=== PATIENT | female | born 1955 | race Caucasian/White ===

== ENCOUNTER → 2017-07-14 13:57 | Outpatient (CLI) | payer OTHER, SELFPAY ==
--- NOTE | 2017-07-14 14:07 | BI_ITS ---
MAMMOGRAPHY - BILATERAL DIAGNOSTIC REASON FOR EXAM: Female, 62 years old. Left breast larger than the right. Left axillary soreness. History of right breast lumps. PERTINENT HISTORY: Non-contributory. TECHNIQUE: Digital bilateral breast cristofer (3D mammographic acquisition) in the CC and MLO projections. 2-D mediolateral oblique (MLO) and craniocaudad (CC) views of both breasts were obtained. CAD: Full Field Digital Mammography with Computer Added Detection was performed. COMPARISON: Comparison is made with prior study dated August 13, 2016. FINDINGS: Breast Composition: There are scattered areas of fibroglandular density. There are no dominant masses or suspicious calcifications. There is a 2.7 mm x 2.3 mm nodule in the upper central portion of the right breast. This may present a small cyst. No other significant abnormalities are identified. There has been no significant change since the prior study. BI/DIAG MAMM W/CAD, BILAT IMPRESSION: Stable bilateral diagnostic mammogram. With the patient's history of a palpable abnormality in the right breast, correlation with ultrasound is recommended. ASSESSMENT CATEGORY: BIRADS Category 0: Incomplete. Need additional imaging evaluation. A letter regarding these results will be sent to the patient by the facility within 30 days. Approximately 10% of breast cancers are not detected by mammography. A normal mammogram should not delay biopsy of a clinically suspicious abnormality. Electronically Signed: Demetrio Johnson MD at 8:27 EDT Tel [phone], Service support ,
--- NOTE | 2017-07-14 15:01 | US_ITS ---
STUDY: ULTRASOUND BREAST - RIGHT REASON FOR EXAM: Female, 62 years old. Palpable lump in the right breast. TECHNIQUE: Axial and longitudinal images of the RIGHT breast were performed with a high resolution ultrasound transducer. COMPARISON: Comparison is made with prior mammogram done earlier in the day. FINDINGS: RIGHT Breast: The upper inner quadrant was examined by ultrasound. There is a homogeneous fibroglandular tissue. No solid or cystic mass lesion is seen. US/Breast Limited Unilateral IMPRESSION: Unremarkable sonogram of the upper inner quadrant of the right breast. ASSESSMENT CATEGORY: BIRADS Category 1: Negative. A letter regarding these results will be sent to the patient by the facility within 30 days. Electronically Signed: Demetrio Johnson MD at 15:41 EDT Tel [phone], Service support ,
== END ==
PROVIDERS: Family Provider Family Medicine; PCP Family Medicine; Visit Provider Family Medicine
DX: N63.0 Unspecified lump in unspecified breast (principal)
CPT/HCPCS: 76642; 77062; 77066; G0279

== ENCOUNTER → 2017-07-15 09:20 | Outpatient (CLI) | payer OTHER, SELFPAY ==
[2017-07-15 11:20] LABS: ALB/GLOB Ratio 1.1 RATIO (0.9-2.4); AST(SGOT) 13 U/L (15-37); Alanine Aminotransfer ALT/SGPT 17 U/L (13-56); Albumin, Serum 3.9 g/dL (3.2-5.0); Alkaline Phosphatase 96 U/L (45-117); Anion Gap 11 (5-15); BUN 18 mg/dL (7-18); BUN/Creat Ratio 23.6 RATIO (10-20); Calcium,Total 9.2 mg/dL (8.5-10.1); Chloride 101 mmol/L (98-107); Cholesterol 112 mg/dL (200); Creatinine, Serum 0.76 mg/dL (0.55-1.02); EST Glomerular Filtration Rate 81 mL/min (>60); Est Glom Filt Rate - Afr Amer 98 mL/min (>60); Globulin 3.4 g/dL (2.2-4.2); Glucose 134 mg/dL (74-106); High Density Lipoprotein 37 mg/dL; Potassium 4.1 mmol/L (3.5-5.1); Protein, Total 7.3 g/dL (6.4-8.2); Sodium Level 137 mmol/L (136-145); Thyroid Stim Hormone (TSH) 0.68 uIU/mL (0.358-3.74); Triglycerides 154 mg/dL; Very Low Density Lipoprotein 31 mg/dL (5-40)
[2017-07-16 10:33] LABS: Microalbumin,Random Urine 26.1 mg/L (NO RANGE EST.); Microalbumin:Creatinine Ratio 14.6 mg/g CRE (<30 mg/g CRE)
== END ==
LOC: MFPLAB 09:21
PROVIDERS: Family Provider Family Medicine; PCP Family Medicine; Visit Provider Family Medicine
DX: E03.9 Hypothyroidism, unspecified (principal); E78.5 Hyperlipidemia, unspecified; I10 Essential (primary) hypertension; E11.9 Type 2 diabetes mellitus without complications
CPT/HCPCS: 36415; 80053; 80061; 82043; 82570; 83036; 84443

== ENCOUNTER → 2017-07-16 09:24 | Outpatient (CLI) | payer OTHER, SELFPAY | PROVIDERS: Family Provider Family Medicine; PCP Family Medicine; Visit Provider Family Medicine | DX: R69 Illness, unspecified (principal) ==

== ENCOUNTER → 2017-10-29 11:19 | Outpatient (CLI) | payer OTHER, SELFPAY ==
--- NOTE | 2017-10-29 11:22 | RAD_ITS ---
STUDY: X-RAY - LEFT WRIST REASON FOR EXAM: Female, 62 years old. Pain and swelling after lifting weights. TECHNIQUE: History view(s) of the wrist were obtained. COMPARISON: None. FINDINGS: Normal visualized distal radius and ulna. Normal radiocarpal articulation. Normal distal radioulnar articulation. Normal carpal bones. Normal carpal articulations. Normal carpometacarpal articulation of the thumb. Normal second through fifth carpometacarpal articulations. Normal visualized metacarpal bones. No erosions. The soft tissue structures are unremarkable. RAD/Wrist min 3 Views IMPRESSION: Normal x-ray examination of the wrist. Electronically Signed: Coleman Whitehead MD at 8:09 EDT , Service support ,
== END ==
PROVIDERS: Family Provider Family Medicine; PCP Family Medicine; Visit Provider Family Medicine
DX: M25.532 Pain in left wrist (principal)
CPT/HCPCS: 73110

== ENCOUNTER → 2017-12-15 12:23 | Outpatient (CLI) | payer OTHER, SELFPAY ==
--- NOTE | 2017-12-15 12:27 | MRI_ITS ---
STUDY: MRI LEFT WRIST WITHOUT CONTRAST REASON FOR EXAM: Female, 62 years old. Wrist pain x6 weeks TECHNIQUE: Standardized fat and water weighted pulse sequences were obtained in all 3 orthogonal planes. COMPARISON: October 29, 2017. FINDINGS: Normal visualized distal ulna. Mild edema of the radial styloid, series 4 image 14/21. Normal distal radioulnar Articulation (DRUJ). Normal triangular fibrocartilaginous complex (TFCC). Normal carpal bones. Normal radiocarpal, intercarpal and midcarpal articulations. Normal pisotriquetral articulation. Normal visualized interosseous scapholunate ligament. Normal visualized dorsal (extrinsic) ligaments. Normal visualized volar (extrinsic) ligaments. Tenosynovitis of the extensor pollicis brevis and abductor pollicis longus with fluid in the sheath and thickening of the tendons, series 6 images through . Normal flexor tendons. Normal carpal tunnel with a normal median nerve. There is degenerative arthrosis of the carpometacarpal articulation of the thumb with mild radial subluxation of the first metacarpus. Normal second through fifth carpometacarpal articulations. Normal visualized metacarpal bones. MRI/Upper Ext Joint Only(Routine) IMPRESSION: De Quervain's tenosynovitis of the extensor pollicis brevis and abductor pollicis longus. Marrow edema with stress injury or bruising of the adjacent radial styloid. Electronically Signed: Efe Tejada MD at 11:15 EDT , Service support ,
== END ==
PROVIDERS: Family Provider Family Medicine; PCP Family Medicine; Visit Provider Family Medicine
DX: M25.532 Pain in left wrist (principal)
CPT/HCPCS: 73221

== ENCOUNTER 2018-01-13 09:00 | Outpatient (RCR) | payer OTHER, SELFPAY ==
--- NOTE | 2017-11-10 15:24 | HP.OTEVAL ---
Patient's Visit Information JAHAIRA STEVENS is a 62 year old F, referred to Occupational Therapy by Kannan Knowles, with a diagnosis of L wrist pain. Date of Evaluation: 11/10/17 Occupational Therapist: Karine Golden - Subjective Subjective: Pt. arrived noted that she ' woke up one morning and it hurt.' She noted its been ongoing for 3 weeks. 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 She noted she works out at [employer] and would like to get back. Also noted that she might have completed injury there but does not know what caused pain.x-rays completed and indicated no fx. Does have h/o osteoporosis and multiple fx as a result. - Pain Left Wrist 4 Pain Intensity Range: 2, 5 - ROM Wrist: flexion R 0-76, L 0-70; ext R 0-45, L 0-33 MP: WFL PIP: WFL DIP: WFL ROM Comments: rad dev R 0-10, L 0-4; ulnar dev R 0-30, L 0-16. sup R WNL, L 0-88 - Strength Joint Filler: R 53, L 14 Lateral Pinch: R 17, L 9 Tripod Pinch: R 18, L 10 Tip-to-Tip Pinch: R 12, L 10 - Edema Proximal Phalanx: MF R 7.3 cm, L 7.7 cm - Sensation Sensation Comments: notes some numbness off/on. 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 Goal:: Jahaira to increased L wrist ROM in pain free range to that within 5 degrees of R nonaffected hand by d/c. Goal:: Jahaira to have no more than 1-2/10 pain 4/5 trials 80% of the time to promote increased ability to return to PLOF by d/c. Goal:: Jahaira to be mod I to complete proper body mechanics of L wrist to decrease risk of further or reinjury 4/5 trials 80% of the time by d/c. Goal:: Jahaira to be (I) to complete all ADL/IALDs including yardwork 4/5 trials 80% of the time with minmal pain and good body mechanics to increased ability to return to PLOF by d/c. - Rehabilitation General Assessment: Jahaira arrived for OT evaluation on this day. She has h/o of osteoporsis. Pain started three weeks ago. She is unsure of caus eof pain. X-rays indicate no fracture. Increased symptoms of pain with movement especially radial and ulnar deviation and pro/supination. Strength limited on L UE at this time. Some numbness and tingling which was not there as per Pt. report prior to injury. OT to work on progress ROM, strength, and ability to return to PLOF with minimal pain and discomfort. Rehabilitation Potential: Good - Anticipated Interventions Anticipated Interventions: A/AAROM/PROM, Strengthening, Edema Control, Modalities, Orthoses, Joint Protection/Energy Conservation, Ergonomic Education, Fine Motor Coord/Nilson, ADL Training, Caregiver Training, Home Program - Visit Plan Frequency: 2x /Week Duration: 4 Weeks General Plan: OT to work on edema redurection, ergonomics of wrist, splint fabircation, strength, ROM, and abilityt o return to compelting all ADl/IADLs at PLOF. TEXT: Thank you for the opportunity to evaluate your patient. For Medicare and Medicare HMO plans, please review the plan of care and approve it. It will need to be FAXED BACK to us at [phone] for Medicare purposes. Please let me know if there are questions or concerns regarding this plan of care. Physician Signature: Date:
--- NOTE | 2017-11-21 14:25 | HP.OTREVAL ---
Kannan Knowles, It has been my pleasure to treat JAHAIRA STEVENS over the last 5 visits for L wrist pain. Please see the progress note below for an update on the occupational therapy plan of care! Subjective: Arrived and noted pain is significant. She noted that she gets sharp, very , very sharp pain all over wrist. She feels pain is bone related pain. She is unsure cause of injury. Objective/Function: Completed measurements on this date: ROM R hand WNL, L for wrist flexion R 0-36, ext R 0-36 degrees. Completed strength testing and is as follows: engineer byproduct R 57, L 32; lateral R 17, L 13; tripod R 16, L 8 lbs. She did test positive for Kaitlin with the potential of de quervains. However, due to increased pain dispersion over wrist and when palpated over carpal bones as well as PMHx would be beneficial for further testing. Plan Frequency: 2x /Week Duration: 4 Weeks Visits in this POC: 8 Plan: Will be holding treatment until going back to see Dr. Ratliff. Due to continued significant pain and history of osteoporosis it would be benefical and strongly recommended that further imaging, such as MRI, be completed. Provacative testing completed and kaitlin did test positive which is potentially indicative of De Quervains but due to increased pain t/o wrist and over miky prominences and around scaphoid futher testing needed to rule out any underlying fractures or soft tissue related damage. Goals - Goals Goal:: Jahaira to increase L engineer byproduct strength by 25 lbs to promote increased ability to complete B hand manipulation and coordiantion tasks 4/5 trials 80% of the time by d/c. Goal:: Jahaira to increased L wrist ROM in pain free range to that within 5 degrees of R nonaffected hand by d/c. Goal:: Jahaira to have no more than 1-2/10 pain 4/5 trials 80% of the time to promote increased ability to return to PLOF by d/c. Goal:: Jahaira to be mod I to complete proper body mechanics of L wrist to decrease risk of further or reinjury 4/5 trials 80% of the time by d/c. Goal:: Jahaira to be (I) to complete all ADL/IALDs including yardwork 4/5 trials 80% of the time with minmal pain and good body mechanics to increased ability to return to PLOF by d/c. Anticipated Interventions Anticipated Interventions: A/AAROM/PROM, Strengthening, Edema Control, Modalities, Orthoses, Joint Protection/Energy Conservation, Ergonomic Education, Fine Motor Coord/Nilson, ADL Training, Caregiver Training, Home Program Please do not hesitate to contact me at [phone] by phone or if you have questions or concerns regarding this new plan of care! Sincerely, Karine Golden
--- NOTE | 2018-01-08 10:22 | OTREVAL_ITS ---
Kannan Knowles, It has been my pleasure to treat JAHAIRA STEVENS over the last 8 visits for L wrist pain. Please see the progress note below for an update on the occupational therapy plan of care! Subjective: Arrived and noted that needed splint adjusted. Noted that since last time seen has gotten MRI and 2x cortisone injections. MRI confirmed De Quervians as well as some additional bone marrow narrowing. First cortisone injections 2x weeks ago and second one was Friday. Noted after first injection was 85% better and got second due to starting to have same edema and symptoms. 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 ROM measurements is as follows: Wrist. - flexion R WNL, L 0-20- until pain is significant and cannot move past position. - extension R WNL, L 0-30- pain significant with movement at 8/10. Thumb: -radial abduction R WNL, L 0-29. - MP flexion R WNL, L 0-35. IP flexion R WNL, L -14 (hyper ext)- 54. Pain is significant in resting position and increases with movement. Increased grimaces and pain behaviors with light touch to skin. Increased sensitivity over skin. Denies numbness and tingling. Plan Frequency: 2x /Week Duration: 4 Weeks Visits in this POC: 8 Plan: Continue POC. She is to come to therapy for 1x weekly appointments for next 6 weeks to try and manage pain and for splint adjustments. Insurance will renew at beginning of year and she would like to try and manage pain during the next couple of months. If pain persists it may be benefical to see hand specialist. 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 Goal:: Jahaira to increased L wrist ROM in pain free range to that within 5 degrees of R nonaffected hand by d/c. Goal:: Jahaira to have no more than 1-2/10 pain 4/5 trials 80% of the time to promote increased ability to return to PLOF by d/c. Goal:: Jahaira to be mod I to complete proper body mechanics of L wrist to decrease risk of further or reinjury 4/5 trials 80% of the time by d/c. Goal:: Jahaira to be (I) to complete all ADL/IALDs including yardwork 4/5 trials 80% of the time with minmal pain and good body mechanics to increased ability to return to PLOF by d/c. Anticipated Interventions Anticipated Interventions: A/AAROM/PROM, Strengthening, Edema Control, Modalities, Orthoses, Joint Protection/Energy Conservation, Ergonomic Education, Fine Motor Coord/Nilson, ADL Training, Caregiver Training, Home Program Please do not hesitate to contact me at [phone] by phone or if you have questions or concerns regarding this new plan of care! Sincerely, Karine Golden
--- NOTE | 2018-02-02 11:03 | HP.OT.NRP ---
HP - Discharge Summary - Patient Information VERO STEVENS was seen in my office for initial evaluation on 11/10/17. The following Plan of Care was established for this patient: Initial Frequency: 2x /Week Initial Duration: 4 Weeks Plan: continue POC. Looking into seeing a sspecialist. - Anticipated Interventions Anticipated Interventions: A/AAROM/PROM, Strengthening, Edema Control, Modalities, Orthoses, Joint Protection/Energy Conservation, Ergonomic Education, Fine Motor Coord/Nilson, ADL Training, Caregiver Training, Home Program This patient was last seen in our office 01/13/18. Pertinent comments regarding their Occupational therapy will appear below: Pt. was to continue treatment. Called and she noted she is doing better and will not be returning. She will be d/c'd at this time. At this point I will be discontinuing this patient from occupational therapy. I would be happy to see this patient again in the future if found appropriate by the physician. Thank you! Karine Golden
== END 2018-01-13 19:00 | disposition home or self-care (01) ==
LOC: OT 09:00
PROVIDERS: Family Provider Family Medicine; PCP Family Medicine; Visit Provider Family Medicine
DX: M25.532 Pain in left wrist (principal)
CPT/HCPCS: 97035; 97110; 97166; 97168; 97530; 97760; 97763

== ENCOUNTER → 2018-07-21 | Outpatient (CLI) | payer MEDICARE, SELFPAY ==
--- NOTE | 2018-07-21 07:34 | BI_ITS ---
MAMMOGRAPHY - BILATERAL SCREENING 3-D TOMOSYNTHESIS REASON FOR EXAM: Female, 63 years old. Bilateral Screening 3-D tomosynthesis PERTINENT HISTORY: No significant family history. TECHNIQUE: 2-D mammograms and 3-D Tomosynthesis of the breast (s) were performed. CAD was performed. COMPARISON: July 14, 2017. FINDINGS: The breast composition is composed of scattered fibroglandular density. Scattered benign calcifications are seen. No dense spiculated masses or suspicious microcalcifications are identified. No architectural distortion is identified. There is no skin thickening or retraction. There has been no significant change since the prior study. BI/SCREENING MAMM (CAD), BILAT IMPRESSION: No mammographic signs of malignancy. Routine yearly mammograms recommended. ASSESSMENT CATEGORY: BIRADS Category 1: Negative. A letter regarding these results will be sent to the patient by the facility within 30 days. FOLLOW UP RECOMMENDATION: Yearly follow up mammogram recommended. (A) Approximately 10% of breast cancers are not detected by mammography. A normal mammogram should not delay biopsy of a clinically suspicious abnormality. Electronically Signed: Blake Calles MD at 12:16 EDT , Service support ,
== END | disposition home or self-care (01) ==
LOC: OPBI 07:33
PROVIDERS: Family Provider Family Medicine; PCP Family Medicine; Referring Provider Family Medicine; Visit Provider Family Medicine
DX: Z12.31 Encounter for screening mammogram for malignant neoplasm of breast (principal); N63.0 Unspecified lump in unspecified breast
CPT/HCPCS: 77063; 77067

== ENCOUNTER → 2018-10-08 | Outpatient (CLI) | payer MEDICARE, SELFPAY ==
[2018-10-08 12:42] LABS: Absolute Lymphocyte Count 2.01 X10^3/ul (0.83-4.51); Absolute Neutrophil Count 4.7 X10^3/uL (2.0-7.7); Basophil# 0.01 X10^3/uL; Basophil% 0.1 % (0-1); Eosinophils% 1.4 % (0-5); Hematocrit 39.7 % (37-47); Hemoglobin 13.4 g/dl (12.0-15.0); Lymphocyte # 2.01 X10^3/ul (4.0); Lymphocyte % 27.2 % (19-41); Mean Corp Hgb Conc 33.8 g/gl (32-36); Mean Corpuscular Hgb 30.5 pg (27.0-32.0); Mean Corpuscular Volume 90.4 fL (81-99); Mean Platelet Vol. 10.1 fl (6.2-12.0); Monocyte# 0.53 X10^3/uL; Monocyte% 7.2 % (0-10); Neutrophil # 4.72 X10^3/uL (2.7-7.7); Neutrophil % 63.8 % (47-70); Platelet Count 290 K/mm3 (150-450); RBC Distribution Width CV 12.8 % (11.6-14.6); RBC Distribution Width SD 42.1 fl (35.1-43.9); Red Blood Count 4.39 M/mm3 (4.2-5.4); White Blood Count 7.4 K/mm3 (4.4-11.0)
[2018-10-08 12:58] LABS: POSITIVE COUNT NO; POSITIVE DIFFERENTIAL NO; POSITIVE MORPHOLOGY NO
[2018-10-08 13:03] LABS: ALB/GLOB Ratio 1.2 RATIO (0.9-2.4); AST(SGOT) 9 U/L (15-37); Alanine Aminotransfer ALT/SGPT 18 U/L (13-56); Albumin, Serum 3.9 g/dL (3.2-5.0); Alkaline Phosphatase 86 U/L (45-117); Anion Gap 6 (5-15); BUN 16 mg/dL (7-18); BUN/Creat Ratio 23.8 RATIO (10-20); Calcium,Total 9.1 mg/dL (8.5-10.1); Chloride 104 mmol/L (98-107); Creatinine, Serum 0.67 mg/dL (0.55-1.02); EST Glomerular Filtration Rate 94 mL/min (>60); Est Glom Filt Rate - Afr Amer 113 mL/min (>60); Globulin 3.2 g/dL (2.2-4.2); Glucose 114 mg/dL (74-106); Potassium 3.7 mmol/L (3.5-5.1); Protein, Total 7.1 g/dL (6.4-8.2); Sodium Level 137 mmol/L (136-145); Thyroid Stim Hormone (TSH) 0.66 uIU/mL (0.358-3.74)
== END | disposition home or self-care (01) ==
PROVIDERS: Family Provider Family Medicine; PCP Family Medicine; Referring Provider Family Medicine; Visit Provider Family Medicine
DX: R53.81 Other malaise (principal); R53.83 Other fatigue
CPT/HCPCS: 36415; 80053; 84443; 85025

== ENCOUNTER → 2018-11-02 | Outpatient (CLI) | payer MEDICARE, SELFPAY ==
--- NOTE | 2018-11-02 17:00 | STRESSREP ---
Stress Test Report Date: 11-02-18 Procedure: Exercise tolerance test/imaging study Indications: Shortness of breath/dyspnea; fatigue Consent: Per the patient Procedure: The patient exercised on a Satinder protocol for 6 minutes completing stage II achieving a peak heart rate of 142 bpm (91 % predicted maximal heart rate) with a peak blood pressure 202/60 mmHg and a peak MET capacity of 7 METs. The baseline ECG demonstrated normal sinus rhythm. The peak exercise ECG demonstrated somatic/motion artifact with no obvious ECG changes. There were no cardiac dysrhythmias pretest, during exercise, or recovery. The functional capacity was considered average. There was no complaint of chest discomfort during exercise or recovery. The examination was discontinued secondary to dyspnea. Impression: 1. Technically adequate (percent predicted maximal heart rate greater than 85%) exercise tolerance test 2. Peak exercise ECG with somatic/motion artifact with no obvious ECG changes 3. There were no cardiac dysrhythmias pretest, during exercise, or recovery 4. Nuclear images pending Myocardial perfusion imaging study: Technique: The patient was injected with 12.0 mCi of technetium 99m Cardiolite and subsequently rest SPECT Cardiolite nuclear imaging was obtained in the horizontal long, vertical long, and short axis views. The patient exercised on a Satinder protocol for 6 minutes completing stage II achieving a peak heart rate of 142 bpm (91 % predicted maximal heart rate) with a peak blood pressure 202/60 mmHg and a peak MET capacity of 7 METs. The patient was injected with 35.8 mCi of technetium 99m Cardiolite and subsequently stress SPECT Cardiolite nuclear imaging was obtained in the horizontal long, vertical long, and short axis views. A gated Cardiolite study at peak stress was obtained. Interpretation: Rest and stress SPECT Cardiolite nuclear imaging status post realignment, normalization, and attenuation correction, demonstrates the appearance of relative uniform tracer uptake and myocardial perfusion appearing within normal limits. There is end systolic thickening and brightening. The gated Cardiolite study demonstrates myocardial thickening and inward wall motion. The reported LVEF is 79 %. Impression: 1. Rest and stress SPECT Cardiolite nuclear imaging demonstrate relative uniform tracer uptake and myocardial perfusion appearing within normal limits. 2. The gated Cardiolite study reports an LVEF of 79 %. This note was generated with [employer] software. It may contain incorrect words, spelling, and punctuation that were not noted in checking the note before signing.
== END | disposition home or self-care (01) ==
LOC: CVS 06:25
PROVIDERS: Family Provider Family Medicine; PCP Family Medicine; Referring Provider Family Medicine; Visit Provider Family Medicine
DX: R06.02 Shortness of breath (principal); R68.89 Other general symptoms and signs
CPT/HCPCS: 78452; 93017; A9500; A4216

== ENCOUNTER → 2019-02-08 09:47 | Outpatient (CLI) | payer MEDICARE, SELFPAY ==
[2019-02-08 13:08] LABS: Anion Gap 11 (5-15); BUN 15 mg/dL (7-18); BUN/Creat Ratio 19.9 RATIO (10-20); Calcium,Total 9.4 mg/dL (8.5-10.1); Chloride 103 mmol/L (98-107); Cholesterol 125 mg/dL (200); Creatinine, Serum 0.76 mg/dL (0.55-1.02); EST Glomerular Filtration Rate 82 mL/min (>60); Est Glom Filt Rate - Afr Amer 99 mL/min (>60); Glucose 112 mg/dL (74-106); High Density Lipoprotein 42 mg/dL; Potassium 3.9 mmol/L (3.5-5.1); Sodium Level 141 mmol/L (136-145); Triglycerides 137 mg/dL; Very Low Density Lipoprotein 27 mg/dL (5-40)
== END ==
LOC: MFPLAB 09:47
PROVIDERS: Family Provider Family Medicine; PCP Family Medicine; Referring Provider Family Medicine; Visit Provider Family Medicine
DX: E11.9 Type 2 diabetes mellitus without complications (principal)
CPT/HCPCS: 36415; 80048; 80061

== ENCOUNTER → 2019-03-17 11:23 | Outpatient (CLI) | payer MEDICARE, SELFPAY ==
[2019-03-17 14:04] LABS: Absolute Lymphocyte Count 2.32 X10^3/uL (0.83-4.51); Absolute Neutrophil Count 6.9 X10^3/uL (2.0-7.7); Basophil# 0.02 X10^3/uL; Basophil% 0.2 % (0-1); Eosinophil# 0.08 X10^3/uL; Eosinophils% 0.8 % (0-5); Hematocrit 41.2 % (37-47); Hemoglobin 13.6 g/dL (12.0-15.0); Lymphocyte # 2.32 X10^3/ul (4.0); Lymphocyte % 23.3 % (19-41); Mean Corpuscular Hgb 30.8 pg (27.0-32.0); Mean Corpuscular Volume 93.2 fL (81-99); Mean Platelet Vol. 9.9 fl (6.2-12.0); Monocyte# 0.62 X10^3/uL; Monocyte% 6.2 % (0-10); NRBC Flagged by Analyzer 0 % (0-5); Neutrophil # 6.86 X10^3/uL (2.7-7.7); Neutrophil % 69.1 % (47-70); Platelet Count 313 K/mm3 (150-450); RBC Distribution Width CV 12.9 % (11.6-14.6); RBC Distribution Width SD 44.4 fl (35.1-43.9); Red Blood Count 4.42 M/mm3 (4.2-5.4); White Blood Count 9.9 K/mm3 (4.4-11.0)
[2019-03-17 14:16] LABS: ALB/GLOB Ratio 1.3 RATIO (0.9-2.4); AST(SGOT) 9 U/L (15-37); Alanine Aminotransfer ALT/SGPT 14 U/L (13-56); Albumin, Serum 4.1 g/dL (3.2-5.0); Alkaline Phosphatase 99 U/L (45-117); Anion Gap 6 (5-15); BUN 17 mg/dL (7-18); BUN/Creat Ratio 21.9 RATIO (10-20); Calcium,Total 9.5 mg/dL (8.5-10.1); Chloride 102 mmol/L (98-107); Creatinine, Serum 0.78 mg/dL (0.55-1.02); EST Glomerular Filtration Rate 79 mL/min (>60); Est Glom Filt Rate - Afr Amer 96 mL/min (>60); Globulin 3.1 g/dL (2.2-4.2); Glucose 107 mg/dL (74-106); Lipase 70 U/L (73-393); Potassium 3.9 mmol/L (3.5-5.1); Protein, Total 7.2 g/dL (6.4-8.2); Sodium Level 138 mmol/L (136-145)
== END ==
LOC: MFPLAB 11:24
PROVIDERS: Family Provider Family Medicine; PCP Family Medicine; Referring Provider Family Medicine; Visit Provider Family Medicine
DX: R10.13 Epigastric pain (principal)
CPT/HCPCS: 36415; 74177; 80053; 83690; 85025; Q9967; A4216

== ENCOUNTER → 2019-03-17 12:52 | Outpatient (CLI) | payer MEDICARE, SELFPAY ==
--- NOTE | 2019-03-17 12:55 | CT_ITS ---
STUDY: CT ABDOMEN AND PELVIS WITH CONTRAST REASON FOR EXAM: Female, 63 years old. Chronic epigastric pain. Diarrhea. RADIATION DOSAGE (If Supplied By Facility): CTDIvol = ( 18.95 ) mGy, DLP = ( 1042.75 ) mGycm TECHNIQUE: Transaxial images were obtained from the dome of the diaphragm to the symphysis pubis without oral contrast. 100 ML ISOVUE 370 was administered. Sagittal and coronal images were reconstructed. Individualized dose optimization techniques were used for this CT. COMPARISON: None. FINDINGS: The visualized lung bases are unremarkable. Coronary artery calcification. Calcification of the mitral valve annulus. There is decreased attenuation of the liver consistent with steatosis. Mild hepatomegaly. There are surgical clips in the gallbladder fossa consistent with a prior cholecystectomy. Normal spleen. Normal pancreas. Normal bilateral adrenal glands. Normal right kidney. Normal left kidney. Normal visualized stomach. Normal small intestine. There are multiple colonic diverticula consistent with diverticulosis. The appendix is visualized and appears normal. There is diffuse atherosclerotic calcification of the abdominal aorta, without a demonstrated aneurysm. Normal inferior vena cava. Normal retroperitoneum. Normal urinary bladder. Calcified fibroid uterus. Normal abdominal wall. There are degenerative changes of the visualized lumbar spine. CT/Abdomen/Pelvis WITH Contrast IMPRESSION: Mild hepatomegaly and fatty infiltration of the liver. Sigmoid diverticulosis. Calcified fibroid uterus. Electronically Signed: Demetrio Johnson, at 15:34 EST , Service support ,
== END ==
PROVIDERS: Family Provider Family Medicine; PCP Family Medicine; Referring Provider Family Medicine; Visit Provider Family Medicine
DX: R10.13 Epigastric pain (principal)
CPT/HCPCS: 74177; Q9967; A4216

== ENCOUNTER 2019-04-28 08:27 | Day surgery (SDC) | payer MEDICARE, SELFPAY ==
[2019-03-22 09:38] VITALS: BMI 31.5
--- NOTE | 2019-03-23 07:30 | HP_ITS ---
Intake Vital Signs 03/22/19 Height 5 ft 4.6 in 03/22/19 Weight: 187 lb 03/22/19 BMI 31.5 03/22/19 BP 120/74 03/22/19 Blood Pressure Location Rt brachial 03/22/19 Position Sitting 03/22/19 Respiration 18 03/22/19 Pulse 75 03/22/19 Pulse Source Monitor 03/22/19 Temp 98.1 F 03/22/19 Temp Source Oral 03/22/19 Pulse Oximetry (%) 94 03/22/19 Oxygen Delivery Method room air Intake Visit Reasons: MRI 03/17 [facility] Abd Pain & Change in bowel habits Chief Complaint: abdominal pain/diarrhea Window Draper Required: No Is patient in pain?: No Allergies Penicillins Allergy (Verified 03/22/19 09:39) Hives Medications levothyroxine 100 mcg capsule PO 04/07/17 [History Confirmed 03/22/19] lisinopril 10 mg-hydrochlorothiazide 12.5 mg tablet 1 tab PO BID 04/07/17 [History Confirmed 03/22/19] loratadine 10 mg tablet 10 mg PO QDAY 04/07/17 [History Confirmed 03/22/19] metformin 1,000 mg tablet 1,000 mg PO BID 04/07/17 [History Confirmed 03/22/19] simvastatin 80 mg tablet 80 mg PO QPM 04/07/17 [History Confirmed 03/22/19] cholecalciferol (vitamin D3) 1,000 unit capsule 5,000 unit PO ONCE cap 03/22/19 [History Confirmed 03/22/19] omeprazole 20 mg capsule,delayed release 20 mg PO DAILY cap 03/22/19 [History Confirmed 03/22/19] oxybutynin chloride 5 mg tablet 5 mg PO TID tab 03/22/19 [History Confirmed 03/22/19] [facility] Medical History (Updated 03/22/19 @ 09:32 by Kathryn Ayala) Abdominal pain (Acute) Arthritis (Acute) Diabetes (Acute) Diarrhea (Acute) GERD (gastroesophageal reflux disease) (Acute) History of change in bowel patterns (Acute) Hyperlipidemia (Acute) Hypothyroidism (acquired) (Acute) Mastalgia (Acute) HTN (hypertension) (Chronic) Surgical History (Updated 03/22/19 @ 09:35 by Kathryn Ayala) H/O colonoscopy (Acute) H/O total thyroidectomy (Acute) History of bilateral breast biopsy (Acute) History of laparoscopic cholecystectomy (Acute) History of salpingectomy (Acute) History of tubal ligation (Acute) Family History (Updated 03/22/19 @ 09:37 by Kathryn Ayala) Mother Arthritis Heart disease Osteoporosis Father Cancer Prostate Grandmother Diabetes Social History (Updated 03/23/19 @ 07:31 by Tiffany Gan MD) Smoking Status: Current every day smoker alcohol intake: never substance use type: does not use HPI HPI HPI: VERO STEVENS, is a 63 F who presents to the office today for HPI HPI Surgical H&P: Yes HPI: VERO STEVENS, is a 63 F who presents to the office today for constipation, diffuse abdominal pain. Patient states she has had issues for about 5 years. Has gotten worse over time. She states that she may go 5 days without having a bowel movement and then will have multiple episodes of diarrhea. Patient denies any blood in her stool. She does complain of some diffuse abdominal pain she had a CT abdomen pelvis which showed constipation throughout the colon on 03/17/2019 since then patient only has had a small bowel movement which she states was hard. Patient has not taken any laxatives did state that in the past she has tried a stool softener. Patient is unsure how much fiber she gets in her diet but does not think she gets enough. Patient only drinks about 3 glasses of water daily as well. Patient has been on omeprazole she thinks since 1999 1320 mg p.o. daily she still does have occasional GERD symptoms on that. Patient's last colonoscopy was in 2012 and was only able to get to the hepatic flexure due to patient discomfort, barium enema was ordered which was negative for any filling defects at that time. ROS General General: Yes fatigue; no weight change, colon cancer, breast cancer or weakness HEENT HEENT: No difficulty swallowing, eye injury, eye surgery, swollen glands or hoarseness Endo Endocrine: Yes thyroid disease and diabetes mellitus; no thyroid cancer, Hair loss, heat intolerance or cold intolerance Skin Skin: No rash or changing moles Breast Breast: No left breast lump, right breast lump, nipple discharge, breast pain, abnormal mammogram, abnormal US or breast enlargement Musc Musculoskeletal: Yes arthritis and rheumatoid arthritis; no back problems, gout or joint pain Cardio Cardiovascular: Yes high blood pressure; no murmur, pacemaker, heart disease, atrial fibrillation, heart attack, heart stent, palpitations, shortness of breat with exertion or chest pain Psych Psychiatric: No depression, anxiety or hearing voices Resp Respiratory: No shortness of breath, No sleep apnea, No cough, No COPD, No asthma, No emphysema, No wheezing Gastro Gastrointestinal: Yes abdominal pain, Yes nausea or vomiting, Yes diarrhea, Yes constipation, No blood in stool, No acid reflux, No hemorrhoids, No ulcers, No gallbladder problem, No black,tarry stools Blue Hematologic: No blood thinners, No blood disorders, No bleeding, No anemia, No blood clots Neuro Neurologic: No system reviewed and no additional complaints, except as docu, No as per HPI, No abnormal walking, No abnormal hearing, No abnormal movements, No abnormal speech, No behavioral changes, No burning sensations, No confusion, No seizure-like activity, No unsteadiness, No dizziness, No localized weakness, No frequent falls, No headache(s), No lack of coordination, No loss of vision, No memory loss, No numbness, No other visual disturbances, No radiating pain, No restless legs, No sensory deficit, No fainting, No tingling, No tremor(s), No weakness, No other Exam Const General: cooperative, comfortable, no acute distress Chest Breast Palpation: No nipple discharge Resp Effort & Inspection: normal respiratory effort Cardio Rate: regular rate Heart Sounds: no murmurs GI Inspection: non-distended Palpation: soft, no guarding, tender (Patient is mildly diffusely tender on exam, no peritoneal signs) Assessment & Plan Problems 1. Constipation K59.00 2. Gastroesophageal reflux disease K21.9 3. Abdominal pain, diffuse R10.84 Plan Patient's CAT scan from 03/17/2019 did show constipation throughout the entire colon. Patient states she has not even really gone since the CAT scan and has diffuse abdominal pain. Patient states she goes maybe once every 5 days and then she will have diarrhea afterwards. Will try to increase patient's fiber as well as water intake. Did instruct patient take some Dulcolax tabs to today followed by half bottle magnesium citrate wait 3 hours to drink the other half bottle of magnesium citrate. Also discussed the importance of fiber in patient's diet recommend 25 g fiber daily. Also recommended fiber Gummies 2 Gummies equal 5 g. Did also give patient a sheet of high-fiber foods. I have discussed the above with the patient. I have offered the patient EGD and colonoscopy for evaluation. I have explained the risks/benefits of the procedure and described the procedure. I have discussed the risks with the patient, including but not limited to: infection, bleeding, perforation of the GI tract requiring emergency surgery, inability to complete the procedure, injury to any internal organs, complications of anesthesia, etc. - the patient understands and agrees to proceed. I have answered all the patient's questions to the patient's satisfaction and the patient has no further questions. The patient has been given instructions for the colon cleansing preparation. 2- day of clears, magnesium citrate for Padma MiraLAX Dulcolax the second day. Tiffany Gan M.D. Pager: [phone] [facility] [address] [place] [address], [address] [place] [address] Office: [phone] Orders Orders: Colonoscopy Today EGD Today Plan Detail Follow Up We will schedule EGD and colonoscopy Coding Level of Care Code Off vis,est,level 3 Diagnoses Constipation K59.00 Gastroesophageal reflux disease K21.9 Abdominal pain, diffuse R10.84 03/23/19 0731 <Electronically signed by Tiffany Zamora am, MD> Date _ Tiffany Gan MD
[2019-04-28] VITALS (7 sets, daily range): BP systolic 117–174; BP diastolic 55–95; PULSE 72–86; RESP 16; TEMP 36.1–36.8; O2SAT 95–98; BMI 31.5
--- NOTE | 2019-04-28 08:46 | PCM.HP.STD ---
History of Present Illness Date of Admission: 04/28/19 The patient is a 63 year old F sent for colonoscopy as well as EGD due to constipation diffuse abdominal pain and reflux. Patient states she has been getting her 25 g of fiber since her office visit in February. She has bowel movements about every 3 days but still occasionally needs to take stool softeners or laxative. Patient is on 20 mg of omeprazole daily but does occasionally have reflux symptoms. Patient's last colonoscopy was in 2012 only able to get to the hepatic flexure due to patient discomfort a barium enema was ordered and negative for any filling defects at that time. Patient denies any family history of colon cancer. Past Medical History Medical History: Medical History (Last Updated 03/22/19 @ 09:32 by Kathryn Ayala) Abdominal pain R10.9 Arthritis M19.90 Diabetes E11.9 Diarrhea R19.7 GERD (gastroesophageal reflux disease) K21.9 History of change in bowel patterns Hyperlipidemia E78.5 Hypothyroidism (acquired) E03.9 Mastalgia N64.4 HTN (hypertension) I10 Allergies Penicillins Allergy (Verified 04/01/19 10:42) Hives Home Medications: Ambulatory Orders Medication Instructions Recorded levothyroxine 100 mcg capsule 100 mcg PO DAILY 04/07/17 lisinopril 10 1 tab PO BID 04/07/17 mg-hydrochlorothiazide 12.5 mg tablet loratadine 10 mg tablet 10 mg PO QDAY 04/07/17 metformin 1,000 mg tablet 1,000 mg PO BID 04/07/17 simvastatin 80 mg tablet 80 mg PO QPM 04/07/17 cholecalciferol (vitamin D3) 25 5,000 unit PO DAILY cap 03/22/19 mcg (1,000 unit) capsule omeprazole 20 mg capsule,delayed 20 mg PO DAILY cap 03/22/19 release oxybutynin chloride 5 mg tablet 5 mg PO TID tab 03/22/19 Surgical History: Surgical History (Last Updated 03/22/19 @ 09:35 by Kathryn Ayala) H/O colonoscopy Z98.890 H/O total thyroidectomy E89.0 History of bilateral breast biopsy Z98.890 History of laparoscopic cholecystectomy Z98.890, Z90.49 History of salpingectomy Z98.890, Z90.79 History of tubal ligation Z98.51 Surgical History: - - See above Psychiatric History: No pertinent psych hx Smoking Status: Current every day smoker Tobacco Use: Cigarettes - *Family History Maternal Family History: Family History (Last Updated 03/22/19 @ 09:37 by Kathryn Ayala) Mother Arthritis Heart disease Osteoporosis Father Cancer Grandmother Diabetes History Items: No pertinent history VTE Information - Inpt Only VTE Present on Admission: Yes VTE Mechan Device Prophylaxis: SCD's - Physical Exam Vitals/I&O's: Body Mass Index (BMI) 31.5 Assessment/Plan 63-year-old female with diffuse abdominal pain, constipation, reflux Patient states she has had's bowel movements about every 3 days with the 25 g of fiber daily also recommended she can take a stool softener daily I have discussed the above with the patient. I have offered the patient EGD and colonoscopy for evaluation. I have explained the risks/benefits of the procedure and described the procedure. I have discussed the risks with the patient, including but not limited to: infection, bleeding, perforation of the GI tract requiring emergency surgery, inability to complete the procedure, injury to any internal organs, complications of anesthesia, etc. - the patient understands and agrees to proceed. I have answered all the patient's questions to the patient's satisfaction and the patient has no further questions. The patient has been given instructions for the colon cleansing preparation. Tiffany Gan M.D. Pager: [phone] [facility] [address] [place] [address], [address] [place] [id number] Office: [phone]
[2019-04-28] MEDS: Lactated Ringers 1,000 ML 100 ML IV (08:49)
--- NOTE | 2019-04-28 09:30 | IMM_PTH ---
PATIENT: VERO STEVENS LOC: EN U#:[id number] AGE/SX: 63/F ROOM: RE04/28/[address]: Dr. Tiffany Gan MD : 1955 BED: DIS: 04/28/2019 SPEC #: [id number] RECD: 04/28/19 14:27 STATUS: CLAIRE REQ #: [id number] MARIA ALEJANDRA: 04/28/19 09:[address]: Tiffany Gan DEPT: IMMUNOHISTOCHEMISTRY RECD BY: Gracia Kahn ENTERED: 04/28/19 14:27 SP TYPE: IMMUNO OTHR DR: Dr. Kannan Knowles MD Tissues: A - Stomach, NOS Procedures: H Pylori (initial) PHYSICIAN & INSTITUTION [place] [id number] SPECIMEN INFORMATION: Tissue Source: A - Antrum biopsy Clinical Info: Constipation, abdomen pain, reflux Specimen Number: [id number] CPT code: 34899 METHODOLOGY: Deparaffinized sections of prefer/formalin-fixed tissue or PAP/DQ stained slides are incubated with monoclonal/polyclonal antibodies/oligonucleotide probes. Localization is made via biotin free immunoperoxidase method. Appropriate controls are performed and reacted as expected. Results on target cell population are indicated in the following table: RESULTS: ANTIBODY / CLONE RESULT Block A H Pylori (polyclonal) negative These tests were developed and their performance characteristics determined by [facility]. They may not have been cleared or approved by the U.S. Food and Drug Administration. The FDA has determined that such clearance or approval is not necessary. INTERPRETATION: A. Antrum biopsy: Negative for Helicobacter pylori organisms. SJ:katherine 04/29/19
--- NOTE | 2019-04-28 09:30 | EGD_PTH ---
PATIENT: VERO STEVENS LOC: EN U#:[id number] AGE/SX: 63/F ROOM: RE04/28/[address]: Dr. Tiffany Gan MD : 1955 BED: DIS: 04/28/2019 SPEC #: [id number] RECD: 04/28/19 12:33 STATUS: CLAIRE PATRICIA #: [id number] MARIA ALEJANDRA: 04/28/19 09:[address]: Tiffany Gan DEPT: SURGICAL PATHOLOGY RECD BY: Arnoldo Julio ENTERED: 04/28/19 13:34 SP TYPE: EGD BIOPSY OTHR DR: Dr. Kannan Knowles MD Tissues: A - Gastric mucous membrane B - Gastric mucous membrane C - Esophageal mucous membrane D - Ascending colon E - Descending colon F - Sigmoid colon biopsy G - Sigmoid colon biopsy H - Rectum, NOS Procedures: PAS Fungus (control) Special Stain Group II Special Stain Group I Surgery Specimen Level IV Alcian Blue/PAS (control) HEADER OPERATION: Colonoscopy, EGD ([facility] [place]) PRE-OP DIAGNOSIS: Constipation, abdomen pain, reflux TISSUE SUBMITTED: A - Antrum biopsy for histo and H. pylori, B - GE junction biopsy, C - Distal esophageal biopsy, rule out Kathy, D - Ascending colon polyp, E - Descending colon polyp, F - Sigmoid polyp #1, G - Sigmoid polyp #2, H - Rectal polyp MICROSCOPIC DIAGNOSIS A. Antrum biopsy: Mild gastritis. See microscopic description and comment. B. GE junction, biopsy: Fragments of gastroesophageal mucosa with chronic inflammation. Intestinal metaplasia (goblet cell metaplasia) is not identified.. See comment. C. Distal esophagus, biopsy: Fragments of gastroesophageal mucosa with mild chronic inflammation. Intestinal metaplasia (goblet cell metaplasia) is not identified. Special stain for fungi is negative for organisms; matched control is appropriate. See comment. D. Ascending colon polyp, biopsy: Fragments of tubular adenoma. E. Descending colon polyp, biopsy: Tubular adenoma. Fragments of fecal material. F. Sigmoid polyp #1, biopsy: Hyperplastic polyp. G. Sigmoid polyp #2, biopsy: A cauterized fragment of benign colonic mucosa. H. Rectal polyp, biopsy: Serrated adenoma (mixed tubular adenoma and hyperplastic polyp). SJ:katherine 04/29/19 COMMENT A. The results of immunohistochemistry for Helicobacter pylori will be reported separately ([id number]). B. Alcian blue/PAS stain with matched control is used in the evaluation of the specimen. C. Alcian blue/PAS stain with matched control is used in the evaluation of the specimen. MICROSCOPIC DESCRIPTION Slides are reviewed. A. The specimen shows fragments of gastric mucosa with chronic inflammatory cell infiltrates in the lamina propria consisting of lymphocytes and plasma cells, consistent with mild chronic gastritis. Focal mucosal congestion is also noted. GROSS DESCRIPTION A - Received in fixative is one container labeled with the patient's name and designated antrum biopsy. The specimen consists of one irregular fragment of light quinones soft tissue that measures 0.4 x 0.3 x 0.1 cm. The specimen is totally submitted in one cassette. B - Received in fixative is one container labeled with the patient's name and designated GE junction biopsy. The specimen consists of two irregular fragments of light quinones soft tissue that in aggregate measure 0.4 x 0.2 x 0.1 cm. The specimen is totally submitted in one cassette. C - Received in fixative is one container labeled with the patient's name and designated distal esophageal biopsy. The specimen consists of multiple irregular fragments of light quinones soft tissue that in aggregate measure 1.5 x 0.3 x 0.1 cm. The specimen is totally submitted in one cassette. D - Received in fixative is one container labeled with the patient's name and designated ascending polyp. The specimen consists of multiple irregular fragments of light quinones soft tissue that in aggregate measure 0.6 x 0.6 x 0.1 cm. The specimen is totally submitted in one cassette. E - Received in fixative is one container labeled with the patient's name and designated descending polyp. The specimen consists of one irregular fragment of light quinones soft tissue that measures 0.4 x 0.3 x 0.1 cm. Multiple fragments of fecal material are also noted. The entire specimen is submitted in one cassette. F - Received in fixative is one container labeled with the patient's name and designated sigmoid polyp #1. The specimen consists of a piece of quinones-pink polyp measuring 0.6 x 0.5 x 0.3 cm. The specimen is totally submitted in one cassette. G - Received in fixative is one container labeled with the patient's name and designated sigmoid polyp #2. The specimen consists of one irregular fragment of light quinones soft tissue that measures 0.3 x 0.3 x 0.1 cm. The specimen is totally submitted in one cassette. H - Received in fixative is one container labeled with the patient's name and designated rectal polyp. The specimen consists of a piece of quinones-pink polyp measuring 0.7 x 0.5 x 0.3 cm. The specimen is totally submitted in one cassette. / JOS:katherine 04/28/19 TC:1 CPT: 26399 x8, 99802 x2, 17478
[2019-04-28 09:31] LABS: Bedside Glucose 161 mg/dL (70-110)
--- NOTE | 2019-04-28 10:45 | OP.CCLET_ITS ---
04/28/2019 Kannan Knowles MD [address] [place] [id number] Re : Upper GI endoscopy procedure for Jahaira Booth Dear Dr. Knowles This procedure was performed on Sunday, April 28, 2019. My impressions and recommendations are as follows: Impressions : - Z-line irregular, 45 cm from the incisors. - White nummular lesions in esophageal mucosa. Biopsied. - Erythematous mucosa in the antrum. Biopsied. - Normal examined duodenum. Recommendations : - Discharge patient to home. - Resume previous diet. - Continue present medications. - Use Protonix (pantoprazole) 40 mg PO daily. My findings are described in the full procedure note, which is enclosed. If I can be of further assistance, please feel free to contact me at Doctor phone number(s): , Work: . Sincerely, MD Tiffany Nieves MD 04/28/2019 10:44:41 AM This report has been signed electronically.
--- NOTE | 2019-04-28 10:45 | OP.EGD_ITS ---
Patient Name: Jahaira Booth Procedure Date: 04/28/2019 9:18 AM Date of : 1955 Age: 63 Procedure: Upper GI endoscopy Indications: Follow-up of esophageal reflux Providers: Tiffany Gan MD Referring MD: Kannan Knowles MD Medicines: Monitored Anesthesia Care Patient Profile: This is a 63 year old female. Complications: No immediate complications. Procedure: Pre-Anesthesia Assessment: - Prior to the procedure, a History and Physical was performed, and patient medications and allergies were reviewed. The patient's tolerance of previous anesthesia was also reviewed. The risks and benefits of the procedure and the sedation options and risks were discussed with the patient. All questions were answered, and informed consent was obtained. Prior Anticoagulants: The patient has taken no previous anticoagulant or antiplatelet agents. ASA Grade Assessment: II - A patient with mild systemic disease. After reviewing the risks and benefits, the patient was deemed in satisfactory condition to undergo the procedure. After obtaining informed consent, the endoscope was passed under direct vision. Throughout the procedure, the patient's blood pressure, pulse, and oxygen saturations were monitored continuously. The gastroscope was introduced through the mouth, and advanced to the second part of duodenum. The upper GI endoscopy was accomplished without difficulty. The patient tolerated the procedure well. Scope In: 9:37:45 AM Scope Out: 9:44:38 AM Total Procedure Duration Time 0 hours 6 minutes 53 seconds Findings: The Z-line was irregular and was found 45 cm from the incisors. White nummular lesions were noted in the lower third of the esophagus. Biopsies were taken with a cold forceps for histology. Mildly erythematous mucosa without bleeding was found in the gastric antrum. Biopsies were taken with a cold forceps for histology. Biopsies were taken with a cold forceps for Helicobacter pylori cultures. The examined duodenum was normal. The cardia and gastric fundus were normal on retroflexion. Impression: - Z-line irregular, 45 cm from the incisors. - White nummular lesions in esophageal mucosa. Biopsied. - Erythematous mucosa in the antrum. Biopsied. - Normal examined duodenum. Recommendation: - Discharge patient to home. - Resume previous diet. - Continue present medications. - Use Protonix (pantoprazole) 40 mg PO daily. Procedure Code(s): --- Professional --- 66700, Esophagogastroduodenoscopy, flexible, transoral; with biopsy, single or multiple Diagnosis Code(s): --- Professional --- K22.8, Other specified diseases of esophagus K31.89, Other diseases of stomach and duodenum K21.9, Gastro-esophageal reflux disease without esophagitis CPT copyright 2017 [employer]. All rights reserved. The codes documented in this report are preliminary and upon safety pin assembling machine operator review may be revised to meet current compliance requirements. MD Tiffany Nieves MD 04/28/2019 10:44:41 AM This report has been signed electronically. Number of Addenda: 0 Note Initiated On: 04/28/2019 9:18 AM
--- NOTE | 2019-04-28 10:50 | OP.COLON_ITS ---
Patient Name: Jahaira Booth Procedure Date: 04/28/2019 9:44 AM Date of : 1955 Age: 63 Procedure: Colonoscopy Indications: Screening for colorectal malignant neoplasm Providers: Tiffany Gan MD Referring MD: Kannan Knowles MD Medicines: Monitored Anesthesia Care Patient Profile: This is a 63 year old female. Last Colonoscopy: unable to complete in 2012 due to discomfort at hepatic flexure- BE was negative. Complications: No immediate complications. Procedure: Pre-Anesthesia Assessment: - Prior to the procedure, a History and Physical was performed, and patient medications and allergies were reviewed. The patient's tolerance of previous anesthesia was also reviewed. The risks and benefits of the procedure and the sedation options and risks were discussed with the patient. All questions were answered, and informed consent was obtained. Prior Anticoagulants: The patient has taken no previous anticoagulant or antiplatelet agents. ASA Grade Assessment: II - A patient with mild systemic disease. After reviewing the risks and benefits, the patient was deemed in satisfactory condition to undergo the procedure. After I obtained informed consent, the scope was passed under direct vision. Throughout the procedure, the patient's blood pressure, pulse, and oxygen saturations were monitored continuously. The Colonoscope was introduced through the anus and advanced to the cecum, identified by the appendiceal orifice, ileocecal valve and palpation. The colonoscopy was technically difficult and complex due to a tortuous colon. Successful completion of the procedure was aided by changing the patient to a supine position. The patient tolerated the procedure well. The quality of the bowel preparation was good. Scope In: 9:47:58 AM Scope Withdrawal Time 0 hours 24 minutes 11 seconds Scope Out: 10:31:47 AM Total Procedure Duration Time 0 hours 43 minutes 49 seconds Findings: Hemorrhoids were found on perianal exam. Five semi-pedunculated polyps were found in the rectum, sigmoid colon, descending colon and ascending colon. The polyps were 4 to 6 mm in size. These polyps were removed with a hot snare. Resection and retrieval were complete. Internal hemorrhoids were found. The hemorrhoids were Grade I (internal hemorrhoids that do not prolapse). Multiple small-mouthed diverticula were found in the sigmoid colon. The exam was otherwise without abnormality. Impression: - Hemorrhoids found on perianal exam. - Five 4 to 6 mm polyps in the rectum, in the sigmoid colon, in the descending colon and in the ascending colon, removed with a hot snare. Resected and retrieved. - Internal hemorrhoids. - Diverticulosis in the sigmoid colon. - The examination was otherwise normal. Recommendation: - Discharge patient to home. - High fiber diet. - Continue present medications. - Await pathology results. - Repeat colonoscopy in 3 years for surveillance based on pathology results. Procedure Code(s): --- Professional --- 61345, Colonoscopy, flexible; with removal of tumor(s), polyp(s), or other lesion(s) by snare technique Diagnosis Code(s): --- Professional --- Z12.11, Encounter for screening for malignant neoplasm of colon K64.0, First degree hemorrhoids K62.1, Rectal polyp D12.5, Benign neoplasm of sigmoid colon D12.4, Benign neoplasm of descending colon D12.2, Benign neoplasm of ascending colon K57.30, Diverticulosis of large intestine without perforation or abscess without bleeding CPT copyright 2017 [employer]. All rights reserved. The codes documented in this report are preliminary and upon hospice massage therapist review may be revised to meet current compliance requirements. MD Tiffany Nieves MD 04/28/2019 10:50:34 AM This report has been signed electronically. Number of Addenda: 0 Note Initiated On: 04/28/2019 9:44 AM
--- NOTE | 2019-04-28 10:50 | OP.CCLET_ITS ---
04/28/2019 Kannan Knowles MD [address] [phone] Re : Colonoscopy procedure for Jahaira Booth Dear Dr. Knowles This procedure was performed on Sunday, April 28, 2019. My impressions and recommendations are as follows: Impressions : - Hemorrhoids found on perianal exam. - Five 4 to 6 mm polyps in the rectum, in the sigmoid colon, in the descending colon and in the ascending colon, removed with a hot snare. Resected and retrieved. - Internal hemorrhoids. - Diverticulosis in the sigmoid colon. - The examination was otherwise normal. Recommendations : - Discharge patient to home. - High fiber diet. - Continue present medications. - Await pathology results. - Repeat colonoscopy in 3 years for surveillance based on pathology results. My findings are described in the full procedure note, which is enclosed. If I can be of further assistance, please feel free to contact me at Doctor phone number(s): , Work: . Sincerely, MD Tiffany Nieves MD 04/28/2019 10:50:34 AM This report has been signed electronically.
== END 2019-04-28 11:29 | disposition home or self-care (01) ==
LOC: EN 08:29 → AC 08:31
PROVIDERS: Family Provider Family Medicine; PCP Family Medicine; Referring Provider Family Medicine; Visit Provider Surgery
PROC: 0DJD8ZZ Inspection of Lower Intestinal Tract, Via Natural or Artificial Opening Endoscopic (ICD-10-PCS; CPT 45378; principal; 2019-04-28 09:25)
DX: Z12.11 Encounter for screening for malignant neoplasm of colon (principal); D12.2 Benign neoplasm of ascending colon; D12.4 Benign neoplasm of descending colon; K63.5 Polyp of colon; K62.1 Rectal polyp; K57.30 Diverticulosis of large intestine without perforation or abscess without bleeding; K64.0 First degree hemorrhoids; K29.70 Gastritis, unspecified, without bleeding; K21.9 Gastro-esophageal reflux disease without esophagitis; I10 Essential (primary) hypertension; M19.90 Unspecified osteoarthritis, unspecified site; E11.9 Type 2 diabetes mellitus without complications; E03.9 Hypothyroidism, unspecified; E78.00 Pure hypercholesterolemia, unspecified; Z87.19 Personal history of other diseases of the digestive system; Z78.0 Asymptomatic menopausal state; Z90.49 Acquired absence of other specified parts of digestive tract; Z79.84 Long term (current) use of oral hypoglycemic drugs; Z79.899 Other long term (current) drug therapy; F17.210 Nicotine dependence, cigarettes, uncomplicated
CPT/HCPCS: 43239; 45385; 82962; 88305; 88312; 88313; 88342; J7120; J2405

== ENCOUNTER → 2019-05-04 12:11 | Outpatient (CLI) | payer MEDICARE, SELFPAY ==
[2019-04-28 08:51] VITALS: BMI 31.5
[2019-05-04 14:01] LABS: Absolute Lymphocyte Count 2.03 X10^3/uL (0.83-4.51); Absolute Neutrophil Count 5.6 X10^3/uL (2.0-7.7); Basophil# 0.02 X10^3/uL; Basophil% 0.2 % (0-1); Eosinophil# 0.07 X10^3/uL; Eosinophils% 0.9 % (0-5); Hemoglobin 12.7 g/dL (12.0-15.0); Lymphocyte # 2.03 X10^3/ul (4.0); Lymphocyte % 24.7 % (19-41); Mean Corp Hgb Conc 33.4 g/dL (32-36); Mean Corpuscular Hgb 30.7 pg (27.0-32.0); Mean Corpuscular Volume 91.8 fL (81-99); Mean Platelet Vol. 9.9 fl (6.2-12.0); Monocyte# 0.52 X10^3/uL; Monocyte% 6.3 % (0-10); NRBC Flagged by Analyzer 0 % (0-5); Neutrophil # 5.57 X10^3/uL (2.7-7.7); Neutrophil % 67.7 % (47-70); Platelet Count 313 K/mm3 (150-450); RBC Distribution Width CV 12.7 % (11.6-14.6); RBC Distribution Width SD 42.1 fl (35.1-43.9); Red Blood Count 4.14 M/mm3 (4.2-5.4); White Blood Count 8.2 K/mm3 (4.4-11.0)
[2019-05-04 14:17] LABS: ALB/GLOB Ratio 1.1 RATIO (0.9-2.4); AST(SGOT) 9 U/L (15-37); Alanine Aminotransfer ALT/SGPT 15 U/L (13-56); Albumin, Serum 3.8 g/dL (3.2-5.0); Alkaline Phosphatase 89 U/L (45-117); Anion Gap 8 (5-15); BUN 15 mg/dL (7-18); BUN/Creat Ratio 20.1 RATIO (10-20); Calcium,Total 9.9 mg/dL (8.5-10.1); Chloride 104 mmol/L (98-107); Creatinine, Serum 0.75 mg/dL (0.55-1.02); EST Glomerular Filtration Rate 83 mL/min (>60); Est Glom Filt Rate - Afr Amer 100 mL/min (>60); Globulin 3.4 g/dL (2.2-4.2); Glucose 132 mg/dL (74-106); Potassium 3.6 mmol/L (3.5-5.1); Protein, Total 7.2 g/dL (6.4-8.2); Sodium Level 138 mmol/L (136-145)
== END ==
PROVIDERS: Family Medicine; PCP Family Medicine; Referring Provider Family Medicine; Visit Provider Family Medicine
DX: R10.9 Unspecified abdominal pain (principal); R19.7 Diarrhea, unspecified
CPT/HCPCS: 36415; 80053; 85025

== ENCOUNTER → 2019-09-14 17:00 | Outpatient (CLI) | payer MEDICARE, SELFPAY ==
[2019-04-28 08:51] VITALS: BMI 31.5
--- NOTE | 2019-09-14 16:52 | BI_ITS ---
MAMMOGRAPHY - BILATERAL SCREENING REASON FOR EXAM: Female, 64 years old. Routine annual screening examination. PERTINENT HISTORY: Non-contributory. TECHNIQUE: Digital bilateral breast jazmine (3D mammographic acquisition) in the CC and MLO projections. 2-D mediolateral oblique (MLO) and craniocaudad (CC) views of both breasts were obtained. CAD: Full Field Digital Mammography with Computer Added Detection was performed. COMPARISON: Comparison is made with prior study dated July 21, 2018 and July 14, 2017. FINDINGS: Breast Composition: There are scattered areas of fibroglandular density. There are no dominant masses or suspicious calcifications. Stable benign-appearing bilateral axillary lymph nodes. Stable 4.4 mm x 2.4 mm well-defined nodule in the upper slightly lateral aspect of the right breast. Correlation with ultrasound is recommended for further evaluation. No other significant abnormalities are identified. There has been no significant change since the prior study. BI/SCREEN MAMM (CAD) W/JAZMINE BILAT IMPRESSION: Stable bilateral screening mammogram. Sonographic correlation for a 4 mm x 2.4 mm well-defined nodule in the upper slightly lateral aspect of the right breast. ASSESSMENT CATEGORY: BIRADS Category 0: Incomplete. Need additional imaging evaluation. A letter regarding these results will be sent to the patient by the facility within 30 days. Approximately 10% of breast cancers are not detected by mammography. A normal mammogram should not delay biopsy of a clinically suspicious abnormality. [id number] Electronically Signed: Demetrio Johnson, at 8:50 EDT , Service support ,
== END ==
PROVIDERS: PCP Family Medicine; Referring Provider Family Medicine; Visit Provider Family Medicine
DX: Z12.31 Encounter for screening mammogram for malignant neoplasm of breast (principal)
CPT/HCPCS: 77063; 77067

== ENCOUNTER → 2019-09-16 09:25 | Outpatient (CLI) | payer MEDICARE, MEDICAID, SELFPAY ==
[2019-04-28 08:51] VITALS: BMI 31.5
--- NOTE | 2019-09-16 09:27 | US_ITS ---
STUDY: ULTRASOUND BREAST - RIGHT REASON FOR EXAM: Female, 64 years old. Abnormal screening mammogram. TECHNIQUE: Axial and longitudinal images of the RIGHT breast were performed with a high resolution ultrasound transducer. # OF IMAGES: 79 COMPARISON: Comparison is made with prior mammogram dated September 14, 2019 and prior ultrasound of the right breast dated July 14, 2017. FINDINGS: RIGHT Breast: The mammographic abnormality corresponds to a 4 mm x 4 mm x 4 mm hypoechoic well-defined nodule at the 11:00 position of the breast at 5 cm from the nipple. This is not a typical cyst. A biopsy is recommended for further evaluation. US/Breast Limited Unilateral IMPRESSION: The mammographic abnormality corresponds to a 4 mm x 4 mm x 4 mm well-defined hypoechoic nodule at the 11:00 position of the breast at 5 cm from nipple. A biopsy is recommended for further evaluation. ASSESSMENT CATEGORY: BIRADS Category 4: Suspicious - Biopsy Should Be Considered. A letter regarding these results will be sent to the patient by the facility within 30 days. Electronically Signed: Demetrio Johnson, at 11:07 EDT , Service support ,
== END ==
PROVIDERS: PCP Family Medicine; Referring Provider Family Medicine; Visit Provider Family Medicine
DX: R92.2 Inconclusive mammogram (principal)
CPT/HCPCS: 76642

== ENCOUNTER → 2019-09-27 12:49 | Outpatient (CLI) | payer MEDICARE, MEDICAID, SELFPAY ==
[2019-09-20 14:23] VITALS: BMI 31.4
--- NOTE | 2019-09-27 | IMM_PTH ---
PATIENT: VERO STEVENS LOC: [facility] U#:[id number] AGE/SX: 69/F ROOM: RE09/27/[address]: Dr. Tiffany Gan MD : 1955 BED: DIS: SPEC #: [id number] RECD: 09/29/19 13:35 STATUS: CLAIRE REQ #: [id number] MARIA ALEJANDRA: 09/27/19 00:[address]: Tiffany Gan DEPT: IMMUNOHISTOCHEMISTRY RECD BY: Gracia Kahn ENTERED: 09/29/19 13:37 SP TYPE: IMMUNO OTHR DR: Dr. Kannan Knowles MD Tissues: Right breast, NOS Procedures: CALPONIN-1 (add) CK5-6 (add) CK8 (add) E-CAD (add) HER2 IRIS (add) KI-67 (add) P53 (add) NE (add) P40 (add) ER (initial) PHYSICIAN & INSTITUTION [place] [phone] SPECIMEN INFORMATION: Tissue Source: Right breast nodule 11 o'clock Clinical Info: Right breast nodule 11 o'clock Specimen Number: [id number] CPT code: 97773, 49298 x6, 48355 x3 METHODOLOGY: Deparaffinized sections of prefer/formalin-fixed tissue or PAP/DQ stained slides are incubated with monoclonal/polyclonal antibodies/oligonucleotide probes. Localization is made via biotin free immunoperoxidase method. Appropriate controls are performed and reacted as expected. Results on target cell population are indicated in the following table: RESULTS: ANTIBODY / CLONE RESULT E-Cad (ECH-6) positive * CK8 (40vbwuT05) positive Calponin-1 (BX884L) negative CK5-6 (D5 & 1684) negative P40 (BC28) negative P53 (DO-7) negative Ki-67 (30-9) positive, low *?Negative in the area of atypical lobular hyperplasia. MORPHOMETRIC ANALYSIS ER (clone 6F11) >95%, strong intensity NE (clone 16/1E2) 62%, moderate intensity Her-2Neu (clone CB11) 0 The prognostic test for HER2 is performed on formalin-fixed paraffin embedded tissue. A 3+ (positive) staining pattern is defined as intense, homogeneous, complete, circumferential membranous staining in >10% of contiguous tumor cells. A similar weak (2+) staining pattern is interpreted as equivocal. JOSE follow-up testing is recommended for all equivocal cases. Positivity/negativity for ER/NE is reported if > or < 1% of the tumor cells are immuno- reactive, respectively. The ASCO/CAP criteria is used for scoring. Reference: Journal of Clinical Oncology, 2013; 31:0211-2765 & 2010; 16:8228-3767. Duration of fixation: 29.5 Hrs; Sample Adequate: Yes. These assays have not been validated on decalcified tissues. Results should be interpreted with caution given the likelihood of false negativity on decalcified specimens. These tests were developed and their performance characteristics determined by [facility]. They may not have been cleared or approved by the U.S. Food and Drug Administration. The FDA has determined that such clearance or approval is not necessary. The above immunohistochemical/dualISH markers are ordered and reviewed by the Pathologist. INTERPRETATION: Right breast nodule 11 o'clock, biopsy: Invasive ductal carcinoma, nuclear grade 1. Focal atypical lobular hyperplasia. Positive for estrogen receptors (favorable prognostic indicator). Positive for progesterone receptors (favorable prognostic indicator). Negative for overexpression of LYT1fnl. SJ:katherine 09/30/19
--- NOTE | 2019-09-27 | BRBX_PTH ---
PATIENT: VERO STEVENS LOC: [facility] U#:[id number] AGE/SX: 69/F ROOM: RE09/27/[address]: Dr. Tiffany Gan MD : 1955 BED: DIS: SPEC #: [id number] RECD: 09/27/19 14:50 STATUS: CLAIRE PATRICIA #: [id number] MARIA ALEJANDRA: 09/27/19 00:[address]: Tiffany Gan DEPT: SURGICAL PATHOLOGY RECD BY: Roma Gipson ENTERED: 09/28/19 09:34 SP TYPE: BREAST BX OTHR DR: Dr. Kannan Knowles MD Tissues: Right breast, NOS Procedures: Surgery Specimen Level IV HEADER OPERATION: Right breast biopsy PRE-OP DIAGNOSIS: Right breast nodule 11 o'clock TISSUE SUBMITTED: Right breast nodule 11 o'clock ISCHEMIC TIME: 1 minute FIXATION TIME: 29.5 hours MICROSCOPIC DIAGNOSIS Right breast nodule, 11 o'clock, core biopsy: Invasive ductal carcinoma, nuclear grade 1 (0.5 cm in greatest length). Focal atypical lobular hyperplasia. Focal microcalcifications. See comment. JOS:katherine 09/29/19 COMMENT Microcalcifications are noted in the area of invasive ductal carcinoma. Immunohistochemistry ([id number]) supports the above diagnosis. ER/WI/Wty8usg studies are being performed on sections of tumor and the results from this study will be reported separately ([id number]). Case has been reviewed in consultation with Dr. Lazcano who concurs with the above diagnosis. IDC:AM MICROSCOPIC DESCRIPTION Slides are reviewed. GROSS DESCRIPTION Received in fixative is one container labeled with the patient's name and designated right breast. The specimen consists of multiple elongated fragments of quinones-yellow fibroadipose tissue that in aggregate measure 2.5 x 1.5 x 0.2 cm. The entire specimen is submitted in one cassette. / JOS:katherine 09/28/19 TC:0 CPT: 84056
--- NOTE | 2019-09-27 12:50 | US_ITS ---
STUDY: ULTRASOUND BREAST - RIGHT REASON FOR EXAM: Female, 64 years old. Suspicious nodule in the right breast. TECHNIQUE: Axial and longitudinal images of the RIGHT breast were performed with a high resolution ultrasound transducer. # OF IMAGES: 29 COMPARISON: Comparison is made with prior ultrasound of the right breast dated September 16, 2019. FINDINGS: RIGHT Breast: Under direct sonographic guidance, the patient performed a core biopsies of the 4 mm x 4 mm x 3 mm hypoechoic solid nodule at the 11:00 position of the breast at 5 cm from the nipple. US/US Breast Biopsy 1st Lesion IMPRESSION: Ultrasound guided core biopsy of the nodular density in the breast as described. ASSESSMENT CATEGORY: BIRADS Category 2: Benign. A letter regarding these results will be sent to the patient by the facility within 30 days. Electronically Signed: Demetroi Johnson, at 15:44 EDT , Service support ,
--- NOTE | 2019-09-27 14:57 | PCM.OPRPT ---
Report of Operation Date of Procedure: 09/27/19 Pre-Operative Diagnosis: Right breast mass/nodule Post-Operative Diagnosis: Same Surgery/Procedure Performed:: Ultrasound-guided right breast biopsy Specimen's removed: Right breast nodule 11:00 5 cm from the nipple Description of Procedure: Procedure: ultrasound-guided core biopsy Indications: 64 year-old female with hypoechoic nodule at 1:00 in the right breast 5 centimeters from the nipple. Risk benefits were discussed the patient and she elected to proceed with ultrasound guided core biopsy with clip placement Description of procedure: Patient was brought into the ultrasound room in the right breast was marked. A timeout was completed verifying correct patient, procedure, site, specially, prior to beginning procedure. The right breast was prepped and draped in usual sterile fashion and using local anesthesia was obtained with 1% lidocaine with epi. The lesion was located with the ultrasound. Small incision was made with 11 blade to introduced the mammotome through the skin. Under ultrasound guidance multiple core samples were obtained using then 13-gauge mammotome and sent in formalin for pathology. The mammotome mammostar clip was then deployed into the biopsy cavity under ultrasound guidance and a picture was taken. Upon completion procedure hemostasis was obtained and a Steri-Strip and OpSite were placed. Patient was then taken to the mammography suite for clip verification. The clip was verified; however it did appear to be close to the chest wall which is consistent with the ultrasound picture than the questionable lesion in mammography will discuss with the radiologist and also await biopsy results. The patient tolerated the procedure well and was discharged from the breast imaging department good condition. complications: none - Complications none
== END ==
PROVIDERS: PCP Family Medicine; Referring Provider Surgery; Visit Provider Surgery
DX: N63.10 Unspecified lump in the right breast, unspecified quadrant (principal)
CPT/HCPCS: 19083; 88305; 88341; 88342

== ENCOUNTER → 2019-10-11 09:50 | Outpatient (CLI) | payer MEDICARE, MEDICAID, SELFPAY ==
[2019-09-20 14:23] VITALS: BMI 31.4
--- NOTE | 2019-10-11 09:54 | MRI_ITS ---
STUDY: BILATERAL BREAST MR WITHOUT AND WITH CONTRAST REASON FOR EXAM: Female, 64 years old. rt breast ca -- recent rt breast bx, patient complaining left breast, axiallary soreness TECHNIQUE: Multi-sequence multi-echo imaging of both breasts was performed with a dedicated breast coil. T1-weighted and T2-weighted images were performed before the administration of contrast. T1-weighted images were also performed after the administration of IV Yes without complications. COMPARISON: Mammogram dated 09/14/2019, 07/21/2018 and 07/14/2017 a breast ultrasound dated 09/16/2019 was also reviewed. FINDINGS: RIGHT BREAST: The breast tissue is scattered fibroglandular densities with minimal background enhancement. There is some edematous changes in the upper outer quadrant of the right breast at the postbiopsy site was shown to represent a malignancy. There is some minimal enhancement at this location. The mass seen on the mammogram and ultrasound at this location measured approximately 4 mm. There are no additional areas of abnormal enhancement or mass effect within the breast to suggest malignancy. LEFT BREAST: The breast tissue is scattered fibroglandular densities with minimal background enhancement. There are no abnormal enhancing masses or areas of non-mass enhancement in the left breast. There are no enlarged or abnormal lymph nodes. There is no abnormality in the visualized regions of the chest or liver. MRI/Breast Bilateral W/O and W IMPRESSION: There is some edema and minimal enhancement seen at the postbiopsy site in the right breast at the postbiopsy site that was shown to represent a malignancy. This is located in the upper outer quadrant of the right breast approximately 5 cm from the nipple. CATEGORY: BIRADS Category 6: Known Biopsy-Proven Malignancy - Appropriate Action Should Be Taken. A letter regarding these results will be sent to the patient by the facility within 30 days. Electronically Signed: Sharon Treadwell DO at 15:37 EDT Tel , Service support ,
[2019-10-11 10:35] LABS: CREATININE FINGERSTICK 0.7 mg/dL (0.55-1.02); EGFR FINGERSTICK > 60.0000 mL/min (>60)
== END ==
PROVIDERS: PCP Family Medicine; Referring Provider Surgery; Visit Provider Surgery
DX: C50.911 Malignant neoplasm of unspecified site of right female breast (principal)
CPT/HCPCS: 77049; A9575; A4216; C8908

== ENCOUNTER 2019-10-26 07:33 | Day surgery (SDC) | payer MEDICARE, MEDICAID, SELFPAY ==
[2019-10-14 09:07] VITALS: BMI 31.6
[2019-10-19 09:03] VITALS: BMI 31.5
[2019-10-19 13:37] VITALS: BMI 30.9
[2019-10-26] VITALS (11 sets, daily range): BP systolic 108–140; BP diastolic 46–87; PULSE 59–96; RESP 16; TEMP 36.3–37.3; O2SAT 87–98; BMI 30.9
--- NOTE | 2019-10-26 | IMM_PTH ---
PATIENT: VERO STEVENS LOC: [facility] U#:[id number] AGE/SX: 64/F ROOM: RE10/26/[address]: Dr. Tiffany Gan MD : 1955 BED: DIS: 10/26/2019 SPEC #: [id number] RECD: 10/29/19 11:59 STATUS: CLAIRE RELisseth #: [id number] MARIA ALEJANDRA: 10/26/19 00:[address]: Tiffany Gan DEPT: IMMUNOHISTOCHEMISTRY RECD BY: Gracia Kahn ENTERED: 10/29/19 12:00 SP TYPE: IMMUNO OTHR DR: Dr. Kannan Knowles MD Tissues: A - Axillary lymph node, NOS B - Axillary lymph node, NOS Procedures: CK7 (add) Pankeratin (initial) PHYSICIAN & INSTITUTION [place] [id number] SPECIMEN INFORMATION: Tissue Source: A - [place] node, biopsy, B - [place] node #2, biopsy Clinical Info: Right breast invasive ductal carcinoma Specimen Number: [id number] A & B CPT code: 96044 x2, 35072 x2 METHODOLOGY: Deparaffinized sections of prefer/formalin-fixed tissue or PAP/DQ stained slides are incubated with monoclonal/polyclonal antibodies/oligonucleotide probes. Localization is made via biotin free immunoperoxidase method. Appropriate controls are performed and reacted as expected. Results on target cell population are indicated in the following table: RESULTS: ANTIBODY / CLONE RESULT Block A AE1-3 (AE1/AE3/PCK26) negative CK7 (OV-TL12/30) negative Block B AE1-3 (AE1/AE3/PCK26) negative CK7 (OV-TL12/30) negative These tests were developed and their performance characteristics determined by [facility]. They may not have been cleared or approved by the U.S. Food and Drug Administration. The FDA has determined that such clearance or approval is not necessary. The above immunohistochemical/dualISH markers are ordered and reviewed by the Pathologist. INTERPRETATION: A. [place] node, biopsy: One lymph node, negative for metastatic carcinoma. B. [place] node #2, biopsy: One lymph node, negative for metastatic carcinoma. SJ:katherine 11/01/19
--- NOTE | 2019-10-26 | AXNB_PTH ---
PATIENT: VERO STEVENS [place] [facility] [place] [facility] [place][id number] AGE/SX: 64/F ROOM: RE10/26/[address]: Dr. Tiffany Gan MD : 1955 BED: DIS: 10/26/2019 SPEC #: [id number] RECD: 10/26/19 12:29 STATUS: CLAIRE PATRICIA #: [id number] MARIA ALEJANDRA: 10/26/19 00:[address]: Tiffany Gan DEPT: SURGICAL PATHOLOGY RECD BY: Gracia Kahn ENTERED: 10/26/19 13:00 SP TYPE: AX NODE BX OTHR DR: Dr. Kannan Knowles MD Tissues: A - Axillary lymph node, NOS B - Axillary lymph node, NOS C - Right breast, NOS Procedures: Frozen Section (charge) Surgery Specimen Level V HEADER OPERATION: Right breast stereotactic wire localization lumpectomy with sentinel node biopsy PRE-OP DIAGNOSIS: Invasive ductal carcinoma right breast TISSUE SUBMITTED: A - [place] node sent for FS at 1225, B - [place] node #2 sent for FS at 1243, C - Right breast lumpectomy, short suture - superior, long suture - lateral FROZEN SECTION DIAGNOSIS A. [place] node, biopsy: One lymph node, negative for metastatic carcinoma. B. [place] node #2, biopsy: One lymph node, negative for metastatic carcinoma. SJ:katherine 10/26/19 MICROSCOPIC DIAGNOSIS A. [place] lymph node, biopsy: One lymph node, negative for metastatic carcinoma. See comment. B. [place] lymph node #2, biopsy: One lymph node, negative for metastatic carcinoma. See comment. C. Right breast, needle localization lumpectomy: Negative for residual carcinoma. Changes consistent with previous biopsy site. Focal minimal intraductal hyperplasia without atypia. See cancer summary in the comment section. SJ:katherine 10/29/19 COMMENT A & B. The lymph node is negative for metastatic carcinoma on multiple H & E levels and immunohisto-chemical stains for cytokeratins ([id number]). BREAST CANCER SUMMARY Procedure - excision with wire-guided localization Specimen laterality - right Invasive tumor: Tumor site - no residual invasive carcinoma. Histologic type - no residual invasive carcinoma. Histologic grade (Yanni grade) - The histologic grade/Gifford grade score in the biopsy specimen is as follows: Glandular/tubular differentiation score: 1 Nuclear pleomorphism score: 1 Mitotic count score: 1 Overall grade: 1 (score of 3) Ductal Carcinoma In Situ - not identified Margin - no residual invasive carcinoma. Regional lymph nodes: Total number of lymph nodes examined - 2 Number of sentinel lymph nodes examined - 2 Number of lymph nodes with macrometastases, micrometastases, and isolated tumor cells - 0 Treatment effect - no known presurgical therapy. Lymphvascular invasion - not identified Dermal lymphvascular invasion - not applicable Additional Pathologic Findings - changes consistent with previous biopsy site. Focal minimal intraductal hyperplasia without atypia. Ancillary Studies: Previously performed on section of tumor ( / [id number]) ER: positive (>95%, strong intensity) OK: positive (62%, moderate intensity) Szh3gyo (IHC): negative (0) Microcalcifications - present in non-neoplastic tissue. Clinical history - Please make reference to previous specimen () right breast nodule, 11 o'clock, core biopsy with diagnosis of invasive ductal carcinoma, nuclear grade 1 (0.5 cm in length) and focal atypical lobular hyperplasia. Pathologic Stage: pTsee comment below pN0(sn) pMx The above summary is in compliance with [employer] [place] (CAP) Cancer Protocols Checklist and [place] [employer] Committee on Cancer (AJCC), Staging Manual, 8th Ed. No residual tumor is present in lumpectomy specimen. The tumor in biopsy specimen measures 0.5 cm in greatest length making T staging T1a Case has been reviewed in consultation with Dr. Lazcano who concurs with the above diagnosis. IDC:AM MICROSCOPIC DESCRIPTION Slides are reviewed. GROSS DESCRIPTION A - Received fresh for frozen section diagnosis labeled with the patient's name is a specimen designated sentinel lymph node. The specimen consists of a white piece of adipose tissue containing a nodular consistent with lymph node measuring 2.5 x 1.7 x 0.5 cm. The specimen is bisected and submitted entirely in one cassette. / :katherine 10/26/19 B - Received fresh for frozen section diagnosis labeled with the patient's name is a specimen designated sentinel lymph node #2. The specimen consists of a white piece of adipose tissue containing a nodular consistent with lymph node measuring 2 x 1.5 x 0.6 cm. The specimen is bisected and submitted entirely in one cassette. / :katherine 10/26/19 C - Received fresh for intraoperative consultation labeled with the patient's name and designated right breast lumpectomy. The specimen consists of a piece of fibroadipose tissue with needle localization measuring 7 x 5 x 1 cm. The specimen is oriented as follows: short suture - superior, long suture - lateral. The specimen is inked as follows: anterior - yellow, posterior - black, superior - blue, inferior - green, medial - orange and lateral - red. Serial sections reveal no obvious mass lesion. The tip of wire is close to the lateral margin of the specimen. This information is conveyed to the surgeon. Sections reveal quinones-yellow adipose cut surfaces with scant fibrous area. The entire specimen is submitted in 13 cassettes from superior to inferior margin. Sections will be submitted after additional fixation. / JOS:katherine 10/27/19 TC:5 CPT: 32221 x3, 53780 x2, 12124
--- NOTE | 2019-10-26 08:00 | NM_ITS ---
PROCEDURE: NUCLEAR MEDICINE Injection [place] Node - RIGHT breast(s). REASON FOR EXAM: Female, 64 years old. Right breast cancer. TECHNIQUE: [place] node localization using radionuclide methods of the RIGHT breast(s) was performed following subcutaneous administration of 1.1 mCi of of sulfur colloid Tc-99m. NM/Lymph Node Injection Only IMPRESSION: 1.1 mCi of technetium labeled sulfur colloid was injected subcutaneously in the upper outer quadrant of the right breast for sentinel node imaging. Electronically Signed: Demetrio Johnson, at 9:08 EDT , Service support ,
[2019-10-26 08:16] LABS: Bedside Glucose 148 mg/dL (70-110)
[2019-10-26] MEDS: Lactated Ringers 1,000 ML 100 ML IV ×2 (09:45→12:46)
--- NOTE | 2019-10-26 10:18 | PCM.HP.BLA ---
History and Physical Date of Admission: 10/26/19 Date of Service: 10/14/19 MR#: [id number] Acct: [id number] Name: VERO STEVENS Rep #: [id number] : 1955 Provider: Dr. Tiffany Gan MD Age/Sex: 64/F Location: [facility] Status: Signed Intake Vital Signs 10/14/19 Height 5 ft 4 in 10/14/19 Weight: 184 lb 10/14/19 BP 137/80 H 10/14/19 Blood Pressure Location Rt brachial 10/14/19 Position Sitting 10/14/19 Respiration 16 10/14/19 Pulse 61 10/14/19 Pulse Source Monitor 10/14/19 Temp 98.3 F 10/14/19 Temp Source Temporal 10/14/19 Pulse Oximetry (%) 96 10/14/19 Oxygen Delivery Method room air 10/14/19 BMI 31.4 Intake Visit Reasons: F/U MRI Results 10/10 Dragger Required: No Is patient in pain?: No Allergies Penicillins Allergy (Verified 09/20/19 14:24) Hives Medications levothyroxine 100 mcg capsule 100 mcg PO DAILY 04/07/17 [History Confirmed 10/14/19] lisinopril 10 mg-hydrochlorothiazide 12.5 mg tablet 1 tab PO BID 04/07/17 [History Confirmed 10/14/19] loratadine 10 mg tablet 10 mg PO QDAY 04/07/17 [History Confirmed 10/14/19] simvastatin 80 mg tablet 80 mg PO QPM 04/07/17 [History Confirmed 10/14/19] cholecalciferol (vitamin D3) 25 mcg (1,000 unit) capsule 5,000 unit PO DAILY cap 03/22/19 [History Confirmed 10/14/19] omeprazole 20 mg capsule,delayed release 20 mg PO DAILY cap 03/22/19 [History Confirmed 10/14/19] oxybutynin chloride 5 mg tablet 5 mg PO TID tab 03/22/19 [History Confirmed 10/14/19] Pantoprazole Sodium 40 mg PO DAILY #30 tablet. 04/28/19 [Rx Confirmed 10/14/19] metformin 1,000 mg tablet 2,000 mg PO BID tab 09/20/19 [History Confirmed 10/14/19] Lorazepam [Ativan] 1 mg PO BID PRN PRN #2 tab 10/04/19 [Rx Confirmed 10/14/19] [facility] Medical History Abnormal ultrasound of breast (Acute) Abnormal mammogram of left breast (Acute) History of change in bowel patterns (Acute) Diarrhea (Acute) Abdominal pain (Acute) Arthritis (Acute) Hypothyroidism (acquired) (Acute) Diabetes (Acute) Hyperlipidemia (Acute) HTN (hypertension) (Chronic) GERD (gastroesophageal reflux disease) (Acute) Mastalgia (Acute) Surgical History History of bilateral breast biopsy (Acute) History of tubal ligation (Acute) History of salpingectomy (Acute) H/O total thyroidectomy (Acute) History of laparoscopic cholecystectomy (Acute) H/O colonoscopy (Acute) Family History Mother Arthritis Heart disease Osteoporosis Father Cancer Prostate Grandmother Diabetes Social History (Updated 10/14/19 @ 10:[address] Tiffany Gan MD) Smoking Status: Current every day smoker alcohol intake: never substance use type: does not use caffeine: Yes what type of physical activity do you participate in: walking frequency: 3-4 times per week HPI HPI HPI: VERO STEEVNS, is a 64 F who presents to the office today for HPI HPI HPI: VERO STEVENS, is a 64 F who presents to the office today for discussion of options for breast cancer surgery and discussion of breast MRI results. Patient's breast MRI only shows the area detected previously on ultrasound/biopsy/mammography no other areas of enhancement or abnormal lymph nodes seen. Patient states she has some soreness at the biopsy site otherwise denies any changes. Patient's pathology report did show invasive ductal carcinoma greatest 5 mm in length, ER RI positive, HER-2/david negative ROS General General: No weight change, fatigue, colon cancer or breast cancer Breast Breast: Yes abnormal mammogram and abnormal US; no left breast lump, right breast lump, nipple discharge, breast pain or breast enlargement Exam Const General: cooperative, comfortable, no acute distress, well developed Chest Breast inspection: normal inspection of the breasts, normal inspection of the axillae, other (Biopsy site incision healing well.) Breast Palpation: Yes normal palpation of the breasts, Yes no axillary lymphadenopathy, No nipple discharge, No supraclavicular, No change in skin Assessment & Plan Problems 1. Invasive ductal carcinoma of right breast C50.911 Plan I have given the patient options for initial surgical treatment. Options are the following: lumpectomy followed by radiation therapy vs. mastectomy vs. mastectomy followed by immediate reconstruction. I have described the procedures to the patient. I have described the advantages and disadvantages of the options, but I have told the patient that among the options, the survival rate for breast cancer is the same. I have told the patient that with all the surgeries that a sentinel lymph node biopsy is required. I have described the procedure of sentinel lymph node biopsy to the patient. I have told the patient that if the biopsy is positive for metastatic disease, then a full axillary lymph node dissection is required, unless it is less than 3 nodes as she can get whole breast radiation if she gets a lumpectomy?Z 11 trial. I have told the patient that adjuvant chemotherapy will be required should the lymph nodes reveal metastatic disease. Also, a full lymph node dissection will increase the risk for lymphedema, especially if there are 3 or more lymph nodes positive for metastatic disease and radiation to the axilla is also required. I have told the patient the risks of surgery, including but not limited to: infection, bleeding, scar tissue, seroma and persistent seroma, lymph leak, injury to any blood vessels, injury to any nerves (particularly the long thoracic, the thoracodorsal, and the second intercostal brachial and the resultant sequelae), lymphedema, cosmetic deformity, dysesthesias, wound infections, further surgery (especially if margins are not clear), complications of anesthesia, etc. the patient understands. Patient is planning to have a right breast stereotactic localization lumpectomy, sentinel lymph node biopsy with nuclear tracer and blue dye, possible axillary lymph node dissection. We will plan on patient meeting with radiation oncology prior to surgery date. Plan for surgery the week of October 24. I have answered all the patient?s questions at this point to her satisfaction and she has no further questions. Greater than 50% of direct patient contact was spent in counseling or coordination of care. I spent 25 minutes counseling the patient on treatments for breast cancer and coordinating care. Procedure essential: Yes On 06/15/2019 the [place] Department of Health ([facility]) Public Order signed by [facility] Director Ally Fuentes M.D., regarding the Management of Non-Essential Surgeries and Procedures for the purpose of preserving Personal Protective Equipment (PPE) and critical hospital capacity and resources within [place] went into effect as of 06/16/2019 at 5:00PM. According to the [facility] Public Order: This action will remain in full force and effect until the State of Emergency declared by the Governor no longer exists or the Director of the [facility] rescinds or modifies this Order. This [facility] order stated all non-essential or elective surgeries and procedures that utilize PPE should be delayed unless there is undue risk to the current or future health of a patient. After reviewing the aforementioned [facility] Public Order and the patients clinical case, I have determined that the scheduled procedure meets the criteria to go forward. Reason for performing procedure: There is a risk of metastasis or progression of staging. Tiffany Gan M.D. Pager: [phone] [facility] [address] [place] [address], [address] [place] [address] Office: [phone] Orders Referrals: Oncology C50.919 Plan Detail Follow Up We will schedule surgery Coding Level of Care Code Off vis,est,level 4 Diagnoses Invasive ductal carcinoma of right breast C50.911 COVID (Procedure Consent) Procedure Criteria Procedure Criteria: No Elective 10/14/19 1014 <Electronically signed by Tiffany Gan MD> Date Tiffany Gan MD I have examined the patient the following changes are noted: Patient did come back to the office for an additional visit concerning that mastectomy could be better than lumpectomy did discuss further with the patient that survival is the same as long as she had the radiation with lumpectomy comparable to mastectomy. Patient no further questions and was agreeable to proceed with the right stereotactic needle localization lumpectomy, right sentinel lymph node biopsy, possible axillary lymph node dissection.
--- NOTE | 2019-10-26 10:30 | BI_ITS ---
SURGICAL BREAST SPECIMEN RADIOGRAPH CLINICAL: Document presence of tissue clip marker in biopsy specimen. FINDINGS: Specimen shows presence of tissue clip marker. Electronically Signed: Demetrio Johnson, at 14:08 EDT , Service support , BI/Breast Biopsy Specimen
--- NOTE | 2019-10-26 11:26 | PCM.OPRPT ---
Report of Operation Date of Procedure: 10/26/19 Pre-Operative Diagnosis: Right breast cancer Post-Operative Diagnosis: Same Surgery/Procedure Performed:: Right stereotactic guided needle localization lumpectomy, sentinel lymph node biopsy with Lymphazurin and radiotracer Anesthesiologist: Modesto Feliciano Special Medications: Clindamycin 900 mg IV x1 Specimen's removed: 1. Right sentinel lymph node, 2. Additional right sentinel lymph node, 3. Right lumpectomy, 4. second stereotactic wire Estimated Blood Loss (mL): 10 cc Fluids Replaced: 1100 cc Description of Procedure: In radiology the breast tissue was injected with TC-99 sulfur colloid by the radiologist. Preoperative needle localization was done in mammography suite using the stereotactic table. The initial wire was placed at the lateral view once the clip was identified and targeted. Pre-and post 15 degree angle views were taken in and it appeared like the wire was near the clip. However final mammography in CC view showed that the wire was about 2.4 cm short of the clip location. An additional wire was placed using the same technique from the cc view. 2 view mammography did show this to be next the clip. 90 minutes after the Tc?99 sulfur colloid injection the patient was taken to the operating room and general anesthesia was induced. Localization studies were reviewed. 4 cc of Lymphazurin 1% blue dye was injected in the 4 quadrants periareolar along with 10 cc of normal saline. This was massaged gently for 5 minutes. The right breast and axilla were prepped and draped in usual sterile fashion. A timeout was completed verifying correct patient, procedure, site, positioning, special equipment prior to beginning procedure. Handheld gamma probe was used to identify the location of the hottest spot in the axilla. Prior to the incision, the counts were 8. The incision was made in the hot and blue deep axillary node was identified along with another node which was nearby but neither hot or blue. The probe was placed in contact with the node in the 10 count was 584. The bed of the node measured 2-4 counts. No additional blue or hot nodes were detected. By comparing localization studies with the direction and skin entry of the needle, the probable trajectory and location of the mass was visualized. A curvilinear incision was planned in such a way as to minimize the amount of dissection to reach the mass. Flaps were raised in the location of the wire confirmed. The wire was delivered into the wound. 2 silk [id number] stay suture was placed around the wire and used for traction. Dissection was then taken down circumferentially, taking care to include the entire localization needle and wide margin of grossly normal tissue. Dissection was down to include some the fascia of the pectoralis muscle for the deep margin. The specimen and entire localizing wire were removed. The specimen was oriented and sent to radiology with the localization studies. 4 medium clips were placed to racheal the deep margin on the Pectoralis muscle. Confirmation was received that the entire target lesion had been resected. The second localizing wire was identified and removed completely. The wound was irrigated. Hemostasis was checked. The space was closed with interrupted suture of 3-0 Vicryl. The breast and axillary wounds were closed with interrupted sutures of 3-0 Vicryl and subcuticular sutures of 4-0 Monocryl. A dressing of fluff gauze and supportive bra placed. The patient tolerated procedure well was taken to the postanesthesia care in stable condition. - Complications none
[2019-10-26] MEDS: 0.9% Normal Saline (Pres. free 10 ML Vial (11:50)
[2019-10-26] MEDS: Isosulfan Blue 1% 5 ML Vial (11:50)
[2019-10-26] MEDS: Bupiv/Epi 0.25% 30 ML Vial (13:30)
--- NOTE | 2019-10-26 13:31 | DCINST_ITS ---
Discharge Diet: No Restrictions Discharge Activity: May not drive while taking narcotic pain medications. May shower in (days): 1 - 24 hours after surgery okay for both incisions to get wet Lifting Restrictions: Lifting greater than 15 pounds with the right arm x2 weeks Call your doctor if your incision/area has: Continuous Slow Oozing, Sudden Increased Bleeding, Increased Pain/ Swelling, Increased Redness, Foul Smelling Discharge, Swelling at the incision site Call your doctor if you observe: Fever of 101 or Higher Remove Dressing in (days):: 2 - Keep OpSite on breast incision x2 days, axilla has glue which is of purplish/bluish in color Additional Instructions: Okay to take ibuprofen 400 to 600 mg p.o. every 6 hours PRN along with the Percocet, avoid Tylenol as Tylenol is already in the Percocet. All pain meds with food Percocet may cause constipation take with a stool softener. If no bowel movement in 1 to 2 days take MiraLAX couple of doses. The following day if s till no bowel movement take half a bottle magnesium citrate wait 6 hours if no results take the other half. Allergies/Adverse Reactions: Allergies coconut Allergy (Verified 10/26/19 07:56) Hives Penicillins Allergy (Verified 10/26/19 07:56) Hives Medications to take at Discharge levothyroxine 100 mcg capsule 100 mcg PO DAILY 04/07/17 lisinopril 10 mg-hydrochlorothiazide 12.5 mg tablet 1 tab PO DAILY 04/07/17 loratadine 10 mg tablet 10 mg PO QDAY PRN 04/07/17 simvastatin 80 mg tablet 80 mg PO QPM 04/07/17 cholecalciferol (vitamin D3) 25 mcg (1,000 unit) capsule 5,000 unit PO DAILY cap 03/22/19 Acetaminophen/Diphenhydramine [Tylenol Pm Ex-Strength Caplet] 2 ea PO QHS 10/19/19 Metformin HCl [Metformin HCl ER] 1,000 mg PO BID 10/19/19 Oxybutynin [Ditropan] 5 mg PO TID 10/19/19 Pantoprazole Sodium 40 mg PO QHS 10/19/19 Oxycodone HCl/Acetaminophen [Percocet 5/325] 1 - 2 tablet PO Q6H PRN PRN 2 Days #10 tablet 10/26/19 Primary Care Physician: Kannan Knowles MD [Primary Care Provider] - Test Results: Test results from this visit will be discussed in further detail at your follow- up appointment, if applicable. Please Follow Up With: Tiffany Gan MD - Any concerns after 5 PM and on the weekends call [phone] When: Follow-up in the office in 1 to 2 weeks, will call with pathology Proposed Discharge Date: 10/26/19
[2019-10-26] MEDS: Acetaminophen 325 MG Tablet PO (16:48)
[2019-10-26] MEDS: oxyCODONE 5 MG Tablet PO (16:49)
== END 2019-10-26 17:15 | disposition home or self-care (01) ==
LOC: SDC 07:34 → AC 07:35
PROVIDERS: Anesthesiology; PCP Family Medicine; Referring Provider Surgery; Visit Provider Surgery
PROC: 0HBV0ZZ Excision of Bilateral Breast, Open Approach (ICD-10-PCS; CPT 19302; principal; 2019-10-26 11:00)
DX: C50.911 Malignant neoplasm of unspecified site of right female breast (principal); Z11.59 Encounter for screening for other viral diseases; I10 Essential (primary) hypertension; E03.9 Hypothyroidism, unspecified; E11.9 Type 2 diabetes mellitus without complications; K58.9 Irritable bowel syndrome, unspecified; E78.00 Pure hypercholesterolemia, unspecified; K21.9 Gastro-esophageal reflux disease without esophagitis; M19.90 Unspecified osteoarthritis, unspecified site; Z78.0 Asymptomatic menopausal state; Z87.19 Personal history of other diseases of the digestive system; Z79.84 Long term (current) use of oral hypoglycemic drugs; Z79.899 Other long term (current) drug therapy; F17.200 Nicotine dependence, unspecified, uncomplicated
CPT/HCPCS: 00400; 19301; 38525; 19281; 38792; 76098; 82962; 87635; 88305; 88307; 88331; 88341; 88342; A9541; G2023; J7120; A4216; J2405; J3490; Q9968; U0003

== ENCOUNTER → 2019-11-16 08:51 | Outpatient (CLI) | payer MEDICARE, MEDICAID, SELFPAY ==
[2019-10-19 13:37] VITALS: BMI 30.9
[2019-11-09 14:55] VITALS: BMI 32.1
--- NOTE | 2019-11-16 08:54 | BD_ITS ---
STUDY: DUAL ENERGY X-RAY ABSORPTIOMETRY / DXA REASON FOR EXAM: Female, 64 years old. Age of tonya 58. Pat is 180.5# and 62 and quot; a loss of 3 and quot; per pat. Past hx of using Reclast 2-3 times. Type II diabetic and takes Metformin. Smoker for 33 yrs now. Takes synthroid. Hx of an ankle, clavicle and back fx''s per pat. Hx of recent lumpectomy for Right breast CA, starting therapy soon. TECHNIQUE: Bone Mineral Density (BMD) measurements of lumbar spine and bilateral hips were obtained. COMPARISON: Comparison is made with prior study dated 06/20/2016. FINDINGS: Lumbar Spine (L1-L4): g/cm2 (0.995) / T-score (-1.5) / Z-score (0.1) Findings are suggestive of osteopenia with a low fracture risk. Increased thoracic kyphosis. Left Femur Total: g/cm2 (0.766) / T-score (-1.9) / Z-score (-0.7) Left Femoral Neck: g/cm2 (0.772) / T-score (-1.9) / Z-score (-0.4) Right Femur Total: g/cm2 (0.710) / T-score (-2.4) / Z-score (-1.1) Right Femoral Neck: g/cm2 (0.756) / T-score (-2.0) / Z-score (-0.5) The T-Scores on the most recent prior examination were: Lumbar Spine (L1-L4): There has been improvement of bone density since the previous examination. Left Femur Total: which represents a worsening of 3.5%. Right Femur Total: which represents a worsening of 7.4%. BD/Dexa Bone Density Study IMPRESSION: The patient is considered osteopenic as outlined below according to World Sam Organization (WHO) criteria with a high fracture risk. There has been worsening of bone density since the previous examination. Reference Information: The T-score is the number of standard deviations above or below the standard which is normal for young adults at their peak bone mineral density. The World Health Organization (WHO) interprets the T-scores as follows: Above -1 Normal bone density Between -1 and -2.5 Osteopenia Equal to / or below -2.5 Osteoporosis As a practical clinical guideline, osteopenia may be graded as follows: Mild -1 through -1.5 Moderate -1.6 through -2.0 Severe -2.1 through -2.4 The Z-score is the number of standard deviations above or below age-matched controls. A Z-score of less than -1.5 would be considered abnormal. References: 1. NIH Osteoporosis and Related Bone Diseases http://www.osteo.org 2. International Society for Clinical Densitometry http://www.iscd.org 3. National Osteoporosis Foundation http://www.nof.org Electronically Signed: Demetrio Johnson, at 11:14 EDT , Service support ,
== END ==
PROVIDERS: PCP Family Medicine; Referring Provider Internal Medicine Hematology & Oncology; Visit Provider Internal Medicine Hematology & Oncology
DX: Z51.0 Encounter for antineoplastic radiation therapy (principal); C50.411 Malignant neoplasm of upper-outer quadrant of right female breast; Z78.0 Asymptomatic menopausal state; Z17.0 Estrogen receptor positive status [ER+]
CPT/HCPCS: 77014; 77080; 77290; 77332

== ENCOUNTER → 2020-03-20 11:27 | Outpatient (CLI) | payer MEDICARE, MEDICAID, SELFPAY ==
[2019-10-19 13:37] VITALS: BMI 30.9
[2020-03-02 11:04] VITALS: BMI 31.3
[2020-03-20 15:49] LABS: Absolute Lymphocyte Count 1.42 X10^3/uL (0.83-4.51); Absolute Neutrophil Count 6.8 X10^3/uL (2.0-7.7); Basophil# 0.03 X10^3/uL; Basophil% 0.3 % (0-1); Eosinophil# 0.07 X10^3/uL; Eosinophils% 0.8 % (0-5); Hemoglobin 12.7 g/dL (12.0-15.0); Lymphocyte # 1.42 X10^3/ul (4.0); Lymphocyte % 15.9 % (19-41); Mean Corp Hgb Conc 32.6 g/dL (32-36); Mean Corpuscular Hgb 31.3 pg (27.0-32.0); Mean Corpuscular Volume 96.1 fL (81-99); Mean Platelet Vol. 9.8 fl (6.2-12.0); Monocyte# 0.57 X10^3/uL; Monocyte% 6.4 % (0-10); NRBC Flagged by Analyzer 0 % (0-5); Neutrophil # 6.84 X10^3/uL (2.7-7.7); Neutrophil % 76.4 % (47-70); Platelet Count 315 K/mm3 (150-450); RBC Distribution Width CV 12.4 % (11.6-14.6); RBC Distribution Width SD 43.8 fl (35.1-43.9); Red Blood Count 4.06 M/mm3 (4.2-5.4)
[2020-03-20 16:10] LABS: Anion Gap 6 (5-15); BUN 18 mg/dL (7-18); Calcium,Total 9.8 mg/dL (8.5-10.1); Chloride 104 mmol/L (98-107); Creatinine, Serum 0.75 mg/dL (0.55-1.02); EST Glomerular Filtration Rate 82 mL/min (>60); Est Glom Filt Rate - Afr Amer 99 mL/min (>60); Glucose 142 mg/dL (74-106); Potassium 3.8 mmol/L (3.5-5.1); Sodium Level 137 mmol/L (136-145); Thyroid Stim Hormone (TSH) 0.63 uIU/mL (0.358-3.74)
== END ==
PROVIDERS: PCP Family Medicine; Referring Provider Family Medicine; Visit Provider Family Medicine
DX: R53.83 Other fatigue (principal)
CPT/HCPCS: 36415; 80048; 84443; 85025

== ENCOUNTER → 2020-04-04 08:57 | Outpatient (CLI) | payer MEDICARE, MEDICAID, SELFPAY ==
[2019-10-19 13:37] VITALS: BMI 30.9
[2020-03-30 13:38] VITALS: BMI 32.5
[2020-03-30 14:28] VITALS: BMI 30.9; BMI 32.5
--- NOTE | 2020-04-04 09:02 | US_ITS ---
STUDY: ULTRASOUND BREAST - RIGHT REASON FOR EXAM: Female, 64 years old. Palpable lump in the right breast. Status post lumpectomy. TECHNIQUE: Axial and longitudinal images of the RIGHT breast were performed with a high resolution ultrasound transducer. # OF IMAGES: 14 COMPARISON: Comparison is made with the prior mammogram done earlier in the day as well as prior ultrasound dated 09/27/2019. FINDINGS: RIGHT Breast: The area of concern was examined by ultrasound. No sonographic abnormality is seen. US/Breast Limited Unilateral IMPRESSION: No sonographic abnormality is seen. ASSESSMENT CATEGORY: BIRADS Category 1: Negative. A letter regarding these results will be sent to the patient by the facility within 30 days. Electronically Signed: Demetrio Johnson, at 11:18 EST , Service support ,
--- NOTE | 2020-04-04 09:02 | BI_ITS ---
MAMMOGRAPHY - BILATERAL DIAGNOSTIC REASON FOR EXAM: Female, 64 years old. Right breast lump. PERTINENT HISTORY: Personal history of breast cancer. Prior right lumpectomy and postoperative radiation. TECHNIQUE: Digital bilateral breast cristofer (3D mammographic acquisition) in the CC and MLO projections. 2-D mediolateral oblique (MLO) and craniocaudad (CC) views of both breasts were obtained. CAD: Full Field Digital Mammography with Computer Added Detection was performed. COMPARISON: Comparison is made with prior examination dated 09/14/2019 and 07/21/2018. FINDINGS: Breast Composition: There are scattered areas of fibroglandular density. Since prior study, the patient underwent lumpectomy and axillary node dissection in the deep upper central portion of the right breast. Postoperative scarring is seen. No other significant abnormalities are identified. BI/DIAG MAMM W/CAD, BILAT IMPRESSION: Status post right lumpectomy with resultant postoperative scarring in the operative site. Correlation with ultrasound is recommended. ASSESSMENT CATEGORY: BIRADS Category 0: Incomplete. Need additional imaging evaluation. A letter regarding these results will be sent to the patient by the facility within 30 days. Approximately 10% of breast cancers are not detected by mammography. A normal mammogram should not delay biopsy of a clinically suspicious abnormality. Electronically Signed: Demetrio Johnson, at 10:11 EST , Service support ,
== END ==
PROVIDERS: PCP Family Medicine; Referring Provider Nurse Practitioner Family; Visit Provider Nurse Practitioner Family
DX: N64.4 Mastodynia (principal); Z85.3 Personal history of malignant neoplasm of breast
CPT/HCPCS: 76642; 77062; 77066; G0279

== ENCOUNTER → 2020-04-06 12:29 | Outpatient (CLI) | payer MEDICARE, MEDICAID, SELFPAY ==
[2019-10-19 13:37] VITALS: BMI 30.9
[2020-03-02 11:04] VITALS: BMI 31.3
[2020-03-30 14:28] VITALS: BMI 30.9
[2020-04-05 09:10] VITALS: BMI 31.4
--- NOTE | 2020-04-06 12:30 | CT_ITS ---
STUDY: LOW DOSE CT LUNG CANCER SCREENING REASON FOR EXAM: Female, 64 years old. TOBACCO ABUSE -- +SMOKER--1PPD X20 YEARS, CHRONIC SOUGH -- HX-RIGHT BREAST CA,HTN,DIAB -- LEFT UPPER RIB REMOVED RADIATION DOSAGE (If Supplied By Facility): CTDIvol = ( 3.02 ) mGy, DLP = ( 99.3 ) mGycm TECHNIQUE: No contrast was administered. Low dose technique was utilized (average mAS-38 and kVp 120). 1.25 mm axial source images with a slice interval of 1.25-mm were reconstructed in lung windows. 2.5 mm axial source images with a slice interval of 2.5-mm were reconstructed in lung windows. 5.0 mm axial source images with a slice interval of 5.0-mm were reconstructed in soft tissue windows. Nodule measured using lung windows on PACS and/or independent workstation with automated measurement of minimum and maximum diameter. Nodule measurement reported as average diameter rounded to the nearest whole number. Growth is defined as an increase ins size of greater than 1.5 mm. COMPARISON: None. NODULES: There is a 4.1 mm noncalcified nodule in the posterior aspect of the right upper lobe abutting the major fissure. This is seen on axial image #79 and coronal image #219. There is a 6.4 mm noncalcified nodule in the anterior aspect of the left lower lobe abutting the left major fissure. A 2 mm nodule is also seen in the posterior lateral aspect of the left lower lobe. Emphysema: There is a 1.1; a bulla in the anterior medial aspect of the left lower chest seen on axial image #96. Minimal increased markings in the anterior aspect of the right middle lobe and lingular segment of the left upper lobe suggestive of mild scarring. Endobronchial lesion: None Aorta: Atherosclerotic plaque formation. Coronary arteries: Coronary artery calcification. Mediastinal nodes: Small benign-appearing mediastinal lymph nodes Other chest and abdominal findings: CT/Low Dose CT Lung Screening IMPRESSION: Lung-RADS category 2 - Continue annual screening with LDCT in 12 months. IMPORTANT NOTES FOR USE: ACR Lung-RADS Version 1.0 Assessment Categories Release Date: July 26, 2013 Category: Coded 0-4 bases on nodule(s) with highest degree of suspicion. Negative screen is defined as categories 1 and 2; a positive screen is defined as categories 3 and 4. Category 3 and 4A nodules that are unchanged on interval CT should be coded as category 2, and individuals returned to screening in 12 months. Category 4X: Category 3 or 4 nodules with additional imaging findings that increase the suspicion of lung cancer, such as spiculation, GGN that doubles in size in 1 year, enlarged lymph notes, etc. Category Modifiers: S (significant finding unrelated to lung cancer) and C (prior history of treated lung cancer) may be added to the 0-4 Lung-RADS Electronically Signed: Demetrio Johnson, at 14:09 EST , Service support ,
== END ==
PROVIDERS: PCP Family Medicine; Referring Provider Family Medicine; Visit Provider Family Medicine
DX: F17.210 Nicotine dependence, cigarettes, uncomplicated (principal)
CPT/HCPCS: 71271

== ENCOUNTER → 2020-09-15 08:50 | Outpatient (CLI) | payer MEDICARE, MEDICAID, SELFPAY ==
[2020-03-30 14:28] VITALS: BMI 30.9
[2020-06-01 12:06] VITALS: BMI 31.0
[2020-09-11 13:12] VITALS: BMI 29.9
--- NOTE | 2020-09-15 08:52 | BI_ITS ---
MAMMOGRAPHY - UNILATERAL DIAGNOSTIC: RIGHT BREAST REASON FOR EXAM: Female, 65 years old. History of prior right lumpectomy and radiation treatment. Lump at the operative site. PERTINENT HISTORY: Personal history of breast cancer. Prior right lumpectomy with the radiation treatment. TECHNIQUE: Digital unilateral breast cristofer (3D mammographic acquisition) in the CC and MLO projections. 2-D mediolateral oblique (MLO) and craniocaudad (CC) views of both breasts were obtained. CAD: Full Field Digital Mammography with Computer Added Detection was performed. COMPARISON: Comparison is made with prior study dated 04/04/2020 and 10/26/2019. FINDINGS: Breast Composition: There are scattered areas of fibroglandular density. There are no dominant masses or suspicious calcifications. Once again, the patient is status post lumpectomy in the deep upper lateral aspect of the right breast with resultant deformity. Stable diffuse thickening of the skin along the inferior aspect of the breast. No other significant abnormalities are identified. There has been no significant change since the prior study. BI/DIAG MAMM W/CAD, UNILAT IMPRESSION: Stable unilateral diagnostic mammogram. With the patient''s history of pain at the operative site, correlation with ultrasound is recommended. ASSESSMENT CATEGORY: BIRADS Category 0: Incomplete. Need additional imaging evaluation. A letter regarding these results will be sent to the patient by the facility within 30 days. Approximately 10% of breast cancers are not detected by mammography. A normal mammogram should not delay biopsy of a clinically suspicious abnormality. Electronically Signed: Demetrio Johnson MD at 9:54 EDT , Service support ,
--- NOTE | 2020-09-15 08:52 | US_ITS ---
STUDY: ULTRASOUND BREAST - RIGHT REASON FOR EXAM: Female, 65 years old. Right breast pain and lump. TECHNIQUE: Axial and longitudinal images of the RIGHT breast were performed with a high resolution ultrasound transducer. # OF IMAGES: 49 COMPARISON: Comparison is made with prior mammogram done earlier in the day as well as prior sonogram of the right breast dated 04/04/2020.. FINDINGS: RIGHT Breast: The upper half of the right breast was examined by ultrasound. No sonographic abnormality is seen. US/Breast Limited Unilateral IMPRESSION: No sonographic abnormality is seen. ASSESSMENT CATEGORY: BIRADS Category 1: Negative. A letter regarding these results will be sent to the patient by the facility within 30 days. Electronically Signed: Demetrio Johnson MD at 9:57 EDT , Service support ,
== END ==
PROVIDERS: PCP Family Medicine; Referring Provider Internal Medicine Hematology & Oncology; Visit Provider Internal Medicine Hematology & Oncology
DX: N64.4 Mastodynia (principal)
CPT/HCPCS: 76642; 77061; 77065; G0279

== ENCOUNTER → 2020-09-19 12:15 | Outpatient (CLI) | payer MEDICARE, MEDICAID, SELFPAY ==
[2020-03-30 14:28] VITALS: BMI 30.9
--- NOTE | 2020-09-19 12:25 | RAD_ITS ---
STUDY: X-RAY - UNILATERAL RIBS ( RIGHT ) REASON FOR EXAM: Female, 65 years old. PAIN-H/O RIGHT BREAST CANCER AND RADATION THERAPY TECHNIQUE: view(s) of the ribs. COMPARISON: None. FINDINGS: Normal visualized ribs without a demonstrated fracture. The visualized lung is clear and expanded. RAD/Ribs Unil 2V No CXR IMPRESSION: Normal x-ray examination of the ribs. Electronically Signed: Gissel Mai, at 12:40 EDT Tel , Service support ,
== END ==
PROVIDERS: PCP Family Medicine; Referring Provider Family Medicine; Visit Provider Family Medicine
DX: N64.4 Mastodynia (principal)
CPT/HCPCS: 71100

== ENCOUNTER → 2020-11-21 08:57 | Outpatient (CLI) | payer MEDICARE, MEDICAID, SELFPAY ==
[2020-03-30 14:28] VITALS: BMI 30.9
--- NOTE | 2020-11-21 09:00 | RAD_ITS ---
STUDY: X-RAY - CERVICAL SPINE REASON FOR EXAM: Female, 65 years old. 3 week history of neck pain. TECHNIQUE: 5 view(s) of the cervical spine were obtained including oblique views. COMPARISON: None FINDINGS: There are degenerative changes of the anterior atlantoaxial articulation. Normal odontoid process. Normal cervical lordosis. Normal vertebral bodies and endplates. There is multi-level degenerative disc disease with multilevel disc space narrowing. Normal visualized intervertebral neuroforamina. There are atherosclerotic vascular calcifications of the carotid arteries. RAD/Cerv Spine 4 or 5 Views IMPRESSION: Disc space narrowing at the C4-C5, C5-C6 and C6-C7 levels. Electronically Signed: Demertio Johnson MD at 10:05 EDT , Service support ,
== END ==
PROVIDERS: PCP Family Medicine; Referring Provider Nurse Practitioner Family; Visit Provider Nurse Practitioner Family
DX: M54.2 Cervicalgia (principal)
CPT/HCPCS: 72050

== ENCOUNTER → 2020-12-07 08:51 | Outpatient (CLI) | payer MEDICARE, MEDICAID, SELFPAY ==
[2020-03-30 14:28] VITALS: BMI 30.9
--- NOTE | 2020-12-07 08:53 | CDU_ITS ---
Reason For Study: carotid artery disease Rt. Velocities/BP Lt. Velocities/BP Prox CCA 108.6/21.3 cm/sec. Prox CCA 102.3/27.4 cm/sec. Mid CCA 96.9/13.4 cm/sec. Mid CCA 112.1/23.7 cm/sec. Dist CCA 99.5/20.0 cm/sec. Dist CCA 97.4/27.4 cm/sec. Prox ICA 113.4/28.6 cm/sec. Prox ICA 93.7/21.2 cm/sec. Mid ICA 110.9/36.0 cm/sec. Mid ICA 92.4/23.7 cm/sec. Dist ICA 103.5/27.4 cm/sec. Dist ICA 109.7/38.4 cm/sec. Rt. ICA/CCA = 1.2. Lt. ICA/CCA = 1.0. Prox ECA 182.8/13.8 cm/sec. Prox ECA 107.2/11.4 cm/sec. Rt. Vert. 59.3/16.3 cm/sec. Lt. Vert. 74.0/23.7 cm/sec. Right Extracranial There is intimal thickening but no significant atherosclerotic plaque noted in the right common carotid artery. There is heterogeneous, irregular atherosclerotic plaque noted in the right internal carotid artery. There is heterogeneous, irregular atherosclerotic plaque noted in the right external carotid artery. Antegrade flow is noted in the right vertebral artery. Left Extracranial There is heterogeneous, smooth atherosclerotic plaque noted in the left common carotid artery. There is heterogeneous, irregular atherosclerotic plaque noted in the left internal carotid artery. There is intimal thickening but no significant atherosclerotic plaque noted in the left external carotid artery. Antegrade flow is noted in the left vertebral artery. Procedure Carotid Duplex [id number]. This is a Carotid Duplex examination using B-mode, color flow and specral Doppler. The exam was diagnostic. Exam performed in department. VL/Carotid Duplex Ultrasound Interpretation Summary Mild (<50%) stenosis right extracranial internal carotid. Mild (<50%) stenosis left extracranial internal carotid. Flow within the vertebral arteries is antegrade bilaterally. Ordering Physician: Kannan Knowles Performed By: Jd England RVT
== END ==
PROVIDERS: PCP Family Medicine; Referring Provider Family Medicine; Visit Provider Family Medicine
DX: I65.23 Occlusion and stenosis of bilateral carotid arteries (principal)
CPT/HCPCS: 93880

== ENCOUNTER → 2020-12-12 | Outpatient (CLI) | payer MEDICARE, MEDICAID, SELFPAY ==
[2020-03-30 14:28] VITALS: BMI 30.9
== END | disposition home or self-care (01) ==
LOC: LABSPEC 14:09
PROVIDERS: PCP Family Medicine; Referring Provider Family Medicine; Visit Provider Family Medicine
DX: Z20.822 Contact with and (suspected) exposure to COVID-19 (principal)
CPT/HCPCS: 87635; U0005; U0003

== ENCOUNTER → 2021-01-02 10:58 | Outpatient (CLI) | payer MEDICARE, MEDICAID, SELFPAY ==
[2020-03-30 14:28] VITALS: BMI 30.9
--- NOTE | 2021-01-02 11:30 | MRI_ITS ---
History: DDD Technique: T1 and T2 MR imaging of the cervical spine performed without contrast enhancement in axial and sagittal planes. Comparison: Cervical spine radiographs November 21, 2020 Findings: Alignment of the cervical vertebral bodies is normal. No bone marrow edema. Cervical cord is normal. Paraspinal soft tissues are normal. C2-3: No disc protrusion. Normal caliber spinal canal and neural foramina. C3-4: No disc protrusion. Normal caliber spinal canal and neural foramina. C4-5: No disc protrusion. Normal caliber spinal canal and neural foramina. C5-6: Mild disc bulging and posterior ligamentous redundancy results in minor impression on the thecal sac. Intact neural foramina. C6-7: Mild disc bulging and posterior ligamentous redundancy causes minor impression on the thecal sac. No spinal or neuroforaminal stenosis. C7-T1: No disc protrusion. Normal caliber spinal canal and neural foramina. MRI/Spine Cervical (Routine) IMPRESSION: Minor degenerative changes without significant spinal or neuroforaminal stenosis. Intact cervical cord. at 1654 Reported and signed by: Quinn Lewis MD Electronically Signed: Quinn Lewis MD at 16:52 EDT Tel , Service support ,
== END ==
PROVIDERS: PCP Family Medicine; Referring Provider Family Medicine; Visit Provider Family Medicine
DX: M50.30 Other cervical disc degeneration, unspecified cervical region (principal)
CPT/HCPCS: 72141

== ENCOUNTER 2021-01-24 09:00 | Outpatient (RCR) | payer MEDICARE, MEDICAID, SELFPAY ==
[2020-03-30 14:28] VITALS: BMI 30.9
--- NOTE | 2021-01-15 11:03 | HP.PTEVAL_ITS ---
Patient's Visit Information VERO STEVENS is a 65 year old F referred to Physical Therapy by Dr. Kannan Walter MD with a diagnosis of DDD. Date of Evaluation: 01/15/21 Physical Therapist: Adelaide Booker PT, Cert MDT - Visit Plan Frequency: 2-3x /Week Duration: 4-6 Weeks Plan: ULTRASOUND, CERVICAL ISOMETRICS, POSTURE CORRECTION/STRENGTHENING, INSTRUCTION IN APPROPRIATE BODY MECHANICS AND ACTIVITY MODIFICATIONS. IRMA UE ROM, STRETCHING AND STRENGTHENING. HEP INSTRUCTION. - Subjective Diagnosis: DDD. 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 NOT CURRENTLY OFF WORK. Disability: NO. Present symptoms: CRUNCHING AND CRACKING IN NECK AND HEADACHE IN BACK AND RIGHT SIDE OF HEAD MOSTLY AND ONCE IN AWHILE ON THE LEFT. I GET UP WITH A HEADACHE AND I GO TO BED WITH A HEADACHE. INTERMITTENT IRMA UE NUMBNESS AND TINGLING. INTERMITTENT RANDOM NECK PAIN AND LOCKING UP. Present since: ABOUT 2 MONTHS AGO. Pain Scale: Worst - 7/10 Least - 3/10. Currently: 08/07. Commenced as a result of: NO APPARENT REASON. Symptoms at onset: CRACKING AND CRUNCHING IN NECK. Worse: MOVING MY NECK, DRIVING, FILING, GETTING DOWN AND CUTTING DOWN PLANTS. WORK. Better: [employer]. Disturbed sleep: YES. Previous history/Previous treatment: PATIENT DENIES ANY HISTORY OF NECK PAIN OR TREATMENTS. This episode: NONE. Dizziness: NO. Tinnitis: NO. Nausea: NO. Shortness of Breath: NO. Difficulty Swollowing: NO. Gait: PATIENT REPORTS NEW ONSET COORDINATION PROBLEMS WALKING. REPORTS THAT SHE TOLD DR. WALTER ABOUT THIS. REPORTS HER ONCOLOGIST ALSO KNOWS. Accidents: NO. Unexplained weight loss: NO. Imaging: RECENT NECK X-RAYS: IMPRESSION: Disc space narrowing at the C4-C5, C5-C6 and C6-C7 levels. . Electronically Signed: Demetrio Johnson MD. at 10:05 EDT. RECENT NECK MRI: IMPRESSION: . Minor degenerative changes without significant spinal or neuroforaminal. stenosis. Intact cervical cord. . at 1654 . Reported and signed by: Quinn Lewis MD. . Electronically Signed: Quinn Lewis MD. at 16:52 EDT. PMH/Recent major surgery: BREAST CANCER TREATED WITH SURGERY AND RADIATION LAST YEAR. NIDDM, HTN, HIGH CHOLESTEROL, SMOKER, THYROID DZ. (SEE BELOW). OTHER: STATES SHE DID QUITE A BIT YESTERDAY. WALKED 3 MILES, RAN [place] [employer] [facility] [employer], CUT DOWN PLANTS, ETC AND WAS IN A LOT OF PAIN LAST NIGHT. STATES SHE WANTS TO BE ABLE TO DRIVE TO [place] AND SHE CAN'T LIKE THIS. - Objective Sitting Posture/Standing Posture: POOR. Active Correction of posture: NE. Other Observations: THIS PATIENT ABMULATES INDEP'LY INTO PT INDEP'LY WITHOUT ANY ASSITIVE DEVICES OR LOB. INDEP TRANSFERS. 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 Motor deficit: IRMA UE STRENGTH TESTING IS PAIN LIMITED. I PROCEEDED CAREFUL AND WAS ABLE TO DETERMINE THAT IRMA UE STRENGTH IS GROSSLY FOLLOWS: SHLD'S 3+/5, ELBOWS 4/5 AND RIGHT PROPERTY VALUER 36 LBS, LEFT PROPERTY VALUER 23 LBS. PATIENT IS RIGHT HAND DOMINANT. Sensory deficit: IRMA UE LIGHT TOUCH SENSATION GROSSLY INTACT AND SYMMETRICAL. ROM deficit: IRMA SHLD TIGHTNESS ALL PLANES RIGHT GREATER THAN LEFT. APPROX 40% LIMITATION RIGHT SHLD AND 30% LEFT. Reflexes: 2/3 IRMA UE'S. Dural Signs: POSITIVE IRMA UE'S. Cervical Mvmt Loss: Flex: NIL. Pro: NIL. Ext: MOD. Ret: JUAN. RSB: MOD. LSB: MOD. R Rot: MOD. L Rot: MOD. PATIENT C/O CRUNCHING AND CRACKING IN HER NECK WITH CERVICAL ROM TESTING ALL PLANES. IT IS SOMETIMES AUDIBLE. Postural strength: POOR. Palpation: NO ACUTE HEAD OR NECK TENDERNESS WITH LIGHT PALPATION. TREATMENT: NEUROMUSCULAR REEDUCATION - RETRAINING OF MVMT AND POSTURE FOR SITTING, LYING AND STANDING ACTIVITIES. OK TO USE HEAT OR ICE ON NECK 30 MIN OR LESS TOLERATED. INSTRUCTION IN AVOIDANCE OF PERIPHERALIZATION OF SX'S WITH POSTURE CORRECTION, USE OF SUPPORT IN LOW BACK AND MINIMIZING REACHING AND FORWARD HEAD ACTIVITIES FOR WORK AND HOME. OTHER: AFTER FURTHER DISCUSSION WITH PATIENT IT IS NOT CLEAR TO ME IF SHE IS HAVING NEW BALANCE PROBLEMS OR NOT. PATIENT IS QUESTIONING IF SHE REALLY SHOULD DO PT. THIS PT RECOMMENDED PATIENT MAKE SURE HER PCP IS AWARE OF ANY WORSENING OF HER CONDITION AND TO GO TO THE ED IF SHE HAS NEW DIFFICULTY WALKING. - Balance/Special Test Scores Oswestry Neck Score: 18 - Goals Goal 1:: DECREASE C/O NECK, HEAD AND IRMA UE SX'S. Goal Time Frame: 4-6 Weeks Goal 2:: IMPROVE LIFTING, READING, SLEEP, WORK, DRIVING AND RECREATIONAL FUNCTION Goal Time Frame: 4-6 Weeks Goal 3:: INSTRUCT IN PROPHYLAXIS Goal Time Frame: 4-6 Weeks - Anticipated Interventions Patient/Client Instruction: Educate patient on: Condition, Plan of Care, Risk Factors For the Purpose of:: To improve self management Therapeutic Exercise to Include: Strength training, Body mechanics, Postural training, Flexibilty training, Neuromotor development, In an aquatic setting, Scapular Strength/Stabilization For the Purpose of:: To decrease pain, To improve muscle performance and motor function, To increase tolerance to activity/condition/position, To improve ability of physical actions for home/community/work/leisure Cryotherapy (ice pack, ice massage): Yes Thermo therapy (hot pack): Yes Ultrasound (thermal/non thermal): Yes For the Purpose of:: To decrease pain, To improve nutrient delivery to tissue Thank you for the opportunity to evaluate your patient. For Medicare and Medicare HMO plans, please review the plan of care and approve it. It will need to be FAXED BACK to us at [phone] for Medicare purposes. For Medicare only, by signing this I certify the plan of care. Please let me know if there are questions or concerns regarding this plan of care. Physician Signature: Date:
--- NOTE | 2021-04-24 12:46 | HP.PT.NRP ---
VERO STEVENS was seen in my office for initial evaluation on 01/24/21. The following Plan of Care was established for this patient: Initial Frequency: 2-3x /Week Initial Duration: 4-6 Weeks Patient/Client Instruction: Educate patient on: Condition, Plan of Care, Risk Factors For the Purpose of:: To improve self management Therapeutic Exercise to Include: Strength training, Body mechanics, Postural training, Flexibilty training, Neuromotor development, In an aquatic setting, Scapular Strength/Stabilization For the Purpose of:: To decrease pain, To improve muscle performance and motor function, To increase tolerance to activity/condition/position, To improve ability of physical actions for home/community/work/leisure Cryotherapy (ice pack, ice massage): Yes Thermo therapy (hot pack): Yes Ultrasound (thermal/non thermal): Yes For the Purpose of:: To decrease pain, To improve nutrient delivery to tissue This patient was last seen in our office 01/24/21. Pertinent comments regarding their Physical therapy will appear below: This patient has not returned to Physical Therapy and is appropriate to return to MD for further follow-up as needed. At this point I will be discontinuing this patient from physical therapy. I would be happy to see this patient again in the future if found appropriate by the physician. Thank you! Adelaide Booker, PT, Cert MDT Balance/Gait/Functional tests - Balance/Special Test Scores Oswestry Neck Score: 18
== END 2021-01-24 19:00 | disposition home or self-care (01) ==
LOC: PT 09:00
PROVIDERS: PCP Family Medicine; Referring Provider Family Medicine; Visit Provider Family Medicine
DX: M53.3 Sacrococcygeal disorders, not elsewhere classified (principal)
CPT/HCPCS: 97112; 97162; 97530

== ENCOUNTER 2021-04-13 08:45 | Outpatient (CLI) | payer MEDICARE, MEDICAID, SELFPAY ==
[2020-03-30 14:28] VITALS: BMI 30.9
--- NOTE | 2021-04-13 08:57 | BI_ITS ---
MAMMOGRAPHY - BILATERAL SCREENING REASON FOR EXAM: Female, 65 years old. Routine annual screening examination. PERTINENT HISTORY: Personal history of breast cancer. Prior right lumpectomy and maxillary node dissection. Remote right stereotactic breast biopsy. TECHNIQUE: Digital bilateral breast jazmine (3D mammographic acquisition) in the CC and MLO projections. 2-D mediolateral oblique (MLO) and craniocaudad (CC) views of both breasts were obtained. CAD: Full Field Digital Mammography with Computer Added Detection was performed. COMPARISON: Comparison is made with prior study dated 09/15/2020 and 04/04/2020. FINDINGS: Breast Composition: There are scattered areas of fibroglandular density. There are no dominant masses or suspicious calcifications. The patient is status post lumpectomy in the deep upper lateral aspect of the right breast with resultant postoperative scarring and skin thickening. Surgical clips are seen in the right axillary region. There has been no change. No other significant abnormalities are identified. There has been no significant change since the prior study. BI/SCRN MAMM (CAD)W/JAZMINE BILAT IMPRESSION: Stable bilateral screening mammogram. Yearly follow-up mammogram recommended. (A) ASSESSMENT CATEGORY: BIRADS Category 2: Benign. A letter regarding these results will be sent to the patient by the facility within 30 days. Approximately 10% of breast cancers are not detected by mammography. A normal mammogram should not delay biopsy of a clinically suspicious abnormality. [id number] Electronically Signed: Demetrio Johnson MD at 9:45 EST , Service support ,
== END 2021-04-13 23:59 | disposition short-term general hospital (02) ==
PROVIDERS: PCP Family Medicine; Referring Provider Internal Medicine Hematology & Oncology; Visit Provider Internal Medicine Hematology & Oncology
DX: Z12.31 Encounter for screening mammogram for malignant neoplasm of breast (principal)
CPT/HCPCS: 77063; 77067

== ENCOUNTER 2021-04-21 08:46 | Outpatient (CLI) | payer MEDICARE, MEDICAID, SELFPAY ==
[2020-03-30 14:28] VITALS: BMI 30.9
--- NOTE | 2021-04-21 08:48 | CT_ITS ---
STUDY: CT BRAIN WITHOUT CONTRAST REASON FOR EXAM: Female, 65 years old. reoccur ing headache RADIATION DOSAGE (If Supplied By Facility): CTDIvol = ( 44.99 ) mGy, DLP = ( 796.11 ) mGycm TECHNIQUE: Transaxial CT imaging of the brain was performed without administration of intravenous contrast material. Individualized dose optimization techniques were used for this CT. COMPARISON: No relevant priors. FINDINGS: Normal soft tissue structures. Normal calvarium. Normal size ventricles and extra-axial spaces for the patient''s age. Normal white matter tracts of the cerebral hemispheres. Normal basal ganglia and thalami. Normal brainstem. Normal cerebellum. There is no intracranial hemorrhage. There are no findings of an acute ischemic infarction. Normal visualized paranasal sinuses. CT/Brain/Head without Contrast IMPRESSION: Normal unenhanced CT scan of the brain. Electronically Signed: Eduardo Gracia, at 9:24 EST Tel , Service support ,
== END 2021-04-21 23:59 | disposition short-term general hospital (02) ==
LOC: CT 08:48
PROVIDERS: PCP Family Medicine; Visit Provider Family Medicine
DX: R51.9 Headache, unspecified (principal)
CPT/HCPCS: 70450

== ENCOUNTER 2021-05-01 13:11 | Outpatient (CLI) | payer MEDICARE, MEDICAID, SELFPAY ==
[2020-03-30 14:28] VITALS: BMI 30.9
--- NOTE | 2021-05-01 13:13 | CT_ITS ---
STUDY: LOW DOSE CT LUNG CANCER SCREENING REASON FOR EXAM: Female, 65 years old. Lung cancer screening -- 20 pk yr hx;current smoker;asymptomatic RADIATION DOSAGE (If Supplied By Facility): CTDIvol = ( 3.02 ) mGy, DLP = ( 104.65 ) mGycm TECHNIQUE: No contrast was administered. Low dose technique was utilized (average mAS-38 and kVp 120). 1.25 mm axial source images with a slice interval of 1.25-mm were reconstructed in lung windows. 2.5 mm axial source images with a slice interval of 2.5-mm were reconstructed in lung windows. 5.0 mm axial source images with a slice interval of 5.0-mm were reconstructed in soft tissue windows. Nodule measured using lung windows on PACS and/or independent workstation with automated measurement of minimum and maximum diameter. Nodule measurement reported as average diameter rounded to the nearest whole number. Growth is defined as an increase ins size of greater than 1.5 mm. COMPARISON: Comparison is made with prior study dated 04/06/2020. NODULES: Stable 4.1 mm noncalcified nodule in the posterior aspect of the right upper lobe abutting the right major fissure. This is seen on axial image #88. There is also evidence of a 6.4 mm noncalcified nodule in the anterior aspect of the left lower lobe abutting the left major fissure. This is unchanged. A 2 mm noncalcified nodules also seen in the posterolateral aspect of the left lower lobe posteriorly. This is seen on axial image #143. Emphysema: Hyperinflation. Mild emphysematous changes. Stable 1.1 cm bulla in the anterior medial aspect of the left lower lobe. Minimal increased markings in the right middle lobe and lingula similar to the left upper lobe. Endobronchial lesion: Unremarkable. Aorta: Atherosclerotic plaque formation of the aorta. Coronary arteries: Coronary artery calcification. Heart: Unremarkable Pulmonary artery: Minimal Mediastinal nodes: Small benign-appearing mediastinal Other chest and abdominal findings: CT/Low Dose CT Lung Screening IMPRESSION: Lung-RADS category 2 - Continue annual screening with LDCT in 12 months. IMPORTANT NOTES FOR USE: ACR Lung-RADS Version 1.1 Assessment Categories Release Date: 2018 Category: Coded 0-4 bases on nodule(s) with highest degree of suspicion. Negative screen is defined as categories 1 and 2; a positive screen is defined as categories 3 and 4. Category 3 and 4A nodules that are unchanged on interval CT should be coded as category 2, and individuals returned to screening in 12 months. Category 4X: Category 3 or 4 nodules with additional imaging findings that increase the suspicion of lung cancer, such as spiculation, GGN that doubles in size in 1 year, enlarged lymph notes, etc. Category Modifiers: S (significant finding unrelated to lung cancer) Electronically Signed: Demetrio Johnson MD at 13:49 EST ,
== END 2021-05-01 23:59 | disposition short-term general hospital (02) ==
LOC: CT 13:13
PROVIDERS: PCP Family Medicine; Referring Provider Nurse Practitioner Family; Visit Provider Nurse Practitioner Family
DX: Z12.2 Encounter for screening for malignant neoplasm of respiratory organs (principal); Z87.891 Personal history of nicotine dependence
CPT/HCPCS: 71271

== ENCOUNTER 2021-05-23 17:48 | Outpatient (CLI) | payer MEDICARE, MEDICAID, SELFPAY ==
[2020-03-30 14:28] VITALS: BMI 30.9
--- NOTE | 2021-05-23 17:48 | MRI_ITS ---
STUDY: MRA OF THE HEAD WITHOUT CONTRAST REASON FOR EXAM: Female, 66 years old. Ongoing headache x 6 mos TECHNIQUE: 3-D oqle-iv-qzkbff (TOF) imaging was performed with MIPs. The study was performed unenhanced. COMPARISON: None. FINDINGS: Normal bilateral petrous carotid arteries. Normal right cavernous carotid artery with a normal supraclinoid bifurcation. Normal left cavernous carotid artery with a normal supraclinoid bifurcation. Normal right A1 segment of the anterior cerebral artery. Normal left A1 segment of the anterior cerebral artery. Normal intact anterior communicating artery (ACOM). Normal bilateral A2 segments of the anterior cerebral arteries. Normal right M1 and M2 segments of the middle cerebral arteries, with a normal M1 bifurcation. Normal left M1 and M2 segments of the middle cerebral arteries, with a normal M1 bifurcation. Normal right posterior communicating artery (PCOM). No visible left posterior communicating artery (PCOM). Normal bilateral vertebral arteries. The left is slightly more dominant. Normal basilar artery with a normal basilar bifurcation. The visualized bilateral superior cerebellar (SCA) arteries are normal. Normal bilateral P1, P2 and visualized P3 segments of the posterior cerebral arteries. There is no demonstrated aneurysm of the [place] of [place]. There is no major vessel occlusion or hemodynamically significant stenosis. There is no demonstrated abnormality of the visualized brain. MRI/MRA Head ONLY without Contrast IMPRESSION: Normal MRA of the head Electronically Signed: Naren Agosto MD at 11:15 EST ,
--- NOTE | 2021-05-23 17:48 | MRI_ITS ---
STUDY: MRI BRAIN WITHOUT CONTRAST REASON FOR EXAM: Female, 66 years old. ongoing headache x 6 mos TECHNIQUE: Standardized multiplanar fat and water weighted pulse sequences were obtained. COMPARISON: Head CT dated October 19, 2021 FINDINGS: There is asymmetry of the ventricles consistent with an anatomic variant. There is mild cerebral atrophy with widening of the extra-axial spaces and ventricular dilatation. Normal white matter tracts of the supratentorial brain. There is no evidence for recent intracranial ischemia or other cause of cytotoxic edema on diffusion weighted imaging (DWI). Normal T2* images of the brain without demonstrated susceptibility artifact. There is no demonstrated hemosiderin stain. Normal bilateral basal ganglia. Normal thalami. There is no extra-axial fluid accumulation. Normal flow voids within the major intracranial circulation suggesting patency by spin echo criteria. Normal sella turcica, pituitary gland, infundibular stalk, optic chiasm and hypothalamus. Normal tectal plate and pineal gland. Normal midbrain, rosemarie and medulla. Normal cerebellum. Normal basal cisterns. Normal bilateral temporal bones. Normal bilateral internal auditory canals. No demonstrated orbital abnormality, within the constraints of a routine brain study. Normal visualized paranasal sinuses. Normal calvarium and skull base. Normal visualized soft tissue structures. Normal visualized upper cervical spine. MRI/Brain without Contrast IMPRESSION: Involutional changes of the brain, as described above. Electronically Signed: Nilesh Herr MD at 23:56 EST ,
== END 2021-05-23 23:59 | disposition home or self-care (01) ==
LOC: MRI 17:48
PROVIDERS: PCP Family Medicine; Visit Provider Family Medicine
DX: R51.9 Headache, unspecified (principal)
CPT/HCPCS: 70544; 70551

== ENCOUNTER 2021-06-20 08:45 | Day surgery (SDC) | payer MEDICARE, MEDICAID, SELFPAY ==
[2020-03-30 14:28] VITALS: BMI 30.9
--- NOTE | 2021-06-20 09:05 | PCM.HP.BLA ---
History and Physical Date of Admission: 06/20/21 Date of Service: 06/08/21 MR#:[id number]:[id number]: VERO STEVENS [facility] #:[id number]:1955 Provider:Radha Obando/Sex: 66/F [facility] Vital Signs 06/08/21 08:30 Height 5 ft 4 in Weight: 164 lb BMI 28.1 BP 111/72 Blood Pressure Location Rt brachial Position Sitting Respiration 18 Pulse 80 Pulse Source Monitor Temp 96.0 F L Temp Source Temporal Oxygen Delivery Method room air Intake Visit Reasons: C-Scope weight loss Chief Complaint: C-Scope weight loss Risk And Insurance Consultant Required: No Is patient in pain?: No Allergies coconut Adverse Reaction (Severe, Verified 06/08/21 08:31) Hives Penicillins Adverse Reaction (Severe, Verified 06/08/21 08:31) Hives Medications levothyroxine 100 mcg capsule 100 mcg PO DAILY 04/07/17 [History Confirmed 06/08/21] lisinopril 10 mg-hydrochlorothiazide 12.5 mg tablet 1 tab PO DAILY 04/07/17 [History Confirmed 06/08/21] simvastatin 80 mg tablet 80 mg PO QPM 04/07/17 [History Confirmed 06/08/21] cholecalciferol (vitamin D3) 25 mcg (1,000 unit) capsule 5,000 unit PO DAILY cap 03/22/19 [History Confirmed 06/08/21] metformin 1,000 mg PO BID 10/19/19 [History Confirmed 06/08/21] oxybutynin chloride 5 mg PO TID 10/19/19 [History Confirmed 06/08/21] pantoprazole 40 mg PO QHS 10/19/19 [History Confirmed 06/08/21] calcium carbonate-vitamin D3 1 ea PO DAILY 06/01/20 [History Confirmed 06/08/21] letrozole 2.5 mg tablet 2.5 mg PO DAILY #90 tab 02/12/21 [Rx Confirmed 06/08/21] cephalexin 500 mg capsule 500 mg PO Q6H cap 05/01/21 [History Confirmed 06/08/21] levofloxacin 500 mg tablet 500 mg PO DAILY 05/01/21 [History Confirmed 06/08/21] topiramate 50 mg tablet 50 mg PO DAILY tab 05/01/21 [History Confirmed 06/08/21] [facility] Medical History (Updated 06/08/21 @ 11:[address] Tiffany Gan MD) Abdominal pain Arthritis Breast mass, right Breast pain, right Diabetes Diarrhea Encounter for education Encounter for screening for malignant neoplasm of lung Frequent headaches GERD (gastroesophageal reflux disease) History of change in bowel patterns History of colon polyps HTN (hypertension) Hyperlipidemia Hypothyroidism (acquired) Malignant neoplasm of upper-outer quadrant of right breast in female, estrogen receptor positive Mastalgia Neck pain Osteopenia previous radiation treatments Skin lesion of breast Tobacco abuse Weight loss Surgical History H/O colonoscopy H/O total thyroidectomy History of laparoscopic cholecystectomy History of salpingectomy History of tubal ligation Hx of cholecystectomy Status post right breast lumpectomy Family History Mother Arthritis Heart disease Osteoporosis Father Cancer Prostate Grandmother Diabetes Social History household members: children housing: house Smoking Status: Current every day smoker (1 ppd ) tobacco type: cigarettes Tobacco: How many years used: 20 alcohol intake: never substance use type: does not use caffeine: Yes what type of physical activity do you participate in: walking frequency: 3-4 times per week HPI HPI HPI: VERO STEVENS, is a 66 F who presents to the office today for weight loss. Patient estimates in the last year she has lost about 25 pounds unintentionally. Patient states last 2 to 3 weeks she is lost about 5 to 6 pounds unintentionally. Patient states she has had a lower appetite ever since her breast cancer but states she is still eating but just smaller meals. Patient has also been having diarrhea about 3 times a day for the last 3 weeks. Patient previously states she has had diarrhea off and on with constipation before in the last 3 weeks. Patient last colonoscopy was in March 2019 where she had 5 polyps removed at that time recommend repeat colonoscopy in 3 years. Patient also had an EGD at that time as well she has been on the Protonix 40 mg p.o. daily since then denies any reflux symptoms. ROS General General: Yes weight change and fatigue; No appetite, colon cancer or breast cancer Additional Details: 5-6 pound weight loss in three weeks HEENT HEENT: No difficulty swallowing, eye injury, eye surgery, swollen glands or hoarseness Endo Endocrine: Yes thyroid disease and diabetes mellitus; No thyroid cancer, Hair loss, heat intolerance or cold intolerance Skin Skin: No rash or changing moles Musc Musculoskeletal: Yes arthritis and rheumatoid arthritis; No back problems, gout or joint pain Cardio Cardiovascular: No murmur, pacemaker, heart disease, atrial fibrillation, high blood pressure, heart attack, heart stent, palpitations, shortness of breat with exertion or chest pain Psych Psychiatric: No depression, anxiety or hearing voices Resp Respiratory: No shortness of breath, No sleep apnea, No cough, No COPD, No asthma, No emphysema and No wheezing Gastro Gastrointestinal: No abdominal pain, No nausea or vomiting, Yes diarrhea, No constipation, No blood in stool, No acid reflux, No hemorrhoids, No ulcers, No gallbladder problem and No black,tarry stools Blue Hematologic: No blood thinners, No blood disorders, No bleeding, No anemia and No blood clots Neuro Neurologic: No abnormal speech Exam Const General: cooperative, healthy appearing, comfortable and no acute distress Neck Neck: normal visual inspection Resp Effort & Inspection: normal respiratory effort Cardio Rate: regular rate GI Inspection: non-distended Palpation: soft, no guarding and nontender Skin General: no rashes or lesions noted Neuro General: patient oriented x3 Psych Affect: normal affect COVID (Procedure Consent) Procedure Criteria Procedure Criteria: Yes Elective The surgeon/proceduralist and patient have discussed in detail the risk of exposure to and/or potential harm posed by the COVID-19 virus with having a surgery/procedure at this time versus the risk of delaying the surgery/procedure. It is not possible to know either the risk of delaying the surgery or procedure or chance of getting an infection with perfect accuracy, but a joint decision was made between the patient and the surgeon/proceduralist to proceed at this time with the scheduled surgery/procedure as indicated on the consent form. Assessment and Plan Assessment and Plan (1) Weight loss, non-intentional: Status: Acute (2) Diarrhea: Status: Acute Plan - Dr. Tiffany Gan MD: I have discussed the above with the patient. I have offered the patient EGD and colonoscopy for evaluation. We will plan on some random biopsies to get diarrhea as well. I have explained the risks/benefits of the procedure and described the procedure. I have discussed the risks with the patient, including but not limited to: infection, bleeding, perforation of the GI tract requiring emergency surgery, inability to complete the procedure, injury to any internal organs, complications of anesthesia, etc. - the patient understands and agrees to proceed. I have answered all the patient's questions to the patient's satisfaction and the patient has no further questions. The patient has been given instructions for the colon cleansing preparation. 1 day of clears, MiraLAX Dulcolax blood prep. Tiffany Gan M.D. Pager: [phone] [facility] [address] [place] [address], [facility], [address] [place] [address] Office: [phone] Coding Level of Care Code Off vis,est,level 4 Diagnoses Weight loss, non-intentional R63.4 Diarrhea R19.7 06/08/21 1105<Electronically signed by Tiffany Gan MD>Date Tiffany Gan MD
[2021-06-20 09:15] VITALS: BP 152/71; PULSE 91; RESP 18; TEMP 36.4; O2SAT 97; BMI 26.9
[2021-06-20 09:26] LABS: Bedside Glucose 149 mg/dL (74-106)
--- NOTE | 2021-06-20 10:00 | IMM_PTH ---
PATIENT: VERO STEVENS LOC: EN U#:[id number] AGE/SX: 66/F ROOM: RE06/20/[address]: Dr. Tiffany Gan MD : 1955 BED: DIS: 06/20/2021 SPEC #: [id number] RECD: 06/20/21 14:01 STATUS: CLAIRE RELisseth #: [id number] MARIA ALEJANDRA: 06/20/21 10:[address]: Tiffany Gan DEPT: IMMUNOHISTOCHEMISTRY RECD BY: Gracia Kahn ENTERED: 06/20/21 14:03 SP TYPE: IMMUNO OTHR DR: Dr. Kannan Knowles MD Tissues: A - Stomach, NOS Procedures: H Pylori (initial) PHYSICIAN & INSTITUTION [place] [id number] SPECIMEN INFORMATION: Tissue Source: A ? Antrum biopsy Clinical Info: Weight loss, nonintentional; diarrhea Specimen Number: [id number] CPT code: 71345 METHODOLOGY: Deparaffinized sections of prefer/formalin-fixed tissue or PAP/DQ stained slides are incubated with monoclonal/polyclonal antibodies/oligonucleotide probes. Localization is made via biotin free immunoperoxidase method. Appropriate controls are performed and reacted as expected. Results on target cell population are indicated in the following table: RESULTS: ANTIBODY / CLONE RESULT Block A H Pylori (polyclonal) negative These tests were developed and their performance characteristics determined by [facility]. They may not have been cleared or approved by the U.S. Food and Drug Administration. The FDA has determined that such clearance or approval is not necessary. INTERPRETATION: A. Antrum, biopsy: Negative for Helicobacter pylori organisms. SJ:katherine 06/21/2021
--- NOTE | 2021-06-20 10:00 | COLBX_PTH ---
PATIENT: VERO STEVENS LOC: EN U#:[id number] AGE/SX: 66/F ROOM: RE06/20/[address]: Dr. Tiffany Gan MD : 1955 BED: DIS: 06/20/2021 SPEC #: [id number] RECD: 06/20/21 12:20 STATUS: CLAIRE PATRICIA #: [id number] MARIA ALEJANDRA: 06/20/21 10:[address]: Tiffany Gan DEPT: SURGICAL PATHOLOGY RECD BY: Roma Gipson ENTERED: 06/20/21 12:58 SP TYPE: COLON BX OTHR DR: Dr. Kannan Knowles MD Tissues: A - Gastric mucous membrane B - Gastric mucous membrane C - Gastric mucous membrane D - Gastric mucous membrane E - Transverse colon F - Transverse colon G - Descending colon H - COLON BIOPSY I - Rectum, NOS Procedures: Special Stain Group II Surgery Specimen Level IV Alcian Blue/PAS (control) HEADER OPERATION: Colonoscopy, EGD (MAC), biopsies and polyp removal PRE-OP DIAGNOSIS: Nonintentional weight loss, diarrhea TISSUE SUBMITTED: A ? Antrum biopsy for H. pylori and histology, B ? Gastric polyp biopsy - fundus, C ? Gastroesophageal junction biopsy, D ? Gastric body biopsy, E ? Proximal transverse colon biopsy, F ? Transverse colon biopsy, G ? Descending colon polyp, H ? Random colon biopsy, I ? Rectum polyp biopsy MICROSCOPIC DIAGNOSIS A. Antrum, biopsy: Mild gastritis. See microscopic description and comment. B. Gastric polyp, fundus, biopsy: Fragments of hyperplastic cells/inflammatory polyp. C. Gastroesophageal junction, biopsy: Fragments of gastroesophageal mucosa with mild chronic inflammation. Intestinal metaplasia (goblet cell metaplasia) not identified. See comment. D. Gastric body, biopsy: Mild gastritis. See comment. E. Proximal transverse colon, biopsy: Tubular adenoma. F. Transverse colon, biopsy: Tubular adenoma. G. Descending colon polyp, biopsy: Tubular adenoma. Hyperplastic polyp. H. Colon, random biopsy: Fragments of colonic mucosa, no pathologic diagnosis. I. Rectum polyp, biopsy: Hyperplastic polyp. SJ:katherine 06/21/2021 COMMENT A. The results of immunohistochemistry for Helicobacter pylori will be reported separately ([id number]). C. Alcian blue/PAS stain with matched control is used in the evaluation of the specimen. MICROSCOPIC DESCRIPTION Slides are reviewed. A. The specimen shows fragments of gastric mucosa with chronic inflammatory cell infiltrates in the lamina propria consisting of lymphocytes and plasma cells, consistent with mild chronic gastritis. B. The specimen shows fragments of gastric mucosa with chronic inflammatory cell infiltrates in the lamina propria consisting of lymphocytes and plasma cells, consistent with mild chronic gastritis. GROSS DESCRIPTION A - Received in fixative is one container labeled with the patient's name and designated antrum biopsy. The specimen consists of one irregular fragment of light quinones soft tissue that measures 0.7 x 0.2 x 0.1 cm. The specimen is totally submitted in one cassette. B - Received in fixative is one container labeled with the patient's name and designated gastric polyp biopsy - fundus. The specimen consists of multiple irregular fragments of light quinones soft tissue that in aggregate measure 1 x 0.3 x 0.1 cm. The specimen is totally submitted in one cassette. C - Received in fixative is one container labeled with the patient's name and designated GE junction biopsy. The specimen consists of multiple irregular fragments of light quinones soft tissue that in aggregate measure 0.5 x 0.5 x 0.1 cm. The specimen is totally submitted in one cassette. D - Received in fixative is one container labeled with the patient's name and designated gastric body biopsy. The specimen consists of one irregular fragment of light quinones soft tissue that measures 0.3 x 0.3 x 0.1 cm. The specimen is totally submitted in one cassette. E - Received in fixative is one container labeled with the patient's name and designated proximal transverse colon biopsy. The specimen consists of two irregular fragments of light quinones soft tissue that in aggregate measure 0.5 x 0.4 x 0.1 cm. The specimen is totally submitted in one cassette. F - Received in fixative is one container labeled with the patient's name and designated transverse colon biopsy. The specimen consists of two irregular fragments of light quinones soft tissue that in aggregate measure 0.5 x 0.4 x 0.1 cm. The specimen is totally submitted in one cassette. G - Received in fixative is one container labeled with the patient's name and designated descending colon polyp. The specimen consists of two irregular fragments of light quinones soft tissue that in aggregate measure 0.6 x 0.3 x 0.1 cm. The specimen is totally submitted in one cassette. H - Received in fixative is one container labeled with the patient's name and designated random colon biopsy. The specimen consists of multiple irregular fragments of light quinones soft tissue that in aggregate measure 0.5 x 0.5 x 0.1 cm. The specimen is totally submitted in one cassette. I - Received in fixative is one container labeled with the patient's name and designated rectum polyp biopsy. The specimen consists of multiple irregular fragments of light quinones soft tissue that in aggregate measure 1 x 0.3 x 0.1 cm. The specimen is totally submitted in one cassette. / SJ:rg 06/20/2021 TC:1 CPT: 35264 x9, 39109
[2021-06-20 10:50] VITALS: BP 124/60; BP 152/71; PULSE 96; RESP 16; TEMP 36.1; O2SAT 100
[2021-06-20 10:55] VITALS: BP 132/65; BP 152/71; PULSE 92; RESP 17; O2SAT 100
--- NOTE | 2021-06-20 10:55 | OP.EGD_ITS ---
Patient Name: Jahaira Booth Procedure Date: 06/20/2021 9:51 AM Date of : 1955 Age: 66 Procedure: Upper GI endoscopy Indications: Esophageal reflux, Weight loss Providers: Tiffany Gan MD Medicines: Monitored Anesthesia Care Patient Profile: This is a 66 year old female. Complications: No immediate complications. Procedure: Pre-Anesthesia Assessment: - Prior to the procedure, a History and Physical was performed, and patient medications and allergies were reviewed. The patient's tolerance of previous anesthesia was also reviewed. The risks and benefits of the procedure and the sedation options and risks were discussed with the patient. All questions were answered, and informed consent was obtained. Prior Anticoagulants: The patient has taken no previous anticoagulant or antiplatelet agents. ASA Grade Assessment: Per anesthesia. After reviewing the risks and benefits, the patient was deemed in satisfactory condition to undergo the procedure. After obtaining informed consent, the endoscope was passed under direct vision. Throughout the procedure, the patient's blood pressure, pulse, and oxygen saturations were monitored continuously. The gastroscope was introduced through the mouth, and advanced to the second part of duodenum. The upper GI endoscopy was accomplished without difficulty. The patient tolerated the procedure well. Scope In: 9:58:26 AM Scope Out: 10:08:09 AM Total Procedure Duration Time 0 hours 9 minutes 43 seconds Findings: The Z-line was variable and was found 40 cm from the incisors. Biopsies were taken with a cold forceps for histology. The examined duodenum was normal. Mildly erythematous mucosa without bleeding was found in the gastric antrum. Biopsies were taken with a cold forceps for histology. Biopsies were taken with a cold forceps for Helicobacter pylori cultures. A few less than 5 mm sessile polyps with no bleeding and no stigmata of recent bleeding were found in the gastric fundus. The polyp was removed with a cold biopsy forceps. Resection and retrieval were complete. Scattered mild mucosal variance characterized by discoloration was found in the gastric body. Biopsies were taken with a cold forceps for histology. The cardia and gastric fundus were normal on retroflexion. Impression: - Z-line variable, 40 cm from the incisors. Biopsied. - Normal examined duodenum. - Erythematous mucosa in the antrum. Biopsied. - A few gastric polyps. Resected and retrieved. - Gastric mucosal variant. Biopsied. Recommendation: - Await pathology results. - Discharge patient to home. - Resume previous diet. - Continue present medications. - Use sucralfate tablets 1 gram PO TID for 1 week-1 hr before lunch, dinner and at bedtime. Procedure Code(s): --- Professional --- 32816, Esophagogastroduodenoscopy, flexible, transoral; with biopsy, single or multiple Diagnosis Code(s): --- Professional --- K22.8, Other specified diseases of esophagus K31.89, Other diseases of stomach and duodenum K31.7, Polyp of stomach and duodenum K21.9, Gastro-esophageal reflux disease without esophagitis R63.4, Abnormal weight loss CPT copyright 2017 [employer]. All rights reserved. The codes documented in this report are preliminary and upon road contractor review may be revised to meet current compliance requirements. MD Tiffany Nieves MD 06/20/2021 10:54:14 AM This report has been signed electronically. Number of Addenda: 0 Note Initiated On: 06/20/2021 9:51 AM
--- NOTE | 2021-06-20 10:56 | OP.CCLET_ITS ---
06/20/2021 Kannan Knowles MD [address] [id number] Re : Upper GI endoscopy procedure for Jahaira Booth Dear Dr. Knowles This procedure was performed on Sunday, June 20, 2021. My impressions and recommendations are as follows: Impressions : - Z-line variable, 40 cm from the incisors. Biopsied. - Normal examined duodenum. - Erythematous mucosa in the antrum. Biopsied. - A few gastric polyps. Resected and retrieved. - Gastric mucosal variant. Biopsied. Recommendations : - Await pathology results. - Discharge patient to home. - Resume previous diet. - Continue present medications. - Use sucralfate tablets 1 gram PO TID for 1 week-1 hr before lunch, dinner and at bedtime. My findings are described in the full procedure note, which is enclosed. If I can be of further assistance, please feel free to contact me at Doctor phone number(s): , Work: . Sincerely, MD Tiffany Nieves MD 06/20/2021 10:54:14 AM This report has been signed electronically.
[2021-06-20 11:00] VITALS: BP 152/71; BP 91/57; PULSE 84; RESP 16; O2SAT 99
--- NOTE | 2021-06-20 11:03 | OP.COLON_ITS ---
Patient Name: Jahaira Booth Procedure Date: 06/20/2021 10:10 AM Date of : 1955 Age: 66 Procedure: Colonoscopy Indications: Weight loss Providers: Tiffany Gan MD Medicines: Monitored Anesthesia Care Patient Profile: This is a 66 year old female. Last Colonoscopy: 2 years. Complications: No immediate complications. Procedure: Pre-Anesthesia Assessment: - Prior to the procedure, a History and Physical was performed, and patient medications and allergies were reviewed. The patient's tolerance of previous anesthesia was also reviewed. The risks and benefits of the procedure and the sedation options and risks were discussed with the patient. All questions were answered, and informed consent was obtained. Prior Anticoagulants: The patient has taken no previous anticoagulant or antiplatelet agents. ASA Grade Assessment: Per anesthesia. After reviewing the risks and benefits, the patient was deemed in satisfactory condition to undergo the procedure. After I obtained informed consent, the scope was passed under direct vision. Throughout the procedure, the patient's blood pressure, pulse, and oxygen saturations were monitored continuously. The adult colonoscope was introduced through the anus and advanced to the cecum, identified by the appendiceal orifice, ileocecal valve and palpation. The colonoscopy was performed without difficulty. The patient tolerated the procedure well. The quality of the bowel preparation was good. Scope In: 10:11:53 AM Scope Withdrawal Time 0 hours 20 minutes 26 seconds Scope Out: 10:46:04 AM Total Procedure Duration Time 0 hours 34 minutes 11 seconds Findings: The perianal and digital rectal examinations were normal. Three sessile polyps were found in the rectum, transverse colon and proximal transverse colon. The polyps were less than 5 mm in size. These polyps were removed with a cold biopsy forceps. Resection and retrieval were complete. Two semi-sessile polyps were found in the descending colon. The polyps were 3 to 5 mm in size. These polyps were removed with a hot snare. Resection and retrieval were complete. Two random biopsies were obtained with cold forceps for histology in the rectum and in the sigmoid colon. Multiple small-mouthed diverticula were found in the sigmoid colon. Impression: - Three less than 5 mm polyps in the rectum, in the transverse colon and in the proximal transverse colon, removed with a cold biopsy forceps. Resected and retrieved. - Two 3 to 5 mm polyps in the descending colon, removed with a hot snare. Resected and retrieved. - Diverticulosis in the sigmoid colon. - Two random biopsies were obtained in the rectum and in the sigmoid colon. Recommendation: - Discharge patient to home. - High fiber diet. - Continue present medications. - Await pathology results. - Repeat colonoscopy in 3 - 5 years for surveillance based on pathology results. Procedure Code(s): --- Professional --- 90024, Colonoscopy, flexible; with removal of tumor(s), polyp(s), or other lesion(s) by snare technique [id number], 59, Colonoscopy, flexible; with biopsy, single or multiple Diagnosis Code(s): --- Professional --- K62.1, Rectal polyp D12.3, Benign neoplasm of transverse colon (hepatic flexure or splenic flexure) D12.4, Benign neoplasm of descending colon R63.4, Abnormal weight loss K57.30, Diverticulosis of large intestine without perforation or abscess without bleeding CPT copyright 2017 [employer]. All rights reserved. The codes documented in this report are preliminary and upon communications advisor review may be revised to meet current compliance requirements. MD Tiffany Nieves MD 06/20/2021 11:02:49 AM This report has been signed electronically. Number of Addenda: 0 Note Initiated On: 06/20/2021 10:10 AM
--- NOTE | 2021-06-20 11:04 | OP.CCLET_ITS ---
06/20/2021 Kannan Knowles MD [address] [place] [address] Re : Colonoscopy procedure for Jahaira Booth Dear Dr. Knowles This procedure was performed on Sunday, June 20, 2021. My impressions and recommendations are as follows: Impressions : - Three less than 5 mm polyps in the rectum, in the transverse colon and in the proximal transverse colon, removed with a cold biopsy forceps. Resected and retrieved. - Two 3 to 5 mm polyps in the descending colon, removed with a hot snare. Resected and retrieved. - Diverticulosis in the sigmoid colon. - Two random biopsies were obtained in the rectum and in the sigmoid colon. Recommendations : - Discharge patient to home. - High fiber diet. - Continue present medications. - Await pathology results. - Repeat colonoscopy in 3 - 5 years for surveillance based on pathology results. My findings are described in the full procedure note, which is enclosed. If I can be of further assistance, please feel free to contact me at Doctor phone number(s): , Work: . Sincerely, MD Tiffany Nieves MD 06/20/2021 11:02:49 AM This report has been signed electronically.
[2021-06-20 11:05] VITALS: BP 112/54; BP 152/71; PULSE 79; RESP 18; TEMP 36.1; O2SAT 96
[2021-06-20 11:15] VITALS: BP 152/71
== END 2021-06-20 23:59 | disposition home or self-care (01) ==
LOC: EN 08:45 → AC 08:46
PROVIDERS: PCP Family Medicine; Referring Provider Family Medicine; Visit Provider Surgery
PROC: 0DJD8ZZ Inspection of Lower Intestinal Tract, Via Natural or Artificial Opening Endoscopic (ICD-10-PCS; CPT 45378; principal; 2021-06-20 09:55)
DX: D12.4 Benign neoplasm of descending colon (principal); E11.9 Type 2 diabetes mellitus without complications; K63.5 Polyp of colon; K62.1 Rectal polyp; K31.7 Polyp of stomach and duodenum; K21.00 Gastro-esophageal reflux disease with esophagitis, without bleeding; I10 Essential (primary) hypertension; Z90.49 Acquired absence of other specified parts of digestive tract; Z79.84 Long term (current) use of oral hypoglycemic drugs; E78.5 Hyperlipidemia, unspecified; F17.210 Nicotine dependence, cigarettes, uncomplicated; K57.30 Diverticulosis of large intestine without perforation or abscess without bleeding; K29.70 Gastritis, unspecified, without bleeding; D12.3 Benign neoplasm of transverse colon; M19.90 Unspecified osteoarthritis, unspecified site; Z86.010 Personal history of colon polyps; E03.9 Hypothyroidism, unspecified; Z79.899 Other long term (current) drug therapy; Z85.3 Personal history of malignant neoplasm of breast
CPT/HCPCS: 45380; 43239; 45385; 82962; 88305; 88313; 88342; J7120; J2405

== ENCOUNTER 2021-06-29 09:10 | Outpatient (CLI) | payer MEDICARE, MEDICAID, SELFPAY ==
[2020-03-30 14:28] VITALS: BMI 30.9
[2021-06-29 11:13] LABS: Anion Gap 5 (5-15); BUN 15 mg/dL (7-18); BUN/Creat Ratio 21.7 RATIO (10-20); Calcium,Total 9.5 mg/dL (8.5-10.1); Chloride 104 mmol/L (98-107); Cholesterol 111 mg/dL (200); Creatinine, Serum 0.69 mg/dL (0.55-1.02); EST Glomerular Filtration Rate 90 mL/min (>60); Est Glom Filt Rate - Afr Amer 109 mL/min (>60); Glucose 111 mg/dL (74-106); High Density Lipoprotein 39 mg/dL; Sodium Level 138 mmol/L (136-145); Triglycerides 87 mg/dL; Very Low Density Lipoprotein 17 mg/dL (5-40)
[2021-06-29 11:14] LABS: Hemoglobin A1c 6.3 % (3.8-5.6)
== END 2021-06-29 23:59 | disposition home or self-care (01) ==
LOC: MTLAB 09:12
PROVIDERS: PCP Family Medicine; Referring Provider Family Medicine; Visit Provider Family Medicine
DX: E11.9 Type 2 diabetes mellitus without complications (principal)
CPT/HCPCS: 36415; 80048; 80061; 83036

== ENCOUNTER → 2021-09-18 | Outpatient (CLI) | payer MEDICARE, MEDICAID, SELFPAY ==
[2020-03-30 14:28] VITALS: BMI 30.9
--- NOTE | 2021-09-18 11:38 | RAD_ITS ---
STUDY: X-RAY - RIGHT ANKLE REASON FOR EXAM: Female, 66 years old. Ankle sprain. Pain. TECHNIQUE: 3 view(s) of the ankle. COMPARISON: None. FINDINGS: Osteopenia. Normal visualized distal tibia and fibula. Normal medial and lateral malleoli. Normal tibiotalar articulation and ankle mortise. Superior and inferior calcaneal spurs. Mild arthrosis of the midfoot. The soft tissue structures are unremarkable. RAD/Ankle min 3 Views IMPRESSION: Osteopenia with calcaneal spurs and mild arthrosis of the midfoot. No acute abnormality, chondrocalcinosis or erosive changes. Electronically Signed: Eduardo Esquivel MD at 14:00 EDT ,
--- NOTE | 2021-09-18 11:38 | RAD_ITS ---
STUDY: X-RAY - RIGHT FOOT CLINICAL: Female, 66 years old. Contusion. Pain. TECHNIQUE: 3 view(s) of the foot. COMPARISON: None. FINDINGS: Osteopenia. Small superior and inferior calcaneal spurs. Normal visualized subtalar, talonavicular, calcaneocuboid, tarsal and tarsometatarsal articulations. Normal metatarsi. Mild arthrosis of the MTP and IP joints. The soft tissue structures are unremarkable. RAD/Foot min 3 Views IMPRESSION: Osteopenia with mild osteoarthritic changes as described. No acute abnormality, chondrocalcinosis, erosive changes or periostitis. Electronically Signed: Eduardo Esquivel MD at 14:01 EDT ,
== END | disposition home or self-care (01) ==
LOC: MTRAD 11:37
PROVIDERS: PCP Family Medicine; Referring Provider Family Medicine; Visit Provider Family Medicine
DX: S93.401A Sprain of unspecified ligament of right ankle, initial encounter (principal); S90.31XA Contusion of right foot, initial encounter
CPT/HCPCS: 73610; 73630

== ENCOUNTER → 2022-04-03 | Outpatient (CLI) | payer MEDICARE, SELFPAY ==
[2020-03-30 14:28] VITALS: BMI 30.9
[2022-04-03 12:44] LABS: Absolute Lymphocyte Count 1.94 X10^3/uL (0.83-4.51); Absolute Neutrophil Count 6.3 X10^3/uL (2.0-7.7); Basophil# 0.03 X10^3/uL; Basophil% 0.3 % (0-1); Eosinophil# 0.07 X10^3/uL; Eosinophils% 0.8 % (0-5); Hematocrit 37.4 % (37-47); Hemoglobin 12.5 g/dL (12.0-15.0); Lymphocyte # 1.94 X10^3/ul (0.83-4.51); Lymphocyte % 21.8 % (19-41); Mean Corp Hgb Conc 33.4 g/dL (32-36); Mean Corpuscular Volume 95.7 fL (81-99); Mean Platelet Vol. 9.4 fl (6.2-12.0); Monocyte# 0.54 X10^3/uL; Monocyte% 6.1 % (0-10); NRBC Flagged by Analyzer 0 % (0-5); Neutrophil # 6.29 X10^3/uL (2.7-7.7); Neutrophil % 70.7 % (47-70); Platelet Count 336 K/mm3 (150-450); RBC Distribution Width CV 12.6 % (11.6-14.6); RBC Distribution Width SD 43.9 fl (35.1-43.9); Red Blood Count 3.91 M/mm3 (4.2-5.4); White Blood Count 8.9 K/mm3 (4.4-11.0)
[2022-04-03 13:05] LABS: Hemoglobin A1c 5.7 % (3.8-5.6)
[2022-04-03 13:44] LABS: Anion Gap 7 (5-15); BUN 22 mg/dL (7-18); BUN/Creat Ratio 27.2 RATIO (10-20); Calcium,Total 9.3 mg/dL (8.5-10.1); Chloride 103 mmol/L (98-107); Cholesterol 139 mg/dL (200); Creatinine, Serum 0.81 mg/dL (0.55-1.02); EST Glomerular Filtration Rate 75 mL/min (>60); Est Glom Filt Rate - Afr Amer 90 mL/min (>60); Free T3 2.3 pg/mL (2.18-3.98); Glucose 109 mg/dL (74-106); High Density Lipoprotein 47 mg/dL; Potassium 4.1 mmol/L (3.5-5.1); Sodium Level 136 mmol/L (136-145); T4 Free Direct 1.46 ng/dL (0.76-1.46); Thyroid Stim Hormone (TSH) 0.25 uIU/mL (0.358-3.74); Triglycerides 109 mg/dL; Very Low Density Lipoprotein 22 mg/dL (5-40)
== END | disposition home or self-care (01) ==
LOC: MFPLAB 11:06
PROVIDERS: PCP Family Medicine; Referring Provider Family Medicine; Visit Provider Family Medicine
DX: E11.9 Type 2 diabetes mellitus without complications (principal); E03.9 Hypothyroidism, unspecified; R55 Syncope and collapse
CPT/HCPCS: 36415; 80048; 80061; 83036; 84439; 84443; 84481; 85025

== ENCOUNTER → 2022-05-07 | Outpatient (CLI) | payer MEDICARE, MEDICAID, SELFPAY ==
[2020-03-30 14:28] VITALS: BMI 30.9
--- NOTE | 2022-05-07 12:33 | CT_ITS ---
STUDY: LOW DOSE CT LUNG CANCER SCREENING REASON FOR EXAM: Female, 66 years old. Lung cancer screening -- and gt;20 pk yr hx;current smoker;asymptomatic RADIATION DOSAGE (If Supplied By Facility): CTDIvol = ( 3.02 ) mGy, DLP = ( 101.18 ) mGycm TECHNIQUE: No contrast was administered. Low dose technique was utilized (average mAS-38 and kVp 120). 1.25 mm axial source images with a slice interval of 1.25-mm were reconstructed in lung windows. 2.5 mm axial source images with a slice interval of 2.5-mm were reconstructed in lung windows. 5.0 mm axial source images with a slice interval of 5.0-mm were reconstructed in soft tissue windows. COMPARISON: Comparison is made with prior study dated 05/01/2021. NODULES: Stable 4 mm noncalcified nodule in the posterior aspect of the right upper lobe abutting the major fissure. This is best seen on axial image #86. Stable 6 mm noncalcified nodule in the anterior aspect of the left lower lobe abutting the left major fissure as seen on axial image #136. Emphysema: Hyperinflation. Mild emphysematous changes. Stable 1.1 cm bulla in the anterior medial aspect of the left lower lobe. Endobronchial lesion: None Aorta: Atherosclerotic plaque formation of the aortic arch. CORONARY ARTERIES: Coronary artery calcification is seen. Heart: Unremarkable Pulmonary artery: Unremarkable Mediastinal nodes: Stable small benign-appearing mediastinal lymph nodes. CT/Low Dose CT Lung Screening IMPRESSION: Lung-RADS category 2 - Continue annual screening with LDCT in 12 months. IMPORTANT NOTES FOR USE: ACR Lung-RADS Version 1.1 Assessment Categories Release Date: 2018 Category: Coded 0-4 bases on nodule(s) with highest degree of suspicion. Negative screen is defined as categories 1 and 2; a positive screen is defined as categories 3 and 4. Category 3 and 4A nodules that are unchanged on interval CT should be coded as category 2, and individuals returned to screening in 12 months. Category 4X: Category 3 or 4 nodules with additional imaging findings that increase the suspicion of lung cancer, such as spiculation, GGN that doubles in size in 1 year, enlarged lymph notes, etc. Category Modifiers: S (significant finding unrelated to lung cancer) Electronically Signed: Demetrio Johnson MD at 13:21 EST ,
== END | disposition home or self-care (01) ==
LOC: CT 12:32
PROVIDERS: PCP Family Medicine; Visit Provider Nurse Practitioner Family
DX: Z87.891 Personal history of nicotine dependence (principal); Z12.2 Encounter for screening for malignant neoplasm of respiratory organs
CPT/HCPCS: 71271

== ENCOUNTER → 2022-05-14 | Outpatient (CLI) | payer MEDICARE, MEDICAID, SELFPAY ==
[2020-03-30 14:28] VITALS: BMI 30.9
--- NOTE | 2022-05-14 09:29 | BI_ITS ---
MAMMOGRAPHY - BILATERAL SCREENING REASON FOR EXAM: Female, 66 years old. Routine annual screening examination. PERTINENT HISTORY: Personal history of breast cancer. Prior right lumpectomy with radiation treatment. TECHNIQUE: Digital bilateral breast jazmine (3D mammographic acquisition) in the CC and MLO projections. 2-D mediolateral oblique (MLO) and craniocaudad (CC) views of both breasts were obtained. CAD: Full Field Digital Mammography with Computer Added Detection was performed. COMPARISON: Comparison is made with prior study dated 10/11/2021 and 09/15/2020. FINDINGS: Breast Composition: There are scattered areas of fibroglandular density. There are no dominant masses or suspicious calcifications. Once again, the patient is status post lumpectomy in the deep upper slightly lateral aspect of the right breast with resultant postoperative scarring and skin thickening. Surgical clips are also seen in the right axillary region. No other significant abnormalities are identified. There has been no significant change since the prior study. BI/SCRN MAMM (CAD)W/JAZMINE BILAT IMPRESSION: Stable bilateral screening mammogram. Yearly follow-up mammogram recommended. (A) ASSESSMENT CATEGORY: BIRADS Category 2: Benign. A letter regarding these results will be sent to the patient by the facility within 30 days. Approximately 10% of breast cancers are not detected by mammography. A normal mammogram should not delay biopsy of a clinically suspicious abnormality. [id number] Electronically Signed: Demetrio Johnson MD at 11:10 EST ,
--- NOTE | 2022-05-14 09:29 | BD_ITS ---
STUDY: DUAL ENERGY X-RAY ABSORPTIOMETRY / DXA REASON FOR EXAM: Female, 66 years old. OSTEOPENIA TECHNIQUE: Bone Mineral Density (BMD) measurements of lumbar spine and bilateral hips were obtained. COMPARISON: Comparison is made with prior study dated 11/16/2019. FINDINGS: Lumbar Spine (L1-L4): g/cm2 (0.872) / T-score (-1.6) / Z-score (0.4) Findings are suggestive of osteopenia with a moderate fracture risk. Left Femur Total: g/cm2 (0.727) / T-score (-1.8) / Z-score (-0.3) Left Femoral Neck: g/cm2 (0.634) / T-score (-1.9) / Z-score (-0.2) Right Femur Total: g/cm2 (0.658) / T-score (-2.3) / Z-score (-0.9) Right Femoral Neck: g/cm2 (0.638) / T-score (-1.9) / Z-score (-0.2) The T-Scores on the most recent prior examination were: Lumbar Spine (L1-L4): There has been worsening of bone density since the previous examination. Left Femur Total: which represents an improvement of 2.9%. Right Femur Total: which represents an improvement of 0.9%. BD/Dexa Bone Density Study IMPRESSION: The patient is considered osteopenic as outlined below according to World Sam Organization (WHO) criteria with a high fracture risk. There has been improvement of bone density since the previous examination. Reference Information: The T-score is the number of standard deviations above or below the standard which is normal for young adults at their peak bone mineral density. The World Health Organization (WHO) interprets the T-scores as follows: Above -1 Normal bone density Between -1 and -2.5 Osteopenia Equal to / or below -2.5 Osteoporosis As a practical clinical guideline, osteopenia may be graded as follows: Mild -1 through -1.5 Moderate -1.6 through -2.0 Severe -2.1 through -2.4 The Z-score is the number of standard deviations above or below age-matched controls. A Z-score of less than -1.5 would be considered abnormal. References: 1. NIH Osteoporosis and Related Bone Diseases www osteo.org 2. International Society for Clinical Densitometry www iscd.org 3. National Osteoporosis Foundation www nof.org Electronically Signed: Demetrio Johnson MD at 12:11 EST ,
== END | disposition home or self-care (01) ==
LOC: OPBD 09:09
PROVIDERS: PCP Family Medicine; Visit Provider Internal Medicine Hematology & Oncology
DX: M85.88 Other specified disorders of bone density and structure, other site (principal); C50.411 Malignant neoplasm of upper-outer quadrant of right female breast; Z17.0 Estrogen receptor positive status [ER+]; Z12.31 Encounter for screening mammogram for malignant neoplasm of breast
CPT/HCPCS: 77063; 77067; 77080

== ENCOUNTER → 2022-07-03 | Outpatient (CLI) | payer MEDICARE, MEDICAID, SELFPAY ==
[2020-03-30 14:28] VITALS: BMI 30.9
[2022-07-03 11:17] LABS: Anion Gap 6 (5-15); BUN 22 mg/dL (7-18); BUN/Creat Ratio 25.3 RATIO (10-20); Calcium,Total 9.5 mg/dL (8.5-10.1); Chloride 103 mmol/L (98-107); Cholesterol 122 mg/dL (200); Creatinine, Serum 0.87 mg/dL (0.55-1.02); EST Glomerular Filtration Rate 69 mL/min (>60); Est Glom Filt Rate - Afr Amer 83 mL/min (>60); Free T3 2.3 pg/mL (2.18-3.98); Glucose 101 mg/dL (74-106); High Density Lipoprotein 44 mg/dL; Sodium Level 135 mmol/L (136-145); T4 Free Direct 1.41 ng/dL (0.76-1.46); Triglycerides 129 mg/dL; Very Low Density Lipoprotein 26 mg/dL (5-40)
== END | disposition home or self-care (01) ==
LOC: MFPLAB 09:19
PROVIDERS: PCP Family Medicine; Referring Provider Family Medicine; Visit Provider Family Medicine
DX: E03.9 Hypothyroidism, unspecified (principal); E11.621 Type 2 diabetes mellitus with foot ulcer
CPT/HCPCS: 36415; 80048; 80061; 84439; 84443; 84481

== ENCOUNTER → 2022-07-26 | Outpatient (CLI) | payer MEDICARE, MEDICAID, SELFPAY ==
[2020-03-30 14:28] VITALS: BMI 30.9
--- NOTE | 2022-07-26 07:10 | CT_ITS ---
STUDY: CT BRAIN WITH AND WITHOUT CONTRAST REASON FOR EXAM: Female, 67 years old. HX OF BREAST CANCER. Loss of coordination. RADIATION DOSAGE (If Supplied By Facility): CTDIvol = ( 44.99 ) mGy, DLP = ( 1580.97 ) mGycm TECHNIQUE: Transaxial CT imaging of the brain was performed pre and post contrast administration. The examination was performed with intravenous administration of IV 50mL Isovue-370. Individualized dose optimization techniques were used for this CT. COMPARISON: Comparison is made with prior study dated April 21, 2001. FINDINGS: Normal soft tissue structures. Normal calvarium. There is mild cerebral atrophy with widening of the extra-axial spaces and ventricular dilatation. Normal white matter tracts of the cerebral hemispheres. Normal basal ganglia and thalami. Normal brainstem. Normal cerebellum. There is no intracranial hemorrhage. There are no findings of an acute ischemic infarction. Normal visualized paranasal sinuses. CT/Brain/Head W/WO Contrast IMPRESSION: Chronic involutional changes of the brain. Electronically Signed: Demetrio Johnson MD at 14:26 EDT ,
== END | disposition home or self-care (01) ==
LOC: CT 07:08
PROVIDERS: PCP Family Medicine; Referring Provider Family Medicine; Visit Provider Family Medicine
DX: Z85.3 Personal history of malignant neoplasm of breast (principal)
CPT/HCPCS: 70470; Q9967

== ENCOUNTER → 2022-09-13 | Outpatient (CLI) | payer MEDICARE, MEDICAID, SELFPAY ==
[2020-03-30 14:28] VITALS: BMI 30.9
[2022-09-13 17:55] LABS: Absolute Neutrophil Count 6.4 X10^3/uL (2.0-7.7); Basophil# 0.03 X10^3/uL; Basophil% 0.3 % (0-1); Eosinophil# 0.08 X10^3/uL; Eosinophils% 0.9 % (0-5); Hematocrit 35.5 % (37-47); Hemoglobin 11.7 g/dL (12.0-15.0); Lymphocyte % 22.8 % (19-41); Mean Corpuscular Hgb 32.1 pg (27.0-32.0); Mean Corpuscular Volume 97.3 fL (81-99); Mean Platelet Vol. 9.6 fl (6.2-12.0); Monocyte# 0.54 X10^3/uL; Monocyte% 5.9 % (0-10); NRBC Flagged by Analyzer 0 % (0-5); Neutrophil % 69.6 % (47-70); Platelet Count 304 K/mm3 (150-450); RBC Distribution Width CV 12.6 % (11.6-14.6); RBC Distribution Width SD 44.7 fl (35.1-43.9); Red Blood Count 3.65 M/mm3 (4.2-5.4); White Blood Count 9.2 K/mm3 (4.4-11.0)
[2022-09-13 18:13] LABS: ALB/GLOB Ratio 1.2 RATIO (0.9-2.4); AST(SGOT) 6 U/L (15-37); Alanine Aminotransfer ALT/SGPT 14 U/L (13-56); Albumin, Serum 3.7 g/dL (3.2-5.0); Alkaline Phosphatase 61 U/L (45-117); Anion Gap 9 (5-15); BUN 18 mg/dL (7-18); BUN/Creat Ratio 21.9 RATIO (10-20); Calcium,Total 9.2 mg/dL (8.5-10.1); Chloride 102 mmol/L (98-107); Creatinine, Serum 0.82 mg/dL (0.55-1.02); EST Glomerular Filtration Rate 73 mL/min (>60); Est Glom Filt Rate - Afr Amer 89 mL/min (>60); Globulin 3.2 g/dL (2.2-4.2); Glucose 95 mg/dL (74-106); Potassium 3.7 mmol/L (3.5-5.1); Protein, Total 6.9 g/dL (6.4-8.2); Sodium Level 137 mmol/L (136-145); T4 Free Direct 1.28 ng/dL (0.76-1.46)
== END | disposition home or self-care (01) ==
LOC: MFPLAB 15:24
PROVIDERS: PCP Family Medicine; Visit Provider Family Medicine
DX: R53.83 Other fatigue (principal); E11.9 Type 2 diabetes mellitus without complications; E03.9 Hypothyroidism, unspecified
CPT/HCPCS: 36415; 80053; 84439; 84443; 84481; 85025

== ENCOUNTER → 2022-10-18 | Outpatient (CLI) | payer MEDICARE, MEDICAID, SELFPAY ==
[2020-03-30 14:28] VITALS: BMI 30.9
[2022-10-18 11:32] LABS: Anion Gap 6 (5-15); BUN 14 mg/dL (7-18); BUN/Creat Ratio 18.5 RATIO (10-20); Calcium,Total 9.6 mg/dL (8.5-10.1); Chloride 108 mmol/L (98-107); Creatinine, Serum 0.76 mg/dL (0.55-1.02); EST Glomerular Filtration Rate 81 mL/min (>60); Est Glom Filt Rate - Afr Amer 97 mL/min (>60); Free T3 1.9 pg/mL (2.18-3.98); Glucose 98 mg/dL (74-106); Potassium 4.2 mmol/L (3.5-5.1); Sodium Level 140 mmol/L (136-145); T4 Free Direct 1.56 ng/dL (0.76-1.46); Thyroid Stim Hormone (TSH) 0.15 uIU/mL (0.358-3.74)
== END | disposition home or self-care (01) ==
LOC: MFPLAB 09:26
PROVIDERS: PCP Family Medicine; Visit Provider Family Medicine
DX: E03.9 Hypothyroidism, unspecified (principal); I10 Essential (primary) hypertension
CPT/HCPCS: 36415; 80048; 84439; 84443; 84481

== ENCOUNTER → 2022-11-22 | Outpatient (CLI) | payer MEDICARE, MEDICAID, SELFPAY ==
[2020-03-30 14:28] VITALS: BMI 30.9
--- NOTE | 2022-11-22 12:39 | RAD_ITS ---
STUDY: X-RAY CHEST REASON FOR EXAM: Female, 67 years old. Follow-up rib fractures. TECHNIQUE: Frontal and lateral views of the chest. COMPARISON: Right rib series dated September 19, 2020. FINDINGS: Cardiomegaly with aortic tortuosity and calcification, unchanged. Hyperinflation with healed right rib fractures, unaltered. Surgical clips projected over the right lung, unchanged. Diffuse thoracic spondylosis with osteopenia. No abnormality of the visualized soft tissue structures of the upper abdomen. RAD/Chest PA and Lateral IMPRESSION: Stable chest with no acute superimposed findings since the prior study. Electronically Signed: Eduardo Esquivel MD at 15:20 EDT ,
--- NOTE | 2022-11-22 12:39 | RAD_ITS ---
STUDY: X-RAY - UNILATERAL RIBS ( RIGHT ) REASON FOR EXAM: Female, 67 years old. Follow-up of right rib fracture. TECHNIQUE: 4 view(s) of the ribs. COMPARISON: Rib series dated August 2020. FINDINGS: Osteopenia of the ribs. Healed right rib fractures unchanged. Clips projected over the right lateral chest and right lower lobe, unchanged. RAD/Ribs Unil 2V No CXR IMPRESSION: Stable RIBS with no acute abnormality. Electronically Signed: Eduardo Esquivel MD at 15:21 EDT ,
== END | disposition home or self-care (01) ==
LOC: MTRAD 12:37
PROVIDERS: PCP Family Medicine; Referring Provider Family Medicine; Visit Provider Family Medicine
DX: S22.39XA Fracture of one rib, unspecified side, initial encounter for closed fracture (principal)
CPT/HCPCS: 71046; 71100

== ENCOUNTER 2022-12-19 12:46 | Emergency (ER) | payer MEDICARE, MEDICAID, SELFPAY ==
[2020-03-30 14:28] VITALS: BMI 30.9
[2022-12-19 12:47] VITALS: BP 198/81; PULSE 77; RESP 14; TEMP 36.1; O2SAT 98; BMI 23.9
[2022-12-19 13:04] VITALS: BP 203/80; PULSE 71; RESP 16; O2SAT 99
--- NOTE | 2022-12-19 13:05 | EX.ED.DYSGE1 ---
HPI History of Present Illness Chief Complaint: Hypertension Detail of Chief Complaint: To ER from radiology suite because of high blood pressure Informant: patient and PCP (Dr. Knowles informing that he had ordered outpatient blood work. He informed me that he discontinued her blood pressure medicine approximately 2 months ago.) Onset/Context/Timing Onset: - (Unknown) Context: - (Unknown) Timing: - (Unknown) Quality: Patient does complain of right-sided chest pain. She has known fractured r Location: Right chest wall Current Severity: Mild Maximum Severity: Moderate Worsened by: Movement, breathing Relieved by: Remaining ill Associated Symptoms Associated Symptoms: Also complains of headache with no visual or neurologic symptoms Narrative Narrative: Jessi is a 67-year-old woman. She has history of hypertension. Her blood pressure medicine was discontinued approximately 1 to 2 months ago. She was on lisinopril 10 mg. The medication was discontinued by her doctor. She states her headache started after the CTA to evaluate for PE because her D-dimer was elevated. She also had outpatient blood work that was obtained. This included a CBC, BMP and troponin. Her blood work was unremarkable. Her D-dimer was 0.51 which is normal once corrected for age. Patient denies double vision, blurred vision loss of vision. Patient denies ringing or ears or decreased hearing. Patient denies difficulty with swallowing or speech. Patient denies paresthesia, anesthesia or motor weakness upper or lower extremity. Patient has problems with her balance. This has been a persistent chronic issue that has gotten worse over the past month. She denies chest pain, pressure or tightness. She denies dyspnea or dyspnea on exertion. She sleeps with 3 pillows for comfort. She denies orthopnea or PND. She does report mild swelling of her feet the last 1 to 2 weeks. She states she has been active. She has no history of VTE. Prior similar symptoms: Yes Recent Illness/Hospitalization: Yes [facility] Medical History Abdominal pain Arthritis Breast mass, right Breast pain, right Cancer Diabetes Diarrhea Encounter for education Encounter for screening for malignant neoplasm of lung Frequent headaches GERD (gastroesophageal reflux disease) High cholesterol History of change in bowel patterns History of colon polyps History of stress test HTN (hypertension) Hyperlipidemia Hypothyroidism (acquired) Malignant neoplasm of upper-outer quadrant of right breast in female, estrogen receptor positive Mastalgia Migraine headache Neck pain Osteopenia previous radiation treatments Skin lesion of breast Tobacco abuse Wears glasses Wears partial dentures Weight loss Home Medications levothyroxine 100 mcg capsule 100 mcg PO DAILY 04/07/17 [History Last Taken 06/20/21 07:00] simvastatin 80 mg tablet 80 mg PO QPM 04/07/17 [History Last Taken Unknown] cholecalciferol (vitamin D3) 25 mcg (1,000 unit) capsule 5,000 unit PO DAILY 03/22/19 [History Last Taken Unknown] metformin 500 mg tablet,extended release 24 hr 1,000 mg PO BID 10/19/19 [History Last Taken Unknown] oxybutynin chloride 5 mg tablet 5 mg PO TID 10/19/19 [History Last Taken Unknown] pantoprazole 40 mg tablet,delayed release 40 mg PO QHS 10/19/19 [History Last Taken 10/26/19] calcium carbonate 500 mg-vitamin D3 15 mcg (600 unit) tablet 1 ea PO DAILY 06/01/20 [History Last Taken Unknown] amitriptyline 25 mg tablet 25 mg PO DAILY Migraines 06/15/21 [History Last Taken Unknown] sucralfate 1 gram tablet 1 g PO TID #21 tabs 06/20/21 [Rx Last Taken Unknown] letrozole 2.5 mg tablet 2.5 mg PO DAILY Breast CA #90 tabs 07/29/22 [Rx Last Taken Unknown] lisinopril 5 mg tablet 5 mg PO DAILY #30 tabs 12/19/22 [Rx Last Taken Unknown] Allergy/AdvReac Type Severity Reaction Status Date / Time coconut AdvReac Severe Hives Verified 12/19/22 12:47 Penicillins AdvReac Severe Hives Verified 12/19/22 12:47 Family History Mother Arthritis Heart disease Osteoporosis Father Cancer Prostate Grandmother Diabetes Surgical History H/O colonoscopy H/O total thyroidectomy History of cataract removal with insertion of prosthetic lens History of laparoscopic cholecystectomy History of salpingectomy History of tubal ligation Hx of cholecystectomy Status post right breast lumpectomy Social History household members: children housing: house Smoking Status: Current every day smoker tobacco type: cigarettes Tobacco: How many years used: 20 alcohol intake: never substance use type: does not use caffeine: Yes what type of physical activity do you participate in: walking frequency: 3-4 times per week ROS ROS ED Constitutional Constitutional ED: Denies chills, fever(s), subjective, sweats or weight loss Eyes Eyes: Denies blurry vision, change in vision or diplopia ENT ENT ED: Denies ear pain, rhinorrhea or sore throat Cardiovascular Cardiovascular: Reports chest pain; Denies orthopnea, palpitations, paroxysmal nocturnal dyspnea or racing heartbeat Respiratory/Chest Respiratory/Chest: Denies cough, dyspnea, dyspnea on exertion, orthopnea or paroxysmal nocturnal dyspnea Gastrointestinal Gastrointestinal: Denies abdominal pain, diarrhea, melena, nausea or vomiting Genitourinary Genitourinary ED: Denies dysuria, hematuria or urinary frequency Musculoskeletal Musculoskeletal: Denies arthralgias, back pain, myalgias or neck pain Integumentary Denies rash Neurologic Neurologic: Reports headache(s); Denies paresthesias or weakness Psychiatric Psychiatric: Denies anxiety Endocrine Endocrinology: Denies polydipsia or polyuria Hematologic/Lymphatic Hematologic/Lymphatic: Reports systems reviewed and no addt'l complaints, except as documented EXAM Physical Exam Narrative Exam Narrative: Pleasant elderly woman who appears in no distress. Blood pressure is elevated. She has a pulse pressure. Const Vital Signs: 12/19/22 12:47 12/19/22 13:04 12/19/22 13:25 Temperature 97 F L Temperature Source Temporal Pulse Rate 77 71 Respiratory Rate 14 16 Respiratory Pattern Normal Blood Pressure 198/81 H 203/80 H Blood Pressure Mean 120 121 Pulse Ox 98 99 Oxygen Delivery Method Room Air Room Air 12/19/22 13:49 Temperature Temperature Source Pulse Rate 70 Respiratory Rate 16 Respiratory Pattern Blood Pressure 162/64 H Blood Pressure Mean 96 Pulse Ox 98 Oxygen Delivery Method Room Air Positive well nourished and well developed General Appearance ED: well developed and NAD; Negative for cyanotic, diaphoretic or pallor HEENT Reports moist mucous membranes HEENT Narrative: It is atraumatic normocephalic. Ears are normal. TMs are normal. Nares are patent. Posterior pharynx currently regulate. Uvula is midline. There is no deviation with protrusion. Eyes PERRL and EOMs intact bilaterally General Eye ED: Negative for pale conjunctiva or scleral icterus Neck no lymphadenopathy, supple and no JVD Neck Narrative: There is no carotid bruit noted on the right or left. Chest Wall inspection of chest normal and palpation of chest normal Resp normal respiratory effort and clear to auscultation bilaterally Cardio regular rate, regular rhythm, S1 normal heart sound, S2 normal heart sound and no murmurs GI normal to inspection, nondistended, normoactive bowel sounds, non-tender and non-distended; Negative for hepatosplenomegaly Back/Spine no CVA tenderness Extremity normal to inspection Extremity Narrative: Bilateral pedal edema noted. General Extremety ED: Yes edema General Extremity: edema Neuro oriented x3, CN's II-XII intact bilaterally and no sensory deficits noted Neuro Narrative: No dysmetria. The eye askew and hand test were both negative. Gait was observed and normal. Tandem gait was normal. Romberg with eyes open and close was normal. Sensorium / Orientation: alert Motor Exam: strength 5/5 throughout Psych mental status grossly normal Skin no rashes or lesions noted, no wounds and skin turgor normal General Skin Exam: elasticity normal; Negative for jaundice or pallor MDM MDM MDM Narrative Medical decision making narrative: Suspect patient's hypotension due to the fact that her antihypertensive meds was discontinued. CT of the head was not obtained since patient has a GCS of 15 with no focal findings on neurologic exam. Patient was treated with lisinopril in the emergency department. Laboratory studies performed prior to arrival reviewed. They are unremarkable. We will reassess patient after she receives the lisinopril. We will review CTA to determine if there is any abnormality to explain her chest pain other than healing fractured ribs Lab Data Attestation: I reviewed the patient's lab results. Lab results narrative: Patient has mild proteinuria. Labs: Laboratory Results - last 24 hr 12/19/22 14:10 Urine Color Yellow Urine Clarity Sl. Cloudy Urine pH 8.0 Ur Specific Calion 1.010 Urine Protein 15 H Urine Glucose (UA) Normal Urine Ketones Negative Urine Occult Blood Negative Urine Nitrite Negative Urine Bilirubin Negative Urine Urobilinogen Normal Ur Leukocyte Esterase 100 H Urine RBC 0 SEEN Urine WBC 10-25 SEEN Ur Squamous Epith Cells 0-5 SEEN Urine Bacteria 1+ Urine Mucus 0 SEEN Radiography Diagnostic Testing: X-ray report for the CTA reveals bronchiectasis right lower lobe and mild pleural thickening. There is no evidence of pulmonary embolus. There is no evidence of pneumonia. Treatment and Re-Evaluation :: Reassessed at 1430. Blood pressure is 171/69. Patient discharged with prescription for lisinopril and follow-up with Dr. Kannan Knowles in 1 to 2 weeks. Discharge Plan Triage Chief Complaint: Hypertension ED Provider: Ananda Avina Dx/Rx/DC Orders Clinical Impression: Accelerated essential hypertension, Hyperlipidemia, Diabetes, Asymptomatic proteinuria, Right-sided chest pain, Bronchiectasis Instructions: ED High Blood Pressure Hypertension Prescriptions: New lisinopril 5 mg tablet 5 mg PO DAILY Qty: 30 0RF No Action simvastatin 80 mg tablet 80 mg PO QPM levothyroxine 100 mcg capsule 100 mcg capsule 100 mcg PO DAILY cholecalciferol (vitamin D3) 1,000 unit capsule 5,000 unit PO DAILY calcium carbonate-vitamin D3 1 EACH tablet 1 ea PO DAILY letrozole 2.5 mg tablet 2.5 mg PO DAILY Qty: 90 1RF metformin 500 MG tablet extended release 24 hr 1,000 mg PO BID pantoprazole 40 MG tablet,delayed release (DR/EC) 40 mg PO QHS oxybutynin chloride 5 MG tablet 5 mg PO TID amitriptyline 25 mg tablet 25 mg PO DAILY Patient Comments: take 1 tablet by mouth once daily sucralfate 1 gram tablet 1 g PO TID Qty: 21 1RF Rx Instructions: Take 1 hour before lunch, dinner, at bedtime Primary Care Provider: Kannan Knowles Referrals: Kannan Knowles [Other] - 1-2 Weeks Disposition Disposition: Home, Self Care
[2022-12-19] MEDS: Acetaminophen 325 MG Tablet 650 MG PO (13:23)
[2022-12-19] MEDS: Lisinopril 5 MG Tablet PO (13:48)
[2022-12-19 13:49] VITALS: BP 162/64; PULSE 70; RESP 16; O2SAT 98
[2022-12-19 14:15] LABS: Mucous, Urine 0 SEEN /hpf (<or=2+); Red Blood Cells-Urine 0 SEEN /hpf (0-5)
[2022-12-19 14:23] LABS: Color, Urine Yellow (Yellow); Glucose, Dipstick Normal (Normal); Ketone-Dipstick Negative (Negative); Leukocyte Esterase-Dipstick 100 /ul (Negative); Nitrite-Dipstick Negative (Negative); Occult Blood-Urine Negative /ul (Negative); Protein-Dipstick 15 mg/dl (Negative); Urine Bilirubin Dipstick Negative (Negative); Urine Clarity Sl. Cloudy (Clear); Urine Urobilinogen Normal (Normal)
[2022-12-19 14:30] LABS: Bacteria 1+ /hpf (None Seen); Squamous Epithelial Cells - UA 0-5 SEEN /hpf (5-10); White Blood Cells 10-25 SEEN /hpf (0-5)
== END 2022-12-19 14:41 | disposition home or self-care (01) ==
PROVIDERS: Emergency Provider Emergency Medicine; Visit Provider Emergency Medicine
DX: I10 Essential (primary) hypertension (principal); J47.9 Bronchiectasis, uncomplicated; E11.9 Type 2 diabetes mellitus without complications; R80.9 Proteinuria, unspecified; E78.00 Pure hypercholesterolemia, unspecified; F17.210 Nicotine dependence, cigarettes, uncomplicated; Z85.3 Personal history of malignant neoplasm of breast; E03.9 Hypothyroidism, unspecified; Z79.899 Other long term (current) drug therapy; Z79.84 Long term (current) use of oral hypoglycemic drugs; K21.9 Gastro-esophageal reflux disease without esophagitis; G43.909 Migraine, unspecified, not intractable, without status migrainosus; Z90.49 Acquired absence of other specified parts of digestive tract; R07.89 Other chest pain
CPT/HCPCS: 81001; 99283

== ENCOUNTER → 2022-12-19 | Outpatient (CLI) | payer MEDICARE, MEDICAID, SELFPAY ==
[2020-03-30 14:28] VITALS: BMI 30.9
[2022-12-19 12:02] LABS: Absolute Neutrophil Count 4.3 X10^3/uL (2.0-7.7); Basophil# 0.04 X10^3/uL; Basophil% 0.6 % (0-1); Hematocrit 38.4 % (37-47); Hemoglobin 12.7 g/dL (12.0-15.0); Lymphocyte % 25.3 % (19-41); Mean Corp Hgb Conc 33.1 g/dL (32-36); Mean Corpuscular Hgb 31.8 pg (27.0-32.0); Mean Corpuscular Volume 96.2 fL (81-99); Mean Platelet Vol. 9.9 fl (6.2-12.0); Monocyte# 0.49 X10^3/uL; Monocyte% 7.3 % (0-10); NRBC Flagged by Analyzer 0 % (0-5); Neutrophil # 4.27 X10^3/uL (2.7-7.7); Neutrophil % 63.5 % (47-70); Platelet Count 286 K/mm3 (150-450); RBC Distribution Width CV 12.8 % (11.6-14.6); RBC Distribution Width SD 46.1 fl (35.1-43.9); Red Blood Count 3.99 M/mm3 (4.2-5.4); White Blood Count 6.7 K/mm3 (4.4-11.0)
[2022-12-19 12:28] LABS: Anion Gap 4 (5-15); BUN 17 mg/dL (7-18); BUN/Creat Ratio 21.6 RATIO (10-20); Calcium,Total 9.6 mg/dL (8.5-10.1); Chloride 106 mmol/L (98-107); Creatinine, Serum 0.79 mg/dL (0.55-1.02); EST Glomerular Filtration Rate 77 mL/min (>60); Est Glom Filt Rate - Afr Amer 93 mL/min (>60); Glucose 103 mg/dL (74-106); Potassium 3.7 mmol/L (3.5-5.1); Sodium Level 138 mmol/L (136-145); Troponin-I HS 5 pg/mL (3.0-54.0)
[2022-12-19 13:55] LABS: D-Dimer Quantitative (DVT/PE) 0.51 FEU/ug/m (0.27-0.49)
== END | disposition home or self-care (01) ==
LOC: MFPLAB 09:51
PROVIDERS: PCP Family Medicine; Visit Provider Family Medicine
DX: R07.9 Chest pain, unspecified (principal)
CPT/HCPCS: 36415; 80048; 84484; 85025; 85379

== ENCOUNTER → 2022-12-19 | Outpatient (CLI) | payer MEDICARE, MEDICAID, SELFPAY ==
[2020-03-30 14:28] VITALS: BMI 30.9
--- NOTE | 2022-12-19 10:19 | VDLE_ITS ---
Reason For Study: Left leg edema RIGHT LEFT CFV is compressible, spontaneous, phasic, GSV is normal. competent and demonstrates normal CFV is compressible, spontaneous, phasic, augmentation. competent, and demonstrates normal Procedure augmentation. This is a venous duplex using B-mode, color FV is compressible, spontaneous, phasic, flow and spectral Doppler. competent and demonstrates normal Exam performed in department. augmentation. A preliminary report was called and/or faxed POP V is compressible, spontaneous, phasic, to Dr. Knowles. competent and demonstrates normal augmentation. T/P Trunk is compressible. PTV is compressible. LT PerV is compressible. VL/Venous Duplex US, Unilateral Interpretation Summary Deep veins of the left lower extremity are patent and compressible segmentally. There is no evidence of left lower extremity deep vein thrombosis. The left great saphenous vein shona ears patent and compressible segmentally. Ordering Physician: Kannan Knowles Referring Physician: Kannan Knowles Performed By: Natalia Ang RVT
--- NOTE | 2022-12-19 11:00 | CT_ITS ---
STUDY: CTA CHEST REASON FOR EXAM: Female, 67 years old. CHEST PAIN. Left leg edema. History of rib fractures and right breast cancer. RADIATION DOSAGE (If Supplied By Facility): CTDIvol = ( 6.91 ) mGy, DLP = ( 220.34 ) mGycm TECHNIQUE: The examination was performed with the intravenous administration of IV 100mL Isovue-370. Post-processing of the angiographic images was performed, with multiplanar reformation and 3D reconstruction. Individualized dose optimization techniques were used for this CT. COMPARISON: None. FINDINGS: Normal enhancement of the main pulmonary artery and right and left pulmonary arteries. Normal enhancement of the bilateral peripheral pulmonary arteries. There is no demonstrated pulmonary embolism. There is atherosclerotic calcification of the aortic arch with tortuosity. There is no demonstrated aortic dissection. There are calcifications of the coronary arteries. Normal mediastinum. Normal hilar regions. Normal visualized trachea and bronchi. The lungs are well expanded. Minimal right pleural thickening with right basilar atelectasis. Mild degree of bronchiectasis in the right lower lobe. Stable 4 mm noncalcified nodule in the posterior aspect of the right upper lobe abutting the major fissure. Normal chest wall structures. There are degenerative changes of thoracic spine. Nondisplaced right lower rib fractures. The patient is status post cholecystectomy. CT/CTA Chest W/WO Contrast IMPRESSION: No evidence of pulmonary embolism. Minimal right pleural thickening with right basilar atelectasis. Mild bronchiectasis in the right lower lobe. Stable 4 mm noncalcified nodule in the posterior aspect of the right upper lobe abutting the major fissure. Electronically Signed: Demetrio Johnson MD at 13:01 EDT ,
[2022-12-23 08:47] LABS: CREATININE FINGERSTICK < 0.9 mg/dL (0.55-1.02); EGFR FINGERSTICK > 60.0000 mL/min (>60)
== END | disposition home or self-care (01) ==
PROVIDERS: PCP Family Medicine; Referring Provider Family Medicine; Visit Provider Family Medicine
DX: R60.0 Localized edema (principal); R07.9 Chest pain, unspecified
CPT/HCPCS: 36415; 71275; 80048; 84484; 85025; 85379; 93971; Q9967

== ENCOUNTER → 2023-01-02 | Outpatient (CLI) | payer MEDICARE, MEDICAID, SELFPAY ==
[2020-03-30 14:28] VITALS: BMI 30.9
[2023-01-02 13:28] LABS: Free T3 1.5 pg/mL (2.18-3.98); T4 Total, Thyroxin 11.4 ug/dL (4.8-13.9); Thyroid Stim Hormone (TSH) 0.53 uIU/mL (0.358-3.74)
== END | disposition home or self-care (01) ==
LOC: MFPLAB 10:29
PROVIDERS: PCP Family Medicine; Visit Provider Family Medicine
DX: E03.9 Hypothyroidism, unspecified (principal)
CPT/HCPCS: 36415; 84436; 84443; 84481

== ENCOUNTER → 2023-02-27 | Outpatient (CLI) | payer MEDICARE, MEDICAID, SELFPAY ==
[2020-03-30 14:28] VITALS: BMI 30.9
--- NOTE | 2023-02-27 07:47 | CT_ITS ---
STUDY: CT CHEST, ABDOMEN T PELVIS WITH CONTRAST REASON FOR EXAM: Female, 67 years old. R sided abd pain, wt loss, cough, h/o breast ca RADIATION DOSAGE (If Supplied By Facility): CTDIvol = ( 12.5 ) mGy, DLP = ( 752.88 ) mGycm TECHNIQUE: Transaxial imaging was performed following intravenous administration of Oral and amp; IV Gastrografin and amp; 100mL Isovue-370. Individualized dose optimization techniques were used for this CT. COMPARISON: December 19, 2022 FINDINGS: CHEST Lungs are clear of infiltration. There is a tiny nodule in the right upper lobe measuring approximately 3 mm in size and stable since prior exam. There is no demonstrated pleural abnormality. Normal heart and pericardium. There is multivessel coronary artery calcification Normal mediastinum. Normal hilar regions. Normal unenhanced pulmonary arteries. Atherosclerotic changes of the aorta without evidence for aneurysm. Dorsal spine demonstrates diffuse arthritic changes. The multiple old healed right rib fractures as well as old nonfused fracture. Status post left rib resection. Postsurgical changes seen within the right breast. ABDOMEN . Normal liver. Gallbladder has been removed surgically. Normal spleen. Normal pancreas. Normal bilateral adrenal glands. Normal right kidney. Normal left kidney. Normal visualized stomach. Nonspecific ileus. No definitive evidence for small bowel obstruction. The appendix is visualized and appears normal. Mild atherosclerotic changes of the aorta without evidence for aneurysm. Normal inferior vena cava. Normal retroperitoneum. Normal abdominal wall. Normal osseous structures. PELVIS Normal urinary bladder. Normal visualized small intestine. Minor diverticular changes of the distal descending and sigmoid colon without evidence for acute diverticulitis. There is no pelvic fluid. There is no pelvic lymphadenopathy or mass lesion. Normal visualized pelvic arteries. Small calcified fibroid noted within the uterus Small right inguinal hernia containing portion of loop of bowel without evidence for proximal obstruction or incarceration.. Lumbar spine demonstrates arthritic changes CT/CT Chest, Abd, Pel w/Contrast IMPRESSION: Postop changes status post right mastectomy. No acute abnormalities within the chest Gallbladder has been removed surgically. Mild nonspecific ileus without definitive evidence for small bowel obstruction. Right inguinal hernia containing bowel without evidence for proximal obstruction or incarceration Other findings as above Electronically Signed: Jamal Oleary MD at 21:43 EST Reading Location ID and State: [address] [place] [address] Tel , Service support ,
== END | disposition home or self-care (01) ==
LOC: CT 07:46
PROVIDERS: PCP Family Medicine; Referring Provider Nurse Practitioner Family; Visit Provider Nurse Practitioner Family
DX: R10.11 Right upper quadrant pain (principal); R63.4 Abnormal weight loss; Z85.3 Personal history of malignant neoplasm of breast
CPT/HCPCS: 71260; 74177; Q9967; A4216

== ENCOUNTER 2023-04-09 08:28 | Day surgery (SDC) | payer MEDICARE, MEDICAID, SELFPAY ==
[2020-03-30 14:28] VITALS: BMI 30.9
--- NOTE | 2023-04-09 08:38 | HP.PCM_ITS ---
History and Physical Date of Admission: 04/09/23 Date of Service: 03/19/23 MR#: [id number] Acct: [id number] Name: VERO STEVENS Rep #: [id number] : 1955 Provider: Dr. Tiffany Gan MD Age/Sex: 67/F Location: [facility] Status: Signed Intake Vital Signs 03/04/2310:42 03/19/2313:52 Height 5 ft 4 in 5 ft 4 in Weight: 140 lb 9 oz 143 lb 6 oz BMI 24.1 24.6 BP 136/68 H 133/60 H Blood Pressure Location Rt brachial Rt brachial Position Sitting Sitting Respiration 16 18 Pulse 75 83 Pulse Source Monitor Monitor Temp 98.2 F 97.3 F L Temp Source Temporal Pulse Oximetry (%) 99 100 Oxygen Delivery Method room air room air Intake Visit Reasons: INGUINAL HERNIA Chief Complaint: inguinal hernia Is patient in pain?: No Allergies coconut Adverse Reaction (Severe, Verified 03/19/23 13:53) HivesPenicillins Adverse Reaction (Severe, Verified 03/19/23 13:53) Hives Medications levothyroxine 100 mcg capsule 100 mcg PO DAILY 04/07/17 [History Confirmed 03/19/23] simvastatin 80 mg tablet 80 mg PO QPM 04/07/17 [History Confirmed 03/19/23] cholecalciferol (vitamin D3) 25 mcg (1,000 unit) capsule 5,000 unit PO DAILY 03/22/19 [History Confirmed 03/19/23] metformin 500 mg tablet,extended release 24 hr 1,000 mg PO BID 10/19/19 [History Confirmed 03/19/23] oxybutynin chloride 5 mg tablet 5 mg PO TID 10/19/19 [History Confirmed 03/19/23] pantoprazole 40 mg tablet,delayed release 40 mg PO QHS 10/19/19 [History Confirmed 03/19/23] calcium carbonate 500 mg-vitamin D3 15 mcg (600 unit) tablet 1 ea PO DAILY 06/01/20 [History Confirmed 03/19/23] amitriptyline 25 mg tablet 25 mg PO DAILY Migraines 06/15/21 [History Confirmed 03/19/23] sucralfate 1 gram tablet 1 g PO TID #21 tabs 06/20/21 [Rx Confirmed 03/19/23] lisinopril 5 mg tablet 5 mg PO DAILY #30 tabs 12/19/22 [Rx Confirmed 03/19/23] letrozole 2.5 mg tablet 2.5 mg PO DAILY Breast CA #90 tabs 12/23/22 [Rx Confirmed 03/19/23] PFSH Medical History Abdominal pain Arthritis Breast mass, right Breast pain, right Cancer Diabetes Diarrhea Encounter for education Encounter for screening for malignant neoplasm of lung Frequent headaches GERD (gastroesophageal reflux disease) High cholesterol History of breast cancer History of change in bowel patterns History of colon polyps History of stress test HTN (hypertension) Hyperlipidemia Hypothyroidism (acquired) Ileus, unspecified Malignant neoplasm of upper-outer quadrant of right breast in female, estrogen receptor positive Mastalgia Migraine headache Neck pain Osteopenia previous radiation treatments Right inguinal hernia Screening for breast cancer Skin lesion of breast Tobacco abuse Tubular adenoma of colon Wears glasses Wears partial dentures Weight loss Surgical History H/O colonoscopy H/O total thyroidectomy History of cataract removal with insertion of prosthetic lens History of laparoscopic cholecystectomy History of salpingectomy History of tubal ligation Hx of cholecystectomy Status post right breast lumpectomy Family History Mother Arthritis Heart disease OsteoporosisFather Cancer Prostate Grandmother Diabetes Social History household members: children housing: house Smoking Status: Current every day smoker tobacco type: cigarettes Tobacco: How many years used: 20 alcohol intake: never substance use type: does not use caffeine: Yes what type of physical activity do you participate in: walking frequency: 3-4 times per week HPI HPI HPI: 67-year-old female presents due to right inguinal hernia, abdominal pain, weight loss. Patient states she has had this right abdominal pain?lower quadrant about a month denies anything that makes it better or worse. Patient denies any nausea or vomiting. Patient has CT abdomen pelvis showed right inguinal hernia with some bowel not causing any obstruction. When I reviewed the CT abdomen pelvis it appeared that the bowel is abutting a small right inguinal hernia?protuberant area?no obstruction. Patient denies any pain in her right groin. Patient states that she does have constipation can go 2 to 4 days without having a bowel movement and then will have some diarrhea. Patient does take fiber well Gummies about 10 g of fiber daily. However patient is not eating much yesterday she had some [place] toast and grilled cheese. Patient states she has lack of an appetite states that she may get nauseous or not feel hungry after she eats she typically does not eat in the morning. Patient states she has gone from 190-135lb since October. However it sounds like patient does not eat very much food does not take any protein drinks. Patient denies any GERD symptoms. ROS General General: Yes weight change and fatigue; No appetite, colon cancer or breast cancer Additional Details: 5-6 pound weight loss in three weeks HEENT HEENT: No difficulty swallowing, eye injury, eye surgery, swollen glands or hoarseness Endo Endocrine: Yes thyroid disease and diabetes mellitus; No thyroid cancer, Hair loss, heat intolerance or cold intolerance Skin Skin: No rash or changing moles Musc Musculoskeletal: Yes arthritis and rheumatoid arthritis; No back problems, gout or joint pain Cardio Cardiovascular: No murmur, pacemaker, heart disease, atrial fibrillation, high blood pressure, heart attack, heart stent, palpitations, shortness of breat with exertion or chest pain Psych Psychiatric: No depression, anxiety or hearing voices Resp Respiratory: No shortness of breath, No sleep apnea, No cough, No COPD, No asthma, No emphysema and No wheezing Gastro Gastrointestinal: Yes abdominal pain, No nausea or vomiting, Yes diarrhea, Yes constipation, No blood in stool, No acid reflux, No hemorrhoids, No ulcers, No gallbladder problem and No black,tarry stools Blue Hematologic: No blood thinners, No blood disorders, No bleeding, No anemia and No blood clots Neuro Neurologic: No abnormal speech Exam Const General: cooperative, healthy appearing, comfortable and no acute distress Neck Neck: normal visual inspection Resp Effort & Inspection: normal respiratory effort Cardio Rate: regular rate GI Inspection: non-distended Palpation: soft, no guarding and nontender Skin General: no rashes or lesions noted Neuro General: patient oriented x3 Psych Affect: normal affect Assessment and Plan Assessment and Plan (1) Right inguinal hernia: Status: Acute (2) Weight loss, non-intentional: Status: Acute Plan Discussed with patient on exam the right inguinal hernia does not have a bulge did not feel anything currently reduced it was reduced on its own. This is likely quite small and likely not causing her abdominal pain as her pain is not at this location and her right lower quadrant pain is occasional and she cannot say what makes it better or worse. Patient does have nonintentional weight loss however when asking patient further about her diet it seems like she is hardly eating as yesterday she has had [place] toast and a grilled cheese sandwich all day. She states also she likes to walk and for the nice weather she could walk about 3 miles a day. Discussed patient this is not adequate nutrition especially if she is able to walk that much in a day. Would recommend her starting some protein drinks with 30 g protein per drink 2-3 times a day. I have discussed the above with the patient. I have offered the patient esophagogastroduodenoscopy and colonoscopy for ev aluation. I have explained the risks/benefits of the procedure and described the procedure. I have discussed the risks with the patient, including but not limited to: infection, bleeding, perforation of the GI tract requiring emergency surgery, inability to complete the procedure, injury to any internal organs, complications of anesthesia, etc. - the patient understands and agrees to proceed. I have answered all the patient's questions to the patient's satisfaction and the patient has no further questions. The patient has been given instructions for the colon cleansing preparation. 2 day of clears, with some Dulcolax the first day and then the MiraLAX Dulcolax prep. Tiffany Gan M.D. Pager: [phone] [facility] [address] [place] [address], [address] [place] [address] Office: [phone] Coding Level of Care Code Off vis,est,level 4 Diagnoses Right inguinal hernia K40.90 Weight loss, non-intentional R63.4 03/21/23 1150 <Electronically signed by Tiffany Gan MD> Date Tiffany Gan MD
--- OUTSIDE RECORDS SUMMARY | 2023-04-09 08:52 | XMS RPT_ITS | CCD ---
Author Name Unknown Address [address] [place] [address] Organization [facility] Care Team Providers Care Stained Glass Painter Name Role Phone Elvia AMADOR, Tiffany Colvin Unavailable [phone] ROBERT Parra RN, Tiffany Sparks MD Unavailable [phone] ROBERT Parra RN, Arlene Ham MD, DR MIRANDA Fay Primary Care JENNA Perera MD, DR MIRANDA Fay Primary Care Physician [phone] Allergies Allergy Classification Reported Allergen(s) Allergy Type Date of Onset Reaction(s) Facility (8 sources) Honey bee venom drug allergy 08-15-2016 [facility] Work Phone: (8 sources) penicillin g drug allergy 08-15-[address] [facility] Work Phone: (1 source) Penicillin; Translations: [penicillins] Drug Allergy [facility] Medications Current Medications Medication Drug Class(es) Dates Sig (Normalized) Sig (Original) acetaminophen 325 mg / HYDROcodone bitartrate 5 mg oral tablet (2 sources) Opioid Agonist Start: 10-20-2022 End: 10-23-2022 take 1 tablet by mouth every six hours as needed for pain Jeffers 325- 5 mg oral tablet Dose = 1 tab(s), Oral, q6h, PRN as needed for pain, to go prescription from ED., X 2 day(s), # 2 tab(s), 0 Refill(s), Rib fractures, 66 Start Date: 10/20/22 Stop Date: 10/22/22 Status: Ordered levothyroxine sodium 0.1 mg oral tablet (9 sources) l-Thyroxine Start: 02-18-2016 Synthroid 100 mcg (0.1 mg) oral tablet Dose : 100 mcg = 1 tab(s), Oral, qDay Start Date: 02/18/16 Status: Ordered Completed/Discontinued Medications Medication Drug Class(es) Dates Sig (Normalized) Sig (Original) cholecalciferol 5000 unt oral tablet (8 sources) Vitamin D take 1 capsule by mouth once daily [facility] D3 5000 UNIT CAPS 1 po daily CHOLECALCIFEROL [id number] Veronica Jarviss STAKING ENGINEER hydroCHLOROthiazide 12.5 mg / lisinopril 10 mg oral tablet (8 sources) Thiazide Diuretic, Angiotensin Converting Enzyme Inhibitor take 1 tablet by mouth once daily LISINOPRIL-HYDROCHL OROTHIAZIDE 10-12.5 MG TABS 1 po daily LISINOPRIL-HYDROCHL OROTHIAZIDE [id number] Veronica Jarviss STAKING ENGINEER LORazepam 0.5 mg oral tablet (2 sources) Benzodiazepine Start: 7 ATIVAN 0.5 MG TABS Take 1 tablet by mouth 1 hour before your MRI and take the other to the MRI and take if needed LORAZEPAM [id number] Tiffany Gan MD omeprazole 20 mg delayed release oral capsule (8 sources) Proton Pump Inhibitor OMEPRAZOLE 20 MG CPDR 1 po 30 mins before breakfast OMEPRAZOLE [id number] Veronica Jarviss STAKING ENGINEER Problems Active Problems Problem Classification Problem Date Documented Date Episodic/Chronic Diabetes mellitus without complication (9 sources) Type 2 diabetes mellitus without complications; Translations: [Diabetes mellitus] 08-15-2016 Chronic Disorders of lipid metabolism (9 sources) Hyperlipidemia; Translations: [Hypercholesterolemia] Onset: 08-02-2016 08-15-2016 Chronic E Codes: Fall (1 source) Unspecified fall, initial encounter; Translations: [Unspecified fall, initial encounter] Onset: 10-20-2022 Episodic Esophageal disorders (8 sources) Gastroesophageal reflux disease; Translations: [Gastro-esophageal reflux disease without esophagitis] Onset: 08-02-2016 08-15-2016 Chronic Essential hypertension (9 sources) Essential hypertension; Translations: [Hypertensive disorder] Onset: 08-02-2016 08-15-2016 Chronic Other fractures (1 source) Closed fracture of multiple ribs; Translations: [Multiple fractures of ribs, unspecified side, initial encounter for closed fracture] Onset: 10-20-2022 Episodic Thyroid disorders (9 sources) Hypothyroidism; Translations: [Hypothyroidism, unspecified] Onset: 08-15-2016 08-15-2016 Chronic Past or Other Problems Problem Classification Problem Date Documented Da te Episodic/Chronic Nonmalignant breast conditions (13 sources) Disorder of breast; Translations: [Pain of breast] Onset: 08-02-2016 09-04-2016 Episodic Results Test Name Value Interpretation Reference Range Facil ity Vital Signs Date Time Vital Sign Value Performing Clinician Facility 10-20-2022 18:42-0400 Body height 165.[address] JENNA WRIGHT MD [facility] 10-20-2022 18:42-0400 Body temperature 98.96 [degF] DR JENNA WRIGHT MD [facility] 10-20-2022 18:42-0400 Body weight [address] JENNA WRIGHT MD [facility] 10-20-2022 18:42-0400 Diastolic Blood Pressure Non-Invasive [address] JENNA WRIGHT MD [facility] 10-20-2022 18:42-0400 Heart rate 93 /min DR JENNA WRIGHT MD [facility] 10-20-2022 18:42-0400 Respiratory rate 20 /min DR JENNA WRIGHT MD [facility] 10-20-2022 18:42-0400 Systolic Blood Pressure Non-Invasive [address] JENNA WRIGHT MD [facility] 09-04-2016 11:09-0400 BMI (Body Mass Index) 34.6 kg/m2 Arlene Parra RN RN [facility] Work Phone: 09-04-2016 11:09-0400 Body Temperature 98 [degF] Arlene Parra RN RN [facility] Work Phone: 09-04-2016 11:090400 Body Temperature 98.01 [degF] Arlene Parra RN RN [facility] Work Phone: 09-04-2016 11:090400 Body weight 91.45 kg Arlene Parra RN RN [facility] Work Phone: 09-04-2016 11:09040 Body weight 91.44 kg Arlene Parra RN RN [facility] Work Phone: 09-04-2016 11:09-0400 BP Diastolic 68 mm[Hg] Arlene Parra RN RN [facility] Work Phone: 09-04-2016 11:090400 BP Systolic 116 mm[Hg] Arlene Parra RN RN [facility] Work Phone: 09-04-2016 11:090400 Height 162.56 cm Arlene Parra RN RN [facility] Work Phone: 09-04-2016 11:09-0400 Pulse (Heart Rate) 65 /min Arlene Parra RN RN [facility] Work Phone: 09-04-2016 11:090400 Pulse Oximetry 98 % Arlene Parra RN RN [facility] Work Phone: 09-04-2016 11:090400 Respiratory Rate 20 /min Arlene Parra RN RN [facility] Work Phone: 09-04-2016 11:09-0400 Weight 91.45 kg Arlene Parra RN RN [facility] Work Phone: 09-04-2016 11:090400 Weight 91.44 kg Arlene Parra RN RN [facility] Work Phone: 08-15-2016 11:10-0400 BMI (Body Mass Index) 35.12 kg/m2 Tiffany Gan MD [facility] Work Phone: 08-15-2016 11:10-0400 Body Temperature 97.6 [degF] Tiffany Gan MD [facility] Work Phone: 08-15-2016 11:10-0400 Body weight 92.81 kg Tiffany Gan MD [facility] Work Phone: 08-15-2016 11:10-0400 BP Diastolic 77 mm[Hg] Tiffany Gan MD [facility] Work Phone: 08-15-2016 11:10-0400 BP Systolic 153 mm[Hg] Tiffany Gan MD [facility] Work Phone: 08-15-2016 11:10-0400 Height 162.56 cm Tiffany Gan MD [facility] Work Phone: 08-15-2016 11:10-0400 Pulse (Heart Rate) 76 /min Tiffany Gan MD [facility] Work Phone: 08-15-2016 11:10-0400 Pulse Oximetry 95 % Tiffany Gan MD [facility] Work Phone: 08-15-2016 11:10-0400 Weight 92.81 [address] Gan MD [facility] Work Phone: Encounters Encounter Date Encounter Type Care Provider Facility Start: 10-20-2022 End: 10-20-2022 Emergency department patient visit DR MIRANDA WALTER MD Facility:B Start: 10-20-2022 End: 10-20-2022 Emergency department patient visit DR JENNA WRIGHT MD [facility] Procedures Date Procedure Procedure Detail Performing Clinician Start: 09-04-2016 End: 09-04-2016 Dietary management education, guidance, and counseling Arlene Parra RN RN Start: 09-04-2016 End: 09-04-2016 Documentation of current medications Arlene Parra RN RN Start: 09-04-2016 End: 09-04-2016 Smoking cessation education Arlene Parra RN RN Start: 09-04-2016 End: 09-04-2016 *Creatinine, Serum Tiffany Gan MD Work Phone: Start: 08-15-2016 End: 08-15-2016 Dietary management education, guidance, and counseling Tiffany Gan MD Start: 08-15-2016 End: 08-15-2016 Documentation of current medications Tiffany Gan MD Start: 08-15-2016 End: 08-15-2016 Smoking cessation education Tiffany kruger MD Plan of Treatment Date Care Activity Detail Author Start: 12-05-2016 End: 12-05-2016 *Creatinine, Serum *Creatinine, Serum [facility] Work Phone: Start: 09-05-2016 End: 09-05-[address] [facility] Work Phone: Start: 09-05-2016 End: 09-05-[address] [facility] Work Phone: Start: 09-04-2016 End: 09-04-[address] [facility] Work Phone: Start: 09-04-2016 End: 09-04-2016 *Creatinine, Serum *Creatinine, Serum [facility] Work Phone: Start: 09-04-2016 End: 09-04-2016 Bilirubin (total) MRI Breast bilateral without and/or with contrast material(s) [facility] Work Phone: Start: 09-04-2016 End: 09-05-2016 Follow Up after Imaging/labs Follow Up after Imaging/labs [facility] Work Phone: Start: 09-04-2016 End: 09-04-2016 Mri breast bilateral MRI Breast bilateral without and/or with contrast material(s) [facility] Work Phone: Start: 08-15-2016 End: 08-15-[address] [facility] Work Phone: Start: 08-15-2016 End: 08-19-2016 Follow Up Appt 1 month Follow Up Appt [address] [facility] Work Phone: Immunizations Immunization Date Immunization Notes Care Provider Fa [facility] 02-18-2016 tetanus toxoid, redu florecita diphtheria toxoid, and acellular pertussis vaccine, adsorbed DR JENNA WRIGHT MD [facility] Payers Date Payer Category Payer Medicaid [id number] 2022 Private Health Insurance [id number] 1955 Unknown [id number] Social History Date Type Detail Facility Start: 09-28-2018 Tobacco smoking status Heavy t obacco smoker (finding) [facility] Tobacco smoking status Never [facility] Sex Assigned At Female [facility] Functional Status Date Assessment Result Facility 10-20-2022 Functional Status Independent [facility] 10-20-2022 Functional Status Standard Safet y ID band on, Allergy Band on, Call device within reach, Bed in low position, Wheels locked, Upper/Half-Length side-rails up, Phone within reach, Safety level maintained [facility] Mental Status Date Assessment Result [facility] 10-20-2022 Mental Status Orientation Oriented x 4 [facility] 10-20-2022 Mental Status [facility] Discharge instructions 10-20-2022 Note Date & Type Note Facility 10-20-2022 Hospital Discharg e instructions Patient Education 10/20/2022 20:14:18 Rib Fracture Rib Fracture You broke one or more ribs. This is called a rib fracture. Rib fractures don't need a cast like other bones. They will heal by themselves in about 4 to 6 weeks. The first 3 to 4 weeks will be the most painful. During this time deep breathing, coughing, or changing position from sitting to lying down, may cause the broken ends to move slightly. Home care Rest. You should not be doing any heavy lifting or strenuous exertion until the pain goes away. It hurts to breathe when you have a broken rib. This puts you at risk of getting pneumonia from poor airflow through your lungs. To prevent this: oTake several very deep breaths once an hour while you're awake. Breathe out through pursed lips as if you are blowing up a balloon. If possible, actually blow up a balloon or a rubber glove. This exercise builds up pressure inside the lung and prevents collapse of the small air sacs of the lung. This exercise may cause some pain at the site of injury. This is normal. oYou may have gotten a breathing exercise device called an incentive spirometer. Use it at least 4 times a day, or as directed. Apply an ice pack over the injured area for 15 to 20 minutes every 1 to 2 hours. You should do this for the first 24 to 48 hours. To make an ice pack, put ice cubes in a plastic bag that seals at the top. Wrap the bag in a clean, thin towel or cloth. Never put ice or an ice pack directly on the skin. Keep using ice packs as needed for the relief of pain and swelling. You may use sgey-ztj-shberqt pain medicine to control pain, unless another pain medicine was prescribed. If you have chronic liver or kidney disease or ever had a stomach ulcer or GI (gastrointestinal) bleeding, talk with your healthcare provider before using these medicines. If your pain is not controlled, contact your healthcare provider. Sometimes a stronger pain medicine may be needed. A nerve block can be done in case of severe pain. It will numb the nerve between the ribs. Follow-up care Follow up with your healthcare provider, or as advised. In rare cases, a broken rib will cause complications in the first few days that may not be clearly seen during your initial exam. This can include collapsed lung, bleeding around the lung or into the belly (abdomen), or pneumonia. So watch for the signs below. If X-rays were taken, you will be told of any new findings that may affect your care. Call 911 Call 911 if you have: Dizziness, weakness or fainting Shortness of breath with or without chest discomfort New or worsening abdominal pain Discomfort in other areas of your upper body such as your shoulders, jaw, neck, or arms When to seek medical advice Call your healthcare provider right away if any of these occur: Increasing chest pain with breathing Fever of 100.4 F (38 C) or above, or as directed by your healthcare provider Congested cough, nausea, or vomiting [id number] [employer]. [address] [place] [address], [place] [address]. All rights reserved. This information is not intended as a substitute for professional medical care. Always follow your healthcare professional's instructions. Follow Up Care 10/20/2022 18:39:34 With:MIRANDA WALTER Address: [address] [place] [address] [phone] Business (1) When:2-4 days Comments:Use Tylenol, ibuprofen for pain. Use lidocaine patches as well. Use Jeffers as needed for breakthrough pain. Remember to use incentive spirometer multiple times per day as discussed. Return if any worsening or concerning symptoms. [facility] Emergency department Discharge summary 10-20-2022 Note Date & Type Note Facility 10-20-2022 Emergency department Discharge summary Discharge Instructions Thank you for allowing [facility] to assist you with your healthcare needs. The following is important discharge information regarding your hospital visit. Diagnosis from Today's Visit Back pain Fall Fall Rib fractures Rib/trunk pain-swelling What to Do Next Instructions from Your Care Team Discharge Return to Work, School, or Sports (Return to Work, School, or Sports) - Ordered -- 10/24/22, May return to: work, 10/20/22 20:14:00 EDT Post Acute Orders No qualifying data available. You Need to Schedule the Following Appointments Follow Up with MIRANDA WALTER When Within 2-4 days Why: Use Tylenol, ibuprofen for pain. Use lidocaine patches as well. Use Jeffers as needed for breakthrough pain. Remember to use incentive spirometer multiple times per day as discussed. Return if any worsening or concerning symptoms. Where: [address] [place] [address] [address] [place] [address] [phone] Business (1) Allergies penicillin Medications Please ask your primary doctor or pharmacist before taking any other medication not listed, including over the counter drugs, herbal medications, vitamins and or supplements as they may interact with your home medications. What How Much When Why Instructions Last Dose New acetaminophen-hydrocodone (Jeffers 325- 5 mg oral tablet) 1 tab(s) by mouth Every 6 hours as needed for as needed for pain Rib fractures Duration: 3 Days Printed Prescription New acetaminophen-hydrocodone (Jeffers 325- 5 mg oral tablet) 1 tab(s) by mouth Every 6 hours as needed for as needed for pain Rib fractures Duration: 2 Days to go prescription from ED. Printed Prescription New lidocaine topical (lidocaine 5% topical patch) 1 patch(es) Topical Every day Duration: 10 Days Printed Prescription Unchanged cholecalciferol (Vitamin D3 2000 intl units oral tablet) 1 tab(s) by mouth Every day Unchanged levothyroxine (Synthroid 100 mcg (0.1 mg) oral tablet) 1 tab(s) by mouth Once a day Unchanged lisinopril 12.5 Milligram by mouth Once a day Unchanged loratadine (Claritin) 10 Milligram by mouth Once a day Unchanged metFORMIN (metFORMIN 1000 mg oral tablet) 1 tab(s) by mouth Two (2) times a day Unchanged oxybutynin (oxybutynin 5 mg oral tablet) 1 tab(s) by mouth Three (3) times a day Unchanged simvastatin (simvastatin 80 mg oral tablet (NF)) 1 tab(s) by mouth Daily at bedtime Please take this list to your next doctor s visit. Bring all medications you take, including over the counter medications, herbals and other supplements with you to your doctor s visit. Patients and families are reminded to discard old lists and to update any records with all medication providers or retail pharmacies. Education Materials Rib Fracture You broke one or more ribs. This is called a rib fracture. Rib fractures don't need a cast like other bones. They will heal by themselves in about 4 to 6 weeks. The first 3 to 4 weeks will be the most painful. During this time deep breathing, coughing, or changing position from sitting to lying down, may cause the broken ends to move slightly. Home care Rest. You should not be doing any heavy lifting or strenuous exertion until the pain goes away. It hurts to breathe when you have a broken rib. This puts you at risk of getting pneumonia from poor airflow through your lungs. To prevent this: oTake several very deep breaths once an hour while you're awake. Breathe out through pursed lips as if you are blowing up a balloon. If possible, actually blow up a balloon or a rubber glove. This exercise builds up pressure inside the lung and prevents collapse of the small air sacs of the lung. This exercise may cause some pain at the site of injury. This is normal. oYou may have gotten a breathing exercise device called an incentive spirometer. Use it at least 4 times a day, or as directed. Apply an ice pack over the injured area for 15 to 20 minutes every 1 to 2 hours. You should do this for the first 24 to 48 hours. To make an ice pack, put ice cubes in a plastic bag that seals at the top. Wrap the bag in a clean, thin towel or cloth. Never put ice or an ice pack directly on the skin. Keep using ice packs as needed for the relief of pain and swelling. You may use nfeq-ggg-bkpyaob pain medicine to control pain, unless another pain medicine was prescribed. If you have chronic liver or kidney disease or ever had a stomach ulcer or GI (gastrointestinal) bleeding, talk with your healthcare provider before using these medicines. If your pain is not controlled, contact your healthcare provider. Sometimes a stronger pain medicine may be needed. A nerve block can be done in case of severe pain. It will numb the nerve between the ribs. Follow-up care Follow up with your healthcare provider, or as advised. In rare cases, a broken rib will cause complications in the first few days that may not be clearly seen during your initial exam. This can include collapsed lung, bleeding around the lung or into the belly (abdomen), or pneumonia. So watch for the signs below. If X-rays were taken, you will be told of any new findings that may affect your care. Call 911 Call 911 if you have: Dizziness, weakness or fainting Shortness of breath with or without chest discomfort New or worsening abdominal pain Discomfort in other areas of your upper body such as your shoulders, jaw, neck, or arms When to seek medical advice Call your healthcare provider right away if any of these occur: Increasing chest pain with breathing Fever of 100.4 F (38 C) or above, or as directed by your healthcare provider Congested cough, nausea, or vomiting [id number] [employer]. [address] [place] [address]. All rights reserved. This information is not intended as a substitute for professional medical care. Always follow your healthcare professional's instructions. Additional Information VACCINATE! IT SAVES LIVES! Members of the community who have not yet received the COVID-19 vaccine and would like to receive it can visit one of [facility] vaccine clinics. There are many vaccine clinic locations within the [facility]. For locations and available times, please visit [email or web address] [email or web address] It is important to note that some COVID mobile vaccine clinics are held outdoors and may be canceled in rainy or stormy conditions. To learn more about pediatric vaccinations (ages 5-11), we invite you to visit the [facility] webpage. [email or web address] [email or web address] [email or web address] To learn more about the COVID-19 vaccine, we invite you to visit the CDC website for a list of frequently asked questions. https://www.cdc.gov/coronavirus/2 019-ncov/vaccines/faq.html [facility] Patient Portal Access Instructions: Stay connected with your healthcare team and access your personal medical information anytime with the [employer] Patient Portal. If you would like a full copy of your medical records please contact the [facility] Medical Records Department Friday through Friday between 8a.m. and 4:30p.m. Please follow the directions below to access the portal: 1.Access the email account you provided upon registration to the [facility].2.Look for an invitation email from [facility].3.Open the email and access the invitation link: Accept Invitation to [facility]4.Fill in the required thomas to create your account. Sign into www.[employer] with your username and password that you created in the above steps to stay up to date. You can then view a summary of results, a summary of your visits, and the ability to download your summaries to your computer or send the information securely to a physician. Remember that your healthcare information is confidential, so carefully consider who you will allow to register on the [employer] Patient Portal for access to your information. You can also access the [employer] Patient Portal on the [employer]. Simply click on Health Records under Health Data and then click on the [employer] logo. HOW TO SAFELY DISPOSE OF PRESCRIPTION MEDICATIONS Please use one of the following methods to safely dispose of your unused medications. 1.Use a drug disposal kit: the drug disposal pouch allows you to safely discard your old and unused drugs. Ask your nurse to give you one when you are discharged.2.Visit a local take-back location: Many local pharmacies and police departments have programs that collect old and unwanted prescription drugs. Call your local pharmacy or go to http://[employer].dilitronics/4A9Np6g to find one close to you.3.Make use of household items: Use cat litter or old coffee grounds to dispose medications if other options are not available. Mix your drugs with these household products, seal them in an airtight container and throw it into the garbage. Call [facility]: [phone] to be sure your drugs can be disposed of in this way. Some medicines may require a different approach.4.Never flush your medications down the toilet. IF YOU HAVE BEEN PRESCRIBED AN OPIOIDS FOR PAIN If you have been prescribed an opioid (such as hydrocodone, oxycodone or morphine), it is critical to understand the possible side effects and risks of opioid pain medications. Even when taken as directed, opioids can have several side effects including: Tolerance, meaning you might need to take more of a medication for the same pain relief. Nausea, vomiting and/or constipation. Sleepiness, dizziness, dry mouth, confusion, depression or itching. Physical dependence, meaning you have withdrawal symptoms when a medication is stopped ? this can develop within a few days. KNOW YOUR RESPONSIBILITIES It is important to know exactly how much and how often to take the opioid pain medications you are prescribed. Never take opioids in higher amounts or more often than prescribed. Do not combine opioids with alcohol or other drugs that cause drowsiness, such as benzodiazepines, also known as benzos, including diazepam and alprazolam, muscle relaxants or sleep aids. Never sell or share prescription opioids. This is illegal. Store opioids in a secure place and out of reach of others (including children, family, friends and visitors). The last page(s) of this document has been signed and retained as a CHART COPY Signatures Patient Education Materials Rib Fracture Medication Leaflets My discharge plan and instructions have been reviewed and explained to me and IRODNEY JACKIE S understand my current condition and have read and understand these discharge instructions. I have received a written copy of the plan/instructions. If I have questions, I am aware that I should contact my doctor. 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 Multiplanar reformatted images are provided for review. Automated exposure control, iterative reconstruction, and/or weight based adjustment of the mA/kV was utilized to reduce the radiation dose to as low as reasonably achievable. COMPARISON: Chest radiograph 09/28/2018 HISTORY: ORDERING SYSTEM PROVIDED HISTORY: Reason for Exam: fall, pain FINDINGS: The heart size is within normal limits. There is no pericardial thickening or effusion.Dilated main pulmonary artery, approximately 3.4 cm. Nonaneurysmal, atherosclerotic thoracic aorta. Multi-vessel coronary artery stents and/or calcifications. The visualized trachea and mainstem bronchi are patent. No pleural effusion, pneumothorax, or focal consolidation. Scattered areas of pleural and parenchymal scarring. No lymphadenopathy within the limits of a noncontrast study. Posterior right 7th through 9th rib fractures, mild to moderately displaced. Varying degrees of multifocal degenerative change. Diffuse idiopathic skeletal hyperostosis. Diffuse osseous demineralization. No acute abnormality within the partially visualized upper abdomen. Surgically absent gallbladder. IMPRESSION: Posterior right 7th through 9th rib fractures. I have personally reviewed the images of this examination agree with resident's findings and interpretation.. Interpreted by: Coleman Weir Preliminary Report By: Ignacio Beverly Electronically signed By Coleman Weir Dictated Date: 10/20/2022 7:54:43 PM Prelim Date: 10/20/2022 8:03:12 PM Sign Date: 10/20/2022 8:28:06 PM Ordering Provider: JENNA WRIGHT [facility] Evaluation + Plan note Note Date & Type Note Facility Evaluation + Plan note No data available for this section [facility] Summary Purpose Family History No Family History Records Found No data available for this section Advance Directives No Advanced Directives Records Found Additional Source Comments INFORMATION SOURCE (unrecogn ized section and content) Patient Care team informatio n (unrecognized section and content) Care Team Personnel Name: MIRANDA WALTER MD Member Role: Primary Care Physician Address: Address: [address] [place] [address] Name: JENNA WRIGHT MD Position: ED Physician Member Role: Attending Physician Address: Address: [address] [place], [place] [address] Care Team Related Persons Name: MICKEY THOMAS Name: RICO STEVENS Address: Home [address] [place] [address] FOR RECORDS PERTAINING TO PATIENTS WHO ARE OR HAVE BEEN ENROLLED IN A CHEMICAL DEPENDENCY/SUBSTANCEABUSE PROGRAM, SOME INFORMATION MAY BE OMITTED. This clinical summary was aggregated from multiple sources. Caution should be exercised in using it in the provision of clinical care. This summary normalizes information from multiple sources, and as a consequence, information in this document may materially change the coding, format and clinical context of patient data. In addition, data may be omitted in some cases. CLINICAL DECISIONS SHOULD BE BASED ON THE PRIMARY CLINICAL RECORDS. [facility]. provides no warranty or guarantee of the accuracy or completeness of information in this document.
[2023-04-09 09:26] VITALS: BP 129/85; PULSE 75; RESP 16; TEMP 36.3; O2SAT 100; BMI 23.8
[2023-04-09] MEDS: Lactated Ringers 1,000 ML 15 ML IV (09:31)
--- NOTE | 2023-04-09 09:45 | COLBX_PTH ---
PATHOLOGY RESULTS PATIENT: VERO STEVENS LOC: EN U#:[id number] AGE/SX: 67/F ROOM: RE04/09/[address]: Dr. Tiffany Gan MD : 1955 BED: DIS: 04/09/2023 SPEC #: [id number] RECD: 04/09/23 14:18 STATUS: CLAIRE PATRICIA #: [id number] MARIA ALEJANDRA: 04/09/23 09:[address]: Tiffany Gan DEPT: SURGICAL PATHOLOGY RECD BY: Glendy Meyers ENTERED: 04/10/23 07:05 SP TYPE: COLON BX OTHR DR: Dr. Kannan Knowles MD Tissues: Transverse colon Descending colon Descending colon Sigmoid colon biopsy Procedures: Surgery Specimen Level IV HEADER OPERATION: Colonoscopy with polypectomy and biopsy, EGD PRE-OP DIAGNOSIS: Right inguinal hernia, weight loss TISSUE SUBMITTED: A - Transverse polyp, B - Descending colon polyp and biopsy of polyp, C - Descending colon polyp #2, D - Sigmoid colon polyp MICROSCOPIC DIAGNOSIS A. Transverse colon polyp, biopsy: Tubular adenoma. B. Descending colon polyp, biopsy: Fragments of tubular adenoma. C. Descending colon polyp #2, biopsy: Fragments of hyperplastic polyp. D. Sigmoid colon polyp, biopsy: Tubular adenoma. AM:katherine 04/11/2023 MICROSCOPIC DESCRIPTION Slides are reviewed. GROSS DESCRIPTION A - Received in fixative is one container labeled with the patient's name and designated transverse polyp. The specimen consists of a quinones-pink polyp measuring 0.5 x 0.4 x 0.3 cm. The specimen is totally submitted in one cassette. B - Received in fixative is one container labeled with the patient's name and designated descending polyp biopsy. The specimen consists of two irregular fragments of light quinones soft tissue that in aggregate measure 0.6 x 0.5 x 0.2 cm. The specimen is totally submitted in one cassette. C - Received in fixative is one container labeled with the patient's name and designated descending colon polyp biopsy. The specimen consists of multiple irregular fragments of light quinones soft tissue that in aggregate measure 1.5 x 0.2 x 0.1 cm. The specimen is totally submitted in one cassette. D - Received in fixative is one container labeled with the patient's name and designated sigmoid colon polyp. The specimen consists of a quinones-pink polyp measuring 0.6 x 0.5 x 0.3 cm. / SJ:katherine 04/10/2023 TC:5 CPT: 88026 x4
[2023-04-09 09:59] LABS: Bedside Glucose 119 mg/dL (74-106)
--- NOTE | 2023-04-09 10:35 | OP.CCLET_ITS ---
04/09/2023 Kannan Knowles MD [address] [id number] Re : Upper GI endoscopy procedure for Jahaira Booth Dear Dr. Knowles This procedure was performed on Sunday, April 09, 2023. My impressions and recommendations are as follows: Impressions : - Z-line variable, 40 cm from the incisors. - Normal examined duodenum. - Normal stomach. - No specimens collected. Recommendations : - Discharge patient to home. - Resume previous diet. Wt loss is likely due to poor intake- pt is taking 2 protein drinks (recommended 30 g protein) since appt but still not eating much. - Continue present medications. My findings are described in the full procedure note, which is enclosed. If I can be of further assistance, please feel free to contact me at Doctor phone number(s): , Work: . Sincerely, MD Tiffany Nieves MD 04/09/2023 10:35:08 AM This report has been signed electronically.
--- NOTE | 2023-04-09 10:35 | OP.EGD_ITS ---
Patient Name: Jahaira Booth Procedure Date: 04/09/2023 9:21 AM Date of : 1955 Age: 67 Procedure: Upper GI endoscopy Indications: Weight loss Providers: Tiffany Gan MD Referring MD: Kannan Knowles MD Medicines: Monitored Anesthesia Care Patient Profile: This is a 67 year old female. Complications: No immediate complications. Procedure: Pre-Anesthesia Assessment: - Prior to the procedure, a History and Physical was performed, and patient medications and allergies were reviewed. The patient's tolerance of previous anesthesia was also reviewed. The risks and benefits of the procedure and the sedation options and risks were discussed with the patient. All questions were answered, and informed consent was obtained. Prior Anticoagulants: The patient has taken no anticoagulant or antiplatelet agents. ASA Grade Assessment: Per anesthesia. After reviewing the risks and benefits, the patient was deemed in satisfactory condition to undergo the procedure. After obtaining informed consent, the endoscope was passed under direct vision. Throughout the procedure, the patient's blood pressure, pulse, and oxygen saturations were monitored continuously. The Colonoscope was introduced through the mouth, and advanced to the second part of duodenum. The upper GI endoscopy was accomplished without difficulty. The patient tolerated the procedure well. Scope In: 9:43:35 AM Scope Out: 9:46:34 AM Total Procedure Duration Time 0 hours 2 minutes 59 seconds Findings: The Z-line was variable and was found 40 cm from the incisors. The examined duodenum was normal. The stomach was normal. Impression: - Z-line variable, 40 cm from the incisors. - Normal examined duodenum. - Normal stomach. - No specimens collected. Recommendation: - Discharge patient to home. - Resume previous diet. Wt loss is likely due to poor intake- pt is taking 2 protein drinks (recommended 30 g protein) since appt but still not eating much. - Continue present medications. Procedure Code(s): --- Professional --- 04011, Esophagogastroduodenoscopy, flexible, transoral; diagnostic, including collection of specimen(s) by brushing or washing, when performed (separate procedure) Diagnosis Code(s): --- Professional --- K22.89, Other specified disease of esophagus R63.4, Abnormal weight loss CPT copyright 2021 [employer]. All rights reserved. The codes documented in this report are preliminary and upon economic analyst review may be revised to meet current compliance requirements. MD Tiffany Nieves MD 04/09/2023 10:35:08 AM This report has been signed electronically. Number of Addenda: 0 Note Initiated On: 04/09/2023 9:21 AM
[2023-04-09 10:36] VITALS: BP 116/66; BP 129/85; PULSE 71; RESP 16; TEMP 36.3; O2SAT 99
[2023-04-09 10:40] VITALS: BP 129/85; BP 133/54; PULSE 67; RESP 16; O2SAT 98
--- NOTE | 2023-04-09 10:40 | OP.COLON_ITS ---
Patient Name: Jahaira Booth Procedure Date: 04/09/2023 9:46 AM Date of : 1955 Age: 67 Procedure: Colonoscopy Indications: Weight loss Providers: Tiffany Gan MD Referring MD: Kannan Knowles MD Medicines: Monitored Anesthesia Care Patient Profile: This is a 67 year old female. Last Colonoscopy: May 2021. Complications: No immediate complications. Procedure: Pre-Anesthesia Assessment: - Prior to the procedure, a History and Physical was performed, and patient medications and allergies were reviewed. The patient's tolerance of previous anesthesia was also reviewed. The risks and benefits of the procedure and the sedation options and risks were discussed with the patient. All questions were answered, and informed consent was obtained. Prior Anticoagulants: The patient has taken no anticoagulant or antiplatelet agents. ASA Grade Assessment: Per anesthesia. After reviewing the risks and benefits, the patient was deemed in satisfactory condition to undergo the procedure. After I obtained informed consent, the scope was passed under direct vision. Throughout the procedure, the patient's blood pressure, pulse, and oxygen saturations were monitored continuously. The Colonoscope was introduced through the anus and advanced to the cecum, identified by the appendiceal orifice, ileocecal valve and palpation. The colonoscopy was performed without difficulty. The patient tolerated the procedure well. The quality of the bowel preparation was adequate. Scope In: 9:47:41 AM Scope Withdrawal Time 0 hours 24 minutes 30 seconds Scope Out: 10:28:38 AM Total Procedure Duration Time 0 hours 40 minutes 57 seconds Findings: The perianal and digital rectal examinations were normal. Four semi-pedunculated polyps were found in the sigmoid colon, descending colon and transverse colon. The polyps were 3 to 5 mm in size. These polyps were removed with a hot snare. Resection and retrieval were complete. A less than 5 mm polyp was found in the descending colon. The polyp was sessile. The polyp was removed with a cold biopsy forceps. Resection and retrieval were complete. A few small-mouthed diverticula were found in the sigmoid colon. The exam was otherwise without abnormality on direct and retroflexion views. Impression: - Four 3 to 5 mm polyps in the sigmoid colon, in the descending colon and in the transverse colon, removed with a hot snare. Resected and retrieved. - One less than 5 mm polyp in the descending colon, removed with a cold biopsy forceps. Resected and retrieved. - Diverticulosis in the sigmoid colon. - The examination was otherwise normal on direct and retroflexion views. Recommendation: - Discharge patient to home. - Resume previous diet. - Continue present medications. - Await pathology results. - Repeat colonoscopy 2-3 years for surveillance based on pathology results. Procedure Code(s): --- Professional --- 14853, Colonoscopy, flexible; with removal of tumor(s), polyp(s), or other lesion(s) by snare technique 63778, 59, Colonoscopy, flexible; with biopsy, single or multiple Diagnosis Code(s): --- Professional --- D12.5, Benign neoplasm of sigmoid colon D12.4, Benign neoplasm of descending colon D12.3, Benign neoplasm of transverse colon (hepatic flexure or splenic flexure) R63.4, Abnormal weight loss K57.30, Diverticulosis of large intestine without perforation or abscess without bleeding CPT copyright 2021 [employer] [employer]. All rights reserved. The codes documented in this report are preliminary and upon roping tender review may be revised to meet current compliance requirements. MD Tiffany Nieves MD 04/09/2023 10:40:43 AM This report has been signed electronically. Number of Addenda: 0 Note Initiated On: 04/09/2023 9:46 AM
--- NOTE | 2023-04-09 10:41 | OP.CCLET_ITS ---
04/09/2023 Kannan Knowles MD [address] [place] [address] Re : Colonoscopy procedure for Jahaira Booth Dear Dr. Knowles This procedure was performed on Sunday, April 09, 2023. My impressions and recommendations are as follows: Impressions : - Four 3 to 5 mm polyps in the sigmoid colon, in the descending colon and in the transverse colon, removed with a hot snare. Resected and retrieved. - One less than 5 mm polyp in the descending colon, removed with a cold biopsy forceps. Resected and retrieved. - Diverticulosis in the sigmoid colon. - The examination was otherwise normal on direct and retroflexion views. Recommendations : - Discharge patient to home. - Resume previous diet. - Continue present medications. - Await pathology results. - Repeat colonoscopy 2-3 years for surveillance based on pathology results. My findings are described in the full procedure note, which is enclosed. If I can be of further assistance, please feel free to contact me at Doctor phone number(s): , Work: . Sincerely, MD Tiffany Nieves MD 04/09/2023 10:40:43 AM This report has been signed electronically.
[2023-04-09 10:45] VITALS: BP 129/45; BP 129/85; PULSE 58; RESP 16; O2SAT 99
[2023-04-09 10:47] VITALS: BP 105/94; BP 129/85; PULSE 63; RESP 16; TEMP 36.8; O2SAT 98
== END 2023-04-09 11:32 | disposition home or self-care (01) ==
LOC: EN 08:30 → AC 08:31
PROVIDERS: PCP Family Medicine; Referring Provider Family Medicine; Visit Provider Surgery
PROC: 0DJD8ZZ Inspection of Lower Intestinal Tract, Via Natural or Artificial Opening Endoscopic (ICD-10-PCS; CPT 45378; principal; 2023-04-09 09:40)
DX: R63.4 Abnormal weight loss (principal); E11.9 Type 2 diabetes mellitus without complications; K40.90 Unilateral inguinal hernia, without obstruction or gangrene, not specified as recurrent; K63.5 Polyp of colon; I10 Essential (primary) hypertension; F17.210 Nicotine dependence, cigarettes, uncomplicated; Z79.84 Long term (current) use of oral hypoglycemic drugs; K57.30 Diverticulosis of large intestine without perforation or abscess without bleeding; E78.00 Pure hypercholesterolemia, unspecified; Z90.49 Acquired absence of other specified parts of digestive tract; Z85.3 Personal history of malignant neoplasm of breast; Z86.010 Personal history of colon polyps; E03.9 Hypothyroidism, unspecified; Z79.899 Other long term (current) drug therapy; K21.9 Gastro-esophageal reflux disease without esophagitis; G43.909 Migraine, unspecified, not intractable, without status migrainosus; Z98.51 Tubal ligation status
CPT/HCPCS: 45385; 45380; 43235; 82962; 88305; J7120; J2405

== ENCOUNTER → 2023-10-07 | Outpatient (CLI) | payer MEDICARE, MEDICAID, SELFPAY ==
[2020-03-30 14:28] VITALS: BMI 30.9
== END | disposition home or self-care (01) ==
LOC: LABSPEC 12:01
PROVIDERS: PCP Family Medicine; Referring Provider Nurse Practitioner Family; Visit Provider Nurse Practitioner Family
DX: D64.9 Anemia, unspecified (principal)
CPT/HCPCS: 82274

== ENCOUNTER → 2023-10-10 | Outpatient (CLI) | payer MEDICARE, MEDICAID, SELFPAY ==
[2020-03-30 14:28] VITALS: BMI 30.9
[2023-10-10 15:11] LABS: Absolute Lymphocyte Count 1.46 X10^3/uL (0.83-4.51); Absolute Neutrophil Count 4.3 X10^3/uL (2.0-7.7); Basophil# 0.03 X10^3/uL; Basophil% 0.5 % (0-1); Eosinophils% 1.5 % (0-5); Hematocrit 35.3 % (37-47); Hemoglobin 11.6 g/dL (12.0-15.0); Lymphocyte # 1.46 X10^3/ul (0.83-4.51); Lymphocyte % 22.5 % (19-41); Mean Corp Hgb Conc 32.9 g/dL (32-36); Mean Corpuscular Hgb 31.7 pg (27.0-32.0); Mean Corpuscular Volume 96.4 fL (81-99); Mean Platelet Vol. 9.5 fl (6.2-12.0); Monocyte# 0.55 X10^3/uL; Monocyte% 8.5 % (0-10); NRBC Flagged by Analyzer 0 % (0-5); Neutrophil # 4.32 X10^3/uL (2.7-7.7); Neutrophil % 66.7 % (47-70); Platelet Count 288 K/mm3 (150-450); RBC Distribution Width SD 46.2 fl (35.1-43.9); Red Blood Count 3.66 M/mm3 (4.2-5.4); White Blood Count 6.5 K/mm3 (4.4-11.0)
== END | disposition home or self-care (01) ==
LOC: MTLAB 11:31
PROVIDERS: PCP Family Medicine; Referring Provider Family Medicine; Visit Provider Family Medicine
DX: K92.1 Melena (principal)
CPT/HCPCS: 36415; 85025

== ENCOUNTER → 2023-12-09 | Outpatient (CLI) | payer MEDICARE, MEDICAID, SELFPAY ==
[2020-03-30 14:28] VITALS: BMI 30.9
[2023-12-09 11:11] LABS: Absolute Lymphocyte Count 1.79 X10^3/uL (0.83-4.51); Absolute Neutrophil Count 6.7 X10^3/uL (2.0-7.7); Basophil# 0.04 X10^3/uL; Basophil% 0.4 % (0-1); Eosinophil# 0.09 X10^3/uL; Hematocrit 38.8 % (37-47); Hemoglobin 12.6 g/dL (12.0-15.0); Lymphocyte # 1.79 X10^3/ul (0.83-4.51); Lymphocyte % 19.4 % (19-41); Mean Corp Hgb Conc 32.5 g/dL (32-36); Mean Corpuscular Hgb 30.9 pg (27.0-32.0); Mean Corpuscular Volume 95.1 fL (81-99); Mean Platelet Vol. 9.4 fl (6.2-12.0); Monocyte# 0.57 X10^3/uL; Monocyte% 6.2 % (0-10); NRBC Flagged by Analyzer 0 % (0-5); Neutrophil # 6.71 X10^3/uL (2.7-7.7); Neutrophil % 72.6 % (47-70); Platelet Count 311 K/mm3 (150-450); RBC Distribution Width CV 12.6 % (11.6-14.6); Red Blood Count 4.08 M/mm3 (4.2-5.4); White Blood Count 9.2 K/mm3 (4.4-11.0)
[2023-12-09 11:24] LABS: Erythrocyte Sedimentation Rate 5 mm/hr (0-30)
[2023-12-09 12:00] LABS: CRP < 2.90 mg/L (0.0-3.0); Ferritin 22 ng/mL (8-252); Iron 68 ug/dL (50-170); Iron Binding Capacity,Total 388 ug/dL (250-450); T4 Free Direct 1.28 ng/dL (0.76-1.46); Thyroid Stim Hormone (TSH) 0.161 uIU/mL (0.358-3.740)
[2023-12-13 00:07] LABS: ACCA 1 units (0-90); ALCA 3 units (0-60); AMCA 8 units (0-100); Albumin 4.2 g/dL (2.9-4.4); Alpha-1-Globulins 0.2 g/dL (0.0-0.4); Gamma Globulin 0.6 g/dL (0.4-1.8); Immunoglobulin A 59 mg/dL (87-352); Immunoglobulin E 4 IU/mL (6-495); Immunoglobulin G 647 mg/dL (586-1602); Immunoglobulin M 52 mg/dL (26-217); PROEL- TOTAL PROTEIN 6.9 g/dL (6.0-8.5); gASCA 37 units (0-50)
== END | disposition home or self-care (01) ==
PROVIDERS: PCP Family Medicine; Referring Provider Student in an Organized Health Care Education/Training Program; Visit Provider Student in an Organized Health Care Education/Training Program
DX: D64.9 Anemia, unspecified (principal); R19.7 Diarrhea, unspecified; R19.5 Other fecal abnormalities; R53.83 Other fatigue
CPT/HCPCS: 36415; 82728; 82784; 82785; 83516; 83540; 83550; 84165; 84439; 84443; 85025; 85652; 86036; 86140; 86334; 86671

== ENCOUNTER → 2023-12-24 | Outpatient (CLI) | payer MEDICARE, MEDICAID, SELFPAY ==
[2020-03-30 14:28] VITALS: BMI 30.9
[2023-12-27 00:07] LABS: Pancreatic Elastase, Fecal 488 (>200)
[2023-12-27 08:12] LABS: Calprotectin, Stool 40 ug/g (0-120); Fats, Neutral Normal (.); Fats, Total Increased (.)
== END | disposition home or self-care (01) ==
LOC: LABSPEC 12:03
PROVIDERS: PCP Family Medicine; Referring Provider Student in an Organized Health Care Education/Training Program; Visit Provider Student in an Organized Health Care Education/Training Program
DX: K58.9 Irritable bowel syndrome, unspecified (principal); R19.7 Diarrhea, unspecified; R19.5 Other fecal abnormalities; D64.9 Anemia, unspecified
CPT/HCPCS: 36415; 82274; 82653; 82705; 83630; 83993; 87177; 87209

== ENCOUNTER → 2024-03-18 | Outpatient (CLI) | payer MEDICARE, MEDICAID, SELFPAY ==
[2020-03-30 14:28] VITALS: BMI 30.9
[2024-03-18 12:49] LABS: Cholesterol 111 mg/dL (200); Free T3 1.9 pg/mL (2.18-3.98); High Density Lipoprotein 46 mg/dL; T4 Free Direct 1.42 ng/dL (0.76-1.46); Thyroid Stim Hormone (TSH) 0.958 uIU/mL (0.358-3.740); Triglycerides 122 mg/dL; Very Low Density Lipoprotein 24 mg/dL (5-40)
== END | disposition home or self-care (01) ==
LOC: MFPLAB 09:53
PROVIDERS: PCP Family Medicine; Referring Provider Family Medicine; Visit Provider Family Medicine
DX: I10 Essential (primary) hypertension (principal); E03.9 Hypothyroidism, unspecified
CPT/HCPCS: 36415; 80061; 84439; 84443; 84481

== ENCOUNTER 2024-04-02 19:12 | Inpatient (IN) | payer MEDICARE, SELFPAY ==
[2020-03-30 14:28] VITALS: BMI 30.9
--- NOTE | 2024-04-02 19:21 | PCM.HP.STD ---
HPI - General General Date of Admission: 04/02/24 Date of Service: 04/02/24 Chief Complaint: Right hip pain HPI Narrative VERO STEVENS, is a 68 F who presented to the emergency department at [facility] with a chief complaint of right hip pain. She had a fall in her garage at which time she was trying to plug in her snowblower. She had no loss of consciousness but is not quite clear exactly how she fell. She did not hit her head. Patient states she is not anticoagulated at baseline. She does admit to tobacco abuse and smokes most of a pack of cigarettes daily. Imaging revealed an acute hip fracture and the patient was not able to be hospitalized over at [facility] due to insurance reasons and request her transfer here. The case was discussed with Dr. Raymond Monzon and he agreed to evaluate the patient here for surgical intervention. We were given report that the plan is for the OR tomorrow morning at 8 AM. Vital signs on presentation [facility] showed a temperature of 36.6, heart rate 67, blood pressure 157/44, respiratory was 18 oxygen saturation was 97% on room air. CBC shows a white count of 12.4, hemoglobin of 10.7 hemoglobin is slightly down from early in February at which time it was 12.1. Chemistry panel is overtly unremarkable other than hyperglycemia with a blood glucose level 186. Patient is diabetic at baseline. TSH was within normal vitamin D 25 level is 54.3. X-ray of the right hip and pelvis showed a displaced angulated and trochanteric right hip fracture. Chest x-ray showed no acute findings. EKG was not performed. [facility] Medical History History of breast cancer Aromatase inhibitor use Positive occult stool blood test Anemia Wears dentures Thyroid disease Smoker Tubular adenoma of colon Ileus, unspecified Right inguinal hernia History of breast cancer Screening for breast cancer Wears glasses Wears partial dentures Cancer High cholesterol Migraine headache History of stress test History of colon polyps Weight loss Encounter for screening for malignant neoplasm of lung Frequent headaches Neck pain Breast pain, right previous radiation treatments Skin lesion of breast Breast mass, right Osteopenia Tobacco abuse Encounter for education Malignant neoplasm of upper-outer quadrant of right breast in female, estrogen receptor positive History of change in bowel patterns Diarrhea Abdominal pain Arthritis Hypothyroidism (acquired) Diabetes Hyperlipidemia HTN (hypertension) GERD (gastroesophageal reflux disease) Mastalgia Home Medications ?Medication ?Instructions ?Recorded ?Last Taken ?Type simvastatin 80 mg tablet 80 mg PO QPM CHOLESTEROL 04/07/17 04/07/23 History cholecalciferol (vitamin D3) 25 5,000 unit PO DAILY SUPPLEMENT 03/22/19 04/07/23 History mcg (1,000 unit) capsule metformin 500 mg tablet,extended 1,000 mg PO BID DIABETES 10/19/19 04/07/23 History release 24 hr pantoprazole 40 mg tablet,delayed 40 mg PO QHS STOMACH 10/19/19 04/07/23 History release calcium 500 mg (as 1 ea PO DAILY SUPPLEMEN 06/01/20 04/07/23 History carbonate)-vitamin D3 15 mcg (600 unit) tablet amitriptyline 25 mg tablet 50 mg PO DAILY Migraines 06/15/21 04/07/23 History sucralfate 1 gram tablet 1 g PO TID STOMACH #21 tabs 06/20/21 04/07/23 Rx lisinopril 5 mg tablet 5 mg PO DAILY BLOOD PRESSU #30 tabs 12/19/22 04/09/23 Rx letrozole 2.5 mg tablet 2.5 mg PO DAILY CANCER #90 TABLETS 08/07/23 Unknown Rx levothyroxine 100 mcg capsule 100 mcg PO DAILY THYROID 03/02/24 Unknown History topiramate 25 mg tablet 25 mg PO BID MIGRAINES 04/02/24 Unknown History Allergy/AdvReac Type Severity Reaction Status Date / Time coconut AdvReac Severe Hives Verified 03/02/24 09:30 Penicillins AdvReac Severe Hives Verified 03/02/24 09:30 bee venom protein (honey bee) AdvReac Intermediate Hives Verified 03/02/24 09:30 Family History Mother Arthritis Heart disease Osteoporosis Father Cancer Prostate Grandmother Diabetes Surgical History History of cataract removal with insertion of prosthetic lens Status post right breast lumpectomy Hx of cholecystectomy History of tubal ligation History of salpingectomy History of laparoscopic cholecystectomy H/O colonoscopy Social History household members: children housing: house Smoking Status: Current every day smoker tobacco type: cigarettes Tobacco: How many years used: 20 alcohol intake: never substance use type: does not use caffeine: Yes what type of physical activity do you participate in: walking frequency: 3-4 times per week ROS Constitutional Constitutional: Denies anorexia, change in weight, chills, fatigue, fever(s), malaise, night sweats, weakness or other Eyes Eyes: Denies blurry vision, change in eye color, change in vision, discharge from eye(s), double vision, erythema, eye pain, loss of vision or other ENT HEENT: Denies abnormal hearing, dysphagia, ear pain, epistaxis, headache(s), hearing loss, nasal congestion, nasal discharge, post nasal drip, sinus pressure, sore throat or other Cardiovascular Cardiovascular: Denies chest pain, claudication, dyspnea on exertion, edema, lightheadedness, orthopnea, palpitations, paroxysmal nocturnal dyspnea, rapid heart rate, syncope or other Respiratory/Chest Respiratory/Chest: Denies cough, dyspnea, excessive phlegm production, hemoptysis, productive cough, shortness of breath at rest, shortness of breath with exertion, wheezing or other Gastrointestinal Gastrointestinal: Denies abdominal pain, coffee ground emesis, constipation, diarrhea, dyspepsia, hematemesis, hematochezia, loose stools, melena, nausea, vomiting or other Genitourinary Genitourinary: Denies burning urination, difficulty urinating, dysuria, hematuria, nocturia, urinary frequency, urinary hesitancy, urinary incontinence, urinary urgency or other Musculoskeletal Musculoskeletal: Reports joint pain; Denies arthralgias, back pain, joint stiffness, joint swelling, myalgias, neck pain or other Neurologic Neurologic: Denies abnormal gait, abnormal speech, confusion, disequilibrium, dizziness, focal weakness, headache(s), numbness, paresthesias, seizure-like activity, seizures, syncope, tingling, tremor(s) or other Psychiatric Psychiatric: Denies anxiety, depression, homicidal ideation, suicidal ideation or other Endocrine Endocrinology: Denies change in body appearance, cold intolerance, excessive sweating, heat intolerance, polydipsia, polyuria or other Hematologic/Lymphatic Hematologic/Lymphatic: Denies anemia, easy bleeding, easy bruising, lymphadenopathy or other Allergic/Immunologic Allergic/Immunologic: Denies rhinitis, hives, eczemia, asthma or other Physical Exam Const alert, oriented x3, average body habitus and well nourished; Negative for no apparent distress Constitutional Narrative: Uncomfortable appearing, older, white female, lying in bed in left side-lying, right hip is flexed some, patient appears nontoxic General Appearance: cooperative HEENT normocephalic, head/scalp atraumatic, hearing grossly normal bilaterally and moist oral mucous membranes HEENT Narrative: Mallampati 3, no thrush Resp normal respiratory effort, no retractions, no use of accessory muscles and clear to auscultation bilaterally Resp Narrative: Diffusely diminished but clear Auscultation: Negative for rales, rhonchi or wheezes Cardio regular rate, regular rhythm, S1 normal heart sound, S2 normal heart sound, no murmurs, no rub and no gallops GI normal to inspection, nondistended, normoactive bowel sounds, soft to palpation and non-tender Extremity no clubbing, cyanosis or edema Extremity Narrative: Pedal pulses are 2+ bilaterally, radial pulses are 2+ bilaterally, patient in left side-lying with right hip flexed to about 45 degrees and does appear somewhat uncomfortable Neuro oriented x3 Neuro Narrative: Difficulty moving lower extremities now due to pain but no specific focal deficits identified Speech: speech normal Psych affect normal Psych Narrative: Mood is appropriate for the situation as she is somewhat uncomfortable. Results Lab / Micro Data 04/02/24 20:12 04/02/24 20:12 Assessment & Plan Assessment/Plan (1) Intertrochanteric fracture of right hip: (2) Anemia: PLAN: Plan Right intertrochanteric fracture -Plan for OR tomorrow morning at [address] Raymond Monzon -N.p.o[address] after midnight except for p.o. meds -Will hold lisinopril in the perioperative period -Check EKG -Chest x-ray with no acute findings -PT/OT postoperatively -Scheduled Tylenol 1 g every 8 hours -As needed tizanidine for muscle spasm -As needed oral opiates every 4 hours 5 mg -IV morphine as needed for breakthrough pain -Scheduled docusate -As needed senna -Will hold DVT prophylaxis for now and use SCDs with plans for Lovenox to start tomorrow evening unless otherwise specified by orthopedic surgery Anemia -Hemoglobin at presentation was 10.7 -Most recently had a baseline between 12 and 13 -Acute drop could be from fracture and volume given at outside facility -Will trend -Repeat CBC in a.m. 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 -Tumor was ER/NM positive and HER2/david negative -Partial mastectomy with sentinel lymph node biopsy 09/2019 -Received neoadjuvant radiation -Hormonal therapy with Arimidex--> to continue Osteopenia -Continue vitamin D and calcium supplementation -Has previously been on Prolia -Vitamin D level is in therapeutic range Hypothyroidism -Continue home levothyroxine -Patient is following as an outpatient with current adjustments being made to her thyroid medication GERD -Continue home PPI -Continue home Carafate Hypertension -Hold home lisinopril for now in the perioperative period and restart postoperatively next-continue simvastatin -As needed hydralazine 10 every 6 History of migraines -Continue home amitriptyline -Continue home Topamax Tobacco abuse -Highly recommend cessation -Nicotine patch available DVT prophylaxis -Plan will start subcu Lovenox 40 mg tomorrow evening after surgery and await ongoing recommendations from orthopedic surgeon for discharge CODE STATUS -Full code as verified on admission - Charges/Coding Visit Charges Inpatient E&M: 54897 Init Hosp L2
[2024-04-02 19:23] VITALS: BMI 25.1
--- NOTE | 2024-04-02 19:39 | EKG12_ITS ---
Test Reason : PRE OP Blood Pressure : */* mmHG Vent. Rate : 81 BPM Atrial Rate : 81 BPM P-R Int : 138 ms QRS Dur : 90 ms QT Int : 410 ms P-R-T Axes : 71 73 13 degrees QTcB Int : 476 ms Normal sinus rhythm Nonspecific T wave abnormality Prolonged QT Abnormal ECG When compared with ECG of 23-Mar-2003 13:52, Inverted T waves have replaced nonspecific T wave abnormality in Inferior leads Nonspecific T wave abnormality now evident in Lateral leads QT has lengthened Confirmed by NIDA AMADOR, MICHELL ([id number]), editor in chief newspaper JAMIE RUIZ ([id number]) on 04/05/2024 10:00:46 AM Referred By: EILEEN Confirmed By: MICHELL ALVA MD
[2024-04-02] MEDS: Ondansetron 4 MG/2 ML Vial IV (19:53)
[2024-04-02] MEDS: Morphine 2 MG/ML Syringe IV ×2 (19:54→23:08)
[2024-04-02 20:00] VITALS: BP 147/51; PULSE 79; RESP 15; TEMP 36.8; O2SAT 94
[2024-04-02 20:36] LABS: Absolute Lymphocyte Count 0.82 X10^3/uL (0.83-4.51); Absolute Neutrophil Count 11.1 X10^3/uL (2.0-7.7); Basophil# 0.03 X10^3/uL; Basophil% 0.2 % (0-1); Eosinophil# 0.02 X10^3/uL; Eosinophils% 0.2 % (0-5); Hematocrit 31.8 % (37-47); Hemoglobin 10.7 g/dL (12.0-15.0); Lymphocyte # 0.82 X10^3/ul (0.83-4.51); Lymphocyte % 6.6 % (19-41); Mean Corp Hgb Conc 33.6 g/dL (32-36); Mean Corpuscular Hgb 30.8 pg (27.0-32.0); Mean Corpuscular Volume 91.6 fL (81-99); Mean Platelet Vol. 9.2 fl (6.2-12.0); Monocyte# 0.35 X10^3/uL; Monocyte% 2.8 % (0-10); NRBC Flagged by Analyzer 0 % (0-5); Neutrophil # 11.12 X10^3/uL (2.7-7.7); Neutrophil % 89.9 % (47-70); Platelet Count 258 K/mm3 (150-450); RBC Distribution Width CV 13.3 % (11.6-14.6); RBC Distribution Width SD 44.2 fl (35.1-43.9); Red Blood Count 3.47 M/mm3 (4.2-5.4); White Blood Count 12.4 K/mm3 (4.4-11.0)
[2024-04-02 20:40] LABS: Prothrombin Time (Protime)PT. 13.3 SECONDS (11.7-14.9)
[2024-04-02 20:41] LABS: Partial Thromboplast Time 28.5 Seconds (24.1-36.2)
[2024-04-02 20:51] VITALS: PULSE 79; RESP 15; O2SAT 95
[2024-04-02 20:56] LABS: Vitamin D,25 Hydroxy 54.3 ng/mL
[2024-04-02 21:03] LABS: ALB/GLOB Ratio 1.3 RATIO (0.9-2.4); AST(SGOT) 17 U/L (15-37); Alanine Aminotransfer ALT/SGPT 18 U/L (13-56); Albumin, Serum 3.8 g/dL (3.2-5.0); Alkaline Phosphatase 65 U/L (45-117); Anion Gap 9 (5-15); BUN 25 mg/dL (7-18); BUN/Creat Ratio 31.4 RATIO (10-20); Calcium,Total 9.4 mg/dL (8.5-10.1); Chloride 105 mmol/L (98-107); EST Glomerular Filtration Rate 76 mL/min (>60); Est Glom Filt Rate - Afr Amer 92 mL/min (>60); Estimated Creatinine Clearance 61.34 ml/min; Glucose 186 mg/dL (74-106); Potassium 3.8 mmol/L (3.5-5.1); Protein, Total 6.8 g/dL (6.4-8.2); Sodium Level 138 mmol/L (136-145)
[2024-04-02] MEDS: Acetaminophen 500 MG Tablet 1000 MG PO (21:38)
[2024-04-02] MEDS: Docusate Sodium 100 MG Capsule PO (21:38)
[2024-04-02] MEDS: oxyCODONE 5 MG Tablet PO (21:38)
[2024-04-02] MEDS: Insulin Lispro 100 UNIT/ML INSULN.PEN SC (21:56)
[2024-04-02 22:20] LABS: Bedside Glucose 177 mg/dL (74-106)
[2024-04-02] MEDS: tiZANidine HCl 2 MG Tablet 4 MG PO (22:25)
[2024-04-02] MEDS: MELATONIN 3 MG TABLET PO (22:25)
[2024-04-02] MEDS: 0.9% Saline Lock 10 ML Syringe IV (23:09)
[2024-04-02 23:16] VITALS: BP 166/92; PULSE 87; RESP 15; TEMP 37.2; O2SAT 96
[2024-04-03] VITALS (16 sets, daily range): BP systolic 117–158; BP diastolic 56–77; PULSE 71–90; RESP 15–18; TEMP 36.1–37.4; O2SAT 93–99; BMI 25.0
[2024-04-03] MEDS: oxyCODONE 5 MG Tablet PO ×3 (01:55→17:55)
[2024-04-03] MEDS: Morphine 2 MG/ML Syringe IV ×3 (04:15→21:07)
[2024-04-03] MEDS: 0.9% Saline Lock 10 ML Syringe IV ×3 (04:16→21:08)
[2024-04-03 06:34] LABS: Bedside Glucose 109 mg/dL (74-106)
[2024-04-03 07:14] LABS: Absolute Lymphocyte Count 1.65 X10^3/uL (0.83-4.51); Basophil# 0.02 X10^3/uL; Basophil% 0.2 % (0-1); Eosinophil# 0.02 X10^3/uL; Eosinophils% 0.2 % (0-5); Hematocrit 31.8 % (37-47); Hemoglobin 10.8 g/dL (12.0-15.0); Lymphocyte # 1.65 X10^3/ul (0.83-4.51); Lymphocyte % 15.5 % (19-41); Mean Corpuscular Hgb 31.2 pg (27.0-32.0); Mean Corpuscular Volume 91.9 fL (81-99); Mean Platelet Vol. 9.4 fl (6.2-12.0); Monocyte# 0.93 X10^3/uL; Monocyte% 8.7 % (0-10); NRBC Flagged by Analyzer 0 % (0-5); Neutrophil % 74.9 % (47-70); Platelet Count 269 K/mm3 (150-450); RBC Distribution Width CV 13.2 % (11.6-14.6); RBC Distribution Width SD 44.9 fl (35.1-43.9); Red Blood Count 3.46 M/mm3 (4.2-5.4); White Blood Count 10.7 K/mm3 (4.4-11.0)
--- NOTE | 2024-04-03 07:47 | PRE.ANES_ITS ---
ASA Classification* ASA Classification ASA Classification: 3 Assessment & Plan Anesthesia* Anesthesia Assessment Anesthesia Assessment: Discussed sedation and/or anesthesia options, risks, benefits, and alternatives with patient/parents/legal guardian/POA. Questions invited. The patient/parents/legal guardian/POA seems to understand and agrees to proceed with anesthesia plan. Reviewed the physical assessment, medical history, allergy history and patient home medications list prior to surgery/procedure/anesthetic and documented any changes. Performed airway and anesthesia risk assessments. Anesthesia Type Anesthesia Type: General History Source History Obtained from:: Patient and Chart Anesthesia Focused Assessment* Temperature: 97.8 F Pulse Rate: 78 Blood Pressure: 142/72 Respiratory Rate: 15 Pulse Ox: 97 Oxygen Delivery Method: Room Air Airway Assessment Mouth opens: >3 cm Mallampati Score: IV Teeth Condition: Dentures (Full upper dentures are out.) and Partial (Patient has lower partial is out.) Neck Range of motion (ROM): Limited ROM (Somewhat decreased extension) Focused Labs Anesthesia Preop lab: CBC WBC 10.7 K/mm3 (4.4-11.0) 04/03/24 06:26 RBC 3.46 M/mm3 (4.2-5.4) L 04/03/24 06:26 Hgb 10.8 g/dL (12.0-15.0) L 04/03/24 06:26 Hct 31.8 % (37-47) L 04/03/24 06:26 Plt Count 269 K/mm3 (150-450) 04/03/24 06:26 CHEMISTRY Potassium 3.8 mmol/L (3.5-5.1) 04/03/24 06:26 Sodium 136 mmol/L (136-145) 04/03/24 06:26 Magnesium 2.0 mg/dL (1.6-2.6) 04/03/24 06:26 Phosphorus 3.7 mg/dL (2.5-4.9) 04/03/24 06:26 BUN 23 mg/dL (7-18) H 04/03/24 06:26 Creatinine 0.81 mg/dL (0.55-1.02) 04/03/24 06:26 Glucose 125 mg/dL (74-106) H 04/03/24 06:26 POC Glucose 109 mg/dL (74-106) H 04/03/24 06:15 TSH 1.170 uIU/mL (0.358-3.740) 04/02/24 20:12 COAG PT 13.3 SECONDS (11.7-14.9) 04/02/24 20:12 Pre-Assessment Diagnosis/Proposed Procedure Planned Operative Procedure(s): Open reduction internal fixation right hip gamma nail. 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 When Was Last Pacemaker Check QUESTION #4 FULL TEXT: You/Your Family Experience fever (hyperthermia) with Anesthesia Last Oral Intake Last Oral intake: Last Oral Intake NPO since 00:00 04/03/24 06:03 Meds taken in AM with sips of water? 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 bus technician Female HX of Motion Sickness HX of N/V After Surgery Non-Smoker Duration of Surgery greater than 60 minutes Number of Risk Factors PONV Score Height & Weight Height & Weight: Anesthesia: Height & Weight Height 5 ft 4 in 04/03/24 06:03 Weight: 66 kg 04/03/24 06:03 Body Mass Index (BMI) 25.0 04/03/24 06:03 Respiratory Assessment Respiratory Assessment - school bus technician: Respiratory Tract Infection Hx - school bus technician Hx Respiratory Tract Infection Yes: GIVEN ZPAK OVER XMAS 04/02/24 23:20 FOR BRONCHITIS STOP Sleep Apnea STOP Sleep Apnea - school bus technician: STOP Sleep Apnea - school bus technician Hx Hypertension Yes 04/02/24 20:21 Hx Sleep Apnea No 04/02/24 20:21 CPAP BIPAP Do you snore loudly (louder No 04/02/24 20:21 than talking or can be heard Do you often feel tired/ No 04/02/24 20:21 fatigued/ sleepy during daytime? Has anyone observed you stop No 04/02/24 20:21 breathing during sleep? STOP Results Negative 04/02/24 20:21 QUESTION #5 FULL TEXT : Do you snore loudly (louder than talking or can be heard through closed doors)? 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 Specify any problems Hx of Preganancy in last 3 N/A 04/02/24 20:21 Months Nurse Filling Out Transfusion LSHRINER 04/02/24 20:21 & Questions: Date: 04/02/24 04/02/24 20:21 Time: 20:22 04/02/24 20:21 Patient unable to answer at this time (ie. confused, unrespo /Reproduction History /Reproductive History - school bus technician: /Reproductive Hx- school bus technician Hx Now No 04/02/24 23:20 Gestational Age (in weeks): EDC: Hx Hx Para Hx Section SAB Active Medications Active Medications: Current Medications Generic Name Dose Route Start Last Admin Trade Name Freq PRN Reason Stop Dose Admin Acetaminophen 1,000 mg 04/02/24 22:00 04/03/24 04:19 Acetaminophen 500 Mg Tablet PO Not Given Q8 CHET Albuterol Sulfate 2.5 mg 04/02/24 19:39 Albuterol 2.5 Mg/3 Ml Vial.Neb. INHALATION Q2H PRN PRN SOB &/OR WHEEZING Amitriptyline HCl 50 mg 04/03/24 22:00 Amitriptyline 25 Mg Tablet PO 2200 [facility] Atorvastatin Calcium 40 mg 04/03/24 22:00 Atorvastatin Calcium 40 Mg Tablet PO 2200 [facility] Calcium/Vitamin D 1 tablet 04/03/24 08:00 04/03/24 07:39 Calcium Carb/Vitamin D 1 Tablet Tablet [facility] Cholecalciferol 125 mcg 04/03/24 10:00 04/03/24 07:40 Cholecalciferol (Vit D3) 125 Mcg Capsule (5,000 Units) PO Not Given DAILY [facility] Docusate Sodium 100 mg 04/02/24 22:00 04/03/24 07:40 Docusate Sodium 100 Mg Capsule PO Not Given BID [facility] Enoxaparin Sodium 40 mg 04/03/24 20:00 Enoxaparin 40 Mg/0.4 Ml Syringe SC DAILY [facility] Glucagon 1 mg 04/02/24 19:39 Glucagon 1 Mg/Ml Syringe IM X1 PRN HYPOGLYCEMIA Protocol Guaifenesin 20 ml 04/02/24 19:39 Guaifenesin 10 Ml Udc (200mg/10ml) PO Q4H PRN PRN COUGH Hydralazine HCl 10 mg 04/02/24 22:27 Hydralazine 20 Mg/Ml Vial IV Q6H PRN PRN SBP>160 Protocol Dextrose 250 mls @ 0 mls/hr 04/02/24 19:39 Dextrose 10%-Water IV .Q0M PRN HYPOGLYCEMIA Protocol As Directed Insulin Human Lispro 0 unit 04/02/24 22:00 04/03/24 06:35 Insulin Lispro 100 Unit/Ml Insuln.Pen SC Not Given ACHS [facility] Protocol Letrozole 2.5 mg 04/03/24 10:00 04/03/24 07:40 Letrozole 2.5 Mg Tablet PO Not Given DAILY [facility] Levothyroxine Sodium 100 mcg 04/03/24 06:00 04/03/24 04:19 Levothyroxine 100 Mcg Tablet PO Not Given 0600 [facility] Melatonin 3 mg 04/02/24 19:39 04/02/24 22:25 Melatonin 3 Mg Tablet PO 3 mg QHS PRN PRN Administration INSOMNIA Morphine Sulfate 2 - 4 mg 04/02/24 19:39 04/03/24 04:15 Morphine 2 Mg/Ml Syringe IV 4 mg Q3H PRN PRN Administration Pain Score 6-10 Nicotine 21 mg 04/03/24 10:00 04/03/24 07:40 Nicotine 21 Mg Patch TD Not Given DAILY [facility] Ondansetron HCl 4 mg 04/02/24 19:39 04/02/24 19:53 Ondansetron 4 Mg/2 Ml Vial IV 4 mg Q8H PRN PRN Administration NAUSEA/VOMITING Oxycodone HCl 5 mg 04/02/24 19:39 04/03/24 01:55 Oxycodone 5 Mg Tablet PO 5 mg Q4H PRN PRN Administration Pain Score 4-10 Pantoprazole Sodium 40 mg 04/03/24 22:00 Pantoprazole Sodium 40 Mg Tablet PO QHS [facility] Prochlorperazine Edisylate 5 mg 04/02/24 19:39 Prochlorperazine 10 Mg/2 Ml Vial IV Q4H PRN PRN Breakthrough nausea/vomiting Senna/Docusate Sodium 2 tablet 04/02/24 19:39 Senna/Docusate Sodium 1 Tablet PO BID PRN PRN Constipation Sodium Chloride 10 - 40 ml 04/02/24 19:57 04/03/24 04:16 0.9% Saline Lock 10 Ml Syringe IV 10 ml UD PRN Administration SALINE FLUSH Sucralfate 1 gm 04/03/24 11:00 Sucralfate 1 Gm Tablet PO 1100,1600,2200 [facility] Tizanidine HCl 4 mg 04/02/24 19:39 04/02/24 22:25 Tizanidine Hcl 2 Mg Tablet PO 4 mg Q8H PRN PRN Administration spasms/musculoskeletal pain Topiramate 25 mg 04/03/24 10:00 04/03/24 07:40 Topiramate 25 Mg Tablet PO Not Given BID [facility] Medical History History of breast cancer Aromatase inhibitor use Positive occult stool blood test Anemia Wears dentures Thyroid disease Smoker Tubular adenoma of colon Ileus, unspecified Right inguinal hernia History of breast cancer Screening for breast cancer Wears glasses Wears partial dentures Cancer High cholesterol Migraine headache History of stress test History of colon polyps Weight loss Encounter for screening for malignant neoplasm of lung Frequent headaches Neck pain Breast pain, right previous radiation treatments Skin lesion of breast Breast mass, right Osteopenia Tobacco abuse Encounter for education Malignant neoplasm of upper-outer quadrant of right breast in female, estrogen receptor positive History of change in bowel patterns Diarrhea Abdominal pain Arthritis Hypothyroidism (acquired) Diabetes Hyperlipidemia HTN (hypertension) GERD (gastroesophageal reflux disease) Mastalgia Home Medications ?Medication ?Instructions ?Recorded ?Last Taken ?Type simvastatin 80 mg tablet 80 mg PO QPM CHOLESTEROL 04/07/17 04/07/23 History cholecalciferol (vitamin D3) 25 5,000 unit PO DAILY SUPPLEMENT 03/22/19 04/07/23 History mcg (1,000 unit) capsule metformin 500 mg tablet,extended 1,000 mg PO BID DIABETES 10/19/19 04/07/23 History release 24 hr pantoprazole 40 mg tablet,delayed 40 mg PO QHS STOMACH 10/19/19 04/07/23 History release calcium 500 mg (as 1 ea PO DAILY SUPPLEMEN 06/01/20 04/07/23 History carbonate)-vitamin D3 15 mcg (600 unit) tablet amitriptyline 25 mg tablet 50 mg PO QHS Migraines 06/15/21 04/07/23 History sucralfate 1 gram tablet 1 g PO TID STOMACH #21 tabs 06/20/21 04/07/23 Rx lisinopril 5 mg tablet 5 mg PO DAILY BLOOD PRESSU #30 tabs 12/19/22 04/09/23 Rx letrozole 2.5 mg tablet 2.5 mg PO DAILY CANCER #90 TABLETS 08/07/23 Unknown Rx levothyroxine 100 mcg capsule 100 mcg PO DAILY THYROID 03/02/24 Unknown History topiramate 25 mg tablet 25 mg PO BID MIGRAINES 04/02/24 Unknown History Allergy/AdvReac Type Severity Reaction Status Date / Time coconut AdvReac Severe Hives Verified 03/02/24 09:30 Penicillins AdvReac Severe Hives Verified 03/02/24 09:30 bee venom protein (honey bee) AdvReac Intermediate Hives Verified 03/02/24 09:30 Family History Mother Arthritis Heart disease Osteoporosis Father Cancer Prostate Grandmother Diabetes Surgical History History of cataract removal with insertion of prosthetic lens Status post right breast lumpectomy Hx of cholecystectomy History of tubal ligation History of salpingectomy History of laparoscopic cholecystectomy H/O colonoscopy Social History household members: children housing: house Smoking Status: Current every day smoker tobacco type: cigarettes Tobacco: How many years used: 20 alcohol intake: never substance use type: does not use caffeine: Yes what type of physical activity do you participate in: walking frequency: 3-4 times per week Review of Systems (Anesthesia) ROS Narrative System reviewed and no additional complaints, except as documented.
[2024-04-03 07:57] LABS: Anion Gap 7 (5-15); BUN 23 mg/dL (7-18); BUN/Creat Ratio 28.4 RATIO (10-20); Calcium,Total 9.2 mg/dL (8.5-10.1); Chloride 104 mmol/L (98-107); Creatinine, Serum 0.81 mg/dL (0.55-1.02); EST Glomerular Filtration Rate 74 mL/min (>60); Est Glom Filt Rate - Afr Amer 90 mL/min (>60); Estimated Creatinine Clearance 60.42 ml/min; Glucose 125 mg/dL (74-106); Phosphorus 3.7 mg/dL (2.5-4.9); Potassium 3.8 mmol/L (3.5-5.1); Sodium Level 136 mmol/L (136-145)
--- NOTE | 2024-04-03 08:07 | RAD_ITS ---
EXAM: XR RIGHT HIP WITH PELVIS WHEN PERFORMED, 2 OR 3 VIEWS CLINICAL INDICATION: GAMMA NAIL TECHNIQUE: 6 spot images of the right hip. COMPARISON: No relevant prior studies available. FINDINGS: Fluoroscopy support for ORIF of the right hip fracture. Fluoroscopy time: 150 seconds. 6 spot images. Cumulative dose: 47.33 mGy. RAD/Hip Min 2 Views (Portable) IMPRESSION: Fluoroscopy support for ORIF of the right hip fracture. Electronically Signed: Yoan Lemus MD at 6:58 EST ,
[2024-04-03] MEDS: Cefazolin 2 GM in Syringe IV (08:14)
[2024-04-03] MEDS: 0.9% Normal Saline (1000mL) 1,000 ML 15 ML IV (08:25)
[2024-04-03 09:18] LABS: Hemoglobin A1c 5.7 % (3.8-5.6)
--- NOTE | 2024-04-03 09:26 | CONS.ORTHO ---
HPI Consult Data Date of Consult: 04/03/24 HPI Narrative HPI Narrative: VERO STEVENS, is a 68 F who presents on April 02, 2024 after falling in her garage. Reportedly she was working with her snowblower. She denies head injury or loss of consciousness. She denies pre-existing right hip pain. She lives with her daughter. She was transferred from [facility] to [facility] due to insurance purposes. Patient having severe right hip pain after falling. She was not able to ambulate. [facility] Medical History History of breast cancer Aromatase inhibitor use Positive occult stool blood test Anemia Wears dentures Thyroid disease Smoker Tubular adenoma of colon Ileus, unspecified Right inguinal hernia History of breast cancer Screening for breast cancer Wears glasses Wears partial dentures Cancer High cholesterol Migraine headache History of stress test History of colon polyps Weight loss Encounter for screening for malignant neoplasm of lung Frequent headaches Neck pain Breast pain, right previous radiation treatments Skin lesion of breast Breast mass, right Osteopenia Tobacco abuse Encounter for education Malignant neoplasm of upper-outer quadrant of right breast in female, estrogen receptor positive History of change in bowel patterns Diarrhea Abdominal pain Arthritis Hypothyroidism (acquired) Diabetes Hyperlipidemia HTN (hypertension) GERD (gastroesophageal reflux disease) Mastalgia Home Medications ?Medication ?Instructions ?Recorded ?Last Taken ?Type simvastatin 80 mg tablet 80 mg PO QPM CHOLESTEROL 04/07/17 04/07/23 History cholecalciferol (vitamin D3) 25 5,000 unit PO DAILY SUPPLEMENT 03/22/19 04/07/23 History mcg (1,000 unit) capsule metformin 500 mg tablet,extended 1,000 mg PO BID DIABETES 10/19/19 04/07/23 History release 24 hr pantoprazole 40 mg tablet,delayed 40 mg PO QHS STOMACH 10/19/19 04/07/23 History release calcium 500 mg (as 1 ea PO DAILY SUPPLEMEN 06/01/20 04/07/23 History carbonate)-vitamin D3 15 mcg (600 unit) tablet amitriptyline 25 mg tablet 50 mg PO QHS Migraines 06/15/21 04/07/23 History sucralfate 1 gram tablet 1 g PO TID STOMACH #21 tabs 06/20/21 04/07/23 Rx lisinopril 5 mg tablet 5 mg PO DAILY BLOOD PRESSU #30 tabs 12/19/22 04/09/23 Rx letrozole 2.5 mg tablet 2.5 mg PO DAILY CANCER #90 TABLETS 08/07/23 Unknown Rx levothyroxine 100 mcg capsule 100 mcg PO DAILY THYROID 03/02/24 Unknown History topiramate 25 mg tablet 25 mg PO BID MIGRAINES 04/02/24 Unknown History Allergy/AdvReac Type Severity Reaction Status Date / Time coconut AdvReac Severe Hives Verified 03/02/24 09:30 Penicillins AdvReac Severe Hives Verified 03/02/24 09:30 bee venom protein (honey bee) AdvReac Intermediate Hives Verified 03/02/24 09:30 Family History Mother Arthritis Heart disease Osteoporosis Father Cancer Prostate Grandmother Diabetes Surgical History History of cataract removal with insertion of prosthetic lens Status post right breast lumpectomy Hx of cholecystectomy History of tubal ligation History of salpingectomy History of laparoscopic cholecystectomy H/O colonoscopy Social History household members: children housing: house Smoking Status: Current every day smoker tobacco type: cigarettes Tobacco: How many years used: 20 alcohol intake: never substance use type: does not use caffeine: Yes what type of physical activity do you participate in: walking frequency: 3-4 times per week CLEMENCIA KHANNA Narrative Patient is a poor historian. Currently complaining of hip pain. She stated that the current president is President James. Otherwise denies recent changes with eyes ears nose or throat heart or lungs bowel or bladder. Vital Signs Vital Signs Vital Signs: 04/02/24 20:00 04/02/24 20:51 04/02/24 22:00 Temperature 98.3 F Temperature Source Oral Pulse Rate 79 79 Pulse Strength Normal (2+) Respiratory Rate 15 15 Respiratory Effort Normal Non-Labored Respiratory Depth Normal Respiratory Pattern Normal Blood Pressure 147/51 H Blood Pressure Mean 83 Blood Pressure Source Monitor Blood Pressure Position Semi-Fowlers Blood Pressure Location Right Arm Pulse Ox 94 95 Oxygen Delivery Method Room Air Room Air 04/02/24 23:16 04/03/24 01:42 04/03/24 04:09 Temperature 98.9 F 98.0 F 97.3 F L Temperature Source Temporal Temporal Temporal Pulse Rate 87 71 78 Pulse Strength Respiratory Rate 15 15 15 Respiratory Effort Respiratory Depth Respiratory Pattern Blood Pressure 166/92 H 158/77 H 142/72 H Blood Pressure Mean 116 104 95 Blood Pressure Source Monitor Monitor Monitor Blood Pressure Position Semi-Fowlers Semi-Fowlers Semi-Fowlers Blood Pressure Location Left Arm Left Arm Left Arm Pulse Ox 96 97 97 Oxygen Delivery Method Room Air Room Air Room Air 04/03/24 06:03 04/03/24 07:51 04/03/24 07:57 Temperature 97.8 F 97.8 F Temperature Source Temporal Pulse Rate 78 78 Pulse Strength Normal (2+) Respiratory Rate 15 15 Respiratory Effort Respiratory Depth Respiratory Pattern Blood Pressure 142/72 H 142/72 H Blood Pressure Mean 95 Blood Pressure Source Monitor Blood Pressure Position Semi-Fowlers Blood Pressure Location Left Arm Pulse Ox 97 97 Oxygen Delivery Method Room Air Room Air Weight Weight: 66 kg Body Mass Index (BMI) 25.0 Physical Exam Narrative Right hip has shortening and external rotation. Right hip has pain on palpation. No pain at the left hip thigh or knee. No pain at the right knee leg or ankle. No calf pain or swelling bilaterally. Negative Homans' sign bilaterally. She can gently wiggle her toes and ankles. She has right hip pain with moving her right leg at all. X-rays from [facility] AP pelvis AP and lateral right hip from April 02, 2024 showed an intertrochanteric fracture significantly displaced. Lab / Micro Data Attestation: I reviewed the patient's lab results. 04/03/24 06:26 04/03/24 06:26 Labs: Laboratory Results - last 24 hr 04/02/24 20:12: WBC 12.4 H, RBC 3.47 L, Hgb 10.7 L, Hct 31.8 L, MCV 91.6, MCH 30.8, MCHC 33.6, RDW Std Deviation 44.2 H, RDW Coeff of David 13.3, Plt Count 258, MPV 9.2, Immature Gran % (Auto) 0.300, Neut % (Auto) 89.9 H, Lymph % (Auto) 6.6 L, Stevens % (Auto) 2.8, Eos % (Auto) 0.2, Baso % (Auto) 0.2, Absolute Neuts (auto) 11.1 H, Absolute Lymphs (auto) 0.82 L, Nucleated RBC % 0, PT 13.3, INR 1.0, APTT 28.5, Sodium 138, Potassium 3.8, Chloride 105, Carbon Dioxide 24.0, Anion Gap 9, BUN 25 H, Creatinine 0.80, Estim Creat Clear Calc 61.34, Est GFR (MDRD) Af Amer 92, Est GFR (MDRD) Non-Af 76, BUN/Creatinine Ratio 31.4 H, Glucose 186 H, Calcium 9.4, Total Bilirubin 0.40, AST 17, ALT 18, Alkaline Phosphatase 65, Total Protein 6.8, Albumin 3.8, Globulin 3.0, Albumin/Globulin Ratio 1.3, Vitamin D 25-Hydroxy 54.3, TSH 1.170 04/02/24 21:52: POC Glucose 177 H 04/03/24 06:15: POC Glucose 109 H 04/03/24 06:26: WBC 10.7, RBC 3.46 L, Hgb 10.8 L, Hct 31.8 L, MCV 91.9, MCH 31.2, MCHC 34.0, RDW Std Deviation 44.9 H, RDW Coeff of David 13.2, Plt Count 269, MPV 9.4, Immature Gran % (Auto) 0.500, Neut % (Auto) 74.9 H, Lymph % (Auto) 15.5 L, Stevens % (Auto) 8.7, Eos % (Auto) 0.2, Baso % (Auto) 0.2, Absolute Neuts (auto) 8.0 H, Absolute Lymphs (auto) 1.65, Nucleated RBC % 0, Sodium 136, Potassium 3.8, Chloride 104, Carbon Dioxide 25.0, Anion Gap 7, BUN 23 H, Creatinine 0.81, Estim Creat Clear Calc 60.42, Est GFR (MDRD) Af Amer 90, Est GFR (MDRD) Non-Af 74, BUN/Creatinine Ratio 28.4 H, Glucose 125 H, Hemoglobin A1c 5.7 H, Calcium 9.2, Phosphorus 3.7, Magnesium 2.0, TSH 1.300, Blood Type O POSITIVE, Antibody Screen NEGATIVE Assessment & Plan Assessment/Plan (1) Intertrochanteric fracture of right hip: QUALIFIERS: Encounter type: initial encounter Fracture type: closed Fracture alignment: displaced Qualified Code(s): S72.141A - Displaced intertrochanteric fracture of right femur, initial encounter for closed fracture PLAN: Her diagnosis and treatment options regarding her right hip intertrochanteric fracture discussed with her at length. Surgical and nonsurgical options discussed. Surgery was recommended. Risks fully explained. Risk of surgery including but not limited to from operative or postoperative complications. Risk of anesthetic complications such as heart attacks, strokes, seizures, or . Risk of infections. Risk of damage to nerves arteries tendons. Risk of inadvertent fractures or dislocations. Risk of bone or wound healing complications. Possibility of nonunion malunion pain stiffness weakness. Possible need for further surgery such as hardware removal. Risk of DVT PE and other potential complications could lead to or disability explained. No guarantees were stated or implied. All of their questions were answered. Appropriate informed consent was obtained and signed for surgical intervention. She understands we will plan to use Ancef for her preoperative antibiotic. Reportedly penicillin had caused some hives over 10 years ago. Due to history of breast cancer and hip fracture surgery we will plan to use Xarelto for DVT prevention postoperatively. Patient did request to call her family members after surgery. Importance of her stopping smoking discussed at length. Also appropriate diabetic management discussed at length to help with preventing infection and for fracture healing. Case discussed with Dr. Bolaños
--- NOTE | 2024-04-03 09:33 | OP.PCM_ITS ---
Problems Associated Problem List Diagnoses (1) Intertrochanteric fracture of right hip: Operative Report (Standard) Operative Information Date of Procedure: 04/03/24 Pre-Operative Diagnosis: Right hip displaced intertrochanteric fracture Post-Operative Diagnosis: Same Surgery/Procedure Performed: Right hip open reduction internal fixation, short intramedullary gamma nail orientor: Viral LeesCheck Embosser: Celina De Leon PA-C Tasks completed by ophthalmic medical assistant: Closing and Implanting device Type of Anesthesia: General RN Documented Start/Stop Times: Operation Date: 04/03/24 08:30 Case Time Anesthesia Start 04/03/24 08:05 Into Room 04/03/24 08:05 Procedure Start 04/03/24 08:55 Procedure Start Time: 08:55 Procedure Stop Time: 09:45 Select all DRAINS/GRAFTS/IMPLANTS that apply: None Estimated Blood Loss: 20 Specimen collected: No Description of surgery: Preoperative diagnosis: Right hip displaced unstable intertrochanteric fracture Postoperative diagnosis: Same Title of operation: R hip open reduction internal fixation, intramedullary nail fixation, locked Surgeon: Dr. Raymond Monzon Medical Practitioners: Magda De Leon PA-C Anesthesia: General Dr. Bolaños Medications: Ancef 2 g IV Indications for surgery: Patient is an 68-year-old female sustained a hip fracture yesterday. Patient explained diagnosis and treatment options. Patient evaluated by the medical services and anesthesiologist. Patient did wish to have surgery. Appropriate informed consent obtained and signed. Findings: Patient had a displaced unstable intertrochanteric right hip fracture. They underwent standard reduction, internal fixation using a [place] short gamma nail. X-rays taken throughout. assistant account manager, physician assistant front office manager, was utilized throughout the entire procedure. They were vital to the procedure from beginning to end. They help with patient transfer, patient padding and positioning, fracture reduction, maintenance of fracture reduction, internal fixation of implants, wound closure, bandage application, patient transfer. Without surgical instrument maker, surgical time would have been significantly increased and surgical outcome could have been less optimal. Procedure: Patient was taken to the operating room. Placed under a general anesthetic and transferred to the operating table with the help of the assistant front office manager. With the help of the assistant front office manager patient was prepped and padded for surgery. Operative side foot was well-padded and placed in the traction boot. Uninjured lower extremity was adducted, padded to the central post out of harms way. GREG quintero and Ward utilized. Fluoroscopy was brought in. With the help of the assistant front office manager and manipulation of the limb, reduction was nicely obtained as verified under AP lateral and oblique fluoroscopic images. . Operative hip/thigh was prepped padded draped in usual orthopedic sterile fashion for the procedure. Longitudinal incision was made just proximal to the greater trochanter. Taken through skin and subcutaneous tissue. Sharp awl was placed on the tip of the greater trochanter. Position verified under AP and lateral fluoroscopic images. This was then taken down inside the bone. Slightly bent ball-tipped guide kurtis was then placed from the tip of the greater trochanter into the intra-medullary canal of the femur. Its position verified radiographically. Reamer was then done over the tip of this with the help of the assistant front office manager holding the soft tissue protector appropriately. Once reaming was done we placed the short 125? angle device over the guidepin. This was easily introduced. Guide kurtis removed. Outrigger device was utilized to position a guidepin from the lateral cortex of the femur across the fracture site and into the femoral head in a good position centrally, as noted on AP lateral and oblique fluoroscopic images. This was measured. Appropriate reaming done. Appreciate length lag screw was placed from the lateral cortex of the femur into the femoral head. A small amount of the screw was noted to be protruding laterally as planned. No cartilage penetration of the femoral head noted on any x-ray. Fracture was then compressed with the outrigger device. Proximal cap screw was placed by the assistant front office manager seated down completely, confirmed, and then loosened one fourth turn. We then used the outrigger device to place distal cross locking screw under standard technique. This was confirmed to be of adequate length in good position on AP and lateral images. Outrigger device removed. Final set of AP and lateral proximal x-rays taken and saved. Incisions thoroughly irrigated. Closing by the assistant front office manager with deep 0 Vicryl, mid layer 0 Vicryl, inverted 2-0 Vicryl, skin mendoza. Puncture wounds closed with inverted 2-0 Vicryl and mendoza. Xeroform 4 x 4's ABD tape applied. Patient was awoken from their anesthetic, transferred back to their own bed with the help of the assistant front office manager and into recovery room in satisfactory condition. Patient will continue to be admitted to the hospital under the hospitalist service. Due to history of breast cancer and hip fracture surgery we will plan to use Xarelto 10 mg daily for 2 weeks followed by aspirin 81 mg twice a day for 2 weeks. Patient will be 50% weightbearing on her right hip until seen in the office. Okay for full hip range of motion as tolerated. Plan to continue with GREG hose and SCDs. Incentive spirometer. Ancef. This note was generated with 248 [employer] dictation software. It may contain incorrect words, spelling, and punctuation that were not noted in checking the note before signing. Surgical Findings: hip fracture Complications Complications: No Admit VTE Documentation VTE Present on Admission: No VTE Mechan Device Prophylaxis: SCD's and Knee High GREG Hose VTE Pharm Prophylaxis ordered?: Yes
--- NOTE | 2024-04-03 09:58 | PCM.POST.ANE ---
Anesthesia: Postop Eval I Current Vital Signs Temperature: 99.1 F Pulse Rate: 87 Blood Pressure: 151/60 Respiratory Rate: 16 Pulse Ox: 97 Oxygen Delivery Method: Room Air Assessment Airway patent: Yes Spontaneous unlabored respirations: Yes Mental status: Asleep (Arousable) nausea: No Vomiting: No Anesthesia Complication: No Fluid Hydration Crystalloid volume administer (ml): 800 Total IV fluid infused: 800 Progress Note Anesthesia document: Postop Eval 1 completed: Yes
--- NOTE | 2024-04-03 10:17 | PCM.POSTANE2 ---
Anesthesia Postop Eval I Sum Postop Eval Completion status Anesthesia document: Postop Eval 1 completed: Yes Anesthesia Postop Eval I Summary Anesthesia Postop Eval I Summary: Anesthesia Postop Eval I: Assessment Summary Airway patent Yes 04/03/24 10:05 Spontaneous unlabored Yes 04/03/24 10:05 respirations Mental status Asleep - Arousable 04/03/24 10:05 nausea No 04/03/24 10:05 Vomiting No 04/03/24 10:05 Anesthesia Postop Eval I: Fluid Summary Crystalloid volume administer 800 04/03/24 10:05 (ml) Colloids volume administered ( ml) Blood Product volume administered (ml) Total IV fluid infused 800 04/03/24 10:05 Anesthesia Postop Eval I: Summary Notes Anesthesia Complication No 04/03/24 10:05 Anesthesia Complication Comment: Post-operative progress note Anesthesia: Postop Eval II Evaluation Mental status: Awake and Calm Pain Level: 2 nausea: No Vomiting: No Complications Anesthesia Complication: No
[2024-04-03 12:21] LABS: Bedside Glucose 147 mg/dL (74-106)
--- NOTE | 2024-04-03 13:23 | CASEMGMT ---
ROBERT WATSON Assessment: Face to Face with pt for initial transition planning/care coordination assessment. ROBERT WATSON introduced self and role at [facility], pt voices understanding and consents to assessment. Pt is A&O x4 and answers all questions appropriately at this time. Pt lying in bed in no distress. Care providers, pharmacy, and demographics verified/updated. Strata: 2 Admitting Dx: R hip fracture PCP: [place] Specialists: Denies Preferred Pharmacy: [facility] Insurance: [employer] Prescription Benefit: yes LNOK: Sister, Lori; Brother, Dung. Living Arrangements: Pt lives with daughter in a ranch home with 2 steps to enter. Pt reports she walks 3 1/2 miles 3X week and is ready to get back to work. Pt states she is very I at baseline and would like to do OP PT. ADLs: Pt reports I at baseline. Transportation: Pt drives self and denies concerns with transportation. DME: Denies HHC/SNF: Denies Hx of. Pt states no concerns with going home at time of dc. Would like a script for OP PT. Pt states daughter does not drive, Pt does all the driving. Pt will need hospital transport to therapy sessions until able to drive self again. Does not have DME at home, will need a walker at DC. RN WALTER provided verbal list of DME providers in the area, Pt chose [facility] for DME needs. Pt states no further concerns/needs. CM to follow. Advised pt to ask CM if any further question/concerns/needs arise, voices understanding. Pt Goal: Home Plan: Home with DME, OP PT, transportation to appointments until Pt able to drive again. Will need transportation home. Alexa JONES CM
[2024-04-03] MEDS: Acetaminophen 500 MG Tablet 1000 MG PO ×2 (13:59→21:18)
--- NOTE | 2024-04-03 15:39 | PN_ITS ---
Subjective Subjective Patient seen and examined. She had just come back from surgery for right hip fracture. She did complain of pain. She denied any shortness of breath. She was on 2 L of oxygen. Review of systems otherwise negative. She has otherwise remained hemodynamically stable. Objective Data Objective Data Vital Signs: Vital Signs Temp Pulse Resp BP Pulse Ox O2 Del Method O2 Flow Rate 98.2 F 84 18 139/64 H 93 Nasal Cannula 2 04/03/24 14:28 04/03/24 14:28 04/03/24 14:28 04/03/24 14:28 04/03/24 15:21 04/03/24 15:21 04/03/24 15:21 Oxygen Flow Rate (L/min) 2 Oxygen Delivery Method Nasal Cannula Weight: 145 lb 8.081 oz Body Mass Index (BMI) 25.0 Intake & Output: Intake and Output for Last 24 Hours 04/01/24 04/02/24 04/03/24 23:59 23:59 23:59 Intake Total 1020 / 1020 Balance 1020 / 1020 Lab / Micro Data 04/03/24 06:26 04/03/24 06:26 Labs: Laboratory Results - last 24 hr 04/02/24 20:12: WBC 12.4 H, RBC 3.47 L, Hgb 10.7 L, Hct 31.8 L, MCV 91.6, MCH 30.8, MCHC 33.6, RDW Std Deviation 44.2 H, RDW Coeff of David 13.3, Plt Count 258, MPV 9.2, Immature Gran % (Auto) 0.300, Neut % (Auto) 89.9 H, Lymph % (Auto) 6.6 L, Ness % (Auto) 2.8, Eos % (Auto) 0.2, Baso % (Auto) 0.2, Absolute Neuts (auto) 11.1 H, Absolute Lymphs (auto) 0.82 L, Nucleated RBC % 0, PT 13.3, INR 1.0, APTT 28.5, Sodium 138, Potassium 3.8, Chloride 105, Carbon Dioxide 24.0, Anion Gap 9, BUN 25 H, Creatinine 0.80, Estim Creat Clear Calc 61.34, Est GFR (MDRD) Af Amer 92, Est GFR (MDRD) Non-Af 76, BUN/Creatinine Ratio 31.4 H, Glucose 186 H, Calcium 9.4, Total Bilirubin 0.40, AST 17, ALT 18, Alkaline Phosphatase 65, Total Protein 6.8, Albumin 3.8, Globulin 3.0, Albumin/Globulin Ratio 1.3, Vitamin D 25-Hydroxy 54.3, TSH 1.170 04/02/24 21:52: POC Glucose 177 H 04/03/24 06:15: POC Glucose 109 H 04/03/24 06:26: WBC 10.7, RBC 3.46 L, Hgb 10.8 L, Hct 31.8 L, MCV 91.9, MCH 31.2, MCHC 34.0, RDW Std Deviation 44.9 H, RDW Coeff of David 13.2, Plt Count 269, MPV 9.4, Immature Gran % (Auto) 0.500, Neut % (Auto) 74.9 H, Lymph % (Auto) 15.5 L, Ness % (Auto) 8.7, Eos % (Auto) 0.2, Baso % (Auto) 0.2, Absolute Neuts (auto) 8.0 H, Absolute Lymphs (auto) 1.65, Nucleated RBC % 0, Sodium 136, Potassium 3.8, Chloride 104, Carbon Dioxide 25.0, Anion Gap 7, BUN 23 H, Creatinine 0.81, Estim Creat Clear Calc 60.42, Est GFR (MDRD) Af Amer 90, Est GFR (MDRD) Non-Af 74, BUN/Creatinine Ratio 28.4 H, Glucose 125 H, Hemoglobin A1c 5.7 H, Calcium 9.2, Phosphorus 3.7, Magnesium 2.0, TSH 1.300, Blood Type O POSITIVE, Antibody Screen NEGATIVE 04/03/24 11:54: POC Glucose 147 H Physical Exam Const alert, oriented x3 and no apparent distress Constitutional Narrative: frail, uncomfortable due to pain. HEENT normocephalic, head/scalp atraumatic, moist oral mucous membranes and oropharynx normal Eyes PERRL and EOMs intact bilaterally Neck no lymphadenopathy and supple Lymph Lymphatic: no lymphadenopathy noted Resp Resp Narrative: mildly diminished breath sounds bilaterally, no wheezes or crackles. Cardio regular rate, regular rhythm, S1 normal heart sound, S2 normal heart sound and no murmurs GI normal to inspection, nondistended, normoactive bowel sounds, soft to palpation, non-tender and non-distended Extremity Extremity Narrative: intact dressing over right hip. General Extremity: no tenderness to palpation of joints or extremities Skin Skin Narrative: as under extremities Neuro CN's II-XII intact bilaterally, no focal motor deficits and no sensory deficits noted Motor Exam: general weakness Psych thought process normal and cooperative Appearance: appropriate Assessment & Plan Assessment/Plan (1) Intertrochanteric fracture of right hip: QUALIFIERS: Encounter type: initial encounter Fracture type: c losed Fracture alignment: displaced Qualified Code(s): S72.141A - Displaced intertrochanteric fracture of right femur, initial encounter for closed fracture PLAN: Plan #Right hip fracture * s/p right open reduction internal fixation with short intramedullary gamma nail * today is POD 0 * on PO tylenol, PO oxycodone and iV morphine prn for pain * incentive spirometry * fall precautions * #Hypertension: on lisinopril. IV hydralazine prn #Hyperlipidemia: on statin #GERD: on PPI #Hypothyroidism: on synthroid #History of right breast cancer: on letrozole\ #History of migraines: on amitryptiline and topiramate DVT prophylaxis: on lovenox 40mg daily per orthopedic surgery Disposition: to be determined. WIll likely benefit from placement Charges/Coding Visit Charges Inpatient E&M: 19370 Subs Hosp L2
[2024-04-03] MEDS: Sucralfate 1 GM Tablet PO ×2 (16:08→21:14)
[2024-04-03] MEDS: Cefazolin 1 GM/50 ML BAG IV (16:08)
[2024-04-03] MEDS: Insulin Lispro 100 UNIT/ML INSULN.PEN SC ×2 (16:20→21:14)
[2024-04-03 16:56] LABS: Bedside Glucose 182 mg/dL (74-106)
[2024-04-03] MEDS: Docusate Sodium 100 MG Capsule PO (21:14)
[2024-04-03] MEDS: Topiramate 25 MG Tablet PO (21:14)
[2024-04-03] MEDS: Atorvastatin Calcium 40 MG Tablet PO (21:14)
[2024-04-03] MEDS: Amitriptyline 25 MG Tablet 50 MG PO (21:15)
[2024-04-03] MEDS: Pantoprazole Sodium 40 MG Tablet PO (21:15)
[2024-04-03] MEDS: MELATONIN 3 MG TABLET PO (21:18)
[2024-04-03 23:02] LABS: Bedside Glucose 173 mg/dL (74-106)
[2024-04-04] MEDS: Cefazolin 1 GM/50 ML BAG IV (00:50)
[2024-04-04 03:52] VITALS: BP 116/53; PULSE 79; RESP 16; TEMP 36.8; O2SAT 94
[2024-04-04 06:00] VITALS: BMI 24.8
[2024-04-04] MEDS: Rivaroxaban 10 MG Tablet PO (06:38)
[2024-04-04] MEDS: Levothyroxine 100 MCG Tablet PO (06:38)
[2024-04-04] MEDS: oxyCODONE 5 MG Tablet PO ×3 (06:38→19:06)
[2024-04-04] MEDS: Acetaminophen 500 MG Tablet 1000 MG PO ×3 (06:38→21:41)
[2024-04-04 07:01] VITALS: O2SAT 94
[2024-04-04 07:12] LABS: Hematocrit 27.1 % (37-47); Hemoglobin 8.9 g/dL (12.0-15.0); Mean Corp Hgb Conc 32.8 g/dL (32-36); Mean Corpuscular Volume 94.4 fL (81-99); Mean Platelet Vol. 9.5 fl (6.2-12.0); Platelet Count 213 K/mm3 (150-450); RBC Distribution Width CV 13.5 % (11.6-14.6); RBC Distribution Width SD 46.5 fl (35.1-43.9); Red Blood Count 2.87 M/mm3 (4.2-5.4); White Blood Count 8.2 K/mm3 (4.4-11.0)
[2024-04-04 07:32] LABS: Bedside Glucose 137 mg/dL (74-106)
[2024-04-04 07:35] LABS: Anion Gap 4 (5-15); BUN 19 mg/dL (7-18); BUN/Creat Ratio 22.7 RATIO (10-20); Calcium,Total 8.2 mg/dL (8.5-10.1); Chloride 105 mmol/L (98-107); Creatinine, Serum 0.84 mg/dL (0.55-1.02); EST Glomerular Filtration Rate 71 mL/min (>60); Est Glom Filt Rate - Afr Amer 86 mL/min (>60); Glucose 138 mg/dL (74-106); Sodium Level 135 mmol/L (136-145)
[2024-04-04] MEDS: Topiramate 25 MG Tablet PO ×2 (10:21→21:40)
[2024-04-04] MEDS: Calcium Carb/Vitamin D 1 TABLET Tablet PO (10:21)
[2024-04-04] MEDS: Sucralfate 1 GM Tablet PO ×3 (10:21→21:40)
[2024-04-04] MEDS: Cholecalciferol (Vit D3) 125 MCG CAPSULE (5,000 UNITS) PO (10:21)
[2024-04-04] MEDS: Docusate Sodium 100 MG Capsule PO ×2 (10:21→21:41)
[2024-04-04 10:41] VITALS: BP 102/84; PULSE 84; RESP 18; TEMP 36.4; O2SAT 97
[2024-04-04] MEDS: Insulin Lispro 100 UNIT/ML INSULN.PEN SC ×3 (11:27→21:41)
[2024-04-04 12:11] LABS: Bedside Glucose 161 mg/dL (74-106)
--- NOTE | 2024-04-04 13:00 | PN_ITS ---
Subjective Subjective Patient seen and examined. She had no complaints. Pain was fairly well- controlled. Review of systems otherwise negative. She has remained hemodynamically stable. Objective Data Objective Data Vital Signs: Vital Signs Temp Pulse Resp BP Pulse Ox O2 Del Method O2 Flow Rate 97.6 F L 84 18 102/84 H 97 Room Air 2 04/04/24 10:41 04/04/24 10:41 04/04/24 10:41 04/04/24 10:41 04/04/24 10:41 04/04/24 10:41 04/03/24 15:21 Oxygen Flow Rate (L/min) 2 Oxygen Delivery Method Room Air Weight: 145 lb 11.609 oz Body Mass Index (BMI) 24.8 Intake & Output: Intake and Output for Last 24 Hours 04/02/24 04/03/24 04/04/24 23:59 23:59 23:59 Intake Total 1310 / 1310 50 / 50 Balance 1310 / 1310 50 / 50 Lab / Micro Data 04/04/24 06:31 04/04/24 06:31 Labs: Laboratory Results - last 24 hr 04/03/24 16:16: POC Glucose 182 H 04/03/24 21:14: POC Glucose 173 H 04/04/24 06:31: WBC 8.2, RBC 2.87 L, Hgb 8.9 L, Hct 27.1 L, MCV 94.4, MCH 31.0, MCHC 32.8, RDW Std Deviation 46.5 H, RDW Coeff of David 13.5, Plt Count 213, MPV 9.5, Sodium 135 L, Potassium 4.0, Chloride 105, Carbon Dioxide 26.0, Anion Gap 4 L, BUN 19 H, Creatinine 0.84, Estim Creat Clear Calc 58.30, Est GFR (MDRD) Af Amer 86, Est GFR (MDRD) Non-Af 71, BUN/Creatinine Ratio 22.7 H, Glucose 138 H, C alcium 8.2 L 04/04/24 07:14: POC Glucose 137 H 04/04/24 11:26: POC Glucose 161 H Radiography Diagnostic Testing: Radiology Impression Hip X-Ray 04/03/24 08:07 IMPRESSION: Fluoroscopy support for ORIF of the right hip fracture. Electronically Signed: Yoan Lemus MD at 6:58 EST , Physical Exam Const alert, oriented x3, no apparent distress, average body habitus and well nourished General Appearance: cooperative HEENT normocephalic, head/scalp atraumatic, hearing grossly normal bilaterally, moist oral mucous membranes and oropharynx normal Eyes PERRL and EOMs intact bilaterally Neck no lymphadenopathy and supple Lymph Lymphatic: no lymphadenopathy noted Resp normal respiratory effort, no retractions, no use of accessory muscles and clear to auscultation bilaterally Resp Narrative: mildly diminished breath sounds bilaterally, no wheezes or crackles. On room air. Cardio regular rate, regular rhythm, S1 normal heart sound, S2 normal heart sound and no murmurs GI normal to inspection, nondistended, normoactive bowel sounds, soft to palpation, non-tender and non-distended Extremity no clubbing, cyanosis or edema Extremity Narrative: intact dressing over right hip. General Extremity: no tenderness to palpation of joints or extremities Skin Skin Narrative: as under extremities Neuro oriented x3, CN's II-XII intact bilaterally, no focal motor deficits and no sensory deficits noted Speech: speech normal Motor Exam: general weakness Psych thought process normal, cooperative and affect normal Appearance: appropriate Assessment & Plan Assessment/Plan (1) Intertrochanteric fracture of right hip: QUALIFIERS: Encounter type: initial encounter Fracture type: c losed Fracture alignment: displaced Qualified Code(s): S72.141A - Displaced intertrochanteric fracture of right femur, initial encounter for closed fracture PLAN: Plan #Right hip fracture * s/p right open reduction internal fixation with short intramedullary gamma nail * today is POD 1 * on PO tylenol, PO oxycodone and iV morphine prn for pain * incentive spirometry * fall precautions * #Acute on chronic anemia * Hemoglobin today is 8.9. Was 10.8 yesterday. Baseline is around 12 from February 2024. * Likely due to acute blood loss from surgery. * Will monitor. * #Hypertension: on lisinopril. IV hydralazine prn #Hyperlipidemia: on statin #GERD: on PPI #Hypothyroidism: on synthroid #History of right breast cancer: on letrozole #History of migraines: on amitryptiline and topiramate DVT prophylaxis: on lovenox 40mg daily per orthopedic surgery Disposition: will benefit from placement Charges/Coding Visit Charges Inpatient E&M: 63577 Subs Hosp L2
--- NOTE | 2024-04-04 13:10 | PCM.PN.ORT ---
Subjective Subjective Patient states she is still having some right hip pain despite surgery. She states pain medication does help. She is currently sitting in chair comfortably. She denies chest pain or shortness of breath. She does admit to some intermittent confusion. Patient had questions regarding discharge planning. She states she [place] home. Objective Data Objective Data Vital Signs: Vital Signs Temp Pulse Resp BP Pulse Ox O2 Del Method O2 Flow Rate 97.6 F L 84 18 102/84 H 97 Room Air 2 04/04/24 10:41 04/04/24 10:41 04/04/24 10:41 04/04/24 10:41 04/04/24 10:41 04/04/24 10:41 04/03/24 15:21 Oxygen Flow Rate (L/min) 2 Oxygen Delivery Method Room Air Weight: 66.1 kg Body Mass Index (BMI) 24.8 Intake & Output: Intake and Output for Last 24 Hours 04/02/24 04/03/24 04/04/24 23:59 23:59 23:59 Intake Total 1310 / 1310 50 / 50 Balance 1310 / 1310 50 / 50 Lab / Micro Data Attestation: I reviewed the patient's lab results. 04/04/24 06:31 04/04/24 06:31 Labs: Laboratory Results - last 24 hr 04/03/24 16:16: POC Glucose 182 H 04/03/24 21:14: POC Glucose 173 H 04/04/24 06:31: WBC 8.2, RBC 2.87 L, Hgb 8.9 L, Hct 27.1 L, MCV 94.4, MCH 31.0, MCHC 32.8, RDW Std Deviation 46.5 H, RDW Coeff of David 13.5, Plt Count 213, MPV 9.5, Sodium 135 L, Potassium 4.0, Chloride 105, Carbon Dioxide 26.0, Anion Gap 4 L, BUN 19 H, Creatinine 0.84, Estim Creat Clear Calc 58.30, Est GFR (MDRD) Af Amer 86, Est GFR (MDRD) Non-Af 71, BUN/Creatinine Ratio 22.7 H, Glucose 138 H, Calcium 8.2 L 04/04/24 07:14: POC Glucose 137 H 04/04/24 11:26: POC Glucose 161 H Radiography Diagnostic Testing: Radiology Impression Hip X-Ray 04/03/24 08:07 IMPRESSION: Fluoroscopy support for ORIF of the right hip fracture. Electronically Signed: Yoan Lemus MD at 6:58 EST , Physical Exam Narrative Right hip Mepilex bandages on clean and dry. She has no significant thigh swelling. Mild pain on palpation about the thigh. No pain on palpation about the knee leg or ankle. No calf pain or swelling bilaterally. Negative Homans' sign. She has good active plantarflexion dorsiflexion toes and ankles bilaterally. Normal sensation throughout. Mild pain with axial loading of the right hip. She does have some hip pain with flexion beyond 45 degrees. She does have some hip pain with internal and external rotation beyond 10 degrees. No crepitance or instability noted. Hip was not overly stressed. Assessment & Plan Assessment/Plan (1) Intertrochanteric fracture of right hip: QUALIFIERS: Encounter type: initial encounter Fracture type: closed Fracture alignment: displaced Qualified Code(s): S72.141A - Displaced intertrochanteric fracture of right femur, initial encounter for closed fracture PLAN: Her diagnosis and treatment options regarding her surgical treatment for her hip fracture discussed with her at length. She can be 50% weightbearing on the right hip. She should use a walker. Assistance. We will continue on oxycodone, Tylenol for pain. Continue on Xarelto 10 mg daily for DVT prevention. I would recommend that for 2 weeks. Afterwards I would recommend aspirin 81 mg twice a day for another 2 weeks. She can do full range of motion of the right hip. Recommended incentive spirometer use as well as ankle pump exercises 20 times per hour while awake. Ice right hip as needed She does have expected postoperative anemia consistent with her hip fracture/hip fracture surgery. Patient seems orthopedically stable. I will sign off. Recommend she follow-up in the orthopedic office at [facility] in 2 weeks for x-rays, staple removal director of convention services has been consulted for discharge planning. Case discussed with her nurse.
[2024-04-04 14:28] VITALS: BP 125/51; PULSE 86; RESP 18; TEMP 36.8; O2SAT 98
[2024-04-04 16:47] LABS: Bedside Glucose 218 mg/dL (74-106)
[2024-04-04 21:11] VITALS: BP 157/59; PULSE 95; RESP 16; TEMP 37.7; O2SAT 97
[2024-04-04] MEDS: Amitriptyline 25 MG Tablet 50 MG PO (21:40)
[2024-04-04] MEDS: Pantoprazole Sodium 40 MG Tablet PO (21:40)
[2024-04-04] MEDS: Atorvastatin Calcium 40 MG Tablet PO (21:40)
[2024-04-04] MEDS: Morphine 2 MG/ML Syringe IV (21:41)
[2024-04-04] MEDS: 0.9% Saline Lock 10 ML Syringe IV (21:41)
[2024-04-04] MEDS: MELATONIN 3 MG TABLET PO (21:43)
[2024-04-05 03:00] VITALS: BP 116/76; PULSE 92; RESP 16; TEMP 36.6; O2SAT 97
[2024-04-05 06:00] VITALS: BMI 25.2
[2024-04-05] MEDS: oxyCODONE 5 MG Tablet PO ×2 (06:15→22:18)
[2024-04-05] MEDS: Levothyroxine 100 MCG Tablet PO (06:18)
[2024-04-05] MEDS: Rivaroxaban 10 MG Tablet PO (06:18)
[2024-04-05] MEDS: Acetaminophen 500 MG Tablet 1000 MG PO ×3 (06:18→21:43)
[2024-04-05 06:49] LABS: Bedside Glucose 160 mg/dL (74-106)
[2024-04-05 07:19] LABS: Bedside Glucose 134 mg/dL (74-106)
[2024-04-05 07:58] LABS: Hemoglobin 7.8 g/dL (12.0-15.0); Mean Corp Hgb Conc 33.9 g/dL (32-36); Mean Corpuscular Hgb 31.6 pg (27.0-32.0); Mean Corpuscular Volume 93.1 fL (81-99); Mean Platelet Vol. 9.3 fl (6.2-12.0); Platelet Count 189 K/mm3 (150-450); RBC Distribution Width CV 13.6 % (11.6-14.6); RBC Distribution Width SD 46.5 fl (35.1-43.9); Red Blood Count 2.47 M/mm3 (4.2-5.4); White Blood Count 8.2 K/mm3 (4.4-11.0)
[2024-04-05 08:01] VITALS: O2SAT 95
[2024-04-05] MEDS: Calcium Carb/Vitamin D 1 TABLET Tablet PO (08:16)
[2024-04-05] MEDS: Cholecalciferol (Vit D3) 125 MCG CAPSULE (5,000 UNITS) PO (08:16)
[2024-04-05] MEDS: Topiramate 25 MG Tablet PO ×2 (08:18→21:44)
[2024-04-05] MEDS: Docusate Sodium 100 MG Capsule PO ×2 (08:26→21:42)
[2024-04-05 09:00] VITALS: BP 133/52; PULSE 80; RESP 18; TEMP 36.3; O2SAT 98
--- NOTE | 2024-04-05 10:30 | CASEMGMT ---
Discharge Planning A list of?SNF providers including quality and resource use data and consistent with the patient's preferred geographic region, medical needs, and insurance network was created in [facility] Guide.? This list was provided to the Irlanda Bravo Discharge Planning Asst.
--- NOTE | 2024-04-05 11:35 | PN_ITS ---
Subjective Subjective Patient seen and examined. She says she felt restless because she was cooped up in the hospital. She had no other complaints. Review of systems otherwise negative. She has remained hemodynamically stable. Objective Data Objective Data Vital Signs: Vital Signs Temp Pulse Resp BP Pulse Ox O2 Del Method O2 Flow Rate 98 F 92 16 116/76 95 Room Air 2 04/05/24 03:00 04/05/24 03:00 04/05/24 03:00 04/05/24 03:00 04/05/24 08:01 04/05/24 08:01 04/03/24 15:21 Oxygen Flow Rate (L/min) 2 Oxygen Delivery Method Room Air Weight: 147 lb 14.883 oz Body Mass Index (BMI) 25.2 Intake & Output: Intake and Output for Last 24 Hours 04/03/24 04/04/24 04/05/24 23:59 23:59 23:59 Intake Total 1310 / 1310 50 / 50 Balance 1310 / 1310 50 / 50 Lab / Micro Data 04/05/24 07:41 04/04/24 06:31 Labs: Laboratory Results - last 24 hr 04/04/24 11:26: POC Glucose 161 H 04/04/24 16:07: POC Glucose 218 H 04/04/24 21:30: POC Glucose 160 H 04/05/24 06:15: POC Glucose 134 H 04/05/24 07:41: WBC 8.2, RBC 2.47 L, Hgb 7.8 L, Hct 23.0 L, MCV 93.1, MCH 31.6, MCHC 33.9, RDW Std Deviation 46.5 H, RDW Coeff of David 13.6, Plt Count 189, MPV 9.3 Physical Exam Const alert, oriented x3, no apparent distress, average body habitus and well nourished General Appearance: cooperative HEENT normocephalic, head/scalp atraumatic, hearing grossly normal bilaterally, moist oral mucous membranes and oropharynx normal Eyes PERRL and EOMs intact bilaterally Neck no lymphadenopathy and supple Lymph Lymphatic: no lymphadenopathy noted Resp normal respiratory effort, normal air movement, no retractions, no use of accessory muscles and clear to auscultation bilaterally Cardio regular rate, regular rhythm, S1 normal heart sound, S2 normal heart sound and no murmurs GI normal to inspection, nondistended, normoactive bowel sounds, soft to palpation, non-tender and non-distended Extremity no clubbing, cyanosis or edema Extremity Narrative: intact dressing over right hip. General Extremity: no tenderness to palpation of joints or extremities Skin Skin Narrative: as under extremities Neuro oriented x3, CN's II-XII intact bilaterally, no focal motor deficits and no sensory deficits noted Speech: speech normal Motor Exam: general weakness Psych thought process normal, cooperative and affect normal Appearance: appropriate Assessment & Plan Assessment/Plan (1) Intertrochanteric fracture of right hip: QUALIFIERS: Encounter type: initial encounter Fracture type: c losed Fracture alignment: displaced Qualified Code(s): S72.141A - Displaced intertrochanteric fracture of right femur, initial encounter for closed fracture PLAN: Plan #Right hip fracture * s/p right open reduction internal fixation with short intramedullary gamma nail * today is POD 2 * on PO tylenol, PO oxycodone and iV morphine prn for pain * incentive spirometry * fall precautions * #Acute on chronic anemia * Hemoglobin today down to 7.8, down from Hb of 8.9 yesterday * Baseline Hb is ~ 12. * Likely due to acute blood loss from surgery. * Will monitor. * transfuse if Hb falls to <7. * #Hypertension: on lisinopril. IV hydralazine prn #Hyperlipidemia: on statin #GERD: on PPI #Hypothyroidism: on synthroid #History of right breast cancer: on letrozole #History of migraines: on amitryptiline and topiramate DVT prophylaxis: on xarelto 10mg daily x 2 weeks, then aspirin bid x 2 weeks, per orthopedics. Disposition: will benefit from placement Charges/Coding Visit Charges Inpatient E&M: 27106 Subs Hosp L2
[2024-04-05] MEDS: Sucralfate 1 GM Tablet PO ×3 (11:36→21:44)
[2024-04-05 12:28] LABS: Bedside Glucose 144 mg/dL (74-106)
--- NOTE | 2024-04-05 12:47 | CASEMGMT ---
Addendum entered by Meera Warren 04/05/24 12:53: A list of SNF providers including quality and resource use data and consistent with the patient?s preferred geographic region, medical needs, and insurance network were provided from the [facility] Guide. Pt will review for alternate choices. ROCCO Melchor Original Note: Social Work- SW met with pt to discuss discharge preferences. SW introduced self and role. Pt would like [facility]. If unable to accept, pt will have additional choices for SW after speaking with her sister this afternoon. SW completed referral to [facility]. SW remains available to follow. ROCCO Melchor
[2024-04-05 16:29] VITALS: BP 148/54; PULSE 74; RESP 18; TEMP 36.7; O2SAT 98
[2024-04-05] MEDS: Insulin Lispro 100 UNIT/ML INSULN.PEN SC (16:45)
[2024-04-05 17:05] LABS: Bedside Glucose 173 mg/dL (74-106)
[2024-04-05] MEDS: Amitriptyline 25 MG Tablet 50 MG PO (21:42)
[2024-04-05] MEDS: Atorvastatin Calcium 40 MG Tablet PO (21:43)
[2024-04-05] MEDS: Pantoprazole Sodium 40 MG Tablet PO (21:43)
[2024-04-05 22:00] VITALS: O2SAT 98
[2024-04-05 22:07] VITALS: BP 132/62; PULSE 92; RESP 16; TEMP 37.3; O2SAT 98
[2024-04-05] MEDS: MELATONIN 3 MG TABLET PO (22:18)
[2024-04-05 23:24] LABS: Bedside Glucose 143 mg/dL (74-106)
[2024-04-06] MEDS: oxyCODONE 5 MG Tablet PO ×2 (03:11→14:38)
[2024-04-06 03:18] VITALS: BP 129/67; PULSE 76; RESP 16; TEMP 36.9; O2SAT 96
[2024-04-06] MEDS: Rivaroxaban 10 MG Tablet PO (05:54)
[2024-04-06] MEDS: Acetaminophen 500 MG Tablet 1000 MG PO ×3 (05:54→21:17)
[2024-04-06] MEDS: Levothyroxine 100 MCG Tablet PO (05:54)
[2024-04-06 06:50] LABS: Hematocrit 24.3 % (37-47); Hemoglobin 7.9 g/dL (12.0-15.0); Mean Corp Hgb Conc 32.5 g/dL (32-36); Mean Corpuscular Hgb 30.6 pg (27.0-32.0); Mean Corpuscular Volume 94.2 fL (81-99); Mean Platelet Vol. 9.5 fl (6.2-12.0); Platelet Count 220 K/mm3 (150-450); RBC Distribution Width CV 13.7 % (11.6-14.6); RBC Distribution Width SD 46.6 fl (35.1-43.9); Red Blood Count 2.58 M/mm3 (4.2-5.4); White Blood Count 6.7 K/mm3 (4.4-11.0)
[2024-04-06 07:02] LABS: Bedside Glucose 123 mg/dL (74-106)
[2024-04-06 07:59] VITALS: O2SAT 96
[2024-04-06 09:15] VITALS: BP 158/70; PULSE 70; RESP 18; TEMP 36.2; O2SAT 96
[2024-04-06] MEDS: Docusate Sodium 100 MG Capsule PO ×2 (09:53→21:17)
[2024-04-06] MEDS: Calcium Carb/Vitamin D 1 TABLET Tablet PO (09:53)
[2024-04-06] MEDS: Sucralfate 1 GM Tablet PO ×3 (09:53→21:17)
[2024-04-06] MEDS: Cholecalciferol (Vit D3) 125 MCG CAPSULE (5,000 UNITS) PO (09:53)
[2024-04-06] MEDS: Topiramate 25 MG Tablet PO ×2 (09:53→21:17)
[2024-04-06] MEDS: Insulin Lispro 100 UNIT/ML INSULN.PEN SC ×2 (12:09→21:22)
[2024-04-06 12:22] LABS: Bedside Glucose 210 mg/dL (74-106)
--- NOTE | 2024-04-06 12:27 | CASEMGMT ---
Social Work- SW met with pt to update that TCU accepted pt referral and precert started. Pt agreeable to discharge plans. Plan: TCU; pending precert ROCCO Melchor
--- NOTE | 2024-04-06 13:24 | PN_ITS ---
Subjective Subjective Patient seen and examined. She has no active complaints today. Pain is well- controlled. Review of systems otherwise negative. She is awaiting placement. Objective Data Objective Data Vital Signs: Vital Signs Temp Pulse Resp BP Pulse Ox O2 Del Method O2 Flow Rate 97.2 F L 70 18 158/70 H 96 Room Air 2 04/06/24 09:15 04/06/24 09:15 04/06/24 09:15 04/06/24 09:15 04/06/24 09:15 04/06/24 10:00 04/03/24 15:21 Oxygen Flow Rate (L/min) 2 Oxygen Delivery Method Room Air Weight: 147 lb 14.883 oz Body Mass Index (BMI) 25.2 Intake & Output: Intake and Output for Last 24 Hours 04/04/24 04/05/24 04/06/24 23:59 23:59 23:59 Intake Total 50 / 50 800 / 800 Balance 50 / 50 800 / 800 Lab / Micro Data 04/06/24 06:30 04/04/24 06:31 Labs: Laboratory Results - last 24 hr 04/05/24 16:44: POC Glucose 173 H 04/05/24 21:54: POC Glucose 143 H 04/06/24 06:30: WBC 6.7, RBC 2.58 L, Hgb 7.9 L, Hct 24.3 L, MCV 94.2, MCH 30.6, MCHC 32.5, RDW Std Deviation 46.6 H, RDW Coeff of David 13.7, Plt Count 220, MPV 9.5 04/06/24 06:43: POC Glucose 123 H 04/06/24 12:04: POC Glucose 210 H Physical Exam Const alert, oriented x3 and no apparent distress Constitutional Narrative: frail, uncomfortable due to pain. General Appearance: cooperative HEENT normocephalic, head/scalp atraumatic, hearing grossly normal bilaterally, moist oral mucous membranes and oropharynx normal Eyes PERRL and EOMs intact bilaterally Neck no lymphadenopathy and supple Lymph Lymphatic: no lymphadenopathy noted Resp normal respiratory effort, normal air movement, no retractions, no use of accessory muscles and clear to auscultation bilaterally Resp Narrative: mildly diminished breath sounds bilaterally, no wheezes or crackles. On room air. Cardio regular rate, regular rhythm, S1 normal heart sound and S2 normal heart sound GI normal to inspection, nondistended, normoactive bowel sounds, soft to palpation, non-tender and non-distended Extremity no clubbing, cyanosis or edema Extremity Narrative: intact dressing over right hip. General Extremity: no tenderness to palpation of joints or extremities Skin Skin Narrative: as under extremities Neuro oriented x3, CN's II-XII intact bilaterally, no focal motor deficits and no sensory deficits noted Speech: speech normal Motor Exam: general weakness Psych thought process normal, cooperative and affect normal Appearance: appropriate Assessment & Plan Assessment/Plan (1) Intertrochanteric fracture of right hip: QUALIFIERS: Encounter type: initial encounter Fracture type: c losed Fracture alignment: displaced Qualified Code(s): S72.141A - Displaced intertrochanteric fracture of right femur, initial encounter for closed fracture PLAN: Plan #Right hip fracture * s/p right open reduction internal fixation with short intramedullary gamma nail * today is POD 3 * on PO tylenol, PO oxycodone and iV morphine prn for pain * incentive spirometry * fall precautions * #Acute on chronic anemia * Hb today has remained stable at 7.9. Was 7.8 yesterday. Baseline is around 12. * Likely due to acute blood loss from surgery. * Will monitor. * transfuse if Hb falls to <7. * #Hypertension: on lisinopril. IV hydralazine prn #Hyperlipidemia: on statin #GERD: on PPI #Hypothyroidism: on synthroid #History of right breast cancer: on letrozole #History of migraines: on amitryptiline and topiramate DVT prophylaxis: on xarelto 10mg daily x 2 weeks, then aspirin bid x 2 weeks, per orthopedics. Disposition: Awaiting placement. Charges/Coding Visit Charges Inpatient E&M: 58384 Subs Hosp L2
[2024-04-06 14:42] VITALS: BP 137/95; PULSE 88; RESP 18; TEMP 37.2; O2SAT 96
[2024-04-06] MEDS: Senna/Docusate Sodium 1 Tablet 2 TABLET PO (15:03)
[2024-04-06] MEDS: Bisacodyl 5 MG Tablet PO (15:03)
[2024-04-06 17:32] LABS: Bedside Glucose 147 mg/dL (74-106)
[2024-04-06] MEDS: Atorvastatin Calcium 40 MG Tablet PO (21:17)
[2024-04-06] MEDS: Amitriptyline 25 MG Tablet 50 MG PO (21:17)
[2024-04-06] MEDS: Pantoprazole Sodium 40 MG Tablet PO (21:17)
[2024-04-06 21:20] VITALS: BP 118/48; PULSE 86; RESP 17; TEMP 37.1; O2SAT 99
[2024-04-06 21:41] LABS: Bedside Glucose 177 mg/dL (74-106)
[2024-04-07 03:45] VITALS: BP 130/51; PULSE 78; RESP 16; TEMP 36.7; O2SAT 100
[2024-04-07 06:00] VITALS: BMI 26.2
[2024-04-07] MEDS: Acetaminophen 500 MG Tablet 1000 MG PO ×3 (06:11→22:22)
[2024-04-07] MEDS: Rivaroxaban 10 MG Tablet PO (06:11)
[2024-04-07] MEDS: Levothyroxine 100 MCG Tablet PO (06:12)
[2024-04-07 06:46] LABS: Bedside Glucose 123 mg/dL (74-106)
[2024-04-07 07:39] VITALS: BP 140/56; PULSE 81; RESP 18; TEMP 36.6; O2SAT 100
[2024-04-07] MEDS: Calcium Carb/Vitamin D 1 TABLET Tablet PO (07:45)
--- NOTE | 2024-04-07 09:04 | VDLE_ITS ---
Reason For Study: BLE Swelling RIGHT LEFT GSV is normal. GSV is normal. CFV is compressible, spontaneous, phasic, CFV is compressible, spontaneous, phasic, competent and demonstrates normal competent, and demonstrates normal augmentation. augmentation. FV is compressible, spontaneous, phasic, FV is compressible, spontaneous, phasic, competent and demonstrates normal competent and demonstrates normal augmentation. augmentation. POP V is compressible, spontaneous, phasic, POP V is compressible, spontaneous, phasic, competent and demonstrates normal competent and demonstrates normal augmentation. augmentation. T/P Trunk is compressible. T/P Trunk is compressible. PTV is compressible. PTV is compressible. RT PerV is compressible. LT PerV is compressible. Procedure This is a venous duplex using B-mode, color flow and spectral Doppler. Exam performed in department. The exam was diagnostic. A preliminary report was called and/or faxed to [facility] human resources representative. VL/Venous Duplex US - Kristofer Extrem Interpretation Summary Deep veins of the lower extremities are bilaterally patent and compressible seg mentally. There is no evidence of deep vein thrombosis on either side. Valvular competence appears in tact within the proximal deep venous systems bilaterally. The great saphenous veins appear bila terally patent and compressible segmentally. Ordering Physician: Oriana Haro Referring Physician: Kannan Knowles Performed By: Dung Claros, RVT
[2024-04-07] MEDS: Docusate Sodium 100 MG Capsule PO ×2 (09:48→22:21)
[2024-04-07] MEDS: Bisacodyl 5 MG Tablet PO (09:49)
[2024-04-07] MEDS: Topiramate 25 MG Tablet PO ×2 (09:50→22:23)
[2024-04-07] MEDS: Cholecalciferol (Vit D3) 125 MCG CAPSULE (5,000 UNITS) PO (09:51)
[2024-04-07] MEDS: Sucralfate 1 GM Tablet PO ×3 (09:52→22:23)
[2024-04-07] MEDS: oxyCODONE 5 MG Tablet PO ×2 (09:54→15:09)
[2024-04-07 11:27] LABS: Bedside Glucose 138 mg/dL (74-106)
--- NOTE | 2024-04-07 12:27 | PN_ITS ---
Subjective Subjective Patient seen and examined. She complained of swelling of her RLE. She denied any pain in her calves. Review of systems is otherwise negative. She has remained hemodynamically stable. She is awaiting placement. Objective Data Objective Data Vital Signs: Vital Signs Temp Pulse Resp BP Pulse Ox O2 Del Method O2 Flow Rate 97.8 F 81 18 140/56 H 100 Room Air 2 04/07/24 07:39 04/07/24 07:39 04/07/24 07:39 04/07/24 07:39 04/07/24 07:39 04/07/24 07:39 04/03/24 15:21 Oxygen Flow Rate (L/min) 2 Oxygen Delivery Method Room Air Weight: 153 lb 3.2 oz Body Mass Index (BMI) 26.2 Intake & Output: Intake and Output for Last 24 Hours 04/05/24 04/06/24 04/07/24 23:59 23:59 23:59 Intake Total 800 / 800 1900 / 1900 Balance 800 / 800 1900 / 1900 Lab / Micro Data 04/06/24 06:30 04/04/24 06:31 Labs: Laboratory Results - last 24 hr 04/06/24 17:14: POC Glucose 147 H 04/06/24 21:22: POC Glucose 177 H 04/07/24 06:10: POC Glucose 123 H 04/07/24 11:05: POC Glucose 138 H Physical Exam Const alert, oriented x3, no apparent distress and average body habitus Constitutional Narrative: frail General Appearance: cooperative HEENT normocephalic, head/scalp atraumatic, hearing grossly normal bilaterally, moist oral mucous membranes and oropharynx normal Eyes PERRL and EOMs intact bilaterally Neck no lymphadenopathy and supple Lymph Lymphatic: no lymphadenopathy noted Resp normal respiratory effort, normal air movement, no retractions, no use of accessory muscles and clear to auscultation bilaterally Cardio regular rate, regular rhythm, S1 normal heart sound, S2 normal heart sound, no murmurs, no rub and no gallops GI normal to inspection, nondistended, normoactive bowel sounds, soft to palpation, non-tender and non-distended Extremity Extremity Narrative: intact dressing over right hip.Mild swelling of RLE extending up to mid thigh. No tenderness or erythema. General Extremity: no tenderness to palpation of joints or extremities Skin Skin Narrative: as under extremities Neuro oriented x3, CN's II-XII intact bilaterally, no focal motor deficits and no sensory deficits noted Speech: speech normal Motor Exam: general weakness Psych thought process normal, cooperative and affect normal Appearance: appropriate Assessment & Plan Assessment/Plan (1) Intertrochanteric fracture of right hip: QUALIFIERS: Encounter type: initial encounter Fracture type: c losed Fracture alignment: displaced Qualified Code(s): S72.141A - Displaced intertrochanteric fracture of right femur, initial encounter for closed fracture PLAN: Plan #Right hip fracture * s/p right open reduction internal fixation with short intramedullary gamma nail * today is POD 4 * on PO tylenol, PO oxycodone and iV morphine prn for pain * incentive spirometry * fall precautions * #RLE swelling * has edema up to the mid thigh. * has no erythema or tenderness. * Duplex done today was negative for any evidence of DVT * Keep RLE elevated * #Acute on chronic anemia * Hb has remained ~ 7.9. * baseline is ~ 12. Likely due to acute blood loss from surgery. * Will monitor and transfuse if Hb <7. * * #Hypertension: on lisinopril. IV hydralazine prn #Hyperlipidemia: on statin #GERD: on PPI #Hypothyroidism: on synthroid #History of right breast cancer: on letrozole #History of migraines: on amitryptiline and topiramate DVT prophylaxis: on xarelto 10mg daily x 2 weeks, then aspirin bid x 2 weeks, per orthopedics. Disposition: Awaiting placement. Charges/Coding Visit Charges Inpatient E&M: 63929 Subs Hosp L2
[2024-04-07 13:10] VITALS: BP 145/60; PULSE 76; RESP 16; TEMP 36.6; O2SAT 90
[2024-04-07] MEDS: Insulin Lispro 100 UNIT/ML INSULN.PEN SC (16:12)
[2024-04-07 17:25] LABS: Bedside Glucose 151 mg/dL (74-106)
[2024-04-07 18:28] VITALS: BP 130/51; PULSE 71; RESP 16; TEMP 36.6; O2SAT 98
[2024-04-07 22:00] VITALS: BP 142/64; PULSE 85; RESP 16; TEMP 37.2; O2SAT 100
[2024-04-07] MEDS: Amitriptyline 25 MG Tablet 50 MG PO (22:23)
[2024-04-07] MEDS: Pantoprazole Sodium 40 MG Tablet PO (22:23)
[2024-04-07] MEDS: Atorvastatin Calcium 40 MG Tablet PO (22:23)
[2024-04-07 22:46] LABS: Bedside Glucose 141 mg/dL (74-106)
[2024-04-08] MEDS: Acetaminophen 500 MG Tablet 1000 MG PO ×2 (05:55→13:39)
[2024-04-08] MEDS: Levothyroxine 100 MCG Tablet PO (05:55)
[2024-04-08] MEDS: Rivaroxaban 10 MG Tablet PO (05:55)
[2024-04-08 05:57] VITALS: BP 124/66; PULSE 86; RESP 16; TEMP 36.8; O2SAT 100
[2024-04-08 06:00] VITALS: BMI 26.8
[2024-04-08 07:00] LABS: Bedside Glucose 140 mg/dL (74-106)
[2024-04-08] MEDS: Calcium Carb/Vitamin D 1 TABLET Tablet PO (08:20)
[2024-04-08 08:28] VITALS: BP 125/52; PULSE 77; RESP 18; TEMP 36.4; O2SAT 99
[2024-04-08] MEDS: Cholecalciferol (Vit D3) 125 MCG CAPSULE (5,000 UNITS) PO (09:29)
[2024-04-08] MEDS: Docusate Sodium 100 MG Capsule PO (09:29)
[2024-04-08] MEDS: Bisacodyl 5 MG Tablet PO (09:29)
[2024-04-08] MEDS: Topiramate 25 MG Tablet PO (09:29)
[2024-04-08] MEDS: Senna/Docusate Sodium 1 Tablet 2 TABLET PO (09:29)
[2024-04-08] MEDS: Sucralfate 1 GM Tablet PO ×2 (10:34→16:03)
[2024-04-08] MEDS: Insulin Lispro 100 UNIT/ML INSULN.PEN SC ×2 (11:38→16:03)
[2024-04-08 11:58] LABS: Bedside Glucose 177 mg/dL (74-106)
[2024-04-08] MEDS: oxyCODONE 5 MG Tablet PO (13:39)
[2024-04-08 14:28] VITALS: BP 131/51; PULSE 64; RESP 18; TEMP 36.7; O2SAT 97
--- NOTE | 2024-04-08 16:12 | PCM.TXEXTCAR ---
Diet Diet Order/Speech Therapy: 04/03/24 14:02 Diet: Carbohydrate Controlled Food consistency:: Regular Liquid Consistency:: Regular/Thin Routine Orders/Code Status Routine Lab Work: CBC (In 1 week) Code Status: Full Code DC O2, CPAP, BIPAP needs Home O2 Discharge instructions: No Wound(s) right hip: Wound Type: Surgical Incision Therapies Weight Bearing: Partial weight bearing (50% weightbearing on the right hip, patient should use a walker) Physical Therapy: Eval and Treat Occupational Therapy: Eval and Treat Problem/Diagnosis (1) Intertrochanteric fracture of right hip: Status: Acute Code(s): S72.141A - Displaced intertrochanteric fracture of right femur, initial encounter for closed fracture Plan Final diagnosis: #1 intertrochanteric fracture of the right hip secondary to osteoporosis #2 acute expected blood loss anemia secondary to right hip fracture #3 hypothyroidism #4 essential hypertension #5 type 2 diabetes #6 hyperlipidemia #7 history of breast cancer #8 chronic anemia-etiology unclear Allergies/Procedures Done in Hospital Allergies coconut Adverse Reaction (Severe, Verified 03/02/24 09:30) Hives Penicillins Adverse Reaction (Severe, Verified 03/02/24 09:30) Hives bee venom protein (honey bee) Adverse Reaction (Intermediate, Verified 03/02/24 09:30) Hives localized reaction; swelling/reddness Procedures: - (Insertion of short intramedullary gamma nail-04/03/2024) Type of Care/Length of Stay Estimated LOS: Convalescent Care Less Than 30 days Type of Care Needed: Skilled Rehab Potential: Good Prognosis: Good Additional Orders/Day of Discharge H&P will serve as current which was dated: 04/02/24 Day of Discharge: 04/08/24 Dietary and Speech Recommendations Dietitian Recommendations/Changes: Continue carbohydrate-controlled diet without caloric restriction. Discharge Plan Admission Admit Date/Time: 04/02/24 19:12 Primary Reason for Your Visit: Right intertrochanteric hip fracture Attending Provider: Antonio Anderson Primary Care Provider: Kannan Knowles Consulting Providers: Ewelina Mckay; Raymond Monzon; Oriana Haro Discharge Orders/Prescriptions Prescriptions: New acetaminophen 500 mg Tablet 1,000 mg PO Q8 Qty: 1 0RF nicotine 21 mg/24 hr Patch 24 Hour 21 mg transdermal DAILY Qty: 0 0RF docusate sodium 100 mg Capsule 100 mg PO BID Qty: 0 0RF oxycodone 5 mg Tablet 5 mg PO Q4H PRN PRN (Reason: Pain Score 4-10) 2 Days Qty: 10 0RF insulin lispro [Humalog KwikPen Insulin] 100 unit/mL Insulin Pen See Protocol subcut ACHS Qty: 0 0RF Protocol: 4. Sliding Scale Insulin High-Med Dosing Condition: 150-199 mg/dl = 2 units Condition: 200-259 mg/dl = 4 units Condition: 260-324 mg/dl = 6 units Condition: 325-374 mg/dl = 8 units Condition: 375-409 mg/dl = 10 units Condition: 410-449 mg/dl = 11 units Condition: Greater than 449 call physician Protocol Text: Suggested for: - Patients on Total Daily Insulin Dose of 56-80 units - Patient who are known to be insulin resistant or septic HIGH MEDIUM DOSING ALGORITHM calcium carbonate-vitamin D3 [Oyster Shell Calcium-Vit D3] 500 mg-5 mcg (200 unit) Tablet 1 tab PO 2XD Qty: 0 0RF sennosides-docusate sodium [Stimulant Laxative Plus] 8.6-50 mg Tablet 2 tab PO BID PRN PRN (Reason: Constipation) Qty: 0 0RF Xarelto 10 mg Tablet 10 mg PO DAILY@0600 Qty: 0 0RF Rx Instructions: Administer for 30 days starting 04/09/2024 Continued simvastatin 80 mg tablet 80 mg PO QPM levothyroxine 100 mcg capsule 100 mcg PO DAILY metformin 500 MG tablet extended release 24 hr 1,000 mg PO BID pantoprazole 40 MG tablet,delayed release (DR/EC) 40 mg PO QHS amitriptyline 25 mg tablet 50 mg PO QHS Patient Comments: take 1 tablet by mouth once daily sucralfate 1 gram tablet 1 g PO TID Qty: 21 1RF Rx Instructions: Take 1 hour before lunch, dinner, at bedtime lisinopril 5 mg tablet 5 mg PO DAILY Qty: 30 0RF topiramate 25 mg tablet 25 mg PO BID letrozole 2.5 mg tablet 2.5 mg PO DAILY Qty: 90 3RF Discontinued cholecalciferol (vitamin D3) 1,000 unit capsule 5,000 unit PO DAILY calcium carbonate-vitamin D3 1 EACH tablet 1 ea PO DAILY Referrals / Follow Up: Kannan Knowles MD [Primary Care Provider] - Raymond Monzon MD [Med Staff - Active Staff] - See Referral Note (Schedule an appointment for 2 weeks) Disposition Disposition (needs filled in before D/C Order can be placed): [facility] (1) Intertrochanteric fracture of right hip Qualifiers: Encounter type: initial encounter Fracture type: closed Fracture alignment: displaced Qualified Code(s): S72.141A - Displaced intertrochanteric fracture of right femur, initial encounter for closed fracture
--- NOTE | 2024-04-08 16:20 | CASEMGMT ---
Addendum entered by Meera Warren 04/08/24 17:03: SW received transfer. VANESSA faxed clinicals to TCU. Pt and family updated. Pt bedside nurse notified. Plan: TCU; skilled level of care RO[facility]O Melchor Original Note: Social Work- Pt has precert; physician notified and feels that pt is medically ready. Pt updated of pending discharge. Green sheet placed on chart. Plan: TCU; skilled level of care [facility] Mel[facility]
[2024-04-08 16:29] LABS: Bedside Glucose 158 mg/dL (74-106)
--- NOTE | 2024-04-08 16:37 | PCM.DC.SUM ---
Providers Date of Admission: 04/02/24 Date of Discharge: 04/08/24 Primary Care Physician: Dr. Kannan Knowles MD Consultations 04/02/24 19:39 Consult: Orthopedics Routine Consulting Provider: Raymond Monzon Reason for Consult: R Hip Fracture EMERGENT Consult: No MD Notified: Yes Date Notified: 04/02/24 Time Notified: 19:13 Method of Notification: Verbal Comments:: notified by previous shift Reason For Visit: RIGHT HIP FRACTURE Diagnosis Discharge Diagnosis (1) Intertrochanteric fracture of right hip: Status: Inactive Code(s): S72.141A - Displaced intertrochanteric fracture of right femur, initial encounter for closed fracture Qualifiers: Encounter type: initial encounter Fracture alignment: displaced Fracture type: closed Qualified Code(s): S72.141A - Displaced intertrochanteric fracture of right femur, initial encounter for closed fracture Plan Final diagnosis: #1 intertrochanteric fracture of the right hip secondary to osteoporosis #2 acute expected blood loss anemia secondary to right hip fracture #3 hypothyroidism #4 essential hypertension #5 type 2 diabetes #6 hyperlipidemia #7 history of breast cancer #8 chronic anemia-etiology unclear Medications at Discharge Home Medications simvastatin 80 mg tablet 80 mg PO QPM CHOLESTEROL 04/07/17 metformin 500 mg tablet,extended release 24 hr 1,000 mg PO BID DIABETES 10/19/19 pantoprazole 40 mg tablet,delayed release 40 mg PO QHS STOMACH 10/19/19 amitriptyline 25 mg tablet 50 mg PO QHS Migraines 06/15/21 sucralfate 1 gram tablet 1 g PO TID STOMACH #21 tabs 06/20/21 lisinopril 5 mg tablet 5 mg PO DAILY BLOOD PRESSU #30 tabs 12/19/22 letrozole 2.5 mg tablet 2.5 mg PO DAILY CANCER #90 TABLETS 08/07/23 levothyroxine 100 mcg capsule 100 mcg PO DAILY THYROID 03/02/24 topiramate 25 mg tablet 25 mg PO BID MIGRAINES 04/02/24 acetaminophen 500 mg tablet 1,000 mg (2 x 500 mg) PO Q8 pain #1 TAB 04/08/24 calcium 500 mg (as carbonate)-vitamin D3 5 mcg (200 unit) tablet (Oyster Shell Calcium-Vitamin D3) 1 tab PO 2XD supplement #0 tabs 04/08/24 docusate sodium 100 mg capsule 100 mg PO BID stool softener #0 caps 04/08/24 insulin lispro 100 unit/mL subcutaneous pen (Humalog KwikPen (U-100) Insulin) See Protocol subcut ACHS diabetes #0 mL 04/08/24 nicotine 21 mg/24 hr daily transdermal patch 21 mg transdermal DAILY supp #0 ea 04/08/24 oxycodone 5 mg tablet 5 mg PO Q4H PRN PRN Pain Score 4-10 2 days #10 tabs 04/08/24 rivaroxaban 10 mg tablet (Xarelto) 10 mg PO DAILY@0600 blood thinner #0 tabs 04/08/24 sennosides 8.6 mg-docusate sodium 50 mg tablet (Stimulant Laxative Plus) 2 tab PO BID PRN PRN Constipation #0 tabs 04/08/24 Hospital Course Operations - (ORIF right hip with intramedullary gamma nail) Procedures None Summary of Care Provided Minutes Spent on Discharge: 31 Hospital Course: This 68-year-old white female was seen in the emergency room at [facility] with chief complaint of right hip pain, she had fallen in her garage while trying to plug in her snowblower. Imaging studies there revealed an acute fracture of the right hip, she requested transfer to [facility] and was directly admitted to [place] [address]. Patient was seen in consultation by orthopedic surgery, she underwent insertion of an intramedullary nail in the right hip and had no complications from the procedure. Patient was seen by PT and OT, it was recommended that she consider inpatient skilled services at a custodial facility and she agreed. TCU agreed to take the patient. On 04/08/2024, patient was seen and examined: On examination she appeared in good health and spirits, she does not appear to be in any distress. Vital signs as documented. Skin warm and dry and without overt rashes. Neck without JVD, thyroid appears normal, trachea is midline, neck is supple. Lungs clear, normal air movement was noted. Heart exam notable for regular rhythm, normal sounds and absence of murmurs, rubs or gallops. Abdomen unremarkable and without evidence of organomegaly, masses, or abdominal aortic enlargement, bowel sounds are present in all 4 quadrants, no abdominal tenderness was noted. Extremities nonedematous, no cyanosis was noted, no clubbing was noted. Neuro: Cranial nerves II through XII are grossly intact, no focal motor deficits were noted, sensation to light touch and pinprick is intact, motor exam 5/5 throughout. Psych: Patient is alert and oriented x3, she does not appear anxious or depressed, she does not appear agitated. Patient was transferred to TCU in stable condition on 04/08/2024. Weight / BMI Weight Weight: 71.3 kg Body Mass Index (BMI) 26.8 ABG / Lab / Microbiology Data 04/06/24 06:30 04/04/24 06:31 Laboratory: Laboratory Results - last 24 hr 04/07/24 16:10: POC Glucose 151 H 04/07/24 22:20: POC Glucose 141 H 04/08/24 06:36: POC Glucose 140 H 04/08/24 11:36: POC Glucose 177 H 04/08/24 16:02: POC Glucose 158 H Radiography Diagnostic Testing: Radiology Impression Venous Doppler Study 04/07/24 09:04 Interpretation Summary Deep veins of the lower extremities are bilaterally patent and compressible segmentally. There is no evidence of deep vein thrombosis on either side. Valvular competence appears intact within the proximal deep venous systems bilaterally. The great saphenous veins appear bilaterally patent and compressible segmentally. Ordering Physician: Oriana Haro Referring Physician: Kannan Knowles Performed By: Dung Claros RVT D/C Instructions DC O2, CPAP, BIPAP Needs Home O2 Discharge instructions: No Meaningful Use Info Meaningful Use Meaningful Use Diagnoses (Choose all that apply): None applicable Ischemic Stroke Statin Dosing Therapy Reference: STATIN DOSE THERAPY REFERENCE: * Patients > 75 years receive moderate or high dose statin therapy. * Patients 75 years or YOUNGER should receive HIGH intensity statin dose unless contraindicated. You will be required to document reason for non-treatment if statin daily dose does not meet guidelines. HIGH DOSE STATIN THERAPY DAILY Atorvastatin > than or = to 40 mg Rosuvastatin > than or = to 20 mg Amlodipine + Atorvastatin > than or = to 2.5/40 mg Ezetimibe + Simvastatin 10/80 mg Simvastatin 80mg Discharge Plan Admission Admit Date/Time: 04/02/24 19:12 Primary Reason for Your Visit: Right intertrochanteric hip fracture Attending Provider: Antonio Anderson Primary Care Provider: Kannan Knowles Consulting Providers: Ewelina Mckay; Raymond Monzon; Oriana Haro Discharge Orders/Prescriptions Prescriptions: New acetaminophen 500 mg Tablet 1,000 mg PO Q8 Qty: 1 0RF nicotine 21 mg/24 hr Patch 24 Hour 21 mg transdermal DAILY Qty: 0 0RF docusate sodium 100 mg Capsule 100 mg PO BID Qty: 0 0RF oxycodone 5 mg Tablet 5 mg PO Q4H PRN PRN (Reason: Pain Score 4-10) 2 Days Qty: 10 0RF insulin lispro [Humalog KwikPen Insulin] 100 unit/mL Insulin Pen See Protocol subcut ACHS Qty: 0 0RF Protocol: 4. Sliding Scale Insulin High-Med Dosing Condition: 150-199 mg/dl = 2 units Condition: 200-259 mg/dl = 4 units Condition: 260-324 mg/dl = 6 units Condition: 325-374 mg/dl = 8 units Condition: 375-409 mg/dl = 10 units Condition: 410-449 mg/dl = 11 units Condition: Greater than 449 call physician Protocol Text: Suggested for: - Patients on Total Daily Insulin Dose of 56-80 units - Patient who are known to be insulin resistant or septic HIGH MEDIUM DOSING ALGORITHM calcium carbonate-vitamin D3 [Oyster Shell Calcium-Vit D3] 500 mg-5 mcg (200 unit) Tablet 1 tab PO 2XD Qty: 0 0RF sennosides-docusate sodium [Stimulant Laxative Plus] 8.6-50 mg Tablet 2 tab PO BID PRN PRN (Reason: Constipation) Qty: 0 0RF Xarelto 10 mg Tablet 10 mg PO DAILY@0600 Qty: 0 0RF Rx Instructions: Administer for 30 days starting 04/09/2024 Continued simvastatin 80 mg tablet 80 mg PO QPM levothyroxine 100 mcg capsule 100 mcg PO DAILY metformin 500 MG tablet extended release 24 hr 1,000 mg PO BID pantoprazole 40 MG tablet,delayed release (DR/EC) 40 mg PO QHS amitriptyline 25 mg tablet 50 mg PO QHS Patient Comments: take 1 tablet by mouth once daily sucralfate 1 gram tablet 1 g PO TID Qty: 21 1RF Rx Instructions: Take 1 hour before lunch, dinner, at bedtime lisinopril 5 mg tablet 5 mg PO DAILY Qty: 30 0RF topiramate 25 mg tablet 25 mg PO BID letrozole 2.5 mg tablet 2.5 mg PO DAILY Qty: 90 3RF Discontinued cholecalciferol (vitamin D3) 1,000 unit capsule 5,000 unit PO DAILY calcium carbonate-vitamin D3 1 EACH tablet 1 ea PO DAILY Referrals / Follow Up: Kannan Knowles MD [Primary Care Provider] - Raymond Monzon MD [Med Staff - Active Staff] - See Referral Note (Schedule an appointment for 2 weeks) Disposition Disposition (needs filled in before D/C Order can be placed): [facility] Facility Charges/Coding Visit Charges Inpatient E&M: 17061 Disch Hosp >30min
[2024-04-08 18:02] VITALS: BP 138/70; PULSE 74; RESP 18; TEMP 36.8; O2SAT 98
== END 2024-04-08 18:43 | disposition skilled nursing facility (03) | DRG 482 ==
PROVIDERS: Anesthesiology; Internal Medicine; Orthopaedic Surgery; Student in an Organized Health Care Education/Training Program; PCP Family Medicine; Visit Provider Internal Medicine
PROC: 0QS606Z Reposition Right Upper Femur with Intramedullary Internal Fixation Device, Open Approach (ICD-10-PCS; CPT 27245; principal; 2024-04-03 08:00)
DX: M80.051A Age-related osteoporosis with current pathological fracture, right femur, initial encounter for fracture (principal); E03.9 Hypothyroidism, unspecified; E11.9 Type 2 diabetes mellitus without complications; I10 Essential (primary) hypertension; E78.5 Hyperlipidemia, unspecified; K21.9 Gastro-esophageal reflux disease without esophagitis; F17.210 Nicotine dependence, cigarettes, uncomplicated; W18.30XA Fall on same level, unspecified, initial encounter; Z17.0 Estrogen receptor positive status [ER+]; Z79.01 Long term (current) use of anticoagulants; Z79.84 Long term (current) use of oral hypoglycemic drugs; Z79.811 Long term (current) use of aromatase inhibitors; Z85.3 Personal history of malignant neoplasm of breast; Y92.015 Private garage of single-family (private) house as the place of occurrence of the external cause
CPT/HCPCS: 36415; 73502; 76000; 80048; 80053; 82306; 82962; 83036; 83735; 84100; 84443; 85025; 85027; 85610; 85730; 86850; 86900; 86901; 93005; 93970; 94668; 97116; 97162; 97165; 97530; 97535; 99252; C1713; A4216; G0463; J2405

== ENCOUNTER 2024-04-08 18:53 | Inpatient (IN) | payer MEDICARE, SELFPAY ==
[2020-03-30 14:28] VITALS: BMI 30.9
--- NOTE | 2024-04-08 19:34 | NURSING ---
notified of new admit, per Dr. Emery d/c sliding scale insulin.
--- NOTE | 2024-04-08 20:14 | HP.PCM_ITS ---
[facility] - General General Date of Admission: 04/08/24 Date of Service: 04/09/24 Chief Complaint: Here for rehabilitation. [facility] Narrative VERO STEVENS, is a 68 Female who presents with followin04/02/2024 Admit [facility]. Presented to [facility] with right hip pain after fall. X-ray showed right hip fracture. Dr. Raymond Monzon requested transfer to [facility]. Pain control, PT/OT, prepare for surgery. 04/03/2024 Dr. Raymond Monzon performed right hip ORIF, short intramedullary gamma nail. 04/03/2024 Shortness of breath, oxygen 2 liters per nasal cannula. Tylenol, Oxycodone, Morphine IV for pain. 04/04/2024 Pain controlled. Hemoglobin 10.8 to 8.9, baseline 12, monitor. Incentive spirometry. 04/04/2024 Sitting in chair, patient admits to intermittent confusion. Xarelto 10mg daily x 2 weeks, then Aspirin 81mg bid x 2 weeks for DVT prophylaxis. . 04/05/2024 Restless. Hemoglobin 7.8, Transfuse if less than 7. Xarelto 10mg daily x 2 weeks, then Aspirin 81mg bid x 2 weeks for DVT prophylaxis. 04/06/2024 No acute events overnight. Await placement. Hemoglobin 7.9. 04/07/2024 Right lower extremity swelling, Doppler ultrasound negative for DVT. Hemoglobin 7.9. Pre-CERT for SNF. 04/08/2024 Admit to TCU with debility, here for rehabilitation, strengthening, prior to discharge home with children. [facility] Medical History (Updated 04/08/24 @ 20:[address] Sergei Emery MD) History of breast cancer Aromatase inhibitor use Positive occult stool blood test Anemia Wears dentures Thyroid disease Smoker Tubular adenoma of colon Ileus, unspecified Right inguinal hernia History of breast cancer Screening for breast cancer Wears glasses Wears partial dentures Cancer High cholesterol Migraine headache History of stress test History of colon polyps Weight loss Encounter for screening for malignant neoplasm of lung Frequent headaches Neck pain Breast pain, right previous radiation treatments Skin lesion of breast Breast mass, right Osteopenia Tobacco abuse Encounter for education Malignant neoplasm of upper-outer quadrant of right breast in female, estrogen receptor positive History of change in bowel patterns Diarrhea Abdominal pain Arthritis Hypothyroidism (acquired) Diabetes Hyperlipidemia HTN (hypertension) GERD (gastroesophageal reflux disease) Mastalgia Home Medications ?Medication ?Instructions ?Recorded ?Last Taken ?Type simvastatin 80 mg tablet 80 mg PO QPM CHOLESTEROL 04/07/17 04/07/23 History metformin 500 mg tablet,extended 1,000 mg PO BID DIABETES 10/19/19 04/07/23 History release 24 hr pantoprazole 40 mg tablet,delayed 40 mg PO QHS STOMACH 10/19/19 04/07/23 History release amitriptyline 25 mg tablet 50 mg PO QHS Migraines 06/15/21 04/07/23 History sucralfate 1 gram tablet 1 g PO TID STOMACH #21 tabs 06/20/21 04/07/23 Rx lisinopril 5 mg tablet 5 mg PO DAILY BLOOD PRESSU #30 tabs 12/19/22 04/09/23 Rx letrozole 2.5 mg tablet 2.5 mg PO DAILY CANCER #90 TABLETS 08/07/23 Unknown Rx levothyroxine 100 mcg capsule 100 mcg PO DAILY THYROID 03/02/24 Unknown History topiramate 25 mg tablet 25 mg PO BID MIGRAINES 04/02/24 Unknown History acetaminophen 500 mg tablet 1,000 mg (2 x 500 mg) PO Q8 pain 04/08/24 Unknown Rx #1 TAB calcium 500 mg (as 1 tab PO 2XD supplement #0 tabs 04/08/24 Unknown Rx carbonate)-vitamin D3 5 mcg (200 unit) tablet (Oyster Shell Calcium-Vitamin D3) docusate sodium 100 mg capsule 100 mg PO BID stool softener #0 04/08/24 Unknown Rx caps insulin lispro 100 unit/mL See Protocol subcut ACHS diabetes 04/08/24 Unknown Rx subcutaneous pen (Humalog KwikPen #0 mL (U-100) Insulin) nicotine 21 mg/24 hr daily 21 mg transdermal DAILY supp #0 ea 04/08/24 Unknown Rx transdermal patch oxycodone 5 mg tablet 5 mg PO Q4H PRN PRN Pain Score 04/08/24 Unknown Rx 4-10 2 days #10 tabs rivaroxaban 10 mg tablet (Xarelto) 10 mg PO DAILY@0600 blood thinner 04/08/24 Unknown Rx #0 tabs sennosides 8.6 mg-docusate sodium 2 tab PO BID PRN PRN Constipation 04/08/24 Unknown Rx 50 mg tablet (Stimulant Laxative #0 tabs Plus) Allergy/AdvReac Type Severity Reaction Status Date / Time coconut AdvReac Severe Hives Verified 03/02/24 09:30 Penicillins AdvReac Severe Hives Verified 03/02/24 09:30 bee venom protein (honey bee) AdvReac Intermediate Hives Verified 03/02/24 09:30 Family History Mother Arthritis Heart disease Osteoporosis Father Cancer Prostate Grandmother Diabetes Surgical History History of cataract removal with insertion of prosthetic lens Status post right breast lumpectomy Hx of cholecystectomy History of tubal ligation History of salpingectomy History of laparoscopic cholecystectomy H/O colonoscopy Social History household members: children housing: house Smoking Status: Current every day smoker tobacco type: cigarettes Tobacco: How many years used: 20 alcohol intake: never substance use type: does not use caffeine: Yes what type of physical activity do you participate in: walking frequency: 3-4 times per week ROS Constitutional Constitutional: Reports weakness; Denies chills, fever(s) or weight gain ENT HEENT: Denies headache(s), nasal congestion or nasal discharge Cardiovascular Cardiovascular: Denies chest pain or palpitations Respiratory/Chest Respiratory/Chest: Denies cough, excessive phlegm production or shortness of breath with exertion Gastrointestinal Gastrointestinal: Denies abdominal pain, nausea or vomiting Genitourinary Genitourinary: Denies dysuria Musculoskeletal Musculoskeletal: Denies joint pain or joint swelling Integumentary Integumentary: Denies rash or wounds Neurologic Neurologic: Denies focal weakness, numbness or tingling Psychiatric Psychiatric: Denies anxiety, auditory hallucinations, depression, homicidal ideation or suicidal ideation Physical Exam Const alert General Appearance: cooperative HEENT normocephalic Eyes PERRL and EOMs intact bilaterally Neck supple, no JVD and no carotid bruits Resp normal respiratory effort, normal air movement and clear to auscultation bilaterally Cardio regular rate and regular rhythm GI normal to inspection, nondistended, normoactive bowel sounds, non-tender and non-distended Extremity normal capillary refill Extremity Narrative: Right lower extremity swelling. General Extremity: Negative for edema Skin no rashes or lesions noted Skin Narrative: Right lateral hip incision dressing clean, dry. General Skin Exam: no breakdown Psych affect normal Appearance: appropriate Results Lab / Micro Data 04/09/24 05:12 04/09/24 05:12 Assessment & Plan Assessment/Plan (1) Debility: (2) Closed right hip fracture: (3) Hyperlipidemia: (4) Vitamin D deficiency: (5) Diabetes: (6) GERD (gastroesophageal reflux disease): (7) Migraine headache: (8) Essential (primary) hypertension: (9) History of breast cancer: (10) Hypothyroidism: PLAN: Plan 68 year old female with below past medical history hospitalized for right hip fracure, underwent right hip ORIF short IM gamma nail 04/03/[address] Raymond Monzon, admitted to TCU with debility, here for rehabilitation, strengthening, prior to discharge home with children. * Debility - PT/OT. * Pain - Tylenol 1000mg q8, Oxycodone 5mg q4 prn pain (4-10) thru 04/10/2024. * Bowel - senna/colace 2 tablets bid, Magnesium citrate 300mL po daily prn. * Adult immunization - Administer pneumonia vaccine, covid vaccine, flu vaccine as appropriate. * DVT prophylaxis - Xarelto 10mg daily thru 05/09/2024. * Migraines - Topamax 25mg bid, Elavil 50mg qhs, stable chronic prison use, GDR not recommended. * Hyperlipidemia - Atorvastatin 40mg qpm. * Calcium deficiency - Calcium D 1 tablet bid. * History breast cancer - Letrozole 2.5mg daily. * Hypothyroidism - Levothyroxine 100mcg daily. * Hypertension - Lisinopril 5mg daily. * Diabetes Mellitus II - Metformin 1000mg bidcm. * Tobacco dependence - Nicoderm 21mg td daily. * GERD - Pantoprazole 40mg qhs, Sucralfate 1gm tid. * Acute postoperative anemia - Hemoglobin 7.1, transfuse 2 units PRBC.
--- NOTE | 2024-04-08 21:03 | NURSING ---
patient states up to date on all of my vaccines, declines vaccinations during stay on TCU
[2024-04-08 21:05] VITALS: BP 143/60; PULSE 82; RESP 16; TEMP 36.8; O2SAT 98; BMI 25.0
[2024-04-08] MEDS: oxyCODONE 5 MG Tablet PO (21:17)
[2024-04-08] MEDS: Topiramate 25 MG Tablet PO (21:18)
[2024-04-08] MEDS: Acetaminophen 500 MG Tablet 1000 MG PO (21:18)
[2024-04-08] MEDS: Atorvastatin Calcium 40 MG Tablet PO (21:18)
[2024-04-08] MEDS: Calcium Carb/Vitamin D 1 TABLET Tablet PO (21:18)
[2024-04-08] MEDS: Pantoprazole Sodium 40 MG Tablet PO (21:19)
[2024-04-08] MEDS: Amitriptyline 25 MG Tablet 50 MG PO (21:19)
[2024-04-08] MEDS: Senna/Docusate Sodium 1 Tablet 2 TABLET PO (21:24)
[2024-04-08 21:47] LABS: Bedside Glucose 159 mg/dL (74-106)
[2024-04-09 05:59] LABS: Absolute Lymphocyte Count 1.48 X10^3/uL (0.83-4.51); Absolute Neutrophil Count 3.5 X10^3/uL (2.0-7.7); Basophil# 0.03 X10^3/uL; Basophil% 0.5 % (0-1); Eosinophil# 0.17 X10^3/uL; Eosinophils% 2.9 % (0-5); Hematocrit 21.5 % (37-47); Hemoglobin 7.1 g/dL (12.0-15.0); Lymphocyte # 1.48 X10^3/ul (0.83-4.51); Lymphocyte % 25.4 % (19-41); Mean Corpuscular Hgb 30.9 pg (27.0-32.0); Mean Corpuscular Volume 93.5 fL (81-99); Monocyte# 0.61 X10^3/uL; Monocyte% 10.5 % (0-10); NRBC Flagged by Analyzer 0 % (0-5); Neutrophil # 3.51 X10^3/uL (2.7-7.7); Neutrophil % 60.4 % (47-70); Platelet Count 329 K/mm3 (150-450); RBC Distribution Width CV 13.7 % (11.6-14.6); RBC Distribution Width SD 46.6 fl (35.1-43.9); White Blood Count 5.8 K/mm3 (4.4-11.0)
[2024-04-09 06:21] LABS: Bedside Glucose 133 mg/dL (74-106)
[2024-04-09] MEDS: Levothyroxine 100 MCG Tablet PO (06:23)
[2024-04-09] MEDS: Acetaminophen 500 MG Tablet 1000 MG PO ×3 (06:23→21:05)
[2024-04-09] MEDS: Rivaroxaban 10 MG Tablet PO (06:23)
[2024-04-09 06:29] LABS: Anion Gap 5 (5-15); BUN 18 mg/dL (7-18); BUN/Creat Ratio 23.2 RATIO (10-20); Calcium,Total 9.1 mg/dL (8.5-10.1); Chloride 106 mmol/L (98-107); Creatinine, Serum 0.78 mg/dL (0.55-1.02); EST Glomerular Filtration Rate 78 mL/min (>60); Est Glom Filt Rate - Afr Amer 94 mL/min (>60); Estimated Creatinine Clearance 61.17 ml/min; Glucose 132 mg/dL (74-106); Potassium 3.6 mmol/L (3.5-5.1); Sodium Level 136 mmol/L (136-145)
[2024-04-09 06:33] VITALS: PULSE 74; RESP 18; O2SAT 99
--- NOTE | 2024-04-09 09:19 | NURSING ---
Order for 2 units blood d/t hgb 7.1 Resident not symptomatic with therapy eval. Will plan on transfusing at the infusion center Friday04/12/24 @0830 unless becomes symptomatic. Type and cross ordered for 04/11/24.
[2024-04-09] MEDS: Senna/Docusate Sodium 1 Tablet 2 TABLET PO ×2 (10:05→21:05)
[2024-04-09] MEDS: Topiramate 25 MG Tablet PO ×2 (10:06→21:06)
[2024-04-09] MEDS: Lisinopril 5 MG Tablet PO (10:06)
[2024-04-09] MEDS: metFORMIN (XR) 500 MG Tablet 1000 MG PO ×2 (10:06→16:50)
[2024-04-09] MEDS: Calcium Carb/Vitamin D 1 TABLET Tablet PO ×2 (10:06→21:05)
[2024-04-09] MEDS: Sucralfate 1 GM Tablet PO ×3 (10:06→21:06)
[2024-04-09] MEDS: 0.9% Saline Lock 10 ML Syringe IV ×2 (10:07→21:09)
[2024-04-09] MEDS: Tuberculin,Purif.prot.deriv. 50 TU/ML Vial 0.1 ML ID (10:11)
[2024-04-09] MEDS: oxyCODONE 5 MG Tablet PO (10:21)
--- NOTE | 2024-04-09 11:24 | NURSING ---
[employer] Note; Activity Asset: Tylor Campo is independent in her choice of daily activities. She enjoys her garden and being outside. While her she has her books, smartphone, tv and restoration family and friends will visits. She welcomes visits w/the tube rebuilder and therapy dog when available. Staff will remind her of weekly activities, encourage social activities and respect her right to say no.
--- NOTE | 2024-04-09 11:28 | NURSING ---
Pt had positive for TB back in grade school has not been tested since. Administered TB test Per order.
[2024-04-09 11:55] LABS: Bedside Glucose 143 mg/dL (74-106)
[2024-04-09 16:00] VITALS: BP 130/48; PULSE 79; RESP 16; TEMP 36.2; O2SAT 97
--- NOTE | 2024-04-09 16:06 | PCM.PN.DRR ---
Documented by User: Angelique Mondragon 04/09/24 16:30 TCU RX Drug Regimen Review Subjective/Objective Subjective/Objective Subjective: TCU Admission. 68 YOF presented to outside ER with right hip pain after a fall. Hospitalized for right hip fracure, underwent right hip ORIF short IM gamma nail 04/03/[address] Raymond Monzon. Admitted to TCU with debility for strengthening and rehabilitation. Objective: Allergies coconut Adverse Reaction (Severe, Verified 03/02/24 09:30) Hives Penicillins Adverse Reaction (Severe, Verified 03/02/24 09:30) Hives bee venom protein (honey bee) Adverse Reaction (Intermediate, Verified 03/02/24 09:30) Hives localized reaction; swelling/reddness Current Medications Generic Name Dose Route Start Last Admin Trade Name Freq PRN Reason Stop Dose Admin Acetaminophen 1,000 mg 04/08/24 22:00 04/09/24 13:48 Acetaminophen 500 Mg Tablet PO 1,000 mg Q8 CHET Administration Amitriptyline HCl 50 mg 04/08/24 22:00 04/08/24 21:19 Amitriptyline 25 Mg Tablet PO 50 mg QHS CHET Administration Atorvastatin Calcium 40 mg 04/08/24 21:00 04/08/24 21:18 Atorvastatin Calcium 40 Mg Tablet PO 40 mg QPM CHET Administration Calcium/Vitamin D 1 tablet 04/08/24 22:00 04/09/24 10:06 Calcium Carb/Vitamin D 1 Tablet Tablet PO 1 tablet BID CHET Administration Letrozole 2.5 mg 04/09/24 10:00 04/09/24 10:06 Letrozole 2.5 Mg Tablet PO 2.5 mg DAILY CHET Administration Levothyroxine Sodium 100 mcg 04/09/24 06:00 04/09/24 06:23 Levothyroxine 100 Mcg Tablet PO 100 mcg DAILY@0600 CHET Administration Lisinopril 5 mg 04/09/24 10:00 04/09/24 10:06 Lisinopril 5 Mg Tablet PO 5 mg DAILY CHET Administration Protocol Magnesium Citrate 300 ml 04/08/24 20:45 Magnesium Citrate 300 Ml PO DAILY PRN Constipation Metformin HCl 1,000 mg 04/09/24 08:00 04/09/24 10:06 Metformin (Xr) 500 Mg Tablet PO 1,000 mg BIDCM CHET Administration Nicotine 21 mg 04/09/24 10:00 04/09/24 10:05 Nicotine 21 Mg Patch TD 21 mg DAILY CHET Administration Oxycodone HCl 5 mg 04/08/24 19:25 04/09/24 10:21 Oxycodone 5 Mg Tablet PO 04/10/24 19:26 5 mg Q4H PRN PRN Administration Pain Score 4-10 Pantoprazole Sodium 40 mg 04/08/24 22:00 04/08/24 21:19 Pantoprazole Sodium 40 Mg Tablet PO 40 mg QHS CHET Administration Rivaroxaban 10 mg 04/09/24 06:00 04/09/24 06:23 Rivaroxaban 10 Mg Tablet PO 05/09/24 06:01 10 mg DAILY@0600 CHET Administration Senna/Docusate Sodium 2 tablet 04/08/24 22:00 04/09/24 10:05 Senna/Docusate Sodium 1 Tablet PO 2 tablet BID CHET Administration Sodium Chloride 10 - 40 ml 04/08/24 23:44 04/09/24 10:07 0.9% Saline Lock 10 Ml Syringe IV 10 ml UD PRN Administration SALINE FLUSH Sucralfate 1 gm 04/09/24 11:00 04/09/24 10:06 Sucralfate 1 Gm Tablet PO 1 gm TID@1100,1600,2200 CHET Administration Topiramate 25 mg 04/08/24 22:00 04/09/24 10:06 Topiramate 25 Mg Tablet PO 25 mg BID CHET Administration Tuberculin PPD 0.1 ml 04/16/24 10:00 Tuberculin,Purif.Prot.Deriv. 50 Tu/Ml Vial ID 04/16/24 10:01 X1 ONE Problem List Hypothyroidism (Acute) Essential (primary) hypertension (Acute) Migraine headache (Acute) Vitamin D deficiency (Acute) Closed right hip fracture (Acute) Debility (Acute) History of breast cancer (Acute) Diabetes (Acute) Hyperlipidemia (Acute) GERD (gastroesophageal reflux disease) (Acute) Vital Signs Temp Pulse Resp BP Pulse Ox O2 Del Method 98.2 F 74 18 143/60 H 99 Room Air 04/08/24 21:05 04/09/24 06:33 04/09/24 06:33 04/08/24 21:05 04/09/24 06:33 04/09/24 06:33 Oxygen Delivery Method Room Air Weight: 65.998 kg Body Mass Index (BMI) 25.0 Sodium 136 mmol/L (136-145) 04/09/24 05:12 Potassium 3.6 mmol/L (3.5-5.1) 04/09/24 05:12 Chloride 106 mmol/L (98-107) 04/09/24 05:12 Carbon Dioxide 25.0 mmol/L (21.0-32.0) 04/09/24 05:12 Anion Gap 5 (5-15) 04/09/24 05:12 BUN 18 mg/dL (7-18) 04/09/24 05:12 Creatinine 0.78 mg/dL (0.55-1.02) 04/09/24 05:12 Est GFR (MDRD) Af Amer 94 mL/min (>60) 04/09/24 05:12 Est GFR (MDRD) Non-Af 78 mL/min (>60) 04/09/24 05:12 BUN/Creatinine Ratio 23.2 RATIO (10-20) H 04/09/24 05:12 Glucose 132 mg/dL (74-106) H 04/09/24 05:12 Assessment/Plan: 1. Pain: acetaminophen 1000mg PO Q8 and oxycodone 5mg PO Q4H PRN pain 4-10 thru 04/10/24. Resident has had 2 doses of oxycodone for pain scores of 6 and 7 in the hip. Please continue to monitor for increased pain, PRN usage, constipation, respiratory depression and falls (Semaj). 2. Bowel: senna/docusate 2T PO BID and magnesium citrate 300mL PO daily PRN constipation. Resident has not had any PRN doses. Please continue to monitor for constipation and PRN usage. Last documented bowel movement was 04/08. 3. DVT prophylaxis: rivaroxaban 10mg PO daily thru 05/09/24. Please continue to monitor for S/S of bleeding/DVT and hemoglobin (last 7.1g/dL). 4. History of breast cancer: letrozole 2.5mg PO daily. Please continue to monitor lipid panel, angina, weight gain, muscle pain, fractures. 5. Hyperlipidemia: atorvastatin 40mg PO QPM. Please continue to monitor lipid panel (last 03/18/24), LFTs (last 04/02/24) and muscle pain. 6. Hypothyroidism: levothyroxine 100mcg PO daily. Please continue to monitor for TSH (last 04/03/24 WNL) and S/S of hypo/hyperthyroidism. 7. Hypertension: lisinopril 5mg PO daily. Please continue to monitor BP (last 143/60), potassium (last 3.6mmol/L), renal function and cough. 8. Diabetes mellitus II: metformin XR 1000mg PO BIDCM. Please continue to monitor hemoglobin A1c (last 5.7% 04/03/24), glucose (last 143mg/dl), diarrhea and S/S of hypoglycemia. 9. GERD: pantoprazole 40mg PO QHS and sucralfate 1gm PO TID. Please continue to monitor for S/S of GERD, diarrhea (BEERs), gas, nausea. 10. Tobacco dependence: nicotine patch 21mg topical daily. Please continue to monitor for nicotine cravings, rash, HR and vivid dreams. 11. Calcium deficiency: calcium/vitamin D 1T PO BID. Please continue to monitor calcium (last 9.1mg/dL) and vitamin D (last 04/02/24). Assessment/Plan for indications treated with psychotropic medications: 1. Migraines: topiramate 25mg PO BID, amitriptyline 50mg PO QHS. Please see physician note regarding GDR. Please continue to monitor for migraines, sodium (last 136mmol/L), dementia/delirium (BEERs), falls/fractures (BEERs), syncope (BEERs) and anticholinergic side effects. Medical chart and medication regimen reviewed. The following medication irregularities or issues were identified: None Documented by User: Dr. Sergei Emery MD 04/09/24 16:11 TCU RX Drug Regimen Review Date Date of Note: 04/09/24 Provider Comments Provider responsibility Provider Comments to Recommendations by Pharmacy Agree
--- NOTE | 2024-04-09 16:21 | CASEMGMT ---
Social Work SW met with patient to complete initial assessment. Introduced self and role. Verified contacts. Discussed code status and pt wishes to be a DNR-CCA, no intubation. Nursing notified. Educated to [facility] insurance with NRD 04/12 and continued stay is not guaranteed with each review. Pt's goal is to return home with dtr at [facility]. Pt expressed that she does not want dtr listed as a contact. 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 Relies on pt to drive her to work. Currently, friends are driving dtr to work. Pt has no other local support. Brother and sister live out of state. Pt is concerned with being able to return to work and driving immediately after DC. Pt is currently PWB RLE. SW to assist with resources and DC planning. Kira Ramirez, MEDICAL STAFF PHYSICIAN LOADMASTER
[2024-04-09] MEDS: Pantoprazole Sodium 40 MG Tablet PO (21:05)
[2024-04-09] MEDS: Amitriptyline 25 MG Tablet 50 MG PO (21:05)
[2024-04-09] MEDS: Atorvastatin Calcium 40 MG Tablet PO (21:05)
[2024-04-10] MEDS: Levothyroxine 100 MCG Tablet PO (06:59)
[2024-04-10] MEDS: oxyCODONE 5 MG Tablet PO ×2 (06:59→14:42)
[2024-04-10] MEDS: Rivaroxaban 10 MG Tablet PO (06:59)
[2024-04-10] MEDS: Acetaminophen 500 MG Tablet 1000 MG PO ×3 (07:00→21:05)
[2024-04-10 09:05] VITALS: BP 123/50; PULSE 84; RESP 16; TEMP 36.5; O2SAT 98
[2024-04-10] MEDS: Topiramate 25 MG Tablet PO ×2 (09:11→21:05)
[2024-04-10] MEDS: Calcium Carb/Vitamin D 1 TABLET Tablet PO ×2 (09:11→21:05)
[2024-04-10] MEDS: metFORMIN (XR) 500 MG Tablet 1000 MG PO ×2 (09:11→17:42)
[2024-04-10] MEDS: Senna/Docusate Sodium 1 Tablet 2 TABLET PO ×2 (09:11→21:05)
[2024-04-10] MEDS: Lisinopril 5 MG Tablet PO (09:11)
[2024-04-10] MEDS: Sucralfate 1 GM Tablet PO (10:49)
[2024-04-10] MEDS: 0.9% Saline Lock 10 ML Syringe IV ×2 (14:43→21:57)
[2024-04-10 16:47] LABS: Bedside Glucose 112 mg/dL (74-106)
[2024-04-10 21:00] VITALS: PULSE 78; RESP 17; O2SAT 98
[2024-04-10] MEDS: Amitriptyline 25 MG Tablet 50 MG PO (21:05)
[2024-04-10] MEDS: Pantoprazole Sodium 40 MG Tablet PO (21:05)
[2024-04-10] MEDS: Atorvastatin Calcium 40 MG Tablet PO (21:06)
[2024-04-11] MEDS: Rivaroxaban 10 MG Tablet PO (05:45)
[2024-04-11] MEDS: Acetaminophen 500 MG Tablet 1000 MG PO ×3 (05:46→21:10)
[2024-04-11] MEDS: Levothyroxine 100 MCG Tablet PO (05:46)
[2024-04-11 05:53] VITALS: PULSE 73; RESP 18
[2024-04-11 09:51] VITALS: BP 126/50; PULSE 72; RESP 16; TEMP 36.4; O2SAT 97
[2024-04-11] MEDS: oxyCODONE 5 MG Tablet PO ×2 (09:53→15:08)
[2024-04-11] MEDS: Calcium Carb/Vitamin D 1 TABLET Tablet PO ×2 (09:54→21:10)
[2024-04-11] MEDS: Topiramate 25 MG Tablet PO ×2 (09:54→21:10)
[2024-04-11] MEDS: metFORMIN (XR) 500 MG Tablet 1000 MG PO ×2 (09:54→18:08)
[2024-04-11] MEDS: Lisinopril 5 MG Tablet PO (09:54)
[2024-04-11] MEDS: Senna/Docusate Sodium 1 Tablet 2 TABLET PO ×2 (09:55→21:10)
[2024-04-11] MEDS: 0.9% Saline Lock 10 ML Syringe IV (09:58)
--- NOTE | 2024-04-11 14:40 | NURSING ---
dr otero notified of pt refusing carafate d/t causing nausea. new order to Discontinue per pt request
[2024-04-11 16:27] LABS: Bedside Glucose 119 mg/dL (74-106)
[2024-04-11] MEDS: Atorvastatin Calcium 40 MG Tablet PO (21:10)
[2024-04-11] MEDS: Pantoprazole Sodium 40 MG Tablet PO (21:10)
[2024-04-11] MEDS: Amitriptyline 25 MG Tablet 50 MG PO (21:11)
[2024-04-12] MEDS: Levothyroxine 100 MCG Tablet PO (06:02)
[2024-04-12] MEDS: Rivaroxaban 10 MG Tablet PO (06:03)
[2024-04-12] MEDS: Acetaminophen 500 MG Tablet 1000 MG PO ×3 (06:03→21:52)
[2024-04-12 08:07] VITALS: BP 124/59; PULSE 91; TEMP 36.5; O2SAT 95
[2024-04-12] MEDS: metFORMIN (XR) 500 MG Tablet 1000 MG PO ×2 (08:11→17:48)
[2024-04-12] MEDS: Senna/Docusate Sodium 1 Tablet 2 TABLET PO ×2 (08:12→21:54)
[2024-04-12] MEDS: Calcium Carb/Vitamin D 1 TABLET Tablet PO ×2 (08:12→21:53)
[2024-04-12] MEDS: Topiramate 25 MG Tablet PO ×2 (08:13→21:54)
[2024-04-12] MEDS: Lisinopril 5 MG Tablet PO (08:13)
[2024-04-12 08:53] VITALS: BP 139/67; PULSE 78; RESP 16; TEMP 36.4; O2SAT 100; BMI 24.5
[2024-04-12] MEDS: 0.9% Saline Lock 10 ML Syringe IV ×2 (08:56→12:42)
[2024-04-12 09:15] VITALS: BP 123/38; PULSE 79; RESP 16; TEMP 36.4
[2024-04-12 10:15] VITALS: BP 131/47; PULSE 73; RESP 16; TEMP 36.4; O2SAT 100
[2024-04-12 11:03] VITALS: BP 135/47; PULSE 73; RESP 14; TEMP 36.1; O2SAT 100
[2024-04-12 12:03] VITALS: BP 137/50; PULSE 78; RESP 16; TEMP 36.3; O2SAT 100
[2024-04-12] MEDS: Furosemide 20 MG/2 ML VIAL IV (12:39)
[2024-04-12 16:44] LABS: Bedside Glucose 133 mg/dL (74-106)
[2024-04-12] MEDS: Amitriptyline 25 MG Tablet 50 MG PO (21:53)
[2024-04-12] MEDS: Atorvastatin Calcium 40 MG Tablet PO (21:53)
[2024-04-12] MEDS: Pantoprazole Sodium 40 MG Tablet PO (21:55)
[2024-04-13] MEDS: Levothyroxine 100 MCG Tablet PO (06:12)
[2024-04-13] MEDS: Acetaminophen 500 MG Tablet 1000 MG PO ×3 (06:12→21:35)
[2024-04-13] MEDS: Rivaroxaban 10 MG Tablet PO (06:12)
--- NOTE | 2024-04-13 08:02 | NURSING ---
04/12/24- resident received 2 units of blood at infusion center, left the floor at 0825 via WC, returned around 1300. H&H ordered for 04/13/24.
[2024-04-13] MEDS: Senna/Docusate Sodium 1 Tablet 2 TABLET PO ×2 (09:38→21:36)
[2024-04-13] MEDS: Calcium Carb/Vitamin D 1 TABLET Tablet PO ×2 (09:38→21:37)
[2024-04-13] MEDS: Topiramate 25 MG Tablet PO ×2 (09:38→21:36)
[2024-04-13] MEDS: Lisinopril 5 MG Tablet PO (09:39)
[2024-04-13] MEDS: metFORMIN (XR) 500 MG Tablet 1000 MG PO ×2 (09:39→18:02)
--- NOTE | 2024-04-13 09:43 | NURSING ---
Addendum entered by Leatha Wallace 04/14/24 08:14: Resident unsure about finding transport. She agreed to have RN make appt and she would reach out to [facility]. Appt scheduled, resident provided date/time of appt and number to [facility]. Original Note: Discussed orthopedic f/u appt with resident yesterday, she was going to reach out to family/friends to see about transport. Followed-up with her today, said she will figure out a ride today, doesn't want appt scheduled until she knows who can take her in case they can only do certain days/times.
[2024-04-13 10:50] VITALS: BMI 26.1
[2024-04-13 11:40] VITALS: BP 131/58; PULSE 68; RESP 16; TEMP 36.8; O2SAT 98
[2024-04-13 15:05] LABS: Hematocrit 31.7 % (37-47); Hemoglobin 10.8 g/dL (12.0-15.0)
[2024-04-13 16:55] LABS: Bedside Glucose 94 mg/dL (74-106)
[2024-04-13] MEDS: Pantoprazole Sodium 40 MG Tablet PO (21:35)
[2024-04-13] MEDS: Atorvastatin Calcium 40 MG Tablet PO (21:37)
[2024-04-13] MEDS: Amitriptyline 25 MG Tablet 50 MG PO (21:37)
[2024-04-14] MEDS: Levothyroxine 100 MCG Tablet PO (05:49)
[2024-04-14] MEDS: Rivaroxaban 10 MG Tablet PO (05:49)
[2024-04-14] MEDS: Acetaminophen 500 MG Tablet 1000 MG PO ×3 (05:49→21:44)
[2024-04-14] MEDS: Lisinopril 5 MG Tablet PO (09:11)
[2024-04-14] MEDS: Senna/Docusate Sodium 1 Tablet 2 TABLET PO ×2 (09:11→21:44)
[2024-04-14] MEDS: Calcium Carb/Vitamin D 1 TABLET Tablet PO ×2 (09:11→21:44)
[2024-04-14] MEDS: Topiramate 25 MG Tablet PO ×2 (09:11→21:43)
[2024-04-14] MEDS: metFORMIN (XR) 500 MG Tablet 1000 MG PO ×2 (09:11→17:48)
[2024-04-14 09:48] VITALS: BP 123/52; PULSE 84
--- NOTE | 2024-04-14 10:27 | CASEMGMT ---
Plan of care meeting held today with pt present and pt's brother and sister on speaker phone. Therapy/general engineering teacher/activities provided updates on pt progress. VANESSA educated pt to [employer] Medicare benefit and that NRD is 04/15 and that continued stay is not guaranteed. VANESSA provided pt with written communication on insurance process and copay coverage during stay. Pt does not have DME and will likely need a walker, hip kit and a transfer shower bench. Pt and family notified that insurance will not pay for the shower bench and hip kit. PT lives at home with her daughter, but she is unable to provide any assistance and pt will need to be independent to return home. Pt will have driving restrictions when returning home and pt dgt is unable to drive as well. VANESSA provided transportation resources. VANESSA will continue to follow for discharge planning. Will continue with plan of care at this time. ROCCO Carr
--- NOTE | 2024-04-14 10:56 | NURSING ---
Notified that in care plan mtg resident saying she can't get to appt Friday. She states [facility] could do Friday or Friday. RN re-scheduled appt to 04/20/24 at 1515. Resident aware and will reach out to [facility] to schedule transport.
[2024-04-14 16:00] VITALS: BP 124/56; PULSE 74; RESP 18; TEMP 35.8; O2SAT 98
[2024-04-14 17:15] LABS: Bedside Glucose 93 mg/dL (74-106)
[2024-04-14] MEDS: Pantoprazole Sodium 40 MG Tablet PO (21:44)
[2024-04-14] MEDS: Atorvastatin Calcium 40 MG Tablet PO (21:44)
[2024-04-14] MEDS: Amitriptyline 25 MG Tablet 50 MG PO (21:45)
[2024-04-14 21:48] VITALS: RESP 16
[2024-04-15] MEDS: Rivaroxaban 10 MG Tablet PO (06:37)
[2024-04-15] MEDS: Acetaminophen 500 MG Tablet 1000 MG PO ×3 (06:37→21:00)
[2024-04-15] MEDS: Levothyroxine 100 MCG Tablet PO (06:37)
--- NOTE | 2024-04-15 08:59 | CASEMGMT ---
BIMS () and PHQ2 (0) interviews completed on this date for MDS assessment. SW stating frustration at brother as pt states brother called in and is insistent pt apply for Medicaid and is informing pt that she will go bankrupt from hospital stay. SW assured pt that health insurance will pay for stay in TCU. Pt states she has never applied for Medicaid before, has SSI income and income from employment which she is concerned she is not getting since she is not working while in the hospital. Pt states she does not have any savings. SW offered to consult [facility] to meet with pt to discuss Medicaid and pt is agreeable to this. Referral made to Bushra at [facility]. ROCCO Carr
[2024-04-15 09:37] VITALS: BP 132/51; PULSE 80; RESP 18; TEMP 36.6; O2SAT 99
[2024-04-15] MEDS: Calcium Carb/Vitamin D 1 TABLET Tablet PO ×2 (09:39→21:01)
[2024-04-15] MEDS: metFORMIN (XR) 500 MG Tablet 1000 MG PO ×2 (09:39→17:22)
[2024-04-15] MEDS: Lisinopril 5 MG Tablet PO (09:40)
[2024-04-15] MEDS: Topiramate 25 MG Tablet PO ×2 (09:40→21:01)
[2024-04-15 16:54] LABS: Bedside Glucose 88 mg/dL (74-106)
[2024-04-15] MEDS: Atorvastatin Calcium 40 MG Tablet PO (21:00)
[2024-04-15] MEDS: Pantoprazole Sodium 40 MG Tablet PO (21:00)
[2024-04-15] MEDS: Amitriptyline 25 MG Tablet 50 MG PO (21:00)
[2024-04-16 05:44] LABS: Absolute Lymphocyte Count 1.38 X10^3/uL (0.83-4.51); Absolute Neutrophil Count 5.1 X10^3/uL (2.0-7.7); Basophil# 0.04 X10^3/uL; Basophil% 0.5 % (0-1); Eosinophils% 2.7 % (0-5); Hemoglobin 10.5 g/dL (12.0-15.0); Lymphocyte # 1.38 X10^3/ul (0.83-4.51); Mean Corp Hgb Conc 32.8 g/dL (32-36); Mean Corpuscular Hgb 31.1 pg (27.0-32.0); Mean Corpuscular Volume 94.7 fL (81-99); Mean Platelet Vol. 8.4 fl (6.2-12.0); Monocyte# 0.53 X10^3/uL; Monocyte% 7.3 % (0-10); NRBC Flagged by Analyzer 0 % (0-5); Neutrophil # 5.08 X10^3/uL (2.7-7.7); Neutrophil % 69.8 % (47-70); Platelet Count 480 K/mm3 (150-450); RBC Distribution Width CV 15.1 % (11.6-14.6); RBC Distribution Width SD 51.5 fl (35.1-43.9); Red Blood Count 3.38 M/mm3 (4.2-5.4); White Blood Count 7.3 K/mm3 (4.4-11.0)
[2024-04-16] MEDS: Acetaminophen 500 MG Tablet 1000 MG PO ×3 (05:56→21:30)
[2024-04-16] MEDS: Rivaroxaban 10 MG Tablet PO (05:56)
[2024-04-16] MEDS: Levothyroxine 100 MCG Tablet PO (05:57)
[2024-04-16 06:07] LABS: Anion Gap 7 (5-15); BUN 18 mg/dL (7-18); BUN/Creat Ratio 23.9 RATIO (10-20); Calcium,Total 9.6 mg/dL (8.5-10.1); Chloride 106 mmol/L (98-107); Creatinine, Serum 0.75 mg/dL (0.55-1.02); EST Glomerular Filtration Rate 81 mL/min (>60); Est Glom Filt Rate - Afr Amer 97 mL/min (>60); Estimated Creatinine Clearance 62.39 ml/min; Glucose 91 mg/dL (74-106); Potassium 4.1 mmol/L (3.5-5.1); Sodium Level 135 mmol/L (136-145)
--- NOTE | 2024-04-16 07:27 | NURSING ---
patient c/o muscle spasms to legs. Written communication left for Dr. Emery
--- NOTE | 2024-04-16 09:03 | NURSING ---
Casino Supervisor Note; MDS for 04/15/2024 complete
[2024-04-16 10:00] VITALS: BP 118/57; PULSE 79; RESP 20; TEMP 36.7; O2SAT 97
--- NOTE | 2024-04-16 10:48 | CASEMGMT ---
Social Work Bushra from [facility] provided update to this worker that pt is active with [facility] Medicaid. Which is the [facility] that pays for pt's Medicare premium and is non-billable. Pt does not qualify for another type of Medicaid at this time. Bushra to follow up with pt to explain. Kira Ramirez, PAOLA COST ANALYST
[2024-04-16] MEDS: metFORMIN (XR) 500 MG Tablet 1000 MG PO ×2 (10:51→16:54)
[2024-04-16] MEDS: Calcium Carb/Vitamin D 1 TABLET Tablet PO ×2 (10:52→21:29)
[2024-04-16] MEDS: Topiramate 25 MG Tablet PO ×2 (10:52→21:33)
[2024-04-16] MEDS: Tuberculin,Purif.prot.deriv. 50 TU/ML Vial 0.1 ML ID (10:52)
[2024-04-16] MEDS: Lisinopril 5 MG Tablet PO (10:53)
[2024-04-16] MEDS: cycloBENZAPRine HCl 10 MG Tablet PO ×2 (11:06→21:32)
[2024-04-16 16:54] LABS: Bedside Glucose 103 mg/dL (74-106)
[2024-04-16] MEDS: Atorvastatin Calcium 40 MG Tablet PO (21:28)
[2024-04-16] MEDS: Pantoprazole Sodium 40 MG Tablet PO (21:29)
[2024-04-16] MEDS: Amitriptyline 25 MG Tablet 50 MG PO (21:29)
[2024-04-17] MEDS: Rivaroxaban 10 MG Tablet PO (05:32)
[2024-04-17] MEDS: Acetaminophen 500 MG Tablet 1000 MG PO ×3 (05:33→21:58)
[2024-04-17] MEDS: Levothyroxine 100 MCG Tablet PO (05:33)
[2024-04-17] MEDS: Calcium Carb/Vitamin D 1 TABLET Tablet PO ×2 (09:28→21:57)
[2024-04-17] MEDS: metFORMIN (XR) 500 MG Tablet 1000 MG PO ×2 (09:28→18:47)
[2024-04-17] MEDS: Topiramate 25 MG Tablet PO ×2 (09:28→21:58)
[2024-04-17] MEDS: Lisinopril 5 MG Tablet PO (09:28)
[2024-04-17 15:19] VITALS: BP 121/56; PULSE 73; RESP 18; TEMP 36.5; O2SAT 97
[2024-04-17 16:34] LABS: Bedside Glucose 127 mg/dL (74-106)
[2024-04-17] MEDS: Atorvastatin Calcium 40 MG Tablet PO (21:57)
[2024-04-17] MEDS: Amitriptyline 25 MG Tablet 50 MG PO (21:57)
[2024-04-17] MEDS: Pantoprazole Sodium 40 MG Tablet PO (21:58)
[2024-04-18] MEDS: Levothyroxine 100 MCG Tablet PO (06:08)
[2024-04-18] MEDS: Acetaminophen 500 MG Tablet 1000 MG PO ×3 (06:08→20:45)
[2024-04-18] MEDS: Rivaroxaban 10 MG Tablet PO (06:08)
[2024-04-18] MEDS: Topiramate 25 MG Tablet PO ×2 (09:08→20:45)
[2024-04-18] MEDS: Calcium Carb/Vitamin D 1 TABLET Tablet PO ×2 (09:08→20:45)
[2024-04-18] MEDS: Lisinopril 5 MG Tablet PO (09:08)
[2024-04-18] MEDS: metFORMIN (XR) 500 MG Tablet 1000 MG PO ×2 (09:08→17:31)
[2024-04-18 09:47] VITALS: BP 113/49; PULSE 79
[2024-04-18] MEDS: cycloBENZAPRine HCl 10 MG Tablet PO (13:28)
[2024-04-18 14:42] VITALS: BP 114/54; PULSE 81; RESP 14; TEMP 36.7; O2SAT 96
[2024-04-18 16:58] LABS: Bedside Glucose 82 mg/dL (74-106)
[2024-04-18] MEDS: Atorvastatin Calcium 40 MG Tablet PO (20:44)
[2024-04-18] MEDS: Amitriptyline 25 MG Tablet 50 MG PO (20:44)
[2024-04-18] MEDS: Pantoprazole Sodium 40 MG Tablet PO (20:45)
[2024-04-19] MEDS: Rivaroxaban 10 MG Tablet PO (05:51)
[2024-04-19] MEDS: Levothyroxine 100 MCG Tablet PO (05:51)
[2024-04-19] MEDS: Acetaminophen 500 MG Tablet 1000 MG PO ×3 (05:51→21:03)
[2024-04-19 10:56] VITALS: BP 115/49; PULSE 80; RESP 16; TEMP 36.3; O2SAT 96
[2024-04-19] MEDS: metFORMIN (XR) 500 MG Tablet 1000 MG PO ×2 (11:01→18:03)
[2024-04-19] MEDS: Lisinopril 5 MG Tablet PO (11:01)
[2024-04-19] MEDS: Topiramate 25 MG Tablet PO ×2 (11:02→21:00)
--- NOTE | 2024-04-19 13:05 | MDS.RN ---
Information for the MDS was obtained from review of the clinical record, interview of resident, staff, and direct observation of resident?s care.
[2024-04-19] MEDS: Calcium Carb/Vitamin D 1 TABLET Tablet PO ×2 (13:41→20:59)
[2024-04-19 16:38] LABS: Bedside Glucose 138 mg/dL (74-106)
[2024-04-19] MEDS: Atorvastatin Calcium 40 MG Tablet PO (20:58)
[2024-04-19] MEDS: Amitriptyline 25 MG Tablet 50 MG PO (20:58)
[2024-04-19] MEDS: Pantoprazole Sodium 40 MG Tablet PO (20:59)
[2024-04-20] MEDS: Rivaroxaban 10 MG Tablet PO (05:41)
[2024-04-20] MEDS: Acetaminophen 500 MG Tablet 1000 MG PO ×3 (05:41→21:19)
[2024-04-20] MEDS: Levothyroxine 100 MCG Tablet PO (05:41)
[2024-04-20] MEDS: Topiramate 25 MG Tablet PO ×2 (08:27→21:18)
[2024-04-20] MEDS: metFORMIN (XR) 500 MG Tablet PO ×2 (08:27→17:29)
[2024-04-20] MEDS: Lisinopril 5 MG Tablet PO (08:27)
[2024-04-20] MEDS: Calcium Carb/Vitamin D 1 TABLET Tablet PO ×2 (08:27→21:17)
[2024-04-20 08:30] VITALS: BP 127/52; PULSE 80
--- NOTE | 2024-04-20 14:42 | NURSING ---
Resident off unit to appt. via WC.
[2024-04-20 15:18] VITALS: BP 122/54; PULSE 83; RESP 16; TEMP 36.8; O2SAT 98
--- NOTE | 2024-04-20 16:51 | NURSING ---
Pt returned from appt at [facility]. New order for pt to transition to full WBAT and transition to Aspirin 81mg BID for 2 weeks and f/u with ortho in 4 weeks. Called office to clarify order d/t pt being on Xarelto until 05/09/24. Awaiting return call.
[2024-04-20 17:16] VITALS: BMI 56.0
[2024-04-20] MEDS: Atorvastatin Calcium 40 MG Tablet PO (21:16)
[2024-04-20] MEDS: Amitriptyline 25 MG Tablet 50 MG PO (21:17)
[2024-04-20] MEDS: Pantoprazole Sodium 40 MG Tablet PO (21:17)
[2024-04-20] MEDS: Senna/Docusate Sodium 1 Tablet 2 TABLET PO (21:18)
[2024-04-21] MEDS: Rivaroxaban 10 MG Tablet PO (06:22)
[2024-04-21] MEDS: Acetaminophen 500 MG Tablet 1000 MG PO ×3 (06:23→21:22)
[2024-04-21] MEDS: Levothyroxine 100 MCG Tablet PO (06:23)
[2024-04-21] MEDS: Lisinopril 5 MG Tablet PO (09:03)
[2024-04-21] MEDS: metFORMIN (XR) 500 MG Tablet PO ×2 (09:03→17:38)
[2024-04-21] MEDS: Calcium Carb/Vitamin D 1 TABLET Tablet PO ×2 (09:03→21:22)
[2024-04-21] MEDS: Senna/Docusate Sodium 1 Tablet 2 TABLET PO (09:04)
[2024-04-21] MEDS: Topiramate 25 MG Tablet PO ×2 (09:04→21:23)
[2024-04-21 13:03] VITALS: BMI 25.4
--- NOTE | 2024-04-21 13:18 | NURSING ---
Received phone call from [facility] regarding Aspirin. N.O. received to Discontinue Xarelto and Start Aspirin 81mg BID for 2 weeks. Order read back.
[2024-04-21 15:39] VITALS: BP 116/47; PULSE 77; RESP 16; TEMP 36.5; O2SAT 96
[2024-04-21] MEDS: cycloBENZAPRine HCl 10 MG Tablet PO (17:39)
[2024-04-21 19:04] LABS: Bedside Glucose 110 mg/dL (74-106)
[2024-04-21] MEDS: Amitriptyline 25 MG Tablet 50 MG PO (21:22)
[2024-04-21] MEDS: Pantoprazole Sodium 40 MG Tablet PO (21:22)
[2024-04-21] MEDS: Atorvastatin Calcium 40 MG Tablet PO (21:22)
[2024-04-21 22:00] VITALS: PULSE 71; RESP 16; O2SAT 97
[2024-04-22] MEDS: Levothyroxine 100 MCG Tablet PO (05:48)
[2024-04-22] MEDS: Acetaminophen 500 MG Tablet 1000 MG PO ×3 (05:48→21:19)
[2024-04-22] MEDS: metFORMIN (XR) 500 MG Tablet PO ×2 (08:03→17:21)
[2024-04-22] MEDS: Topiramate 25 MG Tablet PO ×2 (08:04→21:19)
[2024-04-22] MEDS: Aspirin 81 MG TAB.CHEW PO ×2 (08:04→21:19)
[2024-04-22] MEDS: Lisinopril 5 MG Tablet PO (08:05)
[2024-04-22] MEDS: Calcium Carb/Vitamin D 1 TABLET Tablet PO ×2 (08:05→21:19)
[2024-04-22 14:42] VITALS: BP 110/48; PULSE 74; RESP 17; TEMP 36.3; O2SAT 100
[2024-04-22 16:57] LABS: Bedside Glucose 99 mg/dL (74-106)
[2024-04-22 21:00] VITALS: PULSE 69; RESP 18; O2SAT 99
[2024-04-22] MEDS: Amitriptyline 25 MG Tablet 50 MG PO (21:19)
[2024-04-22] MEDS: Senna/Docusate Sodium 1 Tablet 2 TABLET PO (21:19)
[2024-04-22] MEDS: Pantoprazole Sodium 40 MG Tablet PO (21:19)
[2024-04-22] MEDS: Atorvastatin Calcium 40 MG Tablet PO (21:19)
[2024-04-23 05:55] LABS: Absolute Neutrophil Count 3.5 X10^3/uL (2.0-7.7); Basophil# 0.04 X10^3/uL; Basophil% 0.7 % (0-1); Eosinophil# 0.16 X10^3/uL; Eosinophils% 2.7 % (0-5); Hemoglobin 11.1 g/dL (12.0-15.0); Lymphocyte % 29.1 % (19-41); Mean Corp Hgb Conc 32.6 g/dL (32-36); Mean Corpuscular Hgb 31.6 pg (27.0-32.0); Mean Corpuscular Volume 96.9 fL (81-99); Mean Platelet Vol. 9.1 fl (6.2-12.0); Monocyte# 0.47 X10^3/uL; NRBC Flagged by Analyzer 0 % (0-5); Neutrophil # 3.45 X10^3/uL (2.7-7.7); Platelet Count 327 K/mm3 (150-450); RBC Distribution Width CV 14.9 % (11.6-14.6); Red Blood Count 3.51 M/mm3 (4.2-5.4); White Blood Count 5.9 K/mm3 (4.4-11.0)
[2024-04-23 06:22] LABS: Anion Gap 6 (5-15); BUN 17 mg/dL (7-18); BUN/Creat Ratio 18.5 RATIO (10-20); Calcium,Total 9.3 mg/dL (8.5-10.1); Chloride 106 mmol/L (98-107); Creatinine, Serum 0.92 mg/dL (0.55-1.02); EST Glomerular Filtration Rate 64 mL/min (>60); Est Glom Filt Rate - Afr Amer 78 mL/min (>60); Estimated Creatinine Clearance 53.65 ml/min; Glucose 92 mg/dL (74-106); Potassium 3.8 mmol/L (3.5-5.1); Sodium Level 138 mmol/L (136-145)
[2024-04-23] MEDS: Levothyroxine 100 MCG Tablet PO (06:35)
[2024-04-23] MEDS: Acetaminophen 500 MG Tablet 1000 MG PO ×3 (06:35→21:21)
[2024-04-23] MEDS: metFORMIN (XR) 500 MG Tablet PO ×2 (10:43→18:44)
[2024-04-23] MEDS: Aspirin 81 MG TAB.CHEW PO ×2 (10:43→21:22)
[2024-04-23] MEDS: Lisinopril 5 MG Tablet PO (10:44)
[2024-04-23] MEDS: Topiramate 25 MG Tablet PO ×2 (10:44→21:22)
[2024-04-23] MEDS: Calcium Carb/Vitamin D 1 TABLET Tablet PO ×2 (10:44→21:23)
[2024-04-23] MEDS: cycloBENZAPRine HCl 10 MG Tablet PO (10:46)
[2024-04-23 10:55] VITALS: BP 118/49; PULSE 71; RESP 16; TEMP 36.6; O2SAT 99
--- NOTE | 2024-04-23 13:35 | CASEMGMT ---
Addendum entered by Kira Ramirez 04/23/24 14:26: Pt prefers [facility]. SW phoned referral. Original Note: Social Work SW met with patient to discuss request for DC home. SW inquired about DC needs. Pt needs a FWW and skilled HHC. SW offered DC 04/26. Pt agreeable and will contact friend for transport home. SW provided pt with list of skilled HHC providers including quality and resource data via [employer] Guide. Pt to notify this worker of preferences. VANESSA sent referral to [facility] for FWW via [employer]Port. Plan: DC home 04/26, HHC PT/OT, FWW Kira Ramirez ORACLE WMS CONSULTANT SECURITY STRATEGIST
--- NOTE | 2024-04-23 14:47 | DS.PCM_ITS ---
Providers Date of Admission: 04/08/24 Primary Care Physician: Dr. Kannan Knowles MD Reason For Visit: RIGHT HIP FRACTURE Diagnosis Discharge Diagnosis (1) Debility: Status: Acute Code(s): R53.81 - Other malaise (2) Closed right hip fracture: Status: Acute Code(s): S72.001A - Fracture of unspecified part of neck of right femur, initial encounter for closed fracture (3) Hyperlipidemia: Status: Acute Code(s): E78.5 - Hyperlipidemia, unspecified (4) Vitamin D deficiency: Status: Acute Code(s): E55.9 - Vitamin D deficiency, unspecified (5) Diabetes: Status: Acute Code(s): E11.9 - Type 2 diabetes mellitus without complications (6) GERD (gastroesophageal reflux disease): Status: Acute Code(s): K21.9 - Gastro-esophageal reflux disease without esophagitis (7) Migraine headache: Status: Inactive Code(s): G43.909 - Migraine, unspecified, not intractable, without status migrainosus (8) Essential (primary) hypertension: Status: Acute Code(s): I10 - Essential (primary) hypertension (9) History of breast cancer: Status: Acute Code(s): Z85.3 - Personal history of malignant neoplasm of breast (10) Hypothyroidism: Status: Acute Code(s): E03.9 - Hypothyroidism, unspecified Plan 68 year old female with below past medical history hospitalized for right hip fracure, underwent right hip ORIF short IM gamma nail 04/03/[address] Raymond Monzon, admitted to TCU with debility, here for rehabilitation, strengthening, prior to discharge home with children. * Debility - PT/OT. * Pain - Tylenol 1000mg q8, Oxycodone 5mg q4 prn pain (4-10) thru 04/10/2024. * Bowel - senna/colace 2 tablets bid, Magnesium citrate 300mL po daily prn. * Adult immunization - Administer pneumonia vaccine, covid vaccine, flu vaccine as appropriate. * DVT prophylaxis - Xarelto 10mg daily thru 05/09/2024. * Migraines - Topamax 25mg bid, Elavil 50mg qhs, stable chronic meterman use, GDR not recommended. * Hyperlipidemia - Atorvastatin 40mg qpm. * Calcium deficiency - Calcium D 1 tablet bid. * History breast cancer - Letrozole 2.5mg daily. * Hypothyroidism - Levothyroxine 100mcg daily. * Hypertension - Lisinopril 5mg daily. * Diabetes Mellitus II - Metformin 1000mg bidcm. * Tobacco dependence - Nicoderm 21mg td daily. * GERD - Pantoprazole 40mg qhs, Sucralfate 1gm tid. * Acute postoperative anemia - Hemoglobin 7.1, transfuse 2 units PRBC. Medications at Discharge Home Medications simvastatin 80 mg tablet 80 mg PO QPM CHOLESTEROL 04/07/17 pantoprazole 40 mg tablet,delayed release 40 mg PO QHS STOMACH 10/19/19 amitriptyline 25 mg tablet 50 mg PO QHS Migraines 06/15/21 sucralfate 1 gram tablet 1 g PO TID STOMACH #21 tabs 06/20/21 lisinopril 5 mg tablet 5 mg PO DAILY BLOOD PRESSU #30 tabs 12/19/22 letrozole 2.5 mg tablet 2.5 mg PO DAILY CANCER #90 TABLETS 08/07/23 levothyroxine 100 mcg capsule 100 mcg PO DAILY THYROID 03/02/24 topiramate 25 mg tablet 25 mg PO BID MIGRAINES 04/02/24 acetaminophen 500 mg tablet 1,000 mg (2 x 500 mg) PO Q8 pain #1 TAB 04/08/24 calcium 500 mg (as carbonate)-vitamin D3 5 mcg (200 unit) tablet (Oyster Shell Calcium-Vitamin D3) 1 tab PO 2XD supplement #0 tabs 04/08/24 aspirin 81 mg chewable tablet 81 mg PO BID 13 days #0 tabs 04/23/24 cyclobenzaprine 10 mg tablet 10 mg PO TID PRN PRN Muscle Spasm 30 days #90 tabs 04/23/24 metformin 500 mg tablet,extended release 24 hr 500 mg PO BIDCM 30 days #60 tabs 04/23/24 nicotine 21 mg/24 hr daily transdermal patch 21 mg transdermal DAILY 30 days #30 ea 04/23/24 Hospital Course Operations - (See below.) Procedures None Summary of Care Provided Minutes Spent on Discharge: 35 Hospital Course: 68 year old female with below past medical history hospitalized for right hip fracure, underwent right hip ORIF short IM gamma nail 04/03/[address] Raymond Monzon, admitted to TCU with debility, here for rehabilitation, strengthening, prior to discharge home with children. Discharge home with daughter 04/26/2024, [facility] PT/OT, FWW. FWW: Patient is unsafe to use a cane and requires a walker for ambulation in the home and the community. Physical Exam Const alert General Appearance: cooperative HEENT normocephalic Eyes PERRL and EOMs intact bilaterally Neck supple, no JVD and no carotid bruits Resp normal respiratory effort, normal air movement and clear to auscultation bilaterally Cardio regular rate and regular rhythm GI normal to inspection, nondistended, normoactive bowel sounds, non-tender and non-distended Extremity normal capillary refill General Extremity: Negative for edema Skin no rashes or lesions noted General Skin Exam: no breakdown Psych affect normal Appearance: appropriate Weight / BMI Weight Weight: 67.27 kg Body Mass Index (BMI) 25.4 ABG / Lab / Microbiology Data 04/23/24 05:17 04/23/24 05:17 Laboratory: Laboratory Results - last 24 hr 04/22/24 16:39: POC Glucose 99 04/23/24 05:17: WBC 5.9, RBC 3.51 L, Hgb 11.1 L, Hct 34.0 L, MCV 96.9, MCH 31.6, MCHC 32.6, RDW Std Deviation 53.0 H, RDW Coeff of David 14.9 H, Plt Count 327, MPV 9.1, Immature Gran % (Auto) 0.500, Neut % (Auto) 59.0, Lymph % (Auto) 29.1, [place] % (Auto) 8.0, Eos % (Auto) 2.7, Baso % (Auto) 0.7, Absolute Neuts (auto) 3.5, Absolute Lymphs (auto) 1.70, Nucleated RBC % 0, Sodium 138, Potassium 3.8, Chloride 106, Carbon Dioxide 26.0, Anion Gap 6, BUN 17, Creatinine 0.92, Estim Creat Clear Calc 53.65, Est GFR (MDRD) Af Amer 78, Est GFR (MDRD) Non-Af 64, BUN/Creatinine Ratio 18.5, Glucose 92, Calcium 9.3 D/C Instructions Discharge Diet: No restrictions Discharge Activity: Return to Normal Activity, May Shower and Use Walker Weight Bearing Status: Weight bearing as tolerated Call your doctor if you observe: Fever of 101 or Higher, Inability to urinate, Inability to have a bowel movement, Shortness of breath, Dizziness, Fainting spells, Swelling in the ankles, Chest pain and Uncontrolled pain DC O2, CPAP, BIPAP Needs Home O2 Discharge instructions: No Additional Instructions: Discharge home with daughter 04/26/2024, [facility] PT/OT, FWW. FWW: Patient is unsafe to use a cane and requires a walker for ambulation in the home and the community. Please Follow Up With: Raymond Monzon When: As scheduled. Meaningful Use Info Meaningful Use Meaningful Use Diagnoses (Choose all that apply): None applicable Ischemic Stroke Statin Dosing Therapy Reference: STATIN DOSE THERAPY REFERENCE: * Patients > 75 years receive moderate or high dose statin therapy. * Patients 75 years or YOUNGER should receive HIGH intensity statin dose unless contraindicated. You will be required to document reason for non-treatment if statin daily dose does not meet guidelines. HIGH DOSE STATIN THERAPY DAILY Atorvastatin > than or = to 40 mg Rosuvastatin > than or = to 20 mg Amlodipine + Atorvastatin > than or = to 2.5/40 mg Ezetimibe + Simvastatin 10/80 mg Simvastatin 80mg Discharge Plan Admission Admit Date/Time: 04/08/24 18:53 Primary Reason for Your Visit: Debility. Attending Provider: Sergei Emery Chi Primary Care Provider: Kannan Knowles Instructions Additional Instructions / Restrictions: Discharge home with daughter 04/26/2024, [facility] PT/OT, FWW. FWW: Patient is unsafe to use a cane and requires a walker for ambulation in the home and the community. Discharge Orders/Prescriptions Prescriptions: New cyclobenzaprine 10 mg Tablet 10 mg PO TID PRN PRN (Reason: Muscle Spasm) 30 Days Qty: 90 0RF nicotine 21 mg/24 hr Patch 24 Hour 21 mg transdermal DAILY 30 Days Qty: 30 0RF aspirin 81 mg Tablet,Chewable 81 mg PO BID 13 Days Qty: 0 0RF metformin 500 mg Tablet Extended Release 24 Hr 500 mg PO BIDCM 30 Days Qty: 60 0RF Continued simvastatin 80 mg tablet 80 mg PO QPM levothyroxine 100 mcg capsule 100 mcg PO DAILY pantoprazole 40 MG tablet,delayed release (DR/EC) 40 mg PO QHS amitriptyline 25 mg tablet 50 mg PO QHS Patient Comments: take 1 tablet by mouth once daily sucralfate 1 gram tablet 1 g PO TID Qty: 21 1RF Rx Instructions: Take 1 hour before lunch, dinner, at bedtime lisinopril 5 mg tablet 5 mg PO DAILY Qty: 30 0RF topiramate 25 mg tablet 25 mg PO BID acetaminophen 500 mg Tablet 1,000 mg PO Q8 Qty: 1 0RF calcium carbonate-vitamin D3 [Oyster Shell Calcium-Vit D3] 500 mg-5 mcg (200 unit) Tablet 1 tab PO 2XD Qty: 0 0RF letrozole 2.5 mg tablet 2.5 mg PO DAILY Qty: 90 3RF Discontinued metformin 500 MG tablet extended release 24 hr 1,000 mg PO BID nicotine 21 mg/24 hr Patch 24 Hour 21 mg transdermal DAILY Qty: 0 0RF docusate sodium 100 mg Capsule 100 mg PO BID Qty: 0 0RF oxycodone 5 mg Tablet 5 mg PO Q4H PRN PRN (Reason: Pain Score 4-10) 2 Days Qty: 10 0RF insulin lispro [Humalog KwikPen Insulin] 100 unit/mL Insulin Pen See Protocol subcut ACHS Qty: 0 0RF Protocol: 4. Sliding Scale Insulin High-Med Dosing Condition: 150-199 mg/dl = 2 units Condition: 200-259 mg/dl = 4 units Condition: 260-324 mg/dl = 6 units Condition: 325-374 mg/dl = 8 units Condition: 375-409 mg/dl = 10 units Condition: 410-449 mg/dl = 11 units Condition: Greater than 449 call physician Protocol Text: Suggested for: - Patients on Total Daily Insulin Dose of 56-80 units - Patient who are known to be insulin resistant or septic HIGH MEDIUM DOSING ALGORITHM sennosides-docusate sodium [Stimulant Laxative Plus] 8.6-50 mg Tablet 2 tab PO BID PRN PRN (Reason: Constipation) Qty: 0 0RF Xarelto 10 mg Tablet 10 mg PO DAILY@0600 Qty: 0 0RF Rx Instructions: Administer for 30 days starting 04/09/2024 Referrals / Follow Up: Kannan Knowles MD [Primary Care Provider] - (pt will make own appt) Disposition Disposition (needs filled in before D/C Order can be placed): Home Health Service
[2024-04-23 16:38] LABS: Bedside Glucose 99 mg/dL (74-106)
[2024-04-23] MEDS: Amitriptyline 25 MG Tablet 50 MG PO (21:21)
[2024-04-23] MEDS: Atorvastatin Calcium 40 MG Tablet PO (21:23)
[2024-04-23] MEDS: Pantoprazole Sodium 40 MG Tablet PO (21:23)
[2024-04-24] MEDS: Levothyroxine 100 MCG Tablet PO (05:54)
[2024-04-24] MEDS: Acetaminophen 500 MG Tablet 1000 MG PO ×3 (05:54→22:32)
[2024-04-24] MEDS: Lisinopril 5 MG Tablet PO (07:48)
[2024-04-24] MEDS: Senna/Docusate Sodium 1 Tablet 2 TABLET PO ×2 (07:48→22:33)
[2024-04-24] MEDS: Calcium Carb/Vitamin D 1 TABLET Tablet PO ×2 (07:48→22:33)
[2024-04-24] MEDS: Aspirin 81 MG TAB.CHEW PO ×2 (07:49→22:34)
[2024-04-24] MEDS: metFORMIN (XR) 500 MG Tablet PO ×2 (07:49→16:48)
[2024-04-24] MEDS: Topiramate 25 MG Tablet PO ×2 (07:49→22:33)
[2024-04-24] MEDS: cycloBENZAPRine HCl 10 MG Tablet PO (12:05)
[2024-04-24 16:00] VITALS: BP 107/64; PULSE 85; RESP 18; TEMP 36.5; O2SAT 99
[2024-04-24 16:41] LABS: Bedside Glucose 89 mg/dL (74-106)
[2024-04-24] MEDS: Pantoprazole Sodium 40 MG Tablet PO (22:33)
[2024-04-24] MEDS: Amitriptyline 25 MG Tablet 50 MG PO (22:33)
[2024-04-24] MEDS: Atorvastatin Calcium 40 MG Tablet PO (22:33)
[2024-04-25] MEDS: Acetaminophen 500 MG Tablet 1000 MG PO ×3 (05:17→20:53)
[2024-04-25] MEDS: Levothyroxine 100 MCG Tablet PO (05:17)
[2024-04-25] MEDS: Lisinopril 5 MG Tablet PO (10:21)
[2024-04-25] MEDS: metFORMIN (XR) 500 MG Tablet PO ×2 (10:21→17:51)
[2024-04-25] MEDS: Senna/Docusate Sodium 1 Tablet 2 TABLET PO ×2 (10:21→20:54)
[2024-04-25] MEDS: Aspirin 81 MG TAB.CHEW PO ×2 (10:21→20:54)
[2024-04-25] MEDS: Calcium Carb/Vitamin D 1 TABLET Tablet PO ×2 (10:21→20:52)
[2024-04-25] MEDS: Topiramate 25 MG Tablet PO ×2 (10:22→20:54)
[2024-04-25 11:56] VITALS: BP 122/46; PULSE 81; RESP 18; TEMP 36.5; O2SAT 99
[2024-04-25 16:51] LABS: Bedside Glucose 98 mg/dL (74-106)
[2024-04-25] MEDS: Amitriptyline 25 MG Tablet 50 MG PO (20:53)
[2024-04-25] MEDS: Pantoprazole Sodium 40 MG Tablet PO (20:53)
[2024-04-25] MEDS: Atorvastatin Calcium 40 MG Tablet PO (20:54)
[2024-04-26] MEDS: Levothyroxine 100 MCG Tablet PO (05:07)
[2024-04-26] MEDS: Acetaminophen 500 MG Tablet 1000 MG PO ×2 (05:07→14:02)
[2024-04-26] MEDS: metFORMIN (XR) 500 MG Tablet PO ×2 (09:20→16:56)
[2024-04-26] MEDS: Aspirin 81 MG TAB.CHEW PO (09:20)
[2024-04-26] MEDS: Topiramate 25 MG Tablet PO (09:21)
[2024-04-26] MEDS: Lisinopril 5 MG Tablet PO (09:21)
[2024-04-26] MEDS: Calcium Carb/Vitamin D 1 TABLET Tablet PO (09:21)
[2024-04-26] MEDS: Senna/Docusate Sodium 1 Tablet 2 TABLET PO (09:22)
--- NOTE | 2024-04-26 09:31 | CASEMGMT ---
Social Work SW completed BIMS () and PHQ-2 () for MDS assessment. Kira Ramirez DEVELOPMENT ARCHITECT SOIL SURVEYOR
[2024-04-26 14:15] VITALS: BP 128/50; PULSE 80; RESP 16; TEMP 36; O2SAT 99
[2024-04-26 14:53] VITALS: BP 119/46; PULSE 80; RESP 16; TEMP 37.1; O2SAT 98
[2024-04-26 16:27] LABS: Bedside Glucose 124 mg/dL (74-106)
== END 2024-04-26 18:10 | disposition home health service (06) | DRG 560 ==
PROVIDERS: Admitting Provider Family Medicine Geriatric Medicine; PCP Family Medicine; Visit Provider Family Medicine Geriatric Medicine
DX: S72.001D Fracture of unspecified part of neck of right femur, subsequent encounter for closed fracture with routine healing (principal); D62 Acute posthemorrhagic anemia; E11.9 Type 2 diabetes mellitus without complications; E03.9 Hypothyroidism, unspecified; I10 Essential (primary) hypertension; G43.909 Migraine, unspecified, not intractable, without status migrainosus; K21.9 Gastro-esophageal reflux disease without esophagitis; Z79.4 Long term (current) use of insulin; E78.00 Pure hypercholesterolemia, unspecified; E55.9 Vitamin D deficiency, unspecified; F17.210 Nicotine dependence, cigarettes, uncomplicated; W19.XXXD Unspecified fall, subsequent encounter; Z79.01 Long term (current) use of anticoagulants; Z79.84 Long term (current) use of oral hypoglycemic drugs; Z79.811 Long term (current) use of aromatase inhibitors; Z79.899 Other long term (current) drug therapy; Z79.890 Hormone replacement therapy
CPT/HCPCS: 36415; 36430; 80048; 82962; 85014; 85018; 85025; 86850; 86900; 86901; 86920; 86922; 97110; 97112; 97116; 97162; 97166; 97530; 97535; 97802; P9016; A4216; J1940

== ENCOUNTER → 2024-05-26 | Outpatient (CLI) | payer MEDICARE, SELFPAY ==
[2020-03-30 14:28] VITALS: BMI 30.9
[2024-05-26 13:07] LABS: Cholesterol 151 mg/dL (<=200); Free T3 2.3 pg/mL (2.18-3.98); High Density Lipoprotein 61 mg/dL; Low Density Lipoprotein Calc. 65 mg/dL; Triglycerides 129 mg/dL; Very Low Density Lipoprotein 26 mg/dL (5-40); cholesterol:hdl ratio screen 2.49
[2024-05-26 13:41] LABS: ALB/GLOB Ratio 1.8 RATIO (0.9-2.4); AST(SGOT) 19 U/L (<=31); Alanine Aminotransfer ALT/SGPT < 5 U/L (<=34); Albumin, Serum 4.7 g/dL (3.4-4.8); Alkaline Phosphatase 92 U/L (35-104); Anion Gap 15 (5-15); BUN 20 mg/dL (4-19); Chloride 100 mmol/L (96-108); Creatinine, Serum 0.9 mg/dL (0.6-1.0); EST Glomerular Filtration Rate 72 (>60); Globulin 2.6 g/dL (2.2-4.2); Glucose 105 mg/dL (70-99); Potassium 3.9 mmol/L (3.3-5.1); Protein, Total 7.3 g/dL (5.9-8.4); Sodium Level 138 mmol/L (133-145); Total Bilirubin 0.43 mg/dL (0.00-1.30)
[2024-05-26 16:13] LABS: Microalbumin:Creatinine Ratio 816.2 mg/g CRE
[2024-05-26 17:18] LABS: Hemoglobin A1c 5.6 % (<=5.6)
== END | disposition home or self-care (01) ==
LOC: MFPLAB 09:21
PROVIDERS: PCP Family Medicine; Referring Provider Family Medicine; Visit Provider Family Medicine
DX: E03.9 Hypothyroidism, unspecified (principal); E11.9 Type 2 diabetes mellitus without complications
CPT/HCPCS: 36415; 80053; 80061; 82043; 82570; 83036; 84439; 84443; 84481

== ENCOUNTER → 2024-07-01 | Outpatient (CLI) | payer MEDICARE, MEDICAID, SELFPAY ==
[2020-03-30 14:28] VITALS: BMI 30.9
--- NOTE | 2024-07-01 13:23 | BI_ITS ---
EXAM: SCRN MAMM (CAD)W/JAZMINE BILAT DATE: 07/01/2024 CLINICAL HISTORY: F, Age 69 y/o , SCREENING Personal history of breast cancer. Prior right lumpectomy. BREAST CANCER RISK ASSESSMENT: Not assessed. TECHNIQUE: Bilateral screening digital breast tomosynthesis with 2D and 3D images. Computer aided detection. COMPARISON: Prior exam(s) dated comparison is made with prior study dated May 14, 2022.. FINDINGS: TISSUE DENSITY: The breast tissue is composed of scattered area of fibroglandular density. Once again, the patient is status post lumpectomy in the deep upper lateral aspect of the right breast with resultant postoperative scarring. Bilateral Breast Mammographic Findings: No significant masses, calcifications or other abnormalities are identified. No suspicious masses, areas of developing architectural distortion, or suspicious calcifications. There has been no significant interval change. BI/SCRN MAMM (CAD)W/JAZMINE BILAT IMPRESSION: Right Breast: BIRADS 2 BENIGN FINDING. Left Breast: BIRADS 1 NEGATIVE. OVERALL FINAL ASSESSMENT: BIRADS 2 BENIGN FINDING RECOMMENDATION: Routine annual follow-up in 1 Year A letter with findings and recommendations will be mailed to the patient. Reading Location: [place] [id number]
--- NOTE | 2024-07-01 13:23 | BD_ITS ---
PROCEDURE: DEXA BONE DENSITY STUDY 07/01/2024 REASON FOR EXAM: SCREENING FOR OSTEOPOROSIS F, age 69 y/o . Postmenopausal. TECHNIQUE: DXA scan of the lumbar spine and left hip, using make and model. REFERENCE LINKS: ISCD Adult Positions COMPARISON: Comparison is made with prior study dated May 14, 2022. 0.887 FINDINGS: BMD and T-SCORES Lumbar spine: 0.887 g/cm2, T-Score -1.5 Improvement by 1.8% change from prior: Left femoral neck: 0.629 g/cm2, T-Score -2.0 Femoral neck comparison data not recommended for monitoring change. Left total hip: 0.723 g/cm2, T-Score -1.8 Change from prior: Loss of 0.7% Fracture Risk Calculation: FRAX (10-year Fracture Risk) Score: FRAX scores should never be reported in a patient with osteoporosis on DEXA or for any patient that is on bone medication. The patient doesmeet the pharmacological treatment recommendations for prevention of osteoporosis BD/Dexa Bone Density Study IMPRESSION: OSTEOPENIA. Recommend follow-up as clinically warranted. Reading Location: [place] [id number]
== END | disposition home or self-care (01) ==
LOC: OPBD 13:20
PROVIDERS: PCP Family Medicine; Referring Provider Nurse Practitioner Family; Visit Provider Nurse Practitioner Family
DX: Z12.31 Encounter for screening mammogram for malignant neoplasm of breast (principal); Z78.0 Asymptomatic menopausal state; M85.89 Other specified disorders of bone density and structure, multiple sites; Z79.811 Long term (current) use of aromatase inhibitors
CPT/HCPCS: 77063; 77067; 77080

== ENCOUNTER → 2024-07-20 | Outpatient (CLI) | payer MEDICARE, MEDICAID, SELFPAY ==
[2020-03-30 14:28] VITALS: BMI 30.9
--- NOTE | 2024-07-20 12:59 | CT_ITS ---
PROCEDURE: LOW DOSE CT LUNG SCREENING 07/20/2024 REASON FOR EXAM: LUNG CANCER SCREENING 1 pack per day for 20 years. TECHNIQUE: Low Dose CT Lung screening without contrast. Coronal and Sagittal reconstruction series were provided. One or more dose reduction techniques were used (e.g., Automated exposure control, adjustment of the mA and/or kV according to patient size, use of iterative reconstruction technique). REFERENCE LINK: Unruly Lung-RADS RADIATION DOSE SUMMARY: CTDlvol: 1.59 mGy DLP: 55.4 mGycm COMPARISON: None. FINDINGS: PULMONARY NODULES: (Only nodules >3mm are reported) Nodules described below are on series 1 unless otherwise specified. Pulmonary Nodules: No suspicious nodules seen. Hardware:None Lymph Nodes:No evidence of lymphadenopathy. Heart and Vasculature:The heart is nonenlarged.Atherosclerotic calcifications of the thoracic aorta. Thoracic aorta and pulmonary arteries have normal contours; noncontrast technique limits evaluation. Calcified mitral valve annulus. Coronary Artery Calcifications: Present Lungs and Airways: Mild emphysematous changes are present. Pleura:Unremarkable Upper Abdomen:Unremarkable Bones:Degenerative changes of the thoracic spine. CT/Low Dose CT Lung Screening IMPRESSION: No suspicious nodules are seen. Coronary artery calcification (CAC) is is present Lung-RADS Category: 2 BENIGN (BASED ON IMAGING FEATURES OR INDOLENT BEHAVIOR). RECOMMEND 12-MONTH SCREENING LDCT. Other Significant Findings: None. Reading Location: [place] [id number]
== END | disposition home or self-care (01) ==
LOC: CT 12:59
PROVIDERS: PCP Family Medicine; Referring Provider Nurse Practitioner Family; Visit Provider Nurse Practitioner Family
DX: Z87.891 Personal history of nicotine dependence (principal); Z12.5 Encounter for screening for malignant neoplasm of prostate
CPT/HCPCS: 71271

== ENCOUNTER 2024-07-29 11:30 | Outpatient (RCR) | payer MEDICARE, MEDICAID, SELFPAY ==
[2020-03-30 14:28] VITALS: BMI 30.9
--- NOTE | 2024-06-03 12:16 | HP.PTEVAL_ITS ---
Patient's Visit Information Visit Information Visit Information: VERO STEVENS is a 69 year old F referred to Physical Therapy by Dr. Raymond Monzon MD with a diagnosis of R femur Fx 04/05/24. Date of Evaluation: 06/03/24 Physical Therapist: Yoan Lebron, PT, ATC Visit Plan Frequency: 2x /Week Duration: 6 Weeks Plan: R LE strengthening, balance and proprio, core stab ex's, gait training, stair negotiation, nustep, and HEP Subjective Subjective: DOS: 04/03/24. Pt reports she had a R femur Fx repaired at that time. Pt reports she was plugging in her core blower operator at the time and tripped over the cords. Pt reports she fell directly on the cement where she fractured her R femur. Pt denies other previous falls. Pt notes she now ambulates with a wheeled walker, but didnt use an AD prior to this fall. Pt reports she is able to walk with just a cane at home. Pt notes she has had home PT for the past month. Pt reports she is still pretty sore from her surgery. Pt notes the pain is worst at night time. Pt has difficulty with donning and doffing her shoes. Pt also notes increased pain with driving at this time. Pt has stairs to enter her house which she negotiates one step at a time. Pt lives with her daughter. Pt reports she has to go to her basement to do her laundry, but is too afraid to try that at this time. 5/10 pain while sitting here in the clinic, 7/10 pain at worst (at night time). 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 Pain R hip: Pain Intensity (Out of 10): 5 Pain Intensity Range: 7 Objective Objective: Neuro: B LE sensation is WNL to light touch TU sec SLS: L LE 4 sec, R LE 1 seconds ROM: B LE's are WFL compared bilaterally MMT: L LE is grossly 5/5 compared to R LE 4-/5 throughout Balance/Special Test Scores Lower Extremity Functional Score: 17 Goals Goal 1:: Decrease R hip pain x 50% to aid with sleep Goal Time Frame: 4-6 Weeks Goal 2:: Pt will be able to SLS on B LE's for 10 sec to aid with preventing future falls Goal Time Frame: 4-6 Weeks Goal 3:: Pt to perform the tug test in under 10 seconds to aid with efficient ambulation Goal Time Frame: 4-6 Weeks Goal 4:: I with HEP Goal Time Frame: 4-6 Weeks Rehabilitation Potential Physical Therapy Diagnosis: Pt has R hip pain, weakness, and difficulty with gait secondary to R hip Fx Rehabilitation Potential: Good Anticipated Interventions Patient/Client Instruction: Educate patient on: Condition and Plan of Care For the Purpose of:: To improve self management Therapeutic Exercise to Include: Strength training, Endurance training, Balance training, Gait and locomotor training and Dynamic Lumbar Stabilization For the Purpose of:: To decrease pain, To improve muscle performance and motor function and To increase tolerance to activity/condition/position Text: Thank you for the opportunity to evaluate your patient. For Medicare and Medicare HMO plans, please review the plan of care and approve it. It will need to be FAXED BACK to us at [phone] for Medicare purposes. For Medicare only, by signing this I certify the plan of care. Please let me know if there are questions or concerns regarding this plan of care. Physician Signature: Date:
--- NOTE | 2024-06-03 12:16 | HP.PTEVAL_ITS ---
Patient's Visit Information Visit Information Visit Information: VERO STEVENS is a 69 year old F referred to Physical Therapy by Dr. Raymond Monzon MD with a diagnosis of R femur Fx 04/05/24. Date of Evaluation: 06/03/24 Physical Therapist: Yoan Lebron, PT, ATC Visit Plan Frequency: 2x /Week Duration: 6 Weeks Plan: R LE strengthening, balance and proprio, core stab ex's, gait training, stair negotiation, nustep, and HEP Subjective Subjective: DOS: 04/03/24. Pt reports she had a R femur Fx repaired at that time. 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 Pt reports she fell directly on the cement where she fractured her R femur. Pt denies other previous falls. Pt notes she now ambulates with a wheeled walker, but didnt use an AD prior to this fall. Pt reports she is able to walk with just a cane at home. Pt notes she has had home PT for the past month. Pt reports she is still pretty sore from her surgery. Pt notes the pain is worst at night time. Pt has difficulty with donning and doffing her shoes. Pt also notes increased pain with driving at this time. Pt has stairs to enter her house which she negotiates one step at a time. Pt lives with her daughter. Pt reports she has to go to her basement to do her laundry, but is too afraid to try that at this time. 5/10 pain while sitting here in the clinic, 7/10 pain at worst (at night time). 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 Pain R hip: Pain Intensity (Out of 10): 5 Pain Intensity Range: 7 Objective Objective: Neuro: B LE sensation is WNL to light touch TU sec SLS: L LE 4 sec, R LE 1 seconds ROM: B LE's are WFL compared bilaterally MMT: L LE is grossly 5/5 compared to R LE 4-/5 throughout Balance/Special Test Scores Lower Extremity Functional Score: 17 Goals Goal 1:: Decrease R hip pain x 50% to aid with sleep Goal Time Frame: 4-6 Weeks Goal 2:: Pt will be able to SLS on B LE's for 10 sec to aid with preventing future falls Goal Time Frame: 4-6 Weeks Goal 3:: Pt to perform the tug test in under 10 seconds to aid with efficient ambulation Goal Time Frame: 4-6 Weeks Goal 4:: I with HEP Goal Time Frame: 4-6 Weeks Rehabilitation Potential Physical Therapy Diagnosis: Pt has R hip pain, weakness, and difficulty with gait secondary to R hip Fx Rehabilitation Potential: Good Anticipated Interventions Patient/Client Instruction: Educate patient on: Condition and Plan of Care For the Purpose of:: To improve self management Therapeutic Exercise to Include: Strength training, Endurance training, Balance training, Gait and locomotor training and Dynamic Lumbar Stabilization For the Purpose of:: To decrease pain, To improve muscle performance and motor function and To increase tolerance to activity/condition/position Text: Thank you for the opportunity to evaluate your patient. For Medicare and Medicare HMO plans, please review the plan of care and approve it. It will need to be FAXED BACK to us at [phone] for Medicare purposes. For Medicare only, by signing this I certify the plan of care. Please let me know if there are questions or concerns regarding this plan of care. Physician Signature: Date:
--- NOTE | 2024-10-04 14:59 | HP.PT.NRP ---
Patient Information Patient Information: VERO STEVENS was seen in my office for initial evaluation on 06/03/24. The following Plan of Care was established for this patient: POC Established Initial Frequency: 2x /Week Initial Duration: 6 Weeks Anticipated Interventions Patient/Client Instruction: Educate patient on: Condition and Plan of Care For the Purpose of:: To improve self management Therapeutic Exercise to Include: Strength training, Endurance training, Balance training, Gait and locomotor training and Dynamic Lumbar Stabilization For the Purpose of:: To decrease pain, To improve muscle performance and motor function and To increase tolerance to activity/condition/position Last Seen Last Seen: This patient was last seen in our office . Pertinent comments regarding their Physical therapy will appear below: Pt has not returned for greater than 30 days and is discontinued at this time. At this point I will be discontinuing this patient from physical therapy. I would be happy to see this patient again in the future if found appropriate by the physician. Thank you! Yoan Lebron, PT, ATC Balance/Gait/Functional tests Balance/Special Test Scores Lower Extremity Functional Score: 49
== END 2024-07-29 19:00 | disposition home or self-care (01) ==
LOC: PT 11:30
PROVIDERS: PCP Family Medicine; Referring Provider Orthopaedic Surgery; Visit Provider Orthopaedic Surgery
DX: S72.141D Displaced intertrochanteric fracture of right femur, subsequent encounter for closed fracture with routine healing (principal)
CPT/HCPCS: 97110; 97161; 97530

== ENCOUNTER → 2024-08-26 | Outpatient (CLI) | payer MEDICARE, MEDICAID, SELFPAY ==
[2020-03-30 14:28] VITALS: BMI 30.9
[2024-08-26 13:33] LABS: ALB/GLOB Ratio 1.8 RATIO (0.9-2.4); AST(SGOT) 15 U/L (<=31); Alanine Aminotransfer ALT/SGPT 8 U/L (<=34); Albumin, Serum 4.5 g/dL (3.4-4.8); Alkaline Phosphatase 72 U/L (35-104); Anion Gap 13 (5-15); BUN 25 mg/dL (4-19); BUN/Creat Ratio 25.8 RATIO (10-20); Calcium,Total 10.1 mg/dL (7.6-11.0); Carbon Dioxide 24.6 mmol/L (21.0-32.0); Chloride 98 mmol/L (98-108); Cholesterol 121 mg/dL (<=200); Creatinine, Serum 0.95 mg/dL (0.70-1.20); EST Glomerular Filtration Rate 64 (>60); Globulin 2.5 g/dL (2.2-4.2); Glucose 113 mg/dL (70-99); High Density Lipoprotein 51 mg/dL; Low Density Lipoprotein Calc. 46 mg/dL; Potassium 3.8 mmol/L (3.3-5.1); Sodium Level 136 mmol/L (133-145); Total Bilirubin 0.43 mg/dL (0.00-1.30); Triglycerides 122 mg/dL; Very Low Density Lipoprotein 24 mg/dL (5-40); cholesterol:hdl ratio screen 2.39
== END | disposition home or self-care (01) ==
LOC: MFPLAB 09:30
PROVIDERS: PCP Family Medicine; Referring Provider Family Medicine; Visit Provider Family Medicine
DX: E11.9 Type 2 diabetes mellitus without complications (principal)
CPT/HCPCS: 36415; 80053; 80061

== ENCOUNTER → 2025-02-23 | Outpatient (CLI) | payer MEDICARE, MEDICAID, SELFPAY ==
[2020-03-30 14:28] VITALS: BMI 30.9
--- NOTE | 2025-02-23 13:21 | RAD_ITS ---
PROCEDURE: KNEE 4 OR MORE VIEWS 02/23/2025 REASON FOR EXAM: KNEE PAIN TECHNIQUE: Procedure Code: RADKN Modality: DX Procedure: KNEE 4 OR MORE VIEWS Laterality: Right COMPARISON: None available. FINDINGS: Bones: No fracture. No suspicious bone lesion. Joints: Normal alignment. Mild degenerative changes. Effusion: No effusion. Soft tissues: Soft tissues are unremarkable. RAD/Knee 4 or More Views IMPRESSION: DEGENERATIVE OSTEOARTHROSIS. NO ACUTE FINDINGS. Reading [facility]
== END | disposition home or self-care (01) ==
PROVIDERS: PCP Family Medicine; Referring Provider Family Medicine; Visit Provider Family Medicine
DX: M25.561 Pain in right knee (principal)
CPT/HCPCS: 73564